=== PATIENT | female | born 1930 | race American Indian/Alaskan Native ===

== ENCOUNTER 2018-04-26 04:26 | Inpatient (IN) | payer MEDICARE ==
[2018-04-26] MEDS ORDERED: PROVENTIL IH ONE (04:42)
[2018-04-26] MEDS ORDERED: ATROVENT IH ONE (04:42)
[2018-04-26 04:58] LABS: Basophils # (Auto) 0.1 K/mm3 (0.0-0.1); Basophils % (Auto) 0.9 % (0.0-1.8); Eosinophils # (Auto) 0.1 K/mm3 (0.0-0.4); Eosinophils % (Auto) 1.8 % (0.0-4.3); Hematocrit 27.9 % (30.3-42.9); Hemoglobin 8.8 gm/dl (10.1-14.3); Lymphocytes # (Auto) 0.5 K/mm3 (1.2-5.4); Lymphocytes % (Auto) 5.9 % (13.4-35.0); Mean Corpuscular HGB Conc 32 % (30-34); Mean Corpuscular Volume 96 fl (79-97); Monocytes % (Auto) 11.6 % (0.0-7.3); Platelet Count 249 K/mm3 (140-440); Red Blood Count 2.91 M/mm3 (3.65-5.03); Red Cell Distribution Width 17.7 % (13.2-15.2)
[2018-04-26 05:08] LABS: INR 1.22 (0.87-1.13)
[2018-04-26 05:09] LABS: Partial Thromboplastin Time 32.4 Sec. (24.2-36.6)
[2018-04-26 05:19] LABS: Calcium 8.3 mg/dL (8.4-10.2)
--- NOTE | 2018-04-26 05:28 | XRay Report ---
FINAL REPORT PROCEDURE: XR CHEST 1V AP TECHNIQUE: Chest radiograph anteroposterior view. CPT 40767 HISTORY: SOB COMPARISON: No prior studies are available for comparison. FINDINGS: Heart: The heart is enlarged. Mediastinum/Vessels: Normal. Lungs/Pleural space: There are bilateral pleural effusions larger on the right. There right perihilar infiltrates. There is no pneumothorax.. Bony thorax: No acute osseous abnormality. Life support devices: None. IMPRESSION: The heart is enlarged. There are bilateral pleural effusions larger on the right. There right perihilar infiltrates. There i s no pneumothorax.. .
[2018-04-26 05:45] LABS: Chol/HDL Ratio 1.92 %
--- NOTE | 2018-04-26 06:11 | Emergency Department Report ---
ED Shortness of Breath HPI - General Chief Complaint: Dyspnea/Respdistress Stated Complaint: RESPIRATORY DISTRESS Time Seen by Provider: 04/26/18 06:05 Source: patient, EMS Mode of arrival: Stretcher Limitations: Physical Limitation - History of Present Illness Initial Comments: Patient is a 87-year-old female that presents emergency room with complaints of difficulty in breathing and congestion that started at 3 AM today. [facility] a [facility] a [facility]. Patient was brought in by EMS. Patient was given medication by EMS in route. Medications include Solu-Medrol, albuterol and Lasix. Patient was initially hypoxic. MD Complaint: shortness of breath -: Sudden Severity: severe Consistency: constant Improves With: oxygen, rest Worsens With: exertion, movement Known History Of: COPD, congestive heart failure Associated Symptoms: cough, sputum production Treatments Prior to Arrival: oxygen, bronchodilator, other - Related Data Home Oxygen Therapy: Yes Home Oxygen Amount: 3 Liters Previous Rx's Medication Instructions Recorded Last Taken Type Amiodarone [Cordarone 200 MG TAB] 200 mg PO QDAY #30 tablet 05/06/17 Unknown Rx Aspirin [Aspirin BABY CHEW TAB] 81 mg PO QDAY #30 tab.chew 05/06/17 Unknown Rx Folic Acid [Folvite] 1 mg PO QDAY #30 tablet 05/06/17 Unknown Rx Furosemide [Furosemide ORAL LIQ] 40 mg PO QDAY #20 ml 05/06/17 Unknown Rx Levalbuterol [Xopenex] 1.25 mg IH Q6HRT #1 nebu 05/06/17 Unknown Rx Levothyroxine [Synthroid] 125 mcg PO QAM #30 tablet 05/06/17 Unknown Rx Potassium Chloride [K-Dur] 20 meq PO QHS #30 tablet 05/06/17 Unknown Rx Pravastatin [Pravachol] 40 mg PO DAILY #30 tablet 05/06/17 Unknown Rx amLODIPine [Norvasc] 5 mg PO QDAY #30 tablet 05/06/17 Unknown Rx levETIRAcetam [Keppra] 500 mg PO BID #30 tablet 05/06/17 Unknown Rx traZODone [Desyrel] 50 mg PO QHS #30 tablet 05/06/17 Unknown Rx Allergies Allergy/AdvReac Type Severity Reaction Status Date / Time No Known Allergies Allergy Verified 04/03/14 21:12 ED Review of Systems ROS: Stated complaint: RESPIRATORY DISTRESS Other details as noted in HPI Constitutional: denies: chills, fever Eyes: denies: eye pain, eye discharge, vision change ENT: denies: ear pain, throat pain Respiratory: cough, shortness of breath, SOB with exertion, SOB at rest, wheezing Cardiovascular: denies: chest pain, palpitations Endocrine: no symptoms reported Gastrointestinal: denies: abdominal pain, nausea, diarrhea Genitourinary: denies: urgency, dysuria, discharge Musculoskeletal: denies: back pain, joint swelling, arthralgia Skin: denies: rash, lesions Neurological: denies: headache, weakness, paresthesias Psychiatric: denies: anxiety, depression Hematological/Lymphatic: denies: easy bleeding, easy bruising ED Past Medical Hx - Past Medical History Previous Medical History?: Yes Hx Hypertension: Yes Hx Heart Attack/AMI: No Hx Congestive Heart Failure: Yes Hx Diabetes: No (son denied) Hx Deep Vein Thrombosis: Yes Hx Arthritis: Yes (Rt shoulder and knee) Hx Headaches / Migraines: No Hx Seizures: Yes (seizure/TIA workup December 2012) Hx Asthma: Yes Hx Dementia: Yes Hx HIV: No Additional medical history: Anemia with transfusion April 2013. Seizure/TIA workup in December 2012 revealed 2 small meningiomas. hypothyroid - Surgical History Past Surgical History?: Yes Hx Coronary Stent: Yes Hx Pacemaker: Yes Hx Internal Defibrillator: No Additional Surgical History: hysterectomy, left ankle repair (fx) about 4 years ago - Family History Family history: no significant - Social History Smoking Status: Former Smoker Substance Use Type: None - Medications Home Medications: Home Medications Medication Instructions Recorded Confirmed Last Taken Type Amiodarone [Cordarone 200 MG TAB] 200 mg PO QDAY #30 tablet 05/06/17 Unknown Rx Aspirin [Aspirin BABY CHEW TAB] 81 mg PO QDAY #30 tab.chew 05/06/17 Unknown Rx Folic Acid [Folvite] 1 mg PO QDAY #30 tablet 05/06/17 Unknown Rx Furosemide [Furosemide ORAL LIQ] 40 mg PO QDAY #20 ml 05/06/17 Unknown Rx Levalbuterol [Xopenex] 1.25 mg IH Q6HRT #1 nebu 05/06/17 Unknown Rx Levothyroxine [Synthroid] 125 mcg PO QAM #30 tablet 05/06/17 Unknown Rx Potassium Chloride [K-Dur] 20 meq PO QHS #30 tablet 05/06/17 Unknown Rx Pravastatin [Pravachol] 40 mg PO DAILY #30 tablet 05/06/17 Unknown Rx amLODIPine [Norvasc] 5 mg PO QDAY #30 tablet 05/06/17 Unknown Rx levETIRAcetam [Keppra] 500 mg PO BID #30 tablet 05/06/17 Unknown Rx traZODone [Desyrel] 50 mg PO QHS #30 tablet 05/06/17 Unknown Rx ED Physical Exam - General Limitations: Altered Mental Status, Physical Limitation General appearance: alert, in no apparent distress - Head Head exam: Present: atraumatic, normocephalic - Eye Eye exam: Present: normal appearance - ENT ENT exam: Present: mucous membranes dry - Neck Neck exam: Present: normal inspection - Respiratory Respiratory exam: Present: respiratory distress, wheezes - Cardiovascular Cardiovascular Exam: Present: regular rate, normal rhythm. Absent: systolic murmur, diastolic murmur, rubs, gallop - GI/Abdominal GI/Abdominal exam: Present: soft, normal bowel sounds. Absent: distended, te nderness, guarding - Rectal Rectal exam: Present: deferred - Extremities Exam Extremities exam: Present: normal inspection - Back Exam Back exam: Present: normal inspection - Neurological Exam Neurological exam: Present: alert, altered - Skin Skin exam: Present: warm, dry, intact, normal color. Absent: rash ED Course Vital Signs 04/26/18 04/26/18 04/26/18 04:32 04:40 04:47 Temperature 98.4 F Pulse Rate 104 H 104 H Pulse Rate [ 103 H Anterior Bilateral Throughout] Respiratory 30 H 26 H Rate Respiratory 26 H Rate [Anterior Bilateral Throughout] Blood Pressure 126/59 Blood Pressure 126/59 [Left] O2 Sat by Pulse 85 98 Oximetry 04/26/18 04/26/18 04/26/18 04:50 05:00 05:10 Temperature Pulse Rate 102 H 98 H 103 H Pulse Rate [ Anterior Bilateral Throughout] Respiratory 28 H 28 H 27 H Rate Respiratory Rate [Anterior Bilateral Throughout] Blood Pressure 126/59 118/41 118/41 Blood Pressure [Left] O2 Sat by Pulse 98 99 98 Oximetry 04/26/18 04/26/18 04/26/18 05:16 05:20 05:30 Temperature Pulse Rate 100 H 107 H Pulse Rate [ 108 H Anterior Bilateral Throughout] Respiratory 29 H 27 H Rate Respiratory 27 H Rate [Anterior Bilateral Throughout] Blood Pressure 118/41 120/35 Blood Pressure [Left] O2 Sat by Pulse 100 100 Oximetry 04/26/18 04/26/18 04/26/18 05:40 05:50 06:00 Temperature Pulse Rate 105 H 103 H 104 H Pulse Rate [ Anterior Bilateral Throughout] Respiratory 29 H 30 H 29 H Rate Respiratory Rate [Anterior Bilateral Throughout] Blood Pressure 120/35 120/35 123/39 Blood Pressure [Left] O2 Sat by Pulse 100 100 100 Oximetry 04/26/18 04/26/18 04/26/18 06:10 06:20 07:00 Temperature Pulse Rate 109 H 108 H 110 H Pulse Rate [ Anterior Bilateral Throughout] Respiratory 26 H 28 H 26 H Rate Respiratory Rate [Anterior Bilateral Throughout] Blood Pressure 123/39 123/39 112/45 Blood Pressure [Left] O2 Sat by Pulse 100 100 97 Oximetry 04/26/18 04/26/18 04/26/18 07:30 07:31 07:37 Temperature 97.3 F L Pulse Rate 102 H 101 H Pulse Rate [ Anterior Bilateral Throughout] Respiratory 27 H 35 H Rate Respiratory Rate [Anterior Bilateral Throughout] Blood Pressure 109/40 109/40 Blood Pressure [Left] O2 Sat by Pulse 98 96 Oximetry 04/26/18 04/26/18 04/26/18 07:40 07:50 08:00 Temperature Pulse Rate 100 H 107 H 108 H Pulse Rate [ Anterior Bilateral Throughout] Respiratory 29 H 19 22 Rate Respiratory Rate [Anterior Bilateral Throughout] Blood Pressure 112/45 112/45 101/39 Blood Pressure [Left] O2 Sat by Pulse 95 96 96 Oximetry 04/26/18 04/26/18 04/26/18 08:10 08:20 08:30 Temperature Pulse Rate 104 H 103 H 98 H Pulse Rate [ Anterior Bilateral Throughout] Respiratory 25 H 21 22 Rate Respiratory Rate [Anterior Bilateral Throughout] Blood Pressure 101/39 101/39 99/39 Blood Pressure [Left] O2 Sat by Pulse 96 97 97 Oximetry 04/26/18 04/26/18 04/26/18 08:40 08:50 09:00 Temperature Pulse Rate 101 H Pulse Rate [ Anterior Bilateral Throughout] Respiratory 21 19 18 Rate Respiratory Rate [Anterior Bilateral Throughout] Blood Pressure 101/39 101/39 103/44 Blood Pressure [Left] O2 Sat by Pulse 98 98 98 Oximetry 04/26/18 04/26/18 04/26/18 09:10 09:20 09:30 Temperature Pulse Rate Pulse Rate [ Anterior Bilateral Throughout] Respiratory 25 H 21 18 Rate Respiratory Rate [Anterior Bilateral Throughout] Blood Pressure 99/39 99/39 98/43 Blood Pressure [Left] O2 Sat by Pulse 99 99 99 Oximetry 04/26/18 04/26/18 04/26/18 09:40 09:50 10:00 Temperature Pulse Rate Pulse Rate [ Anterior Bilateral Throughout] Respiratory 18 20 19 Rate Respiratory Rate [Anterior Bilateral Throughout] Blood Pressure 103/44 103/44 109/50 Blood Pressure [Left] O2 Sat by Pulse 99 99 99 Oximetry - Reevaluation(s) Reevaluation #1: Discussed case with family at bedside. Initial evaluation done. She will need to be placed on BiPAP. 04/26/18 06:22 - Consultations Consultation #1: Hospitalist consulted for admission. Hospitalist to admit patient and assume care of patient. Bridge orders placed 04/26/18 07:37 ED Medical Decision Making - Lab Data Result diagrams: 04/26/18 04:43 04/26/18 04:43 - EKG Data -: EKG Interpreted by [facility] EKG shows normal: axis, intervals, QRS complexes, ST-T waves Rate: tachycardia - EKG Data Interpretation: other (atrial fibrillation. ) - Radiology Data Radiology results: report reviewed FINAL REPORT PROCEDURE: XR CHEST 1V AP TECHNIQUE: Chest radiograph anteroposterior view. CPT 57591 HISTORY: SOB COMPARISON: No prior studies are available for comparison. FINDINGS: Heart: The heart is enlarged. Mediastinum/Vessels: Normal. Lungs/Pleural space: There are bilateral pleural effusions larger on the right. There right perihilar infiltrates. There is no pneumothorax.. Bony thorax: No acute osseous abnormality. Life support devices: None. IMPRESSION: The heart is enlarged. There are bilateral pleural effusions larger on the right. There right perihilar infiltrates. There is no pneumothorax.. . - Medical Decision Making Patient is an 87-year-old female that presents emergent complaints of shortness of breath and dyspnea and Cough and congestion. Patient found to be hypoxic. Patient's labs were reviewed. Patient has multiple lab abnormalities. Patient chest x-ray shows a right-sided pneumonia and CHF changes. Patient found to have a CHF exacerbation as well as COPD exacerbation as well as pneumonia. Patient will be admitted to the hospital. Due the patient's findings, patient placed on BiPAP. - Differential Diagnosis copd/asthma exac. chf exac. pna. hypoxia Critical Care Time: Yes Critical care attestation.: If time is entered above; I have spent that time in minutes in the direct care of this critically ill patient, excluding procedure time. Critical Care Time: 35 minutes ED Disposition Clinical Impression: Respiratory distress, Hypoxia, Respiratory acidosis, Elevated troponin I level, Renal insufficiency CHF (congestive heart failure) Qualifiers: Heart failure type: unspecified Heart failure chronicity: acute on chronic Qualified Code(s): I50.9 - Heart failure, unspecified Anemia Qualifiers: Anemia type: unspecified type Qualified Code(s): D64.9 - Anemia, unspecified CHF exacerbation Qualifiers: Heart failure type: unspecified Qualified Code(s): I50.9 - Heart failure, unspecified Pneumonia Qualifiers: Pneumonia type: due to unspecified organism Laterality: right Lung location: unspecified part of lung Qualified Code(s): J18.9 - Pneumonia, unspecified organism Acute respiratory failure Qualifiers: Respiratory failure complication: hypoxia and hypercapnia Qualified Code(s): J96.01 - Acute respiratory failure with hypoxia Afib Qualifiers: Atrial fibrillation type: chronic Qualified Code(s): I48.2 - Chronic atrial fibrillation Disposition: OP ADMIT IP TO THIS HOSP Is pt being admited?: Yes Does the pt Need Aspirin: No Condition: Critical Time of Disposition: 07:37
[2018-04-26] MEDS ORDERED: MAXIPIME/NS 2 GM/100 ML 2 GM/100 ML BAG IV ONE (06:58)
--- NOTE | 2018-04-26 08:05 | History and Physical Report ---
History of Present Illness Date of examination: 04/26/18 Date of admission: 04/26/18 Chief complaint: Worsening shortness of breath/respiratory distress History of present illness: 87-year-old, female patient resident of [facility] rehabilitation was in acute respiratory distress with worsening shortness of breath EMS was called, and patient was noted to be in severe hypoxia with room air O2 sats of 82% Patient received IV Lasix and nebulizers and IV steroids and oxygen with mild improvement Upon arrival patient was in mild distress ,acidotic and hypoxic and hypercapnic respiratory failure Patient is minimally communicative, unable to obtain proper history Initial workup was consistent with hypoxemia, the congestion past troponins Chest x-ray consistent with bilateral pleural effusion right more than left, perihilar infiltrate At the time of my evaluation patient is on BiPAP saturating 94-95% Tachypneic and tachycardic Past History Past Medical History: atrial fib, COPD, heart failure, hypertension, hyperlipidemia, hypothyroidism, seizures, other (dementia) Past Surgical History: hysterectomy, Other (ankle surgery) Social history: full code, other ([facility] resident). denies: smoking, alcohol abuse Family history: hypertension Medications and Allergies Allergies Allergy/AdvReac Type Severity Reaction Status Date / Time No Known Allergies Allergy Verified 04/03/14 21:12 Home Medications Medication Instructions Recorded Confirmed Last Taken Type Amiodarone [Cordarone 200 MG TAB] 200 mg PO QDAY #30 tablet 05/06/17 Unknown Rx Aspirin [Aspirin BABY CHEW TAB] 81 mg PO QDAY #30 tab.chew 05/06/17 Unknown Rx Folic Acid [Folvite] 1 mg PO QDAY #30 tablet 05/06/17 Unknown Rx Furosemide [Furosemide ORAL LIQ] 40 mg PO QDAY #20 ml 05/06/17 Unknown Rx Levalbuterol [Xopenex] 1.25 mg IH Q6HRT #1 nebu 05/06/17 Unknown Rx Levothyroxine [Synthroid] 125 mcg PO QAM #30 tablet 05/06/17 Unknown Rx Potassium Chloride [K-Dur] 20 meq PO QHS #30 tablet 05/06/17 Unknown Rx Pravastatin [Pravachol] 40 mg PO DAILY #30 tablet 05/06/17 Unknown Rx amLODIPine [Norvasc] 5 mg PO QDAY #30 tablet 05/06/17 Unknown Rx levETIRAcetam [Keppra] 500 mg PO BID #30 tablet 05/06/17 Unknown Rx traZODone [Desyrel] 50 mg PO QHS #30 tablet 05/06/17 Unknown Rx Review of Systems ROS unobtainable: due to mental status Exam - Constitutional Vitals: Temp Pulse Resp BP Pulse Ox 97.3 F L 101 H 35 H 109/40 96 04/26/18 07:31 04/26/18 07:37 04/26/18 07:37 04/26/18 07:37 04/26/18 07:37 General appearance: Present: no acute distress, cachectic, disheveled, other (confused) - EENT Eyes: Present: PERRL, EOM intact - Neck Neck: Present: supple, normal ROM - Respiratory Respiratory effort: labored Respiratory: bilateral: diminished (right more than left), rhonchi, negative: rales, wheezing - Cardiovascular Heart Sounds: Present: S1 & S2 - Extremities Extremities: no ischemia, No edema, abnormal (chronic age-related changes) - Abdominal General gastrointestinal: Present: soft, non-tender, non-distended, normal bowel sounds - Integumentary Integumentary: Present: clear, warm - Musculoskeletal Musculoskeletal: generalized weakness - Psychiatric Psychiatric: other (noncommunicative) - Neurologic Neurologic: other (minimal communication) Results - Labs CBC & Chem 7: 04/26/18 04:43 04/26/18 04:43 Labs: Abnormal lab results 04/26/18 04/26/18 04/26/18 Range/Units 04:43 04:43 04:47 RBC 2.91 L (3.65-5.03) M/mm3 Hgb 8.8 L (10.1-14.3) gm/dl Hct 27.9 L (30.3-42.9) % RDW 17.7 H (13.2-15.2) % Lymph % (Auto) 5.9 L (13.4-35.0) % [place] % (Auto) 11.6 H (0.0-7.3) % Lymph # 0.5 L (1.2-5.4) K/mm3 [place] # 1.0 H (0.0-0.8) K/mm3 Seg Neutrophils % 79.8 H (40.0-70.0) % PT 15.8 H (12.2-14.9) Sec. INR 1.22 H (0.87-1.13) D-Dimer (0-234) ng/mlDDU POC ABG pH (7.35-7.45) POC ABG pCO2 (35-45) POC ABG pO2 (80-105) Sodium 146 H (137-145) mmol/L Chloride 111.4 H (98-107) mmol/L Carbon Dioxide 21 L (22-30) mmol/L BUN 27 H (7-17) mg/dL Creatinine 1.8 H (0.7-1.2) mg/dL Calcium 8.3 L (8.4-10.2) mg/dL Troponin T (0.00-0.029) ng/mL NT-Pro-B Natriuret Pep (0-900) pg/mL LDL Cholesterol Direct (50-130) mg/dL HDL Cholesterol (40-59) mg/dL 04/26/18 04/26/18 04/26/18 Range/Units 04:47 04:47 05:34 RBC (3.65-5.03) M/mm3 Hgb (10.1-14.3) gm/dl Hct (30.3-42.9) % RDW (13.2-15.2) % Lymph % (Auto) (13.4-35.0) % [place] % (Auto) (0.0-7.3) % Lymph # (1.2-5.4) K/mm3 [place] # (0.0-0.8) K/mm3 Seg Neutrophils % (40.0-70.0) % PT (12.2-14.9) Sec. INR (0.87-1.13) D-Dimer 254.08 H (0-234) ng/mlDDU POC ABG pH 7.142 L (7.35-7.45) POC ABG pCO2 65.4 H (35-45) POC ABG pO2 126 H (80-105) Sodium (137-145) mmol/L Chloride (98-107) mmol/L Carbon Dioxide (22-30) mmol/L BUN (7-17) mg/dL Creatinine (0.7-1.2) mg/dL Calcium (8.4-10.2) mg/dL Troponin T 0.149 H* (0.00-0.029) ng/mL NT-Pro-B Natriuret Pep 5133 H (0-900) pg/mL LDL Cholesterol Direct 45 L (50-130) mg/dL HDL Cholesterol 67 H (40-59) mg/dL Assessment and Plan --Acute hypoxic/hypercapnic respiratory failure; requiring BiPAP Titrate O2 sats >90%, nebs, IV steroids,IV antibiotics, supportive care --Acute exacerbation of bronchial asthma; Oxygen nebulizers IV steroids and IV antibiotics inhalation steroids Pulmonary critical consultation --Bilateral pleural effusion; right more than left, pulmonary consultation Possible ultrasound-guided thoracentesis if needed --Perihilar infiltrate/possible pneumonia; empiric antibiotics --Acute on chronic congestive heart failure; EF :45-50% 2 years ago, IV diuretics, beta blockers Input output monitoring, echocardiogram, cardiology evaluation --Positive cardiac enzymes/possible non-ST elevation SD Cardiac medications serial cardiac enzymes and EKGs Cardiology evaluation --Acute on chronic kidney injury; vasomotor nephropathy, avoid nephrotoxins, nephro evaluation if no improvement --History of A. fib; rate controlled: Continue amiodarone, aspirin, not a candidate for chronic anticoagulation, h/o GI bleed ,dementia ,age risk of falls Cardiology consultation --Dementia; supportive care --Hypothyroidism; continue Synthroid --DVT prophylaxis; SCDs, Lovenox --Full CODE STATUS Patient hypoxemia, if no improvement on noninvasive ventilation patient may need intubation and mechanical ventilation, Admit to ICU, critical care consult The high probability of a clinically significant, sudden or life threatening deterioration of the [ respiratory, renal, cardiac,metabolic and neuro] system(s) required my full and direct attention, intervention and personal management.The aggregate critical care time was [45] minutes. This time is in addition to time spent performing reported procedures but includes the following: [x] Data Review and interpretation [x] Patient assessment and monitoring of vital signs [x] Documentation [x] Medication orders and management
[2018-04-26] MEDS ORDERED: PROTONIX IV SCH (10:00)
[2018-04-26] MEDS: NORVASC PO SCH (11:13)
--- NOTE | 2018-04-26 11:33 | Consultation ---
History of Present Illness - Reason for Consult Consult date: 04/26/18 chronic renal failure - History of Present Illness The patient is an 87 YO female from [facility] rehabilitation with history significant for HTN, HLD, Atrial fib, COPD, CHF, Hypothyroidism and Seizures who presented with acute respiratory distress. Patient was not able to provide any history and there was no family members at the bedside. She was noted to be hypoxic with room air O2 sats of 82%. Patient received IV Lasix, nebulizers, IV steroids and oxygen with mild improvement. She was noted to have acidosis, hypoxic hypercapnic respiratory failure, bilateral pleural effusion right more than left, perihilar infiltrate and elevated creatinine level. Nephrology was consulted for further evaluation and treatment. Past History Past Medical History: atrial fib, COPD, heart failure, hypertension, hyperlipidemia, hypothyroidism, seizures Past Surgical History: hysterectomy, Other (ankle surgery) Social history: full code, other ([facility] resident). denies: smoking, alcohol abuse Family history: hypertension Medications and Allergies Allergies Allergy/AdvReac Type Severity Reaction Status Date / Time No Known Allergies Allergy Verified 04/03/14 21:12 Home Medications Medication Instructions Recorded Confirmed Last Taken Type Amiodarone [Cordarone 200 MG TAB] 200 mg PO QDAY #30 tablet 05/06/17 Unknown Rx Aspirin [Aspirin BABY CHEW TAB] 81 mg PO QDAY #30 tab.chew 05/06/17 Unknown Rx Folic Acid [Folvite] 1 mg PO QDAY #30 tablet 05/06/17 Unknown Rx Furosemide [Furosemide ORAL LIQ] 40 mg PO QDAY #20 ml 05/06/17 Unknown Rx Levalbuterol [Xopenex] 1.25 mg IH Q6HRT #1 nebu 05/06/17 Unknown Rx Levothyroxine [Synthroid] 125 mcg PO QAM #30 tablet 05/06/17 Unknown Rx Potassium Chloride [K-Dur] 20 meq PO QHS #30 tablet 05/06/17 Unknown Rx Pravastatin [Pravachol] 40 mg PO DAILY #30 tablet 05/06/17 Unknown Rx amLODIPine [Norvasc] 5 mg PO QDAY #30 tablet 05/06/17 Unknown Rx levETIRAcetam [Keppra] 500 mg PO BID #30 tablet 05/06/17 Unknown Rx traZODone [Desyrel] 50 mg PO QHS #30 tablet 05/06/17 Unknown Rx Active Meds: Active Medications Albuterol/Ipratropium (Duoneb *Not For Prn Use*) 1 ampul IH Q6HRT [facility] Amiodarone HCl (Cordarone) 200 mg PO QDAY [facility] Amlodipine Besylate (Norvasc) 5 mg PO QDAY [facility] Last Admin: 04/26/18 11:13 Dose: Not Given Documented by: Aspirin (Baby Aspirin) 81 mg PO QDAY [facility] Budesonide (Pulmicort) 0.5 mg IH Q12HRT [facility] Famotidine (Pepcid) 20 mg IV BID [facility] Folic Acid (Folvite) 1 mg PO QDAY [facility] Furosemide (Lasix) 40 mg IV QDAY [facility] Levofloxacin/Dextrose (Levaquin 500mg/100ml) 500 mg in 100 mls @ 100 mls/hr IV Q24HR [facility]; Protocol Piperacillin Sod/Tazobactam Sod (Zosyn/Ns 4.5gm/100ml) 4.5 gm in 100 mls @ 200 mls/hr IV Q8HR [facility]; Protocol Levetiracetam (Keppra) 500 mg PO BID [facility] Levothyroxine Sodium (Synthroid) 125 mcg PO QAM@0600 [facility] Methylprednisolone Sodium Succinate (Solu-Medrol) 60 mg IV Q8HR [facility] Pravastatin Sodium (Pravachol) 40 mg PO DAILY [facility] Trazodone HCl (Desyrel) 50 mg PO QHS [facility] Review of Systems ROS unobtainable: due to mental status Exam - Vital Signs Vital signs: Vital Signs Temp Pulse Resp BP Pulse Ox 98.4 F 112 H 28 H 126/59 84 04/26/18 04:32 04/26/18 04:32 04/26/18 04:32 04/26/18 04:32 04/26/18 04:32 - General Appearance General appearance: well-developed, appears stated age, other (on VM O2) EENT: ATNC, PERRL Neck: Present: neck supple, trachea midline Respiratory: Clear to Ascultation Heart: irregularly irregular, S1S2 Gastrointestinal: Present: normoactive bowel sounds. Absent: tenderness, distended Integumentary: no rash, warm and dry Neurologic: other (not following any command) Musculoskeletal: Present: other (no edema) Results - Lab Results 04/27/18 04:39 04/27/18 04:39 Most recent lab results Calcium 8.3 mg/dL (8.4-10.2) L 04/26/18 04:43 - Image Kidney/bladder ultrasound: pending Assessment and Plan 1. Renal insufficiency: Patient was admitted with elevated creatinine level. Creatinine level is about the same as last year. Suspect CKD stage 4. Urine studies ordered. Likely would need Renal US. Renal prognosis is guarded. Monitor renal function. 2. FEN: Received IV Lasix for suspected fluid overload. Anion gap metabolic acidosis, ?2/2 CKD / ARTURO. Sodium bicarbonate as needed. 3. Hypoxic hypercapnic respiratory failure: Followed by Pulmonary. 4. Bilateral pleural effusion right more than left. 5. Perihilar infiltrate, possible pneumonia: Empiric antibiotics 6. Acute on chronic systolic CHF. 7. Positive cardiac enzymes: ? NSTEMI. On ASA. 8. A. fib: Rate controlled on Amiodarone. 9. Dementia.
[2018-04-26] MEDS ORDERED: LASIX IV SCH (12:00)
[2018-04-26] MEDS ORDERED: LEVAQUIN 500MG/100ML 500 MG/100 ML BAG IV SCH (12:00)
--- NOTE | 2018-04-26 12:01 | Consultation ---
History of Present Illness Consult date: 04/26/18 Requesting physician: NICK PRESTON Reason for consult: dyspnea History of present illness: 87 y/o female admitted with acidemia and respiratory distress. Patient not able to provide much history. No family present. Past History Past Medical History: atrial fib, COPD, heart failure, hypertension, hyperlipidemia, hypothyroidism, seizures Past Surgical History: hysterectomy, Other (ankle surgery) Social history: full code, other ([facility] resident). denies: smoking, alcohol abuse Family history: hypertension Medications and Allergies Allergies Allergy/AdvReac Type Severity Reaction Status Date / Time No Known Allergies Allergy Verified 04/03/14 21:12 Home Medications Medication Instructions Recorded Confirmed Last Taken Type Amiodarone [Cordarone 200 MG TAB] 200 mg PO QDAY #30 tablet 05/06/17 Unknown Rx Aspirin [Aspirin BABY CHEW TAB] 81 mg PO QDAY #30 tab.chew 05/06/17 Unknown Rx Folic Acid [Folvite] 1 mg PO QDAY #30 tablet 05/06/17 Unknown Rx Furosemide [Furosemide ORAL LIQ] 40 mg PO QDAY #20 ml 05/06/17 Unknown Rx Levalbuterol [Xopenex] 1.25 mg IH Q6HRT #1 nebu 05/06/17 Unknown Rx Levothyroxine [Synthroid] 125 mcg PO QAM #30 tablet 05/06/17 Unknown Rx Potassium Chloride [K-Dur] 20 meq PO QHS #30 tablet 05/06/17 Unknown Rx Pravastatin [Pravachol] 40 mg PO DAILY #30 tablet 05/06/17 Unknown Rx amLODIPine [Norvasc] 5 mg PO QDAY #30 tablet 05/06/17 Unknown Rx levETIRAcetam [Keppra] 500 mg PO BID #30 tablet 05/06/17 Unknown Rx traZODone [Desyrel] 50 mg PO QHS #30 tablet 05/06/17 Unknown Rx Active Meds: Active Medications Albuterol/Ipratropium (Duoneb *Not For Prn Use*) 1 ampul IH Q6HRT [facility] Amiodarone HCl (Cordarone) 200 mg PO QDAY [facility] Amlodipine Besylate (Norvasc) 5 mg PO QDAY [facility] Last Admin: 04/26/18 11:13 Dose: Not Given Documented by: Aspirin (Baby Aspirin) 81 mg PO QDAY [facility] Budesonide (Pulmicort) 0.5 mg IH Q12HRT [facility] Famotidine (Pepcid) 20 mg IV BID [facility] Folic Acid (Folvite) 1 mg PO QDAY [facility] Furosemide (Lasix) 40 mg IV QDAY [facility] Levofloxacin/Dextrose (Levaquin 500mg/100ml) 500 mg in 100 mls @ 100 mls/hr IV Q24HR [facility]; Protocol Piperacillin Sod/Tazobactam Sod (Zosyn/Ns 4.5gm/100ml) 4.5 gm in 100 mls @ 200 mls/hr IV Q8HR [facility]; Protocol Levetiracetam (Keppra) 500 mg PO BID [facility] Levothyroxine Sodium (Synthroid) 125 mcg PO QAM@0600 [facility] Methylprednisolone Sodium Succinate (Solu-Medrol) 60 mg IV Q8HR [facility] Pravastatin Sodium (Pravachol) 40 mg PO DAILY [facility] Trazodone HCl (Desyrel) 50 mg PO QHS [facility] Review of Systems ROS unobtainable: due to mental status Physical Examination Vital signs: Vital Signs Temp Pulse Resp BP Pulse Ox 98.4 F 112 H 28 H 126/59 84 04/26/18 04:32 04/26/18 04:32 04/26/18 04:32 04/26/18 04:32 04/26/18 04:32 General appearance: no acute distress, alert, lethargic Eyes: non-icteric ENT: oropharynx moist Neck: supple, no JVD Effort: mildly labored Ascultation: Bilateral: diminished breath sounds Cardiovascular: regular rate and rhythm Gastrointestinal: normoactive bowel sounds, soft Extremities: no edema unable to assess Results - Laboratory Findings CBC and BMP: 04/26/18 04:43 04/26/18 04:43 ABG POC ABG pH 7.167 (7.35-7.45) L 04/26/18 10:26 POC ABG pCO2 53.1 (35-45) H 04/26/18 10:26 POC ABG pO2 91 (80-105) 04/26/18 10:26 POC ABG HCO3 19.3 04/26/18 10:26 POC ABG Total CO2 21 04/26/18 10:26 POC ABG O2 Sat 94 04/26/18 10:26 PT/INR, D-dimer PT 15.8 Sec. (12.2-14.9) H 04/26/18 04:47 INR 1.22 (0.87-1.13) H 04/26/18 04:47 D-Dimer 254.08 ng/mlDDU (0-234) H 04/26/18 04:47 Abnormal lab findings: Abnormal Labs 04/26/18 04/26/18 04/26/18 04:43 04:43 04:47 RBC 2.91 L Hgb 8.8 L Hct 27.9 L RDW 17.7 H Lymph % (Auto) 5.9 L Andrews % (Auto) 11.6 H Lymph # 0.5 L Andrews # 1.0 H Seg Neutrophils % 79.8 H PT 15.8 H INR 1.22 H D-Dimer POC ABG pH POC ABG pCO2 POC ABG pO2 Sodium 146 H Chloride 111.4 H Carbon Dioxide 21 L BUN 27 H Creatinine 1.8 H Calcium 8.3 L Troponin T NT-Pro-B Natriuret Pep LDL Cholesterol Direct HDL Cholesterol 04/26/18 04/26/18 04/26/18 04:47 04:47 05:34 RBC Hgb Hct RDW Lymph % (Auto) Andrews % (Auto) Lymph # Andrews # Seg Neutrophils % PT INR D-Dimer 254.08 H POC ABG pH 7.142 L POC ABG pCO2 65.4 H POC ABG pO2 126 H Sodium Chloride Carbon Dioxide BUN Creatinine Calcium Troponin T 0.149 H* NT-Pro-B Natriuret Pep 5133 H LDL Cholesterol Direct 45 L HDL Cholesterol 67 H 04/26/18 10:26 RBC Hgb Hct RDW Lymph % (Auto) Andrews % (Auto) Lymph # Andrews # Seg Neutrophils % PT INR D-Dimer POC ABG pH 7.167 L POC ABG pCO2 53.1 H POC ABG pO2 Sodium Chloride Carbon Dioxide BUN Creatinine Calcium Troponin T NT-Pro-B Natriuret Pep LDL Cholesterol Direct HDL Cholesterol - Diagnostic Findings Chest x-ray: image reviewed (Large right sided pleural effusion) Assessment and Plan 87 y/o female with severe acidemia, exactly etiology is unknown, with hypercapnea, tachypnea and large right sided pleural effusion. 1. Check LFT' 2. Check Thyroid studies 3. Ok with bipap for now 4. Hold on bicarb therapy as bicarb on chemistry was 21 and anion GAP is only 14, normal lactic acid 5. Agree with lasix therapy 6. May need to tap effusion, will reassess later this afternoon 7. Repeat ABG in mid afternoon. CCT 31 minutes.
[2018-04-26 13:28] LABS: Albumin 3.3 g/dL (3.9-5)
[2018-04-26 13:33] LABS: Alanine Aminotransferase < 5 units/L (7-56); Bilirubin,Direct < 0.2 mg/dL (0-0.2)
[2018-04-26] MEDS ORDERED: PROVENTIL IH SCH (14:00)
--- NOTE | 2018-04-26 14:06 | XRay Report ---
AP ABDOMEN: HISTORY: Dobbhoff tube placement. The Dobbhoff tube is coiled in the mid stomach. No obstructive bowel gas pattern is appreciated. There is moderate stool in the colon. Diffuse aortic calcifications are noted. Cardiomegaly, pulmonary venous congestion and small pleural effusions are identified the lung bases. IMPRESSION: The feeding tube terminates in the mid stomach.
--- NOTE | 2018-04-26 14:10 | Consultation ---
History of Present Illness Consult date: 04/26/18 Requesting physician: NICK PRESTON Consult reason: atrial fibrillation, congestive heart failure, elevated troponin History of present illness: The pt is an 87-year-old female with a past medical history of atrial fibri llation, HTN, GI bleed, CKD, dementia. She is a patient resident of [facility] rehabilitation was in acute respiratory distress with worsening shortness of breath EMS was called, and patient was noted to be in severe hypoxia with room air O2 sats of 82%. Upon arrival patient was in mild distress ,acidotic and hypoxic and hypercapnic respiratory failure. Patient is minimally communicative, unable to obtain proper history. Chest x-ray consistent with bilateral pleural effusion right more than left, perihilar infiltrates. Pt reported to be in AFib with RVR initially, she is noted to be in apparent NSR on evaluation. Echo done 02/2014 showed EF 45-50%, mild TR, RVSP 39mmHg. Past History Past Medical History: atrial fib, hypertension, other (CKD) Past Surgical History: hysterectomy, Other (ankle surgery) Social history: full code, other ([facility] resident). denies: smoking, alcohol abuse Family history: hypertension Medications and Allergies Allergies Allergy/AdvReac Type Severity Reaction Status Date / Time No Known Allergies Allergy Verified 04/03/14 21:12 Home Medications Medication Instructions Recorded Confirmed Last Taken Type Amiodarone [Cordarone 200 MG TAB] 200 mg PO QDAY #30 tablet 05/06/17 Unknown Rx Aspirin [Aspirin BABY CHEW TAB] 81 mg PO QDAY #30 tab.chew 05/06/17 Unknown Rx Folic Acid [Folvite] 1 mg PO QDAY #30 tablet 05/06/17 Unknown Rx Furosemide [Furosemide ORAL LIQ] 40 mg PO QDAY #20 ml 05/06/17 Unknown Rx Levalbuterol [Xopenex] 1.25 mg IH Q6HRT #1 nebu 05/06/17 Unknown Rx Levothyroxine [Synthroid] 125 mcg PO QAM #30 tablet 05/06/17 Unknown Rx Potassium Chloride [K-Dur] 20 meq PO QHS #30 tablet 05/06/17 Unknown Rx Pravastatin [Pravachol] 40 mg PO DAILY #30 tablet 05/06/17 Unknown Rx amLODIPine [Norvasc] 5 mg PO QDAY #30 tablet 05/06/17 Unknown Rx levETIRAcetam [Keppra] 500 mg PO BID #30 tablet 05/06/17 Unknown Rx traZODone [Desyrel] 50 mg PO QHS #30 tablet 05/06/17 Unknown Rx Active Meds: Active Medications Albuterol/Ipratropium (Duoneb *Not For Prn Use*) 1 ampul IH Q6HRT [facility] Amiodarone HCl (Cordarone) 200 mg PO QDAY [facility] Amlodipine Besylate (Norvasc) 5 mg PO QDAY [facility] Last Admin: 04/26/18 11:13 Dose: Not Given Documented by: Aspirin (Baby Aspirin) 81 mg PO QDAY [facility] Budesonide (Pulmicort) 0.5 mg IH Q12HRT [facility] Famotidine (Pepcid) 20 mg IV BID [facility] Folic Acid (Folvite) 1 mg PO QDAY [facility] Furosemide (Lasix) 40 mg IV QDAY [facility] Levofloxacin/Dextrose (Levaquin 500mg/100ml) 500 mg in 100 mls @ 100 mls/hr IV Q24HR [facility]; Protocol Piperacillin Sod/Tazobactam Sod (Zosyn/Ns 4.5gm/100ml) 4.5 gm in 100 mls @ 200 mls/hr IV Q8HR [facility]; Protocol Levetiracetam (Keppra) 500 mg PO BID [facility] Levothyroxine Sodium (Synthroid) 125 mcg PO QAM@0600 [facility] Methylprednisolone Sodium Succinate (Solu-Medrol) 60 mg IV Q8HR [facility] Pravastatin Sodium (Pravachol) 40 mg PO DAILY [facility] Trazodone HCl (Desyrel) 50 mg PO QHS [facility] Review of Systems ROS unobtainable: due to mental status Physical Examination Vital Signs Temp Pulse Resp BP Pulse Ox 98.4 F 112 H 28 H 126/59 84 04/26/18 04:32 04/26/18 04:32 04/26/18 04:32 04/26/18 04:32 04/26/18 04:32 General appearance: other (lethargic, on bipap) HEENT: Positive: PERRL Neck: Positive: neck supple, trachea midline Cardiac: Positive: Reg Rate and Rhythm, S1/S2 Lungs: Positive: Decreased Breath Sounds, Rhonchi Neuro: Positive: Other (lethargic, on bipap) Abdomen: Negative: Tender Skin: Negative: Rash, Wound Musculoskeletal: No Pain Extremities: Absent: edema Results 04/26/18 04:43 04/26/18 04:43 Cardiac Enzymes 04/26/18 Range/Units 04:47 AST 8 (5-40) units/L Coagulation 04/26/18 Range/Units 04:47 PT 15.8 H (12.2-14.9) Sec. INR 1.22 H (0.87-1.13) APTT 32.4 (24.2-36.6) Sec. Lipids 04/26/18 Range/Units 04:47 Triglycerides 90 (2-149) mg/dL Cholesterol 129 (50-199) mg/dL HDL Cholesterol 67 H (40-59) mg/dL Cholesterol/HDL Ratio 1.92 % CBC 04/26/18 Range/Units 04:43 WBC 8.2 (4.5-11.0) K/mm3 RBC 2.91 L (3.65-5.03) M/mm3 Hgb 8.8 L (10.1-14.3) gm/dl Hct 27.9 L (30.3-42.9) % Plt Count 249 (140-440) K/mm3 Lymph # 0.5 L (1.2-5.4) K/mm3 [place] # 1.0 H (0.0-0.8) K/mm3 Eos # 0.1 (0.0-0.4) K/mm3 Baso # 0.1 (0.0-0.1) K/mm3 Comprehensive Metabolic Panel 04/26/18 04/26/18 Range/Units 04:43 04:47 Sodium 146 H (137-145) mmol/L Potassium 4.7 (3.6-5.0) mmol/L Chloride 111.4 H (98-107) mmol/L Carbon Dioxide 21 L (22-30) mmol/L BUN 27 H (7-17) mg/dL Creatinine 1.8 H (0.7-1.2) mg/dL Glucose 75 (65-100) mg/dL Calcium 8.3 L (8.4-10.2) mg/dL Direct Bilirubin < 0.2 (0-0.2) mg/dL Indirect Bilirubin 0.2 mg/dL AST 8 (5-40) units/L ALT < 5 L (7-56) units/L Alkaline Phosphatase 61 (35-129) units/L Total Protein 5.1 L (6.3-8.2) g/dL Albumin 3.3 L (3.9-5) g/dL - Imaging and Cardiology Echo: report reviewed (02/2014 showed EF 45-50%, mild TR, RVSP 39mmHg. ) EKG: report reviewed, image reviewed EKG interpretations - Telemetry EKG Rhythm: Sinus Rhythm - EKG Sinus rhythms and dysrhythmias: sinus rhythm Assessment and Plan Agree with present cardiac management. Pt in NSR on evaluation. Troponin elevation likely NSTEMI type II. Cont to trend Tawnya and repeat ECG in AM. Obtain echo. In the past, pt deemed not a candidate for systemic AC due to history of GI bleed. She also has advanced dementia and anemia and still does not appear to be a good candidate for systemic AC. The patient has been seen in conjunction with Dr. Negrita Metz who agrees with the assessment and plan of care. - Patient Problems (1) Acute respiratory failure Current Visit: Yes Status: Acute Qualifiers: Respiratory failure complication: hypoxia and hypercapnia Qualified Code(s): J96.01 - Acute respiratory failure with hypoxia; J96.02 - Acute respiratory failure with hypercapnia (2) Acidosis Current Visit: Yes Status: Acute (3) Pneumonia Current Visit: Yes Status: Suspected Qualifiers: Pneumonia type: due to unspecified organism Laterality: right Lung location: unspecified part of lung Qualified Code(s): J18.9 - Pneumonia, unspecified organism (4) Acute heart failure Current Visit: Yes Status: Acute (5) Afib Current Visit: Yes Status: Chronic Qualifiers: Atrial fibrillation type: chronic Qualified Code(s): I48.2 - Chronic atrial fibrillation (6) Elevated troponin I level Current Visit: Yes Status: Acute (7) Renal insufficiency Current Visit: Yes Status: Acute (8) Anemia Current Visit: Yes Status: Chronic Qualifiers: Anemia type: unspecified type Qualified Code(s): D64.9 - Anemia, unspecified (9) Dementia Current Visit: Yes Status: Chronic
[2018-04-26] MEDS: DUONEB *Not for PRN Use IH SCH ×2 (14:22→20:07)
[2018-04-26] MEDS: ZOSYN/NS 4.5GM/100ML 4.5 GM/100 ML VIAL IV SCH ×2 (14:52→22:01)
[2018-04-26 14:53] LABS: Creatine Kinase MB 1.5 ng/mL (0.0-4.0)
[2018-04-26] MEDS: FOLVITE PO SCH (14:56)
[2018-04-26] MEDS: CORDARONE PO SCH (14:56)
[2018-04-26] MEDS: BABY ASPIRIN PO SCH (14:57)
[2018-04-26] MEDS: PRAVACHOL PO SCH (14:57)
[2018-04-26] MEDS: KEPPRA PO SCH ×2 (14:57→22:01)
[2018-04-26] MEDS: SOLU-Medrol IV SCH ×2 (14:57→22:01)
[2018-04-26] MEDS: PEPCID IV SCH ×2 (14:59→22:01)
[2018-04-26] MEDS: SYNTHROID PO SCH (14:59)
[2018-04-26] MEDS: ALBURX 25% (ALBUMIN) IV SCH ×2 (18:26→22:00)
[2018-04-26 19:06] LABS: Creatine Kinase MB 1.6 ng/mL (0.0-4.0)
[2018-04-26] MEDS: PULMICORT IH SCH (20:07)
[2018-04-26] MEDS: DESYREL PO SCH (22:00)
[2018-04-27] MEDS: DESYREL PO SCH ×2 (03:37→21:31)
[2018-04-27] MEDS: DUONEB *Not for PRN Use IH SCH ×4 (04:21→19:53)
[2018-04-27 05:08] LABS: Hematocrit 24.3 % (30.3-42.9); Hemoglobin 7.6 gm/dl (10.1-14.3); Mean Corpuscular HGB Conc 31 % (30-34); Mean Corpuscular Volume 94 fl (79-97); Platelet Count 223 K/mm3 (140-440); Red Blood Count 2.58 M/mm3 (3.65-5.03); Red Cell Distribution Width 17.2 % (13.2-15.2)
[2018-04-27 05:24] LABS: Calcium 8.2 mg/dL (8.4-10.2)
[2018-04-27 05:51] LABS: Anisocytosis 1+; Band Neutrophils # (Manual) 0.3 K/mm3; Basophils % (Manual) 0 % (0.0-1.8); Eosinophils % (Manual) 0 % (0.0-4.3); Monocytes % (Manual) 0 % (0.0-7.3); Ovalocytes 2+; Poikilocytosis 2+; Total Cells Counted 100
[2018-04-27 05:52] LABS: Burr Cells Few; Giant Platelets Few; Helmet Cells Rare; Hypochromasia 1+; Schistocytes Few; Target Cells 1+
[2018-04-27] MEDS: SOLU-Medrol IV SCH (05:52)
[2018-04-27] MEDS: SYNTHROID PO SCH (05:52)
[2018-04-27] MEDS: ZOSYN/NS 4.5GM/100ML 4.5 GM/100 ML VIAL IV SCH (05:58)
[2018-04-27] MEDS: PULMICORT IH SCH ×2 (08:02→19:53)
--- NOTE | 2018-04-27 08:20 | Progress Note ---
Assessment and Plan Assessment and plan: --Acute hypoxic/hypercapnic respiratory failure; weaned off BiPAP Titrate O2 sats >90%, nebs, IV steroids,IV antibiotics, BiPAP when necessary --Acute exacerbation of bronchial asthma; Oxygen nebulizers IV steroids and IV antibiotics inhalation steroids Pulmonary critical consultation --Bilateral pleural effusion; right more than left, pulmonary consultation Possible ultrasound-guided thoracentesis if needed --Perihilar infiltrate/possible pneumonia; empiric antibiotics --Acute on chronic congestive heart failure; EF :45-50% 2 years ago, IV diuretics, beta blockers Input output monitoring, echocardiogram, cardiology evaluation --Positive cardiac enzymes/possible non-ST elevation [place] Cardiac medications serial cardiac enzymes and EKGs Cardiology evaluation --Acute on chronic kidney injury;worsening renal function vasomotor nephropathy, avoid nephrotoxins, nephro evaluation if no improvement --History of A. fib; rate controlled: Continue amiodarone, aspirin, not a candidate for chronic anticoagulation, h/o GI bleed ,dementia ,age risk of falls Cardiology consultation --Dementia; supportive care --Hypothyroidism; continue Synthroid --DVT prophylaxis; SCDs, Lovenox --Full CODE STATUS Patient hypoxemia, if no improvement on noninvasive ventilation patient may need intubation and mechanical ventilation, Admit to ICU, critical care consult The high probability of a clinically significant, sudden or life threatening deterioration of the [ respiratory, renal, cardiac,metabolic and neuro] system(s) required my full and direct attention, intervention and personal management.The aggregate critical care time was [31 ] minutes. This time is in addition to time spent performing reported procedures but includes the following: [x] Data Review and interpretation [x] Patient assessment and monitoring of vital signs [x] Documentation [x] Medication orders and management History Interval history: Patient seen and examined medical records reviewed No new events reported by the nursing staff Patient is complained of BiPAP, on Ventimask Not in acute distress Vital signs noted Hospitalist Physical - Constitutional Vitals: Temp Pulse Resp BP Pulse Ox 98.3 F 88 18 109/48 100 04/27/18 04:00 04/27/18 08:00 04/27/18 08:00 04/27/18 06:40 04/27/18 08:03 General appearance: Present: no acute distress, cachectic, disheveled, other (confused) - EENT Eyes: Present: PERRL, EOM intact - Neck Neck: Present: supple, normal ROM - Respiratory Respiratory effort: normal Respiratory: bilateral: diminished, rales, negative: rhonchi, wheezing - Cardiovascular Rhythm: regular Heart Sounds: Present: S1 & S2 - Extremities Extremities: no ischemia, No edema - Abdominal General gastrointestinal: soft, non-tender, non-distended, normal bowel sounds - Integumentary Integumentary: Present: clear, warm - Psychiatric Psychiatric: appropriate mood/affect, cooperative - Neurologic Neurologic: moves all extremities Results - Labs CBC & Chem 7: 04/27/18 04:39 04/27/18 04:39 Labs: Laboratory Last Values WBC 15.7 K/mm3 (4.5-11.0) H 04/27/18 04:39 RBC 2.58 M/mm3 (3.65-5.03) L 04/27/18 04:39 Hgb 7.6 gm/dl (10.1-14.3) L 04/27/18 04:39 Hct 24.3 % (30.3-42.9) L 04/27/18 04:39 MCV 94 fl (79-97) 04/27/18 04:39 MCH 29 pg (28-32) 04/27/18 04:39 MCHC 31 % (30-34) 04/27/18 04:39 RDW 17.2 % (13.2-15.2) H 04/27/18 04:39 Plt Count 223 K/mm3 (140-440) 04/27/18 04:39 Lymph % (Auto) 5.9 % (13.4-35.0) L 04/26/18 04:43 Tucker % (Auto) 11.6 % (0.0-7.3) H 04/26/18 04:43 Eos % (Auto) 1.8 % (0.0-4.3) 04/26/18 04:43 Baso % (Auto) 0.9 % (0.0-1.8) 04/26/18 04:43 Lymph # 0.5 K/mm3 (1.2-5.4) L 04/26/18 04:43 Tucker # 1.0 K/mm3 (0.0-0.8) H 04/26/18 04:43 Eos # 0.1 K/mm3 (0.0-0.4) 04/26/18 04:43 Baso # 0.1 K/mm3 (0.0-0.1) 04/26/18 04:43 Add Manual Diff Complete 04/27/18 04:39 Total Counted 100 04/27/18 04:39 Seg Neutrophils % Med Surg Nurse 04/27/18 04:39 Seg Neuts % (Manual) 95.0 % (40.0-70.0) H 04/27/18 04:39 Band Neutrophils % 2.0 % 04/27/18 04:39 Lymphocytes % (Manual) 2.0 % (13.4-35.0) L 04/27/18 04:39 Reactive Lymphs % (Man) 0 % 04/27/18 04:39 Monocytes % (Manual) 0 % (0.0-7.3) 04/27/18 04:39 Eosinophils % (Manual) 0 % (0.0-4.3) 04/27/18 04:39 Basophils % (Manual) 0 % (0.0-1.8) 04/27/18 04:39 Metamyelocytes % 1.0 % 04/27/18 04:39 Myelocytes % 0 % 04/27/18 04:39 Promyelocytes % 0 % 04/27/18 04:39 Blast Cells % 0 % 04/27/18 04:39 Nucleated RBC % Not Reportable 04/27/18 04:39 Seg Neutrophils # 6.6 K/mm3 (1.8-7.7) 04/26/18 04:43 Seg Neutrophils # Man 14.9 K/mm3 (1.8-7.7) H 04/27/18 04:39 Band Neutrophils # 0.3 K/mm3 04/27/18 04:39 Lymphocytes # (Manual) 0.3 K/mm3 (1.2-5.4) L 04/27/18 04:39 Abs React Lymphs (Man) 0.0 K/mm3 04/27/18 04:39 Monocytes # (Manual) 0.0 K/mm3 (0.0-0.8) 04/27/18 04:39 Eosinophils # (Manual) 0.0 K/mm3 (0.0-0.4) 04/27/18 04:39 Basophils # (Manual) 0.0 K/mm3 (0.0-0.1) 04/27/18 04:39 Metamyelocytes # 0.2 K/mm3 04/27/18 04:39 Myelocytes # 0.0 K/mm3 04/27/18 04:39 Promyelocytes # 0.0 K/mm3 04/27/18 04:39 Blast Cells # 0.0 K/mm3 04/27/18 04:39 WBC Morphology Not Reportable 04/27/18 04:39 Hypersegmented Neuts Not Reportable 04/27/18 04:39 Hyposegmented Neuts Not Reportable 04/27/18 04:39 Hypogranular Neuts Not Reportable 04/27/18 04:39 Smudge Cells Not Reportable 04/27/18 04:39 Toxic Granulation Not Reportable 04/27/18 04:39 Toxic Vacuolation Not Reportable 04/27/18 04:39 Dohle Bodies Not Reportable 04/27/18 04:39 Pelger-Huet Anomaly Not Reportable 04/27/18 04:39 Vlad Rods Not Reportable 04/27/18 04:39 Platelet Estimate Appears normal 04/27/18 04:39 Clumped Platelets Not Reportable 04/27/18 04:39 Plt Clumps, EDTA Not Reportable 04/27/18 04:39 Large Platelets Not Reportable 04/27/18 04:39 Giant Platelets Few 04/27/18 04:39 Platelet Satelliting Not Reportable 04/27/18 04:39 Plt Morphology Comment Not Reportable 04/27/18 04:39 RBC Morphology Not Reportable 04/27/18 04:39 Dimorphic RBCs Not Reportable 04/27/18 04:39 Polychromasia Not Reportable 04/27/18 04:39 Hypochromasia 1+ 04/27/18 04:39 Poikilocytosis 2+ 04/27/18 04:39 Anisocytosis 1+ 04/27/18 04:39 Microcytosis Not Reportable 04/27/18 04:39 Macrocytosis Not Reportable 04/27/18 04:39 Spherocytes Not Reportable 04/27/18 04:39 Pappenheimer Bodies Not Reportable 04/27/18 04:39 Sickle Cells Not Reportable 04/27/18 04:39 Target Cells 1+ 04/27/18 04:39 Tear Drop Cells Not Reportable 04/27/18 04:39 Ovalocytes 2+ 04/27/18 04:39 Helmet Cells Rare 04/27/18 04:39 [place] Bodies Not Reportable 04/27/18 04:39 [place] Rings Not Reportable 04/27/18 04:39 [place] Cells Few 04/27/18 04:39 Bite Cells Not Reportable 04/27/18 04:39 Crenated Cell Not Reportable 04/27/18 04:39 Elliptocytes 2+ 04/27/18 04:39 Acanthocytes (Spur) Few 04/27/18 04:39 Rouleaux Not Reportable 04/27/18 04:39 Hemoglobin C Crystals Not Reportable 04/27/18 04:39 Schistocytes Few 04/27/18 04:39 Malaria parasites Not Reportable 04/27/18 04:39 [place] Bodies Not Reportable 04/27/18 04:39 Hem Pathologist Commnt No 04/27/18 04:39 PT 15.8 Sec. (12.2-14.9) H 04/26/18 04:47 INR 1.22 (0.87-1.13) H 04/26/18 04:47 APTT 32.4 Sec. (24.2-36.6) 04/26/18 04:47 D-Dimer 254.08 ng/mlDDU (0-234) H 04/26/18 04:47 POC ABG pH 7.161 (7.35-7.45) L 04/26/18 17:40 POC ABG pCO2 56.3 (35-45) H 04/26/18 17:40 POC ABG pO2 124 (80-105) H 04/26/18 17:40 POC ABG HCO3 20.1 04/26/18 17:40 POC ABG Total CO2 22 04/26/18 17:40 POC ABG O2 Sat 97 04/26/18 17:40 POC ABG Base Excess -9 04/26/18 17:40 FiO2 35 % 04/26/18 17:40 Sodium 148 mmol/L (137-145) H 04/27/18 04:39 Potassium 4.2 mmol/L (3.6-5.0) 04/27/18 04:39 Chloride 111.4 mmol/L (98-107) H 04/27/18 04:39 Carbon Dioxide 20 mmol/L (22-30) L 04/27/18 04:39 Anion Gap 21 mmol/L 04/27/18 04:39 BUN 38 mg/dL (7-17) H 04/27/18 04:39 Creatinine 2.2 mg/dL (0.7-1.2) H 04/27/18 04:39 Estimated GFR 25 ml/min 04/27/18 04:39 BUN/Creatinine Ratio 17 % 04/27/18 04:39 Glucose 128 mg/dL (65-100) H 04/27/18 04:39 POC Glucose 95 (70-105) 04/26/18 14:28 Lactic Acid 1.40 mmol/L (0.7-2.0) 04/26/18 10:55 Calcium 8.2 mg/dL (8.4-10.2) L 04/27/18 04:39 Magnesium 2.40 mg/dL (1.7-2.3) H 04/27/18 04:39 Total Bilirubin 0.40 mg/dL (0.1-1.2) 04/26/18 04:47 Direct Bilirubin < 0.2 mg/dL (0-0.2) 04/26/18 04:47 Indirect Bilirubin 0.2 mg/dL 04/26/18 04:47 AST 8 units/L (5-40) 04/26/18 04:47 ALT < 5 units/L (7-56) L 04/26/18 04:47 Alkaline Phosphatase 61 units/L (35-129) 04/26/18 04:47 Total Creatine Kinase 40 units/L (30-135) 04/26/18 17:57 CK-MB (CK-2) 1.6 ng/mL (0.0-4.0) 04/26/18 17:57 CK-MB (CK-2) Rel Index 4.0 (0-4) 04/26/18 17:57 Troponin T 0.114 ng/mL (0.00-0.029) H* 04/26/18 17:57 NT-Pro-B Natriuret Pep 5133 pg/mL (0-900) H 04/26/18 04:47 Total Protein 5.1 g/dL (6.3-8.2) L 04/26/18 04:47 Albumin 3.3 g/dL (3.9-5) L 04/26/18 04:47 Albumin/Globulin Ratio 1.8 % 04/26/18 04:47 Triglycerides 90 mg/dL (2-149) 04/26/18 04:47 Cholesterol 129 mg/dL (50-199) 04/26/18 04:47 LDL Cholesterol Direct 45 mg/dL (50-130) L 04/26/18 04:47 HDL Cholesterol 67 mg/dL (40-59) H 04/26/18 04:47 Cholesterol/HDL Ratio 1.92 % 04/26/18 04:47 TSH 1.560 mlU/mL (0.270-4.200) 04/26/18 13:16 Free T4 1.28 ng/dL (0.76-1.46) 04/26/18 13:16
[2018-04-27] MEDS ORDERED: LASIX IV SCH (10:00)
[2018-04-27] MEDS: NORVASC PO SCH (11:06)
[2018-04-27] MEDS: FOLVITE PO SCH (11:07)
[2018-04-27] MEDS: KEPPRA PO SCH ×2 (11:07→21:31)
[2018-04-27] MEDS: BABY ASPIRIN PO SCH (11:07)
[2018-04-27] MEDS: PRAVACHOL PO SCH (11:07)
[2018-04-27] MEDS: CORDARONE PO SCH (11:09)
[2018-04-27] MEDS: PEPCID IV SCH (11:09)
--- NOTE | 2018-04-27 11:19 | Progress Note ---
Assessment and Plan 1. 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 Urine studies and Renal US results noted. Will stop Lsix due to worsening renal function. Renal prognosis is guarded. Monitor renal function. 2. FEN: Anion gap metabolic acidosis, ?2/2 CKD / ARTURO. Sodium bicarbonate as needed. Stop Amlodipine due to hypotension. 3. Hypoxic hypercapnic respiratory failure: Followed by Pulmonary. 4. Bilateral pleural effusion right more than left. 5. Perihilar infiltrate, possible pneumonia: Empiric antibiotics 6. Acute on chronic systolic CHF. 7. Positive cardiac enzymes: ? NSTEMI. On ASA. 8. A. fib: Rate controlled on Amiodarone. 9. Dementia. Subjective Date of service: 04/27/18 Interval history: Patient was seen and examined at the bedside. Objective - Vital Signs Vital signs: Vital Signs - 12hr 04/26/18 04/26/18 04/26/18 23:20 23:22 23:24 Temperature 97.7 F Pulse Rate 96 H 80 Pulse Rate [ Anterior Bilateral Throughout] Pulse Rate [ From Monitor] Respiratory 17 14 Rate Respiratory Rate [Anterior Bilateral Throughout] Blood Pressure 100/50 100/50 O2 Sat by Pulse 100 99 Oximetry 04/26/18 04/26/18 04/26/18 23:30 23:40 23:50 Temperature Pulse Rate 87 102 H Pulse Rate [ Anterior Bilateral Throughout] Pulse Rate [ From Monitor] Respiratory 20 17 Rate Respiratory Rate [Anterior Bilateral Throughout] Blood Pressure 100/50 113/59 100/50 O2 Sat by Pulse 99 100 100 Oximetry 04/27/18 04/27/18 04/27/18 00:00 00:10 00:20 Temperature 97.7 F Pulse Rate 104 H 96 H 114 H Pulse Rate [ Anterior Bilateral Throughout] Pulse Rate [ From Monitor] Respiratory 16 13 Rate Respiratory Rate [Anterior Bilateral Throughout] Blood Pressure 105/64 105/64 105/64 O2 Sat by Pulse 99 95 Oximetry 04/27/18 04/27/18 04/27/18 00:30 00:40 00:50 Temperature Pulse Rate 111 H 100 H 89 Pulse Rate [ Anterior Bilateral Throughout] Pulse Rate [ From Monitor] Respiratory 17 16 17 Rate Respiratory Rate [Anterior Bilateral Throughout] Blood Pressure 105/64 115/70 115/70 O2 Sat by Pulse 100 100 100 Oximetry 04/27/18 04/27/1819 01:00 01:10 01:20 Temperature Pulse Rate 88 82 107 H Pulse Rate [ Anterior Bilateral Throughout] Pulse Rate [ From Monitor] Respiratory 16 16 17 Rate Respiratory Rate [Anterior Bilateral Throughout] Blood Pressure 109/55 109/55 109/55 O2 Sat by Pulse 100 100 100 Oximetry 04/27/18 04/27/18 04/27/18 01:30 01:40 01:50 Temperature Pulse Rate 97 H 107 H 110 H Pulse Rate [ Anterior Bilateral Throughout] Pulse Rate [ From Monitor] Respiratory 17 18 14 Rate Respiratory Rate [Anterior Bilateral Throughout] Blood Pressure 109/55 112/57 109/55 O2 Sat by Pulse 100 100 100 Oximetry 04/27/18 04/27/18 04/27/18 02:00 02:10 02:20 Temperature Pulse Rate 106 H 111 H 107 H Pulse Rate [ Anterior Bilateral Throughout] Pulse Rate [ From Monitor] Respiratory 18 21 17 Rate Respiratory Rate [Anterior Bilateral Throughout] Blood Pressure 109/55 124/58 112/57 O2 Sat by Pulse 99 100 100 Oximetry 04/27/18 04/27/18 04/27/18 02:30 02:40 02:50 Temperature Pulse Rate 112 H 109 H 106 H Pulse Rate [ Anterior Bilateral Throughout] Pulse Rate [ From Monitor] Respiratory 19 14 16 Rate Respiratory Rate [Anterior Bilateral Throughout] Blood Pressure 112/57 135/68 135/68 O2 Sat by Pulse 97 99 100 Oximetry 04/27/18 04/27/18 04/27/18 03:00 03:10 03:20 Temperature Pulse Rate 108 H 106 H 100 H Pulse Rate [ Anterior Bilateral Throughout] Pulse Rate [ From Monitor] Respiratory 16 16 15 Rate Respiratory Rate [Anterior Bilateral Throughout] Blood Pressure 135/68 137/60 137/60 O2 Sat by Pulse 100 100 100 Oximetry 04/27/18 04/27/18 04/27/18 03:30 03:40 03:50 Temperature Pulse Rate 97 H 90 94 H Pulse Rate [ Anterior Bilateral Throughout] Pulse Rate [ From Monitor] Respiratory 18 19 19 Rate Respiratory Rate [Anterior Bilateral Throughout] Blood Pressure 119/56 119/56 137/60 O2 Sat by Pulse 100 100 Oximetry 04/27/18 04/27/18 04/27/18 04:00 04:10 04:15 Temperature 98.3 F Pulse Rate 97 H 105 H Pulse Rate [ 95 H Anterior Bilateral Throughout] Pulse Rate [ From Monitor] Respiratory 18 19 Rate Respiratory 20 Rate [Anterior Bilateral Throughout] Blood Pressure 115/58 115/58 O2 Sat by Pulse 100 100 Oximetry 04/27/18 04/27/18 04/27/18 04:20 04:25 04:30 Temperature Pulse Rate 103 H 94 H Pulse Rate [ 92 H Anterior Bilateral Throughout] Pulse Rate [ From Monitor] Respiratory 13 15 Rate Respiratory 18 Rate [Anterior Bilateral Throughout] Blood Pressure 115/58 116/53 O2 Sat by Pulse 100 100 Oximetry 04/27/18 04/27/18 04/27/18 04:40 04:50 05:00 Temperature Pulse Rate 103 H 105 H 106 H Pulse Rate [ Anterior Bilateral Throughout] Pulse Rate [ From Monitor] Respiratory 12 17 15 Rate Respiratory Rate [Anterior Bilateral Throughout] Blood Pressure 116/53 116/53 123/51 O2 Sat by Pulse 100 100 100 Oximetry 04/27/18 04/27/18 04/27/18 05:10 05:20 05:30 Temperature Pulse Rate 100 H 100 H 93 H Pulse Rate [ Anterior Bilateral Throughout] Pulse Rate [ From Monitor] Respiratory 18 16 16 Rate Respiratory Rate [Anterior Bilateral Throughout] Blood Pressure 123/51 123/51 104/43 O2 Sat by Pulse 100 100 100 Oximetry 04/27/18 04/27/18 04/27/18 05:40 05:50 06:00 Temperature Pulse Rate 104 H 108 H 98 H Pulse Rate [ Anterior Bilateral Throughout] Pulse Rate [ From Monitor] Respiratory 16 12 17 Rate Respiratory Rate [Anterior Bilateral Throughout] Blood Pressure 104/43 104/43 103/52 O2 Sat by Pulse 100 100 100 Oximetry 04/27/18 04/27/18 04/27/18 06:10 06:20 06:30 Temperature Pulse Rate 93 H 92 H 88 Pulse Rate [ Anterior Bilateral Throughout] Pulse Rate [ From Monitor] Respiratory 17 17 18 Rate Respiratory Rate [Anterior Bilateral Throughout] Blood Pressure 103/52 103/52 109/48 O2 Sat by Pulse 100 100 100 Oximetry 04/27/18 04/27/18 04/27/18 06:40 06:50 07:00 Temperature Pulse Rate 87 87 82 Pulse Rate [ Anterior Bilateral Throughout] Pulse Rate [ From Monitor] Respiratory 17 16 18 Rate Respiratory Rate [Anterior Bilateral Throughout] Blood Pressure 109/48 109/48 98/38 O2 Sat by Pulse 100 100 100 Oximetry 02/04/27/18 04/27/18 07:10 07:20 07:30 Temperature Pulse Rate 88 87 86 Pulse Rate [ Anterior Bilateral Throughout] Pulse Rate [ From Monitor] Respiratory 18 17 17 Rate Respiratory Rate [Anterior Bilateral Throughout] Blood Pressure 98/38 98/38 98/38 O2 Sat by Pulse 99 100 99 Oximetry 04/27/18 04/27/18 04/27/18 07:40 07:50 08:00 Temperature 98.3 F Pulse Rate 87 84 86 Pulse Rate [ 88 Anterior Bilateral Throughout] Pulse Rate [ 98 H From Monitor] Respiratory 18 18 18 Rate Respiratory 18 Rate [Anterior Bilateral Throughout] Blood Pressure 84/34 84/34 99/44 O2 Sat by Pulse 99 99 100 Oximetry 04/27/18 04/27/18 04/27/18 08:03 08:10 08:20 Temperature Pulse Rate 83 85 Pulse Rate [ Anterior Bilateral Throughout] Pulse Rate [ From Monitor] Respiratory 16 14 Rate Respiratory Rate [Anterior Bilateral Throughout] Blood Pressure 99/44 99/44 O2 Sat by Pulse 100 100 100 Oximetry 04/27/18 04/27/18 04/27/18 08:30 08:40 08:50 Temperature Pulse Rate 85 79 83 Pulse Rate [ Anterior Bilateral Throughout] Pulse Rate [ From Monitor] Respiratory 18 16 16 Rate Respiratory Rate [Anterior Bilateral Throughout] Blood Pressure 87/41 87/41 87/41 O2 Sat by Pulse 100 100 100 Oximetry 04/27/18 04/27/18 04/27/18 09:00 09:10 09:20 Temperature Pulse Rate 84 84 99 H Pulse Rate [ Anterior Bilateral Throughout] Pulse Rate [ From Monitor] Respiratory 15 17 14 Rate Respiratory Rate [Anterior Bilateral Throughout] Blood Pressure 85/36 85/36 85/36 O2 Sat by Pulse 100 100 100 Oximetry 04/27/18 04/27/18 04/27/18 09:30 09:40 09:50 Temperature Pulse Rate 102 H 93 H 93 H Pulse Rate [ Anterior Bilateral Throughout] Pulse Rate [ From Monitor] Respiratory 17 21 16 Rate Respiratory Rate [Anterior Bilateral Throughout] Blood Pressure 105/42 105/42 105/42 O2 Sat by Pulse 99 99 100 Oximetry 04/27/18 04/27/18 10:00 11:06 Temperature Pulse Rate 88 94 H Pulse Rate [ Anterior Bilateral Throughout] Pulse Rate [ From Monitor] Respiratory 18 Rate Respiratory Rate [Anterior Bilateral Throughout] Blood Pressure 96/42 112/45 O2 Sat by Pulse 99 Oximetry - General Appearance General appearance: well-developed, appears stated age, other (not in distress, on mittens) EENT: ATNC, PERRL Neck: supple Respiratory: Present: Clear to Ascultation Cardiology: irregularly irregular, S1S2, no murmurs Gastrointestinal: normoactive bowel sounds, no tenderness, no distended Integumentary: no rash, warm and dry Neurologic: other (non-verbal, not following any command) Musculoskeletal: other (no edema) - Lab 04/27/18 04:39 04/27/18 04:39 Most recent lab results Calcium 8.2 mg/dL (8.4-10.2) L 04/27/18 04:39 Magnesium 2.40 mg/dL (1.7-2.3) H 04/27/18 04:39 Medications & Allergies - Medications Allergies/Adverse Reactions: Allergies No Known Allergies Allergy (Verified 04/03/14 21:12) Home Medications: Home Medications Medication Instructions Recorded Confirmed Last Taken Type Amiodarone [Cordarone 200 MG TAB] 200 mg PO QDAY #30 tablet 05/06/17 04/27/18 Unknown Rx Aspirin [Aspirin BABY CHEW TAB] 81 mg PO QDAY #30 tab.chew 05/06/17 04/27/18 Unknown Rx Folic Acid [Folvite] 1 mg PO QDAY #30 tablet 05/06/17 04/27/18 Unknown Rx Pravastatin [Pravachol] 40 mg PO DAILY #30 tablet 05/06/17 04/27/18 Unknown Rx levETIRAcetam [Keppra] 500 mg PO BID #30 tablet 05/06/17 04/27/18 Unknown Rx ALBUTEROL NEB's [Proventil 0.083% 2.5 mg INHALATION BID PRN 04/27/18 04/27/18 Unknown History NEBS] Acetaminophen [Non-Aspirin] 325 mg PO Q8H PRN 04/27/18 04/27/18 Unknown History Ascorbic Acid [Vitamin C] 500 mg PO DAILY 04/27/18 04/27/18 Unknown History Bisacodyl [Dulcolax suppos] 10 mg PA 3XW MDD constipation 04/27/18 04/27/18 Unknown History Diltiazem HCl [Diltiazem 12Hr ER] 120 mg PO DAILY 04/27/18 04/27/18 Unknown History Ferrous Sulfate [Iron] 325 mg PO DAILY 04/27/18 04/27/18 Unknown History Fluticasone (Nf) [Flovent Hfa(Nf)] 1 puff IH BID 04/27/18 04/27/18 Unknown History Ipratropium [Atrovent NEB] 0.02 ml INHALATION BID 04/27/18 04/27/18 Unknown History Levalbuterol [Xopenex] 1.25 mg IH Q6HRT PRN 04/27/18 04/27/18 Unknown History Levothyroxine [Synthroid] 125 mcg PO QAM 04/27/18 04/27/18 Unknown History Multivitamin Tab W-MINERAL 1 each PO QD 04/27/18 04/27/18 Unknown History [Multiple Vitamin/Mineral (Theragran M)] [place] 5-325 mg TAB 1 tab PO Q6H PRN 04/27/18 04/27/18 Unknown History Pantoprazole Sodium 40 mg PO DAILY 04/27/18 04/27/18 Unknown History Procrit 4,000 units SQ 3XW 04/27/18 04/27/18 Unknown History Senna Laxative Tablet 2 tab PO HS 04/27/18 04/27/18 Unknown History Sucralfate 1 gm PO 4XD 04/27/18 04/27/18 Unknown History Tramadol HCl [Ultram] 50 mg PO Q6HR PRN 04/27/18 04/27/18 Unknown History Zinc Oxide [[place]] 100 gm TP DAILY 04/27/18 04/27/18 Unknown History traZODone [Desyrel] 25 mg PO QHS PRN 04/27/18 04/27/18 Unknown History Active Medications: Generic Name Dose Route Start Last Admin Trade Name Freq PRN Reason Stop Dose Admin Albuterol/Ipratropium 1 ampul 04/26/18 14:00 04/27/18 08:02 Duoneb *Not For Prn Use* IH 1 ampul Q6HRT RICHARD Administration Amiodarone HCl 200 mg 04/26/18 11:00 04/27/18 11:09 Cordarone PO 200 mg QDAY RICHARD Administration Amlodipine Besylate 5 mg 04/26/18 11:00 04/27/18 11:06 Norvasc PO 5 mg QDAY RICHARD Administration Aspirin 81 mg 04/26/18 11:00 04/27/18 11:07 Baby Aspirin PO 81 mg QDAY RICHARD Administration Budesonide 0.5 mg 04/26/18 20:00 04/27/18 08:02 Pulmicort IH 0.5 mg Q12HRT RICHARD Administration Famotidine 20 mg 04/27/18 10:00 04/27/18 11:09 Pepcid IV 20 mg DAILY RICHARD Administration Folic Acid 1 mg 04/26/18 11:00 04/27/18 11:07 Folvite PO 1 mg QDAY RICHARD Administration Furosemide 20 mg 04/27/18 10:00 04/27/18 11:06 Lasix IV 20 mg QDAY RICHARD Administration Cefepime HCl 1 gm in 100 mls @ 200 mls/hr 04/27/18 11:00 Maxipime/Ns 1 Gm/100 Ml IV Q24HR RICHARD Levetiracetam 500 mg 04/26/18 11:00 04/27/18 11:07 Keppra PO 500 mg BID RICHARD Administration Levothyroxine Sodium 125 mcg 04/26/18 11:00 04/27/18 05:52 Synthroid PO 125 mcg QAM@0600 RICHARD Administration Pravastatin Sodium 40 mg 04/26/18 11:00 04/27/18 11:07 Pravachol PO 40 mg DAILY RICHARD Administration Trazodone HCl 50 mg 04/26/18 22:00 04/27/18 03:37 Desyrel PO 50 mg QHS RICHARD Administration
--- NOTE | 2018-04-27 11:24 | Progress Note ---
Assessment and Plan 87 y/o female with severe acidemia, exactly etiology is unknown, with hypercapnea, tachypnea and large right sided pleural effusion. 1. LFT's were low but do not explain acidemia. 2. Thyroid tests were normal 3. Keep Bipap PRN 4. Renal now seeing, they may place patient on bicarb tablets. I did give 2 amps yesterday but no real improvement in BP 5. Holding lasix given BP 6. Effusions present but not compromising respiratory status as of yet. Will watch 7. Venous pH today, if improved may consider stopping abx therapy as we do not have an active source of infection 8. Stopping steroid therapy. Do not feel this is an obstructive lung process. 9. Follow up any cardiology recs. 10. Continue ICU monitoring, no definite diagnosis, but given patient age, lack of reserve, has high likelyhood of acute change clinically and this could happen very rapid. CCT 31 minutes. Subjective Date of service: 04/27/18 Interval history: No acute events. Weaned from bipap therapy. PaO2 good but pH is still a puzzle as she remains severely acidotic. Mental status is the same as yesterday. No real change. Urine output minimal and BP has been marginal. I gave 2 amps of bicarb yesterday to see if this would help with pressure. Objective Vital Signs - 12hr 04/26/18 04/26/18 04/26/18 23:20 23:22 23:24 Temperature 97.7 F Pulse Rate 96 H 80 Pulse Rate [ Anterior Bilateral Throughout] Pulse Rate [ From Monitor] Respiratory 17 14 Rate Respiratory Rate [Anterior Bilateral Throughout] Blood Pressure 100/50 100/50 O2 Sat by Pulse 100 99 Oximetry 04/26/18 04/26/18 04/26/18 23:30 23:40 23:50 Temperature Pulse Rate 87 102 H Pulse Rate [ Anterior Bilateral Throughout] Pulse Rate [ From Monitor] Respiratory 20 17 Rate Respiratory Rate [Anterior Bilateral Throughout] Blood Pressure 100/50 113/59 100/50 O2 Sat by Pulse 99 100 100 Oximetry 04/27/18 04/27/18 04/27/18 00:00 00:10 00:20 Temperature 97.7 F Pulse Rate 104 H 96 H 114 H Pulse Rate [ Anterior Bilateral Throughout] Pulse Rate [ From Monitor] Respiratory 16 13 Rate Respiratory Rate [Anterior Bilateral Throughout] Blood Pressure 105/64 105/64 105/64 O2 Sat by Pulse 99 95 Oximetry 04/27/18 04/27/18 04/27/18 00:30 00:40 00:50 Temperature Pulse Rate 111 H 100 H 89 Pulse Rate [ Anterior Bilateral Throughout] Pulse Rate [ From Monitor] Respiratory 17 16 17 Rate Respiratory Rate [Anterior Bilateral Throughout] Blood Pressure 105/64 115/70 115/70 O2 Sat by Pulse 100 100 100 Oximetry 04/27/18 04/27/18 04/27/18 01:00 01:10 01:20 Temperature Pulse Rate 88 82 107 H Pulse Rate [ Anterior Bilateral Throughout] Pulse Rate [ From Monitor] Respiratory 16 16 17 Rate Respiratory Rate [Anterior Bilateral Throughout] Blood Pressure 109/55 109/55 109/55 O2 Sat by Pulse 100 100 100 Oximetry 04/27/18 04/27/18 04/27/18 01:30 01:40 01:50 Temperature Pulse Rate 97 H 107 H 110 H Pulse Rate [ Anterior Bilateral Throughout] Pulse Rate [ From Monitor] Respiratory 17 18 14 Rate Respiratory Rate [Anterior Bilateral Throughout] Blood Pressure 109/55 112/57 109/55 O2 Sat by Pulse 100 100 100 Oximetry 04/27/18 04/27/18 04/27/18 02:00 02:10 02:20 Temperature Pulse Rate 106 H 111 H 107 H Pulse Rate [ Anterior Bilateral Throughout] Pulse Rate [ From Monitor] Respiratory 18 21 17 Rate Respiratory Rate [Anterior Bilateral Throughout] Blood Pressure 109/55 124/58 112/57 O2 Sat by Pulse 99 100 100 Oximetry 04/27/18 04/27/18 04/27/18 02:30 02:40 02:50 Temperature Pulse Rate 112 H 109 H 106 H Pulse Rate [ Anterior Bilateral Throughout] Pulse Rate [ From Monitor] Respiratory 19 14 16 Rate Respiratory Rate [Anterior Bilateral Throughout] Blood Pressure 112/57 135/68 135/68 O2 Sat by Pulse 97 99 100 Oximetry 04/27/18 04/27/18 04/27/18 03:00 03:10 03:20 Temperature Pulse Rate 108 H 106 H 100 H Pulse Rate [ Anterior Bilateral Throughout] Pulse Rate [ From Monitor] Respiratory 16 16 15 Rate Respiratory Rate [Anterior Bilateral Throughout] Blood Pressure 135/68 137/60 137/60 O2 Sat by Pulse 100 100 100 Oximetry 04/27/18 04/27/18 04/27/18 03:30 03:40 03:50 Temperature Pulse Rate 97 H 90 94 H Pulse Rate [ Anterior Bilateral Throughout] Pulse Rate [ From Monitor] Respiratory 18 19 19 Rate Respiratory Rate [Anterior Bilateral Throughout] Blood Pressure 119/56 119/56 137/60 O2 Sat by Pulse 100 100 Oximetry 04/27/18 04/27/18 04/27/18 04:00 04:10 04:15 Temperature 98.3 F Pulse Rate 97 H 105 H Pulse Rate [ 95 H Anterior Bilateral Throughout] Pulse Rate [ From Monitor] Respiratory 18 19 Rate Respiratory 20 Rate [Anterior Bilateral Throughout] Blood Pressure 115/58 115/58 O2 Sat by Pulse 100 100 Oximetry 04/27/18 04/27/18 04/27/18 04:20 04:25 04:30 Temperature Pulse Rate 103 H 94 H Pulse Rate [ 92 H Anterior Bilateral Throughout] Pulse Rate [ From Monitor] Respiratory 13 15 Rate Respiratory 18 Rate [Anterior Bilateral Throughout] Blood Pressure 115/58 116/53 O2 Sat by Pulse 100 100 Oximetry 04/27/18 04/27/18 04/27/18 04:40 04:50 05:00 Temperature Pulse Rate 103 H 105 H 106 H Pulse Rate [ Anterior Bilateral Throughout] Pulse Rate [ From Monitor] Respiratory 12 17 15 Rate Respiratory Rate [Anterior Bilateral Throughout] Blood Pressure 116/53 116/53 123/51 O2 Sat by Pulse 100 100 100 Oximetry 04/27/18 04/27/18 04/27/18 05:10 05:20 05:30 Temperature Pulse Rate 100 H 100 H 93 H Pulse Rate [ Anterior Bilateral Throughout] Pulse Rate [ From Monitor] Respiratory 18 16 16 Rate Respiratory Rate [Anterior Bilateral Throughout] Blood Pressure 123/51 123/51 104/43 O2 Sat by Pulse 100 100 100 Oximetry 04/27/18 04/27/18 04/27/18 05:40 05:50 06:00 Temperature Pulse Rate 104 H 108 H 98 H Pulse Rate [ Anterior Bilateral Throughout] Pulse Rate [ From Monitor] Respiratory 16 12 17 Rate Respiratory Rate [Anterior Bilateral Throughout] Blood Pressure 104/43 104/43 103/52 O2 Sat by Pulse 100 100 100 Oximetry 04/27/18 04/27/18 04/27/18 06:10 06:20 06:30 Temperature Pulse Rate 93 H 92 H 88 Pulse Rate [ Anterior Bilateral Throughout] Pulse Rate [ From Monitor] Respiratory 17 17 18 Rate Respiratory Rate [Anterior Bilateral Throughout] Blood Pressure 103/52 103/52 109/48 O2 Sat by Pulse 100 100 100 Oximetry 04/27/18 04/27/18 04/27/18 06:40 06:50 07:00 Temperature Pulse Rate 87 87 82 Pulse Rate [ Anterior Bilateral Throughout] Pulse Rate [ From Monitor] Respiratory 17 16 18 Rate Respiratory Rate [Anterior Bilateral Throughout] Blood Pressure 109/48 109/48 98/38 O2 Sat by Pulse 100 100 100 Oximetry 04/27/18 04/27/18 04/27/18 07:10 07:20 07:30 Temperature Pulse Rate 88 87 86 Pulse Rate [ Anterior Bilateral Throughout] Pulse Rate [ From Monitor] Respiratory 18 17 17 Rate Respiratory Rate [Anterior Bilateral Throughout] Blood Pressure 98/38 98/38 98/38 O2 Sat by Pulse 99 100 99 Oximetry 04/27/18 04/27/18 04/27/18 07:40 07:50 08:00 Temperature 98.3 F Pulse Rate 87 84 86 Pulse Rate [ 88 Anterior Bilateral Throughout] Pulse Rate [ 98 H From Monitor] Respiratory 18 18 18 Rate Respiratory 18 Rate [Anterior Bilateral Throughout] Blood Pressure 84/34 84/34 99/44 O2 Sat by Pulse 99 99 100 Oximetry 04/27/18 04/27/18 04/27/18 08:03 08:10 08:20 Temperature Pulse Rate 83 85 Pulse Rate [ Anterior Bilateral Throughout] Pulse Rate [ From Monitor] Respiratory 16 14 Rate Respiratory Rate [Anterior Bilateral Throughout] Blood Pressure 99/44 99/44 O2 Sat by Pulse 100 100 100 Oximetry 04/27/18 04/27/18 04/27/18 08:30 08:40 08:50 Temperature Pulse Rate 85 79 83 Pulse Rate [ Anterior Bilateral Throughout] Pulse Rate [ From Monitor] Respiratory 18 16 16 Rate Respiratory Rate [Anterior Bilateral Throughout] Blood Pressure 87/41 87/41 87/41 O2 Sat by Pulse 100 100 100 Oximetry 04/27/18 04/27/18 04/27/18 09:00 09:10 09:20 Temperature Pulse Rate 84 84 99 H Pulse Rate [ Anterior Bilateral Throughout] Pulse Rate [ From Monitor] Respiratory 15 17 14 Rate Respiratory Rate [Anterior Bilateral Throughout] Blood Pressure 85/36 85/36 85/36 O2 Sat by Pulse 100 100 100 Oximetry 04/27/18 04/27/18 04/27/18 09:30 09:40 09:50 Temperature Pulse Rate 102 H 93 H 93 H Pulse Rate [ Anterior Bilateral Throughout] Pulse Rate [ From Monitor] Respiratory 17 21 16 Rate Respiratory Rate [Anterior Bilateral Throughout] Blood Pressure 105/42 105/42 105/42 O2 Sat by Pulse 99 99 100 Oximetry 04/27/18 04/27/18 10:00 11:06 Temperature Pulse Rate 88 94 H Pulse Rate [ Anterior Bilateral Throughout] Pulse Rate [ From Monitor] Respiratory 18 Rate Respiratory Rate [Anterior Bilateral Throughout] Blood Pressure 96/42 112/45 O2 Sat by Pulse 99 Oximetry Constitutional: no acute distress, alert, lethargic Eyes: non-icteric ENT: oropharynx moist Neck: supple, no JVD Effort: mildly labored Ascultation: Bilateral: diminished breath sounds Cardiovascular: regular rate and rhythm Gastrointestinal: normoactive bowel sounds, soft Extremities: no edema Neurologic: unable to assess CBC and BMP: 04/27/18 04:39 04/27/18 04:39 ABG, PT/INR, D-dimer: ABG POC ABG pH 7.161 (7.35-7.45) L 04/26/18 17:40 POC ABG pCO2 56.3 (35-45) H 04/26/18 17:40 POC ABG pO2 124 (80-105) H 04/26/18 17:40 POC ABG HCO3 20.1 04/26/18 17:40 POC ABG Total CO2 22 04/26/18 17:40 POC ABG O2 Sat 97 04/26/18 17:40 PT/INR, D-dimer PT 15.8 Sec. (12.2-14.9) H 04/26/18 04:47 INR 1.22 (0.87-1.13) H 04/26/18 04:47 D-Dimer 254.08 ng/mlDDU (0-234) H 04/26/18 04:47 Abnormal lab findings: Abnormal Labs 04/26/18 04/26/18 04/26/18 04:43 04:43 04:47 WBC RBC 2.91 L Hgb 8.8 L Hct 27.9 L RDW 17.7 H Lymph % (Auto) 5.9 L [place] % (Auto) 11.6 H Lymph # 0.5 L [place] # 1.0 H Seg Neutrophils % 79.8 H Seg Neuts % (Manual) Lymphocytes % (Manual) Seg Neutrophils # Man Lymphocytes # (Manual) PT 15.8 H INR 1.22 H D-Dimer POC ABG pH POC ABG pCO2 POC ABG pO2 Sodium 146 H Chloride 111.4 H Carbon Dioxide 21 L BUN 27 H Creatinine 1.8 H Glucose Calcium 8.3 L Magnesium ALT Troponin T NT-Pro-B Natriuret Pep Total Protein Albumin LDL Cholesterol Direct HDL Cholesterol 04/26/18 04/26/18 04/26/18 04:47 04:47 04:47 WBC RBC Hgb Hct RDW Lymph % (Auto) [place] % (Auto) Lymph # [place] # Seg Neutrophils % Seg Neuts % (Manual) Lymphocytes % (Manual) Seg Neutrophils # Man Lymphocytes # (Manual) PT INR D-Dimer 254.08 H POC ABG pH POC ABG pCO2 POC ABG pO2 Sodium Chloride Carbon Dioxide BUN Creatinine Glucose Calcium Magnesium ALT < 5 L Troponin T 0.149 H* NT-Pro-B Natriuret Pep 5133 H Total Protein 5.1 L Albumin 3.3 L LDL Cholesterol Direct 45 L HDL Cholesterol 67 H 04/26/18 04/26/18 04/26/18 05:34 10:26 13:16 WBC RBC Hgb Hct RDW Lymph % (Auto) [place] % (Auto) Lymph # [place] # Seg Neutrophils % Seg Neuts % (Manual) Lymphocytes % (Manual) Seg Neutrophils # Man Lymphocytes # (Manual) PT INR D-Dimer POC ABG pH 7.142 L 7.167 L POC ABG pCO2 65.4 H 53.1 H POC ABG pO2 126 H Sodium Chloride Carbon Dioxide BUN Creatinine Glucose Calcium Magnesium ALT Troponin T 0.141 H* NT-Pro-B Natriuret Pep Total Protein Albumin LDL Cholesterol Direct HDL Cholesterol 04/26/18 04/26/18 04/27/18 17:40 17:57 04:39 WBC 15.7 H RBC 2.58 L Hgb 7.6 L Hct 24.3 L RDW 17.2 H Lymph % (Auto) [place] % (Auto) Lymph # [place] # Seg Neutrophils % Seg Neuts % (Manual) 95.0 H Lymphocytes % (Manual) 2.0 L Seg Neutrophils # Man 14.9 H Lymphocytes # (Manual) 0.3 L PT INR D-Dimer POC ABG pH 7.161 L POC ABG pCO2 56.3 H POC ABG pO2 124 H Sodium Chloride Carbon Dioxide BUN Creatinine Glucose Calcium Magnesium ALT Troponin T 0.114 H* NT-Pro-B Natriuret Pep Total Protein Albumin LDL Cholesterol Direct HDL Cholesterol 04/27/18 04:39 WBC RBC Hgb Hct RDW Lymph % (Auto) [place] % (Auto) Lymph # [place] # Seg Neutrophils % Seg Neuts % (Manual) Lymphocytes % (Manual) Seg Neutrophils # Man Lymphocytes # (Manual) PT INR D-Dimer POC ABG pH POC ABG pCO2 POC ABG pO2 Sodium 148 H Chloride 111.4 H Carbon Dioxide 20 L BUN 38 H Creatinine 2.2 H Glucose 128 H Calcium 8.2 L Magnesium 2.40 H ALT Troponin T NT-Pro-B Natriuret Pep Total Protein Albumin LDL Cholesterol Direct HDL Cholesterol
[2018-04-27] MEDS: MAXIPIME/NS 1 GM/100 ML 1 GM/100 ML BAG IV SCH (11:36)
[2018-04-27 11:39] LABS: Bacteria,Urine 1+ /HPF (Negative); Bilirubin,Urine NEG (Negative); Blood,Urine NEG (Negative); Calcium Oxalate Crystals,Urine 3+; Color,Urine Amber (Yellow); Mucus,Urine 3+ /HPF
--- NOTE | 2018-04-27 11:45 | Progress Note ---
Assessment and Plan Agree with present cardiac management. Troponin elevation appears c/w NSTEMI type II. Obtain echo. In the past, pt deemed not a candidate for systemic AC due to history of GI bleed. She also has advanced dementia and anemia and still does not appear to be a good candidate for systemic AC. The patient has been seen in conjunction with Dr. Negrita Metz who agrees with the assessment and plan of care. - Patient Problems (1) Acute respiratory failure Current Visit: Yes Status: Acute Qualifiers: Respiratory failure complication: hypoxia and hypercapnia Qualified Code(s): J96.01 - Acute respiratory failure with hypoxia; J96.02 - Acute respiratory failure with hypercapnia (2) Acidosis Current Visit: Yes Status: Acute (3) Pneumonia Current Visit: Yes Status: Suspected Qualifiers: Pneumonia type: due to unspecified organism Laterality: right Lung location: unspecified part of lung Qualified Code(s): J18.9 - Pneumonia, unspecified organism (4) Acute heart failure Current Visit: Yes Status: Acute (5) Afib Current Visit: Yes Status: Chronic Qualifiers: Atrial fibrillation type: chronic Qualified Code(s): I48.2 - Chronic atrial fibrillation (6) Elevated troponin I level Current Visit: Yes Status: Acute (7) Renal insufficiency Current Visit: Yes Status: Acute (8) Anemia Current Visit: Yes Status: Chronic Qualifiers: Anemia type: unspecified type Qualified Code(s): D64.9 - Anemia, unspecified (9) Dementia Current Visit: Yes Status: Chronic Subjective Date of service: 04/27/18 Principal diagnosis: resp failure; afib Interval history: pt resting in bed, more alert today. in AFib with CVR on tele. Objective Last Vital Signs Temp 98.6 F 04/27/18 12:00 Pulse 99 H 04/27/18 12:00 Resp 17 04/27/18 12:00 BP 108/41 04/27/18 12:00 Pulse Ox 99 04/27/18 12:00 - Physical Examination HEENT: Positive: PERRL Neck: Positive: neck supple, trachea midline Cardiac: Positive: irregularly irregular, S1/S2 Lungs: Positive: Decreased Breath Sounds Neuro: Positive: Other (lethargic, on bipap) Abdomen: Negative: Tender Skin: Negative: Rash, Wound Musculoskeletal: No Pain Extremities: Absent: edema - Labs and Meds Cardiac Enzymes 04/26/18 04/26/18 04/26/18 Range/Units 04:47 13:16 17:57 AST 8 (5-40) units/L CK-MB (CK-2) 1.5 1.6 (0.0-4.0) ng/mL CBC 04/27/18 Range/Units 04:39 WBC 15.7 H (4.5-11.0) K/mm3 RBC 2.58 L (3.65-5.03) M/mm3 Hgb 7.6 L (10.1-14.3) gm/dl Hct 24.3 L (30.3-42.9) % Plt Count 223 (140-440) K/mm3 Comprehensive Metabolic Panel 04/26/18 04/27/18 Range/Units 04:47 04:39 Sodium 148 H (137-145) mmol/L Potassium 4.2 (3.6-5.0) mmol/L Chloride 111.4 H (98-107) mmol/L Carbon Dioxide 20 L (22-30) mmol/L BUN 38 H (7-17) mg/dL Creatinine 2.2 H (0.7-1.2) mg/dL Glucose 128 H (65-100) mg/dL Calcium 8.2 L (8.4-10.2) mg/dL Direct Bilirubin < 0.2 (0-0.2) mg/dL Indirect Bilirubin 0.2 mg/dL AST 8 (5-40) units/L ALT < 5 L (7-56) units/L Alkaline Phosphatase 61 (35-129) units/L Total Protein 5.1 L (6.3-8.2) g/dL Albumin 3.3 L (3.9-5) g/dL - Imaging and Cardiology EKG: report reviewed, image reviewed Echo: report reviewed (02/2014 showed EF 45-50%, mild TR, RVSP 39mmHg. ) - EKG Sinus rhythms and dysrhythmias: sinus rhythm
[2018-04-27 11:57] LABS: Creatinine,Urine 142.3 mg/dL (0.1-20.0)
--- NOTE | 2018-04-27 14:32 | Ultrasound Report ---
ULTRASOUND RENAL BILATERAL HISTORY: Acute renal failure. TECHNIQUE: transabdominal ultrasound with color Doppler interrogation. FINDINGS: The right kidney measures cm. Right renal cortex: cm. The left kidney measures cm. Left renal cortex: cm. Scans of the kidneys show normal renal contours. There is normal central calyceal clustering and good preservation of the cortical thickness. There is no evidence of mass or hydronephrosis. The views of the bladder and the region of the ureters appear normal. IMPRESSION: Unremarkable renal ultrasound.
[2018-04-27] MEDS ORDERED: SIMPLE SYRUP FEEDTUBE PRN ×2 (15:25)
[2018-04-27] MEDS ORDERED: PANCREAZE DR 10,500 UNIT FEEDTUBE PRN (15:25)
[2018-04-27] MEDS ORDERED: SODIUM BICARBONATE FEEDTUBE PRN (15:25)
[2018-04-27] MEDS ORDERED: ALBURX 25% (ALBUMIN) IV ONE (17:06)
[2018-04-28] MEDS: DUONEB *Not for PRN Use IH SCH ×4 (03:39→20:46)
[2018-04-28 05:39] LABS: Basophils % (Auto) 0.1 % (0.0-1.8); Hemoglobin 6.7 gm/dl (10.1-14.3); Lymphocytes # (Auto) 0.2 K/mm3 (1.2-5.4); Lymphocytes % (Auto) 1.8 % (13.4-35.0); Mean Corpuscular HGB Conc 32 % (30-34); Mean Corpuscular Volume 92 fl (79-97); Monocytes # (Auto) 1.3 K/mm3 (0.0-0.8); Monocytes % (Auto) 9.4 % (0.0-7.3); Platelet Count 193 K/mm3 (140-440); Red Blood Count 2.29 M/mm3 (3.65-5.03); Red Cell Distribution Width 17.1 % (13.2-15.2)
[2018-04-28] MEDS: SYNTHROID PO SCH (05:55)
[2018-04-28 06:07] LABS: Calcium 7.7 mg/dL (8.4-10.2)
[2018-04-28] MEDS: PULMICORT IH SCH ×2 (07:49→20:46)
--- NOTE | 2018-04-28 08:10 | Progress Note ---
Assessment and Plan 1. 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 Urine studies and Renal US results noted. Renal function continue to decline due to hypotension. IV Albumin ordered. Renal prognosis is guarded. Monitor renal function. 2. FEN: Anion gap metabolic acidosis, ?2/2 CKD / ARTURO. Sodium bicarbonate as needed. 3. Hypoxic hypercapnic respiratory failure: Followed by Pulmonary. 4. Bilateral pleural effusion right more than left. 5. Perihilar infiltrate, possible pneumonia: Empiric antibiotics 6. Acute on chronic systolic CHF. 7. Positive cardiac enzymes: ? NSTEMI. On ASA. 8. A. fib: On Amiodarone. 9. Anemia: PRBC ordered. 10. Dementia. Subjective Date of service: 04/28/18 Principal diagnosis: resp failure; afib Interval history: Patient was seen and examined at the bedside. Objective - Vital Signs Vital signs: Vital Signs - 12hr 04/27/18 04/27/18 04/27/18 20:10 20:20 20:30 Temperature Pulse Rate 103 H 109 H 94 H Pulse Rate [ Anterior Bilateral Throughout] Pulse Rate [ From Monitor] Pulse Rate [ Right Dorsalis Pedis] Respiratory 7 L 20 15 Rate Respiratory Rate [Anterior Bilateral Throughout] Blood Pressure 108/39 108/39 108/39 O2 Sat by Pulse 100 100 99 Oximetry 04/27/18 04/27/18 04/27/18 20:40 20:50 21:00 Temperature Pulse Rate 82 84 100 H Pulse Rate [ Anterior Bilateral Throughout] Pulse Rate [ From Monitor] Pulse Rate [ Right Dorsalis Pedis] Respiratory 17 17 17 Rate Respiratory Rate [Anterior Bilateral Throughout] Blood Pressure 105/59 108/39 108/51 O2 Sat by Pulse 100 100 100 Oximetry 04/27/18 04/27/18 04/27/18 21:10 21:20 21:30 Temperature Pulse Rate 89 83 84 Pulse Rate [ Anterior Bilateral Throughout] Pulse Rate [ From Monitor] Pulse Rate [ Right Dorsalis Pedis] Respiratory 15 14 14 Rate Respiratory Rate [Anterior Bilateral Throughout] Blood Pressure 108/51 108/51 91/39 O2 Sat by Pulse 100 100 100 Oximetry 04/27/18 04/27/18 04/27/18 21:38 21:40 21:50 Temperature Pulse Rate 67 88 89 Pulse Rate [ Anterior Bilateral Throughout] Pulse Rate [ From Monitor] Pulse Rate [ Right Dorsalis Pedis] Respiratory 14 15 Rate Respiratory Rate [Anterior Bilateral Throughout] Blood Pressure 91/39 91/39 O2 Sat by Pulse 100 100 Oximetry 04/27/18 04/27/18 04/27/18 22:00 22:10 22:20 Temperature Pulse Rate 81 107 H 87 Pulse Rate [ Anterior Bilateral Throughout] Pulse Rate [ From Monitor] Pulse Rate [ Right Dorsalis Pedis] Respiratory 15 16 15 Rate Respiratory Rate [Anterior Bilateral Throughout] Blood Pressure 82/40 87/41 91/39 O2 Sat by Pulse 100 100 100 Oximetry 04/27/18 04/27/18 04/27/18 22:30 22:40 22:50 Temperature Pulse Rate 85 88 88 Pulse Rate [ Anterior Bilateral Throughout] Pulse Rate [ From Monitor] Pulse Rate [ Right Dorsalis Pedis] Respiratory 19 16 16 Rate Respiratory Rate [Anterior Bilateral Throughout] Blood Pressure 92/36 92/36 92/36 O2 Sat by Pulse 100 100 100 Oximetry 04/27/18 04/27/18 04/27/18 23:00 23:10 23:20 Temperature Pulse Rate 85 82 82 Pulse Rate [ Anterior Bilateral Throughout] Pulse Rate [ From Monitor] Pulse Rate [ Right Dorsalis Pedis] Respiratory 17 16 16 Rate Respiratory Rate [Anterior Bilateral Throughout] Blood Pressure 88/34 87/44 87/44 O2 Sat by Pulse 100 100 100 Oximetry 04/27/18 04/27/18 04/27/18 23:30 23:40 23:46 Temperature Pulse Rate 103 H 94 H 93 H Pulse Rate [ Anterior Bilateral Throughout] Pulse Rate [ From Monitor] Pulse Rate [ Right Dorsalis Pedis] Respiratory 17 17 17 Rate Respiratory Rate [Anterior Bilateral Throughout] Blood Pressure 79/43 79/43 79/43 O2 Sat by Pulse 100 100 100 Oximetry 04/27/18 04/27/18 04/27/18 23:50 23:51 23:52 Temperature 97.4 F L Pulse Rate 91 H Pulse Rate [ Anterior Bilateral Throughout] Pulse Rate [ 86 From Monitor] Pulse Rate [ 86 Right Dorsalis Pedis] Respiratory 16 15 Rate Respiratory Rate [Anterior Bilateral Throughout] Blood Pressure 102/43 O2 Sat by Pulse 100 100 Oximetry 04/28/18 04/28/18 04/28/18 00:00 00:10 00:20 Temperature Pulse Rate 94 H 96 H 101 H Pulse Rate [ Anterior Bilateral Throughout] Pulse Rate [ From Monitor] Pulse Rate [ Right Dorsalis Pedis] Respiratory 17 18 15 Rate Respiratory Rate [Anterior Bilateral Throughout] Blood Pressure 102/37 102/37 102/37 O2 Sat by Pulse 100 100 100 Oximetry 04/28/18 04/28/18 04/28/18 00:30 00:40 00:50 Temperature Pulse Rate 103 H 105 H 107 H Pulse Rate [ Anterior Bilateral Throughout] Pulse Rate [ From Monitor] Pulse Rate [ Right Dorsalis Pedis] Respiratory 15 15 20 Rate Respiratory Rate [Anterior Bilateral Throughout] Blood Pressure 102/37 102/37 102/37 O2 Sat by Pulse 100 100 100 Oximetry 04/28/18 04/28/18 04/28/18 01:00 01:10 01:21 Temperature Pulse Rate 102 H 104 H 107 H Pulse Rate [ Anterior Bilateral Throughout] Pulse Rate [ From Monitor] Pulse Rate [ Right Dorsalis Pedis] Respiratory 14 20 19 Rate Respiratory Rate [Anterior Bilateral Throughout] Blood Pressure 102/37 102/37 O2 Sat by Pulse 100 100 100 Oximetry 04/28/18 04/28/18 04/28/18 01:31 01:40 01:51 Temperature Pulse Rate 100 H 101 H 104 H Pulse Rate [ Anterior Bilateral Throughout] Pulse Rate [ From Monitor] Pulse Rate [ Right Dorsalis Pedis] Respiratory 18 14 19 Rate Respiratory Rate [Anterior Bilateral Throughout] Blood Pressure 102/37 102/37 99/57 O2 Sat by Pulse 100 100 100 Oximetry 04/28/18 04/28/18 04/28/18 02:00 02:11 02:20 Temperature Pulse Rate 103 H 89 90 Pulse Rate [ Anterior Bilateral Throughout] Pulse Rate [ From Monitor] Pulse Rate [ Right Dorsalis Pedis] Respiratory 20 19 20 Rate Respiratory Rate [Anterior Bilateral Throughout] Blood Pressure 112/43 112/43 112/43 O2 Sat by Pulse 100 100 100 Oximetry 04/28/18 04/28/18 04/28/18 02:31 02:40 02:51 Temperature Pulse Rate 94 H 93 H 101 H Pulse Rate [ Anterior Bilateral Throughout] Pulse Rate [ From Monitor] Pulse Rate [ Right Dorsalis Pedis] Respiratory 19 20 21 Rate Respiratory Rate [Anterior Bilateral Throughout] Blood Pressure 112/43 112/43 112/43 O2 Sat by Pulse 100 100 100 Oximetry 04/28/18 04/28/18 04/28/18 03:00 03:11 03:20 Temperature Pulse Rate 102 H 104 H 106 H Pulse Rate [ Anterior Bilateral Throughout] Pulse Rate [ From Monitor] Pulse Rate [ Right Dorsalis Pedis] Respiratory 20 20 21 Rate Respiratory Rate [Anterior Bilateral Throughout] Blood Pressure 106/43 106/43 106/43 O2 Sat by Pulse 100 100 100 Oximetry 04/28/18 04/28/18 04/28/18 03:30 03:31 03:40 Temperature Pulse Rate 107 H 99 H Pulse Rate [ 100 H 104 H Anterior Bilateral Throughout] Pulse Rate [ From Monitor] Pulse Rate [ Right Dorsalis Pedis] Respiratory 17 17 Rate Respiratory 20 18 Rate [Anterior Bilateral Throughout] Blood Pressure 106/43 106/43 O2 Sat by Pulse 100 100 Oximetry 04/28/18 04/28/18 04/28/18 03:48 03:51 04:00 Temperature 98.4 F Pulse Rate 89 87 Pulse Rate [ Anterior Bilateral Throughout] Pulse Rate [ 87 From Monitor] Pulse Rate [ 87 Right Dorsalis Pedis] Respiratory 17 18 Rate Respiratory Rate [Anterior Bilateral Throughout] Blood Pressure 106/43 103/41 O2 Sat by Pulse 100 100 Oximetry 04/28/18 04/28/18 04/28/18 04:11 04:20 04:31 Temperature Pulse Rate 89 83 95 H Pulse Rate [ Anterior Bilateral Throughout] Pulse Rate [ From Monitor] Pulse Rate [ Right Dorsalis Pedis] Respiratory 19 19 18 Rate Respiratory Rate [Anterior Bilateral Throughout] Blood Pressure 103/41 103/41 103/41 O2 Sat by Pulse 100 100 100 Oximetry 04/28/18 04/28/18 04/28/18 04:40 04:51 05:00 Temperature Pulse Rate 103 H 103 H 106 H Pulse Rate [ Anterior Bilateral Throughout] Pulse Rate [ From Monitor] Pulse Rate [ Right Dorsalis Pedis] Respiratory 19 21 18 Rate Respiratory Rate [Anterior Bilateral Throughout] Blood Pressure 103/41 103/41 98/48 O2 Sat by Pulse 100 100 100 Oximetry 04/28/18 04/28/18 04/28/18 05:11 05:20 05:31 Temperature Pulse Rate 103 H 100 H 102 H Pulse Rate [ Anterior Bilateral Throughout] Pulse Rate [ From Monitor] Pulse Rate [ Right Dorsalis Pedis] Respiratory 20 18 20 Rate Respiratory Rate [Anterior Bilateral Throughout] Blood Pressure 98/48 98/48 98/48 O2 Sat by Pulse 100 100 100 Oximetry 04/28/18 04/28/18 04/28/18 05:40 05:51 06:00 Temperature Pulse Rate 97 H 89 85 Pulse Rate [ Anterior Bilateral Throughout] Pulse Rate [ From Monitor] Pulse Rate [ Right Dorsalis Pedis] Respiratory 20 21 22 Rate Respiratory Rate [Anterior Bilateral Throughout] Blood Pressure 98/48 98/48 87/37 O2 Sat by Pulse 100 100 Oximetry 04/28/18 04/28/18 07:49 08:00 Temperature Pulse Rate Pulse Rate [ 101 H 105 H Anterior Bilateral Throughout] Pulse Rate [ From Monitor] Pulse Rate [ Right Dorsalis Pedis] Respiratory Rate Respiratory 22 16 Rate [Anterior Bilateral Throughout] Blood Pressure O2 Sat by Pulse 100 Oximetry - General Appearance General appearance: well-developed, appears stated age, frail, other (on mittens) EENT: ATNC Neck: supple Respiratory: Present: Clear to Ascultation Cardiology: irregularly irregular, S1S2, no murmurs Gastrointestinal: normoactive bowel sounds, no tenderness, no distended Integumentary: no rash Neurologic: other (barely arousable) Musculoskeletal: other (no edema) - Lab 04/28/18 11:05 04/28/18 05:07 Most recent lab results Calcium 7.7 mg/dL (8.4-10.2) L 04/28/18 05:07 Magnesium 2.40 mg/dL (1.7-2.3) H 04/27/18 04:39 Urine Creatinine 142.3 mg/dL (0.1-20.0) H 04/27/18 09:30 Urine Sodium 314 mmol/L 04/27/18 09:30 Medications & Allergies - Medications Allergies/Adverse Reactions: Allergies No Known Allergies Allergy (Verified 04/03/14 21:12) Home Medications: Home Medications Medication Instructions Recorded Confirmed Last Taken Type Amiodarone [Cordarone 200 MG TAB] 200 mg PO QDAY #30 tablet 05/06/17 04/27/18 Unknown Rx Aspirin [Aspirin BABY CHEW TAB] 81 mg PO QDAY #30 tab.chew 05/06/17 04/27/18 Unknown Rx Folic Acid [Folvite] 1 mg PO QDAY #30 tablet 05/06/17 04/27/18 Unknown Rx Pravastatin [Pravachol] 40 mg PO DAILY #30 tablet 05/06/17 04/27/18 Unknown Rx levETIRAcetam [Keppra] 500 mg PO BID #30 tablet 05/06/17 04/27/18 Unknown Rx ALBUTEROL NEB's [Proventil 0.083% 2.5 mg INHALATION BID PRN 04/27/18 04/27/18 Unknown History NEBS] Acetaminophen [Non-Aspirin] 325 mg PO Q8H PRN 04/27/18 04/27/18 Unknown History Ascorbic Acid [Vitamin C] 500 mg PO DAILY 04/27/18 04/27/18 Unknown History Bisacodyl [Dulcolax suppos] 10 mg WI 3XW MDD constipation 04/27/18 04/27/18 Unknown History Diltiazem HCl [Diltiazem 12Hr ER] 120 mg PO DAILY 04/27/18 04/27/18 Unknown History Ferrous Sulfate [Iron] 325 mg PO DAILY 04/27/18 04/27/18 Unknown History Fluticasone (Nf) [Flovent Hfa(Nf)] 1 puff IH BID 04/27/18 04/27/18 Unknown Histo ry Ipratropium [Atrovent NEB] 0.02 ml INHALATION BID 04/27/18 04/27/18 Unknown History Levalbuterol [Xopenex] 1.25 mg IH Q6HRT PRN 04/27/18 04/27/18 Unknown History Levothyroxine [Synthroid] 125 mcg PO QAM 04/27/18 04/27/18 Unknown History Multivitamin Tab W-MINERAL 1 each PO QD 04/27/18 04/27/18 Unknown History [Multiple Vitamin/Mineral (Theragran M)] [place] 5-325 mg TAB 1 tab PO Q6H PRN 04/27/18 04/27/18 Unknown History Pantoprazole Sodium 40 mg PO DAILY 04/27/18 04/27/18 Unknown History Procrit 4,000 units SQ 3XW 04/27/18 04/27/18 Unknown History Senna Laxative Tablet 2 tab PO HS 04/27/18 04/27/18 Unknown History Sucralfate 1 gm PO 4XD 04/27/18 04/27/18 Unknown History Tramadol HCl [Ultram] 50 mg PO Q6HR PRN 04/27/18 04/27/18 Unknown History Zinc Oxide [Perishield] 100 gm TP DAILY 04/27/18 04/27/18 Unknown History traZODone [Desyrel] 25 mg PO QHS PRN 04/27/18 04/27/18 Unknown History Active Medications: Generic Name Dose Route Start Last Admin Trade Name Freq PRN Reason Stop Dose Admin Albuterol/Ipratropium 1 ampul 04/26/18 14:00 04/28/18 07:49 Duoneb *Not For Prn Use* IH 1 ampul Q6HRT RICHARD Administration Amiodarone HCl 200 mg 04/26/18 11:00 04/27/18 11:09 Cordarone PO 200 mg QDAY RICHARD Administration Lipase/Protease/Amylase 1 each 04/27/18 15:25 Pancreaze 10,500 Unit FEEDTUBE PRN PRN For Clogged Feeding Tube Aspirin 81 mg 04/26/18 11:00 04/27/18 11:07 Baby Aspirin PO 81 mg QDAY RICHARD Administration Budesonide 0.5 mg 04/26/18 20:00 04/27/18 19:53 Pulmicort IH 0.5 mg Q12HRT RICHARD Administration Famotidine 20 mg 04/27/18 10:00 04/27/18 11:09 Pepcid IV 20 mg DAILY RICHARD Administration Folic Acid 1 mg 04/26/18 11:00 04/27/18 11:07 Folvite PO 1 mg QDAY RICHARD Administration Cefepime HCl 1 gm in 100 mls @ 200 mls/hr 04/27/18 11:00 04/27/18 11:36 Maxipime/Ns 1 Gm/100 Ml IV 200 mls/hr Q24HR RICHARD Administration Levetiracetam 500 mg 04/26/18 11:00 04/27/18 21:31 Keppra PO 500 mg BID RICHARD Administration Levothyroxine Sodium 125 mcg 04/26/18 11:00 04/28/18 05:55 Synthroid PO 125 mcg QAM@0600 RICHARD Administration Pravastatin Sodium 40 mg 04/26/18 11:00 04/27/18 11:07 Pravachol PO 40 mg DAILY RICHARD Administration Simple Syrup 15 ml 04/27/18 15:25 Simple Syrup FEEDTUBE PRN PRN Hypoglycemia Simple Syrup 30 ml 04/27/18 15:25 Simple Syrup FEEDTUBE PRN PRN Hypoglycemia Sodium Bicarbonate 325 mg 04/27/18 15:25 Sodium Bicarbonate FEEDTUBE PRN PRN For Clogged Feeding Tube Trazodone HCl 50 mg 04/26/18 22:00 04/27/18 21:31 Desyrel PO 50 mg QHS RICHARD Administration
--- NOTE | 2018-04-28 09:46 | Progress Note ---
Assessment and Plan Acute respiratory failure, hypercapnic Metabolic acidosis Non-STEMI type II Right lower lung atelectasis. Review of CT scan shows areas of consolidation with volume loss in the right lower lobe. She also CT report severe acidemia, exactly etiology is unknown, Pleural effusion. Probably secondary to the above Recommendations Follow cardiology recommendations. Update ABG now and check for level of acidosis, hypercapnia if significant, restart BiPAP Aspiration precautions DVT prophylaxis Continue oxygen support, maintain oximetry around 92% Critical care time was 35 minutes of [id number] evaluation and coordination of care Subjective Date of service: 04/28/18 Principal diagnosis: resp failure; afib long-standing type II, right lower lung atelectasis, AMS Interval history: Deeply somnolent in no distress Objective Vital Signs - 12hr 04/27/18 04/27/18 04/27/18 21:50 22:00 22:10 Temperature Pulse Rate 89 81 107 H Pulse Rate [ Anterior Bilateral Throughout] Pulse Rate [ From Monitor] Pulse Rate [ Right Dorsalis Pedis] Respiratory 15 15 16 Rate Respiratory Rate [Anterior Bilateral Throughout] Blood Pressure 91/39 82/40 87/41 O2 Sat by Pulse 100 100 100 Oximetry 04/27/18 04/27/18 04/27/18 22:20 22:30 22:40 Temperature Pulse Rate 87 85 88 Pulse Rate [ Anterior Bilateral Throughout] Pulse Rate [ From Monitor] Pulse Rate [ Right Dorsalis Pedis] Respiratory 15 19 16 Rate Respiratory Rate [Anterior Bilateral Throughout] Blood Pressure 91/39 92/36 92/36 O2 Sat by Pulse 100 100 100 Oximetry 04/27/18 04/27/18 04/27/18 22:50 23:00 23:10 Temperature Pulse Rate 88 85 82 Pulse Rate [ Anterior Bilateral Throughout] Pulse Rate [ From Monitor] Pulse Rate [ Right Dorsalis Pedis] Respiratory 16 17 16 Rate Respiratory Rate [Anterior Bilateral Throughout] Blood Pressure 92/36 88/34 87/44 O2 Sat by Pulse 100 100 100 Oximetry 04/27/18 04/27/18 04/27/18 23:20 23:30 23:40 Temperature Pulse Rate 82 103 H 94 H Pulse Rate [ Anterior Bilateral Throughout] Pulse Rate [ From Monitor] Pulse Rate [ Right Dorsalis Pedis] Respiratory 16 17 17 Rate Respiratory Rate [Anterior Bilateral Throughout] Blood Pressure 87/44 79/43 79/43 O2 Sat by Pulse 100 100 100 Oximetry 04/27/18 04/27/18 04/27/18 23:46 23:50 23:51 Temperature 97.4 F L Pulse Rate 93 H 91 H Pulse Rate [ Anterior Bilateral Throughout] Pulse Rate [ From Monitor] Pulse Rate [ Right Dorsalis Pedis] Respiratory 17 16 Rate Respiratory Rate [Anterior Bilateral Throughout] Blood Pressure 79/43 102/43 O2 Sat by Pulse 100 100 Oximetry 04/27/18 04/28/18 04/28/18 23:52 00:00 00:10 Temperature Pulse Rate 94 H 96 H Pulse Rate [ Anterior Bilateral Throughout] Pulse Rate [ 86 From Monitor] Pulse Rate [ 86 Right Dorsalis Pedis] Respiratory 15 17 18 Rate Respiratory Rate [Anterior Bilateral Throughout] Blood Pressure 102/37 102/37 O2 Sat by Pulse 100 100 100 Oximetry 04/28/18 04/28/18 04/28/18 00:20 00:30 00:40 Temperature Pulse Rate 101 H 103 H 105 H Pulse Rate [ Anterior Bilateral Throughout] Pulse Rate [ From Monitor] Pulse Rate [ Right Dorsalis Pedis] Respiratory 15 15 15 Rate Respiratory Rate [Anterior Bilateral Throughout] Blood Pressure 102/37 102/37 102/37 O2 Sat by Pulse 100 100 100 Oximetry 04/28/18 04/28/18 04/28/18 00:50 01:00 01:10 Temperature Pulse Rate 107 H 102 H 104 H Pulse Rate [ Anterior Bilateral Throughout] Pulse Rate [ From Monitor] Pulse Rate [ Right Dorsalis Pedis] Respiratory 20 14 20 Rate Respiratory Rate [Anterior Bilateral Throughout] Blood Pressure 102/37 102/37 O2 Sat by Pulse 100 100 100 Oximetry 04/28/18 04/28/18 04/28/18 01:21 01:31 01:40 Temperature Pulse Rate 107 H 100 H 101 H Pulse Rate [ Anterior Bilateral Throughout] Pulse Rate [ From Monitor] Pulse Rate [ Right Dorsalis Pedis] Respiratory 19 18 14 Rate Respiratory Rate [Anterior Bilateral Throughout] Blood Pressure 102/37 102/37 102/37 O2 Sat by Pulse 100 100 100 Oximetry 04/28/18 04/28/18 04/28/18 01:51 02:00 02:11 Temperature Pulse Rate 104 H 103 H 89 Pulse Rate [ Anterior Bilateral Throughout] Pulse Rate [ From Monitor] Pulse Rate [ Right Dorsalis Pedis] Respiratory 19 20 19 Rate Respiratory Rate [Anterior Bilateral Throughout] Blood Pressure 99/57 112/43 112/43 O2 Sat by Pulse 100 100 100 Oximetry 04/28/18 04/28/18 04/28/18 02:20 02:31 02:40 Temperature Pulse Rate 90 94 H 93 H Pulse Rate [ Anterior Bilateral Throughout] Pulse Rate [ From Monitor] Pulse Rate [ Right Dorsalis Pedis] Respiratory 20 19 20 Rate Respiratory Rate [Anterior Bilateral Throughout] Blood Pressure 112/43 112/43 112/43 O2 Sat by Pulse 100 100 100 Oximetry 04/28/18 04/28/18 04/28/18 02:51 03:00 03:11 Temperature Pulse Rate 101 H 102 H 104 H Pulse Rate [ Anterior Bilateral Throughout] Pulse Rate [ From Monitor] Pulse Rate [ Right Dorsalis Pedis] Respiratory 21 20 20 Rate Respiratory Rate [Anterior Bilateral Throughout] Blood Pressure 112/43 106/43 106/43 O2 Sat by Pulse 100 100 100 Oximetry 04/28/18 04/28/18 04/28/18 03:20 03:30 03:31 Temperature Pulse Rate 106 H 107 H Pulse Rate [ 100 H Anterior Bilateral Throughout] Pulse Rate [ From Monitor] Pulse Rate [ Right Dorsalis Pedis] Respiratory 21 17 Rate Respiratory 20 Rate [Anterior Bilateral Throughout] Blood Pressure 106/43 106/43 O2 Sat by Pulse 100 100 Oximetry 04/28/18 04/28/18 04/28/18 03:40 03:48 03:51 Temperature 98.4 F Pulse Rate 99 H 89 Pulse Rate [ 104 H Anterior Bilateral Throughout] Pulse Rate [ From Monitor] Pulse Rate [ Right Dorsalis Pedis] Respiratory 17 17 Rate Respiratory 18 Rate [Anterior Bilateral Throughout] Blood Pressure 106/43 106/43 O2 Sat by Pulse 100 100 Oximetry 04/28/18 04/28/18 04/28/18 04:00 04:11 04:20 Temperature Pulse Rate 87 89 83 Pulse Rate [ Anterior Bilateral Throughout] Pulse Rate [ 87 From Monitor] Pulse Rate [ 87 Right Dorsalis Pedis] Respiratory 18 19 19 Rate Respiratory Rate [Anterior Bilateral Throughout] Blood Pressure 103/41 103/41 103/41 O2 Sat by Pulse 100 100 100 Oximetry 04/28/18 04/28/18 04/28/18 04:31 04:40 04:51 Temperature Pulse Rate 95 H 103 H 103 H Pulse Rate [ Anterior Bilateral Throughout] Pulse Rate [ From Monitor] Pulse Rate [ Right Dorsalis Pedis] Respiratory 18 19 21 Rate Respiratory Rate [Anterior Bilateral Throughout] Blood Pressure 103/41 103/41 103/41 O2 Sat by Pulse 100 100 100 Oximetry 04/28/18 04/28/18 04/28/18 05:00 05:11 05:20 Temperature Pulse Rate 106 H 103 H 100 H Pulse Rate [ Anterior Bilateral Throughout] Pulse Rate [ From Monitor] Pulse Rate [ Right Dorsalis Pedis] Respiratory 18 20 18 Rate Respiratory Rate [Anterior Bilateral Throughout] Blood Pressure 98/48 98/48 98/48 O2 Sat by Pulse 100 100 100 Oximetry 04/28/18 04/28/18 04/28/18 05:31 05:40 05:51 Temperature Pulse Rate 102 H 97 H 89 Pulse Rate [ Anterior Bilateral Throughout] Pulse Rate [ From Monitor] Pulse Rate [ Right Dorsalis Pedis] Respiratory 20 20 21 Rate Respiratory Rate [Anterior Bilateral Throughout] Blood Pressure 98/48 98/48 98/48 O2 Sat by Pulse 100 100 100 Oximetry 04/28/18 04/28/18 04/28/18 06:00 06:11 06:20 Temperature Pulse Rate 85 88 99 H Pulse Rate [ Anterior Bilateral Throughout] Pulse Rate [ From Monitor] Pulse Rate [ Right Dorsalis Pedis] Respiratory 22 18 22 Rate Respiratory Rate [Anterior Bilateral Throughout] Blood Pressure 87/37 87/37 87/37 O2 Sat by Pulse 100 100 Oximetry 04/28/18 04/28/18 04/28/18 06:31 06:40 06:50 Temperature Pulse Rate 93 H 97 H 99 H Pulse Rate [ Anterior Bilateral Throughout] Pulse Rate [ From Monitor] Pulse Rate [ Right Dorsalis Pedis] Respiratory 20 21 22 Rate Respiratory Rate [Anterior Bilateral Throughout] Blood Pressure 87/37 97/42 97/42 O2 Sat by Pulse 100 100 100 Oximetry 04/28/18 04/28/18 04/28/18 07:00 07:11 07:20 Temperature Pulse Rate 99 H 96 H 99 H Pulse Rate [ Anterior Bilateral Throughout] Pulse Rate [ From Monitor] Pulse Rate [ Right Dorsalis Pedis] Respiratory 23 23 19 Rate Respiratory Rate [Anterior Bilateral Throughout] Blood Pressure 94/46 94/46 94/46 O2 Sat by Pulse 100 100 Oximetry 04/28/18 04/28/18 04/28/18 07:31 07:40 07:49 Temperature Pulse Rate 107 H 106 H Pulse Rate [ 101 H Anterior Bilateral Throughout] Pulse Rate [ From Monitor] Pulse Rate [ Right Dorsalis Pedis] Respiratory 19 21 Rate Respiratory 22 Rate [Anterior Bilateral Throughout] Blood Pressure 94/46 94/46 O2 Sat by Pulse 100 100 100 Oximetry 04/28/18 04/28/18 04/28/18 07:51 08:00 08:11 Temperature 99.0 F Pulse Rate 96 H 104 H 111 H Pulse Rate [ 105 H Anterior Bilateral Throughout] Pulse Rate [ From Monitor] Pulse Rate [ Right Dorsalis Pedis] Respiratory 28 H 21 16 Rate Respiratory 16 Rate [Anterior Bilateral Throughout] Blood Pressure 94/46 94/46 102/43 O2 Sat by Pulse 100 100 100 Oximetry 04/28/18 04/28/18 08:20 08:31 Temperature Pulse Rate 118 H 100 H Pulse Rate [ Anterior Bilateral Throughout] Pulse Rate [ From Monitor] Pulse Rate [ Right Dorsalis Pedis] Respiratory 22 13 Rate Respiratory Rate [Anterior Bilateral Throughout] Blood Pressure 102/43 102/43 O2 Sat by Pulse 98 100 Oximetry Constitutional: no acute distress, lethargic Eyes: non-icteric ENT: oropharynx moist, other (feeding tube in position) Neck: supple, no JVD Effort: mildly labored Ascultation: Right: diminished breath sounds, Bilateral: clear Cardiovascular: regular rate and rhythm Gastrointestinal: normoactive bowel sounds, soft Extremities: no edema Neurologic: unable to assess CBC and BMP: 04/28/18 05:07 04/28/18 05:07 ABG, PT/INR, D-dimer: ABG POC ABG pH 7.161 (7.35-7.45) L 04/26/18 17:40 POC ABG pCO2 56.3 (35-45) H 04/26/18 17:40 POC ABG pO2 124 (80-105) H 04/26/18 17:40 POC ABG HCO3 20.1 04/26/18 17:40 POC ABG Total CO2 22 04/26/18 17:40 POC ABG O2 Sat 97 04/26/18 17:40 PT/INR, D-dimer PT 15.8 Sec. (12.2-14.9) H 04/26/18 04:47 INR 1.22 (0.87-1.13) H 04/26/18 04:47 D-Dimer 254.08 ng/mlDDU (0-234) H 04/26/18 04:47 Abnormal lab findings: Abnormal Labs 04/26/18 04/26/18 04/26/18 04:43 04:43 04:47 WBC RBC 2.91 L Hgb 8.8 L Hct 27.9 L RDW 17.7 H Lymph % (Auto) 5.9 L [place] % (Auto) 11.6 H Lymph # 0.5 L [place] # 1.0 H Seg Neutrophils % 79.8 H Seg Neuts % (Manual) Lymphocytes % (Manual) Seg Neutrophils # Seg Neutrophils # Man Lymphocytes # (Manual) PT 15.8 H INR 1.22 H D-Dimer POC ABG pH POC ABG pCO2 POC ABG pO2 VBG pH Sodium 146 H Chloride 111.4 H Carbon Dioxide 21 L BUN 27 H Creatinine 1.8 H Glucose Calcium 8.3 L Magnesium ALT Troponin T NT-Pro-B Natriuret Pep Total Protein Albumin LDL Cholesterol Direct HDL Cholesterol Urine WBC (Auto) Urine Creatinine 04/26/18 04/26/18 04/26/18 04:47 04:47 04:47 WBC RBC Hgb Hct RDW Lymph % (Auto) [place] % (Auto) Lymph # [place] # Seg Neutrophils % Seg Neuts % (Manual) Lymphocytes % (Manual) Seg Neutrophils # Seg Neutrophils # Man Lymphocytes # (Manual) PT INR D-Dimer 254.08 H POC ABG pH POC ABG pCO2 POC ABG pO2 VBG pH Sodium Chloride Carbon Dioxide BUN Creatinine Glucose Calcium Magnesium ALT < 5 L Troponin T 0.149 H* NT-Pro-B Natriuret Pep 5133 H Total Protein 5.1 L Albumin 3.3 L LDL Cholesterol Direct 45 L HDL Cholesterol 67 H Urine WBC (Auto) Urine Creatinine 04/26/18 04/26/18 04/26/18 05:34 10:26 13:16 WBC RBC Hgb Hct RDW Lymph % (Auto) [place] % (Auto) Lymph # [place] # Seg Neutrophils % Seg Neuts % (Manual) Lymphocytes % (Manual) Seg Neutrophils # Seg Neutrophils # Man Lymphocytes # (Manual) PT INR D-Dimer POC ABG pH 7.142 L 7.167 L POC ABG pCO2 65.4 H 53.1 H POC ABG pO2 126 H VBG pH Sodium Chloride Carbon Dioxide BUN Creatinine Glucose Calcium Magnesium ALT Troponin T 0.141 H* NT-Pro-B Natriuret Pep Total Protein Albumin LDL Cholesterol Direct HDL Cholesterol Urine WBC (Auto) Urine Creatinine 04/26/18 04/26/18 04/27/18 17:40 17:57 04:39 WBC 15.7 H RBC 2.58 L Hgb 7.6 L Hct 24.3 L RDW 17.2 H Lymph % (Auto) [place] % (Auto) Lymph # [place] # Seg Neutrophils % Seg Neuts % (Manual) 95.0 H Lymphocytes % (Manual) 2.0 L Seg Neutrophils # Seg Neutrophils # Man 14.9 H Lymphocytes # (Manual) 0.3 L PT INR D-Dimer POC ABG pH 7.161 L POC ABG pCO2 56.3 H POC ABG pO2 124 H VBG pH Sodium Chloride Carbon Dioxide BUN Creatinine Glucose Calcium Magnesium ALT Troponin T 0.114 H* NT-Pro-B Natriuret Pep Total Protein Albumin LDL Cholesterol Direct HDL Cholesterol Urine WBC (Auto) Urine Creatinine 04/27/18 04/27/18 04/27/18 04:39 09:30 09:30 WBC RBC Hgb Hct RDW Lymph % (Auto) [place] % (Auto) Lymph # [place] # Seg Neutrophils % Seg Neuts % (Manual) Lymphocytes % (Manual) Seg Neutrophils # Seg Neutrophils # Man Lymphocytes # (Manual) PT INR D-Dimer POC ABG pH POC ABG pCO2 POC ABG pO2 VBG pH Sodium 148 H Chloride 111.4 H Carbon Dioxide 20 L BUN 38 H Creatinine 2.2 H Glucose 128 H Calcium 8.2 L Magnesium 2.40 H ALT Troponin T NT-Pro-B Natriuret Pep Total Protein Albumin LDL Cholesterol Direct HDL Cholesterol Urine WBC (Auto) 133.0 H Urine Creatinine 142.3 H 04/27/18 04/28/18 04/28/18 14:12 05:07 05:07 WBC 13.5 H RBC 2.29 L Hgb 6.7 L Hct 21.0 L RDW 17.1 H Lymph % (Auto) 1.8 L [place] % (Auto) 9.4 H Lymph # 0.2 L [place] # 1.3 H Seg Neutrophils % 88.7 H Seg Neuts % (Manual) Lymphocytes % (Manual) Seg Neutrophils # 11.9 H Seg Neutrophils # Man Lymphocytes # (Manual) PT INR D-Dimer POC ABG pH POC ABG pCO2 POC ABG pO2 VBG pH 7.270 L Sodium 147 H Chloride 111.7 H Carbon Dioxide 18 L BUN 48 H Creatinine 2.9 H Glucose 162 H Calcium 7.7 L Magnesium ALT Troponin T NT-Pro-B Natriuret Pep Total Protein Albumin LDL Cholesterol Direct HDL Cholesterol Urine WBC (Auto) Urine Creatinine
[2018-04-28] MEDS ORDERED: LEVAQUIN 500MG/100ML 500 MG/100 ML BAG IV SCH (10:00)
--- NOTE | 2018-04-28 10:04 | Progress Note ---
Assessment and Plan Assessment and plan: --Anemia; hemoglobin 6.7, no external evidence of bleeding Recheck H&H, less than 7, transfused 1 unit of PRBC transfusion stool For occult blood. --Acute hypoxic/hypercapnic respiratory failure; weaned off BiPAP Titrate O2 sats >90%, nebs, IV steroids,IV antibiotics, BiPAP when necessary --Acute exacerbation of bronchial asthma; Oxygen nebulizers IV steroids and IV antibiotics inhalation steroids Pulmonary critical consultation --Bilateral pleural effusion; right more than left, pulmonary consultation Possible ultrasound-guided thoracentesis if needed --Perihilar infiltrate/possible pneumonia; empiric antibiotics --Acute on chronic congestive heart failure; EF :45-50% 2 years ago, IV diuretics, beta blockers Input output monitoring, echocardiogram, cardiology evaluation --Positive cardiac enzymes/possible non-ST elevation MD Cardiac medications serial cardiac enzymes and EKGs Cardiology evaluation --Acute on chronic kidney injury;worsening renal function vasomotor nephropathy, avoid nephrotoxins, nephro evaluation if no improvement --History of A. fib; rate controlled: Continue amiodarone, aspirin, not a candidate for chronic anticoagulation, h/o GI bleed ,dementia ,age risk of falls Cardiology consultation --Dementia; supportive care --Hypothyroidism; continue Synthroid --DVT prophylaxis; SCDs, Lovenox --Full CODE STATUS She may be transferred out of ICU if okay with pulmonary The high probability of a clinically significant, sudden or life threatening deterioration of the [ respiratory, renal, cardiac,metabolic and neuro] system(s) required my full and direct attention, intervention and personal management.The aggregate critical care time was [31 ] minutes. This time is in addition to time spent performing reported procedures but includes the following: [x] Data Review and interpretation [x] Patient assessment and monitoring of vital signs [x] Documentation [x] Medication orders and management History Interval history: Patient name seen and examined medical records reviewed Patient feels slightly better, minimally communicative Chronically ill-looking cachectic Mild drop in hemoglobin Vital signs noted Hospitalist Physical - Constitutional Vitals: Temp Pulse Resp BP Pulse Ox 99.0 F 100 H 13 102/43 100 04/28/18 08:00 04/28/18 08:31 04/28/18 08:31 04/28/18 08:31 04/28/18 08:31 General appearance: Present: no acute distress, cachectic, disheveled, other (confused) - EENT Eyes: Present: PERRL, EOM intact - Neck Neck: Present: supple, normal ROM - Respiratory Respiratory effort: normal Respiratory: bilateral: diminished, rhonchi, negative: rales, wheezing - Cardiovascular Rhythm: regular Heart Sounds: Present: S1 & S2 - Extremities Extremities: no ischemia - Abdominal General gastrointestinal: soft, non-tender, non-distended, normal bowel sounds - Integumentary Integumentary: Present: clear, warm - Psychiatric Psychiatric: other (minimal communication) - Neurologic Neurologic: other (minimally communicative) Results - Labs CBC & Chem 7: 04/28/18 11:05 04/28/18 05:07 Labs: Laboratory Last Values WBC 13.5 K/mm3 (4.5-11.0) H 04/28/18 05:07 RBC 2.29 M/mm3 (3.65-5.03) L 04/28/18 05:07 Hgb 6.7 gm/dl (10.1-14.3) L 04/28/18 05:07 Hct 21.0 % (30.3-42.9) L 04/28/18 05:07 MCV 92 fl (79-97) 04/28/18 05:07 MCH 29 pg (28-32) 04/28/18 05:07 MCHC 32 % (30-34) 04/28/18 05:07 RDW 17.1 % (13.2-15.2) H 04/28/18 05:07 Plt Count 193 K/mm3 (140-440) 04/28/18 05:07 Lymph % (Auto) 1.8 % (13.4-35.0) L 04/28/18 05:07 [place] % (Auto) 9.4 % (0.0-7.3) H 04/28/18 05:07 Eos % (Auto) 0.0 % (0.0-4.3) 04/28/18 05:07 Baso % (Auto) 0.1 % (0.0-1.8) 04/28/18 05:07 Lymph # 0.2 K/mm3 (1.2-5.4) L 04/28/18 05:07 [place] # 1.3 K/mm3 (0.0-0.8) H 04/28/18 05:07 Eos # 0.0 K/mm3 (0.0-0.4) 04/28/18 05:07 Baso # 0.0 K/mm3 (0.0-0.1) 04/28/18 05:07 Add Manual Diff Complete 04/27/18 04:39 Total Counted 100 04/27/18 04:39 Seg Neutrophils % 88.7 % (40.0-70.0) H 04/28/18 05:07 Seg Neuts % (Manual) 95.0 % (40.0-70.0) H 04/27/18 04:39 Band Neutrophils % 2.0 % 04/27/18 04:39 Lymphocytes % (Manual) 2.0 % (13.4-35.0) L 04/27/18 04:39 Reactive Lymphs % (Man) 0 % 04/27/18 04:39 Monocytes % (Manual) 0 % (0.0-7.3) 04/27/18 04:39 Eosinophils % (Manual) 0 % (0.0-4.3) 04/27/18 04:39 Basophils % (Manual) 0 % (0.0-1.8) 04/27/18 04:39 Metamyelocytes % 1.0 % 04/27/18 04:39 Myelocytes % 0 % 04/27/18 04:39 Promyelocytes % 0 % 04/27/18 04:39 Blast Cells % 0 % 04/27/18 04:39 Nucleated RBC % Not Reportable 04/27/18 04:39 Seg Neutrophils # 11.9 K/mm3 (1.8-7.7) H 04/28/18 05:07 Seg Neutrophils # Man 14.9 K/mm3 (1.8-7.7) H 04/27/18 04:39 Band Neutrophils # 0.3 K/mm3 04/27/18 04:39 Lymphocytes # (Manual) 0.3 K/mm3 (1.2-5.4) L 04/27/18 04:39 Abs React Lymphs (Man) 0.0 K/mm3 04/27/18 04:39 Monocytes # (Manual) 0.0 K/mm3 (0.0-0.8) 04/27/18 04:39 Eosinophils # (Manual) 0.0 K/mm3 (0.0-0.4) 04/27/18 04:39 Basophils # (Manual) 0.0 K/mm3 (0.0-0.1) 04/27/18 04:39 Metamyelocytes # 0.2 K/mm3 04/27/18 04:39 Myelocytes # 0.0 K/mm3 04/27/18 04:39 Promyelocytes # 0.0 K/mm3 04/27/18 04:39 Blast Cells # 0.0 K/mm3 04/27/18 04:39 WBC Morphology Not Reportable 04/27/18 04:39 Hypersegmented Neuts Not Reportable 04/27/18 04:39 Hyposegmented Neuts Not Reportable 04/27/18 04:39 Hypogranular Neuts Not Reportable 04/27/18 04:39 Smudge Cells Not Reportable 04/27/18 04:39 Toxic Granulation Not Reportable 04/27/18 04:39 Toxic Vacuolation Not Reportable 04/27/18 04:39 Dohle Bodies Not Reportable 04/27/18 04:39 Pelger-Huet Anomaly Not Reportable 04/27/18 04:39 Vlad Rods Not Reportable 04/27/18 04:39 Platelet Estimate Appears normal 04/27/18 04:39 Clumped Platelets Not Reportable 04/27/18 04:39 Plt Clumps, EDTA Not Reportable 04/27/18 04:39 Large Platelets Not Reportable 04/27/18 04:39 Giant Platelets Few 04/27/18 04:39 Platelet Satelliting Not Reportable 04/27/18 04:39 Plt Morphology Comment Not Reportable 04/27/18 04:39 RBC Morphology Not Reportable 04/27/18 04:39 Dimorphic RBCs Not Reportable 04/27/18 04:39 Polychromasia Not Reportable 04/27/18 04:39 Hypochromasia 1+ 04/27/18 04:39 Poikilocytosis 2+ 04/27/18 04:39 Anisocytosis 1+ 04/27/18 04:39 Microcytosis Not Reportable 04/27/18 04:39 Macrocytosis Not Reportable 04/27/18 04:39 Spherocytes Not Reportable 04/27/18 04:39 Pappenheimer Bodies Not Reportable 04/27/18 04:39 Sickle Cells Not Reportable 04/27/18 04:39 Target Cells 1+ 04/27/18 04:39 Tear Drop Cells Not Reportable 04/27/18 04:39 Ovalocytes 2+ 04/27/18 04:39 Helmet Cells Rare 04/27/18 04:39 [place] Bodies Not Reportable 04/27/18 04:39 [place] Rings Not Reportable 04/27/18 04:39 Jelani Cells Few 04/27/18 04:39 Bite Cells Not Reportable 04/27/18 04:39 Crenated Cell Not Reportable 04/27/18 04:39 Elliptocytes 2+ 04/27/18 04:39 Acanthocytes (Spur) Few 04/27/18 04:39 Rouleaux Not Reportable 04/27/18 04:39 Hemoglobin C Crystals Not Reportable 04/27/18 04:39 Schistocytes Few 04/27/18 04:39 Malaria parasites Not Reportable 04/27/18 04:39 Jaylen Bodies Not Reportable 04/27/18 04:39 Hem Pathologist Commnt No 04/27/18 04:39 PT 15.8 Sec. (12.2-14.9) H 04/26/18 04:47 INR 1.22 (0.87-1.13) H 04/26/18 04:47 APTT 32.4 Sec. (24.2-36.6) 04/26/18 04:47 D-Dimer 254.08 ng/mlDDU (0-234) H 04/26/18 04:47 POC ABG pH 7.161 (7.35-7.45) L 04/26/18 17:40 POC ABG pCO2 56.3 (35-45) H 04/26/18 17:40 POC ABG pO2 124 (80-105) H 04/26/18 17:40 POC ABG HCO3 20.1 04/26/18 17:40 POC ABG Total CO2 22 04/26/18 17:40 POC ABG O2 Sat 97 04/26/18 17:40 POC ABG Base Excess -9 04/26/18 17:40 VBG pH 7.270 (7.320-7.420) L 04/27/18 14:12 FiO2 35 % 04/26/18 17:40 Sodium 147 mmol/L (137-145) H 04/28/18 05:07 Potassium 4.2 mmol/L (3.6-5.0) 04/28/18 05:07 Chloride 111.7 mmol/L (98-107) H 04/28/18 05:07 Carbon Dioxide 18 mmol/L (22-30) L 04/28/18 05:07 Anion Gap 22 mmol/L 04/28/18 05:07 BUN 48 mg/dL (7-17) H 04/28/18 05:07 Creatinine 2.9 mg/dL (0.7-1.2) H 04/28/18 05:07 Estimated GFR 18 ml/min 04/28/18 05:07 BUN/Creatinine Ratio 17 % 04/28/18 05:07 Glucose 162 mg/dL (65-100) H 04/28/18 05:07 POC Glucose 95 (70-105) 04/26/18 14:28 Lactic Acid 1.40 mmol/L (0.7-2.0) 04/26/18 10:55 Calcium 7.7 mg/dL (8.4-10.2) L 04/28/18 05:07 Magnesium 2.40 mg/dL (1.7-2.3) H 04/27/18 04:39 Total Bilirubin 0.40 mg/dL (0.1-1.2) 04/26/18 04:47 Direct Bilirubin < 0.2 mg/dL (0-0.2) 04/26/18 04:47 Indirect Bilirubin 0.2 mg/dL 04/26/18 04:47 AST 8 units/L (5-40) 04/26/18 04:47 ALT < 5 units/L (7-56) L 04/26/18 04:47 Alkaline Phosphatase 61 units/L (35-129) 04/26/18 04:47 Total Creatine Kinase 40 units/L (30-135) 04/26/18 17:57 CK-MB (CK-2) 1.6 ng/mL (0.0-4.0) 04/26/18 17:57 CK-MB (CK-2) Rel Index 4.0 (0-4) 04/26/18 17:57 Troponin T 0.114 ng/mL (0.00-0.029) H* 04/26/18 17:57 NT-Pro-B Natriuret Pep 5133 pg/mL (0-900) H 04/26/18 04:47 Total Protein 5.1 g/dL (6.3-8.2) L 04/26/18 04:47 Albumin 3.3 g/dL (3.9-5) L 04/26/18 04:47 Albumin/Globulin Ratio 1.8 % 04/26/18 04:47 Triglycerides 90 mg/dL (2-149) 04/26/18 04:47 Cholesterol 129 mg/dL (50-199) 04/26/18 04:47 LDL Cholesterol Direct 45 mg/dL (50-130) L 04/26/18 04:47 HDL Cholesterol 67 mg/dL (40-59) H 04/26/18 04:47 Cholesterol/HDL Ratio 1.92 % 04/26/18 04:47 TSH 1.560 mlU/mL (0.270-4.200) 04/26/18 13:16 Free T4 1.28 ng/dL (0.76-1.46) 04/26/18 13:16 Urine Color [place]ine (Yellow) 04/27/18 09:30 Urine Turbidity Cloudy (Clear) 04/27/18 09:30 Urine pH 5.0 (5.0-7.0) 04/27/18 09:30 Ur Specific [place] 1.028 (1.003-1.030) 04/27/18 09:30 Urine Protein 100 mg/dl mg/dL (Negative) 04/27/18 09:30 Urine Glucose (UA) Neg mg/dL (Negative) 04/27/18 09:30 Urine Ketones 20 mg/dL (Negative) 04/27/18 09:30 Urine Blood Neg (Negative) 04/27/18 09:30 Urine Nitrite Neg (Negative) 04/27/18 09:30 Urine Bilirubin Neg (Negative) 04/27/18 09:30 Urine Urobilinogen 2.0 mg/dL (<2.0) 04/27/18 09:30 Ur Leukocyte Esterase Lg (Negative) 04/27/18 09:30 Urine WBC (Auto) 133.0 /HPF (0.0-6.0) H 04/27/18 09:30 Urine RBC (Auto) 24.0 /HPF (0.0-6.0) 04/27/18 09:30 Urine Bacteria (Auto) 1+ /HPF (Negative) 04/27/18 09:30 Calcium Oxalate Crystal 3+ 04/27/18 09:30 Urine Mucus 3+ /HPF 04/27/18 09:30 Urine Creatinine 142.3 mg/dL (0.1-20.0) H 04/27/18 09:30 Urine Sodium 314 mmol/L 04/27/18 09:30 Nutrition/Malnutrition Assess - Dietary Evaluation Nutrition/Malnutrition Findings: Nutrition Notes Start: 04/27/18 14:13 Freq: Status: Active Protocol: Document 04/27/18 15:04 OL (Rec: 04/27/18 15:22 OL [id number]) Nutrition Notes Need for 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 Maurice 15. Pt. admitted with SOB. Burn Absent Trauma Absent #1 Nutrition Diagnosis Inadequate oral intake Etiology dementia As Evidenced by Signs and Symptoms TF consult, pt. not meeting energy/protein needs through PO intake Is patient on ventilator? No Is Patient Ambulatory and/or Out of Bed No REE-([facility]-confined to bed) 1140.840 Calculation Used for Recommendations [facility] Additional Notes protein (1.2-2g/kg): 66-110g fluid: 1mL/kcal or per Nutrition Intervention Change Diet Order: TF Nutrition Support: Promote at 50mL/hr with 100mL flush q4h Kcal 1,200 Protein (gm) 75 Fluid (mL) 1,007 Goal #1 TF to meet 80-100% of energy and protein needs Anticipated Discharge Needs: Unable to identify at this time Follow-Up By: 05/01/18 Additional Comments f/u: new TF
[2018-04-28] MEDS: PEPCID IV SCH (10:46)
[2018-04-28] MEDS: KEPPRA PO SCH ×2 (10:46→21:14)
[2018-04-28] MEDS: CORDARONE PO SCH ×2 (10:47→21:14)
[2018-04-28] MEDS: FOLVITE PO SCH (10:47)
[2018-04-28] MEDS: PRAVACHOL PO SCH (10:47)
[2018-04-28] MEDS: MAXIPIME/NS 1 GM/100 ML 1 GM/100 ML BAG IV SCH (10:47)
[2018-04-28] MEDS: BABY ASPIRIN PO SCH (10:47)
[2018-04-28 11:24] LABS: Hematocrit 21.4 % (30.3-42.9); Hemoglobin 6.8 gm/dl (10.1-14.3)
--- NOTE | 2018-04-28 11:44 | Progress Note ---
Assessment and Plan Optimize HR - increase PO amio to 200mg BID. Troponin elevation appears c/w NSTEMI type II. Obtain echo. In the past, pt deemed not a candidate for systemic AC due to history of GI bleed. She also has advanced dementia and anemia and still does not appear to be a good candidate for systemic AC. The patient has been seen in conjunction with Dr. Negrita Metz who agrees with the assessment and plan of care. - Patient Problems (1) Acute respiratory failure Current Visit: Yes Status: Acute Qualifiers: Respiratory failure complication: hypoxia and hypercapnia Qualified Code(s): J96.01 - Acute respiratory failure with hypoxia; J96.02 - Acute respiratory failure with hypercapnia (2) Acidosis Current Visit: Yes Status: Acute (3) Pneumonia Current Visit: Yes Status: Suspected Qualifiers: Pneumonia type: due to unspecified organism Laterality: right Lung location: unspecified part of lung Qualified Code(s): J18.9 - Pneumonia, unspecified organism (4) Acute heart failure Current Visit: Yes Status: Acute (5) Afib Current Visit: Yes Status: Chronic Qualifiers: Atrial fibrillation type: chronic Qualified Code(s): I48.2 - Chronic atrial fibrillation (6) Elevated troponin I level Current Visit: Yes Status: Acute (7) Renal insufficiency Current Visit: Yes Status: Acute (8) Anemia Current Visit: Yes Status: Chronic Qualifiers: Anemia type: unspecified type Qualified Code(s): D64.9 - Anemia, unspecified (9) Dementia Current Visit: Yes Status: Chronic Subjective Date of service: 04/28/18 Principal diagnosis: resp failure; afib long-standing type II, right lower lung atelectasis, AMS Interval history: pt resting in bed, no apparent distress. in AFib with CVR on tele. Objective Last Vital Signs Temp 99.0 F 04/28/18 08:00 Pulse 103 H 04/28/18 11:00 Resp 19 04/28/18 11:00 BP 100/42 04/28/18 11:00 Pulse Ox 100 04/28/18 11:00 - Physical Examination General: No Apparent Distress HEENT: Positive: PERRL Neck: Positive: neck supple, trachea midline Cardiac: Positive: irregularly irregular, S1/S2 Lungs: Positive: Decreased Breath Sounds Neuro: Positive: Other (lethargic, on bipap) Abdomen: Negative: Tender Skin: Negative: Rash, Wound Musculoskeletal: No Pain Extremities: Absent: edema - Labs and Meds CBC 04/28/18 04/28/18 Range/Units 05:07 11:05 WBC 13.5 H (4.5-11.0) K/mm3 RBC 2.29 L (3.65-5.03) M/mm3 Hgb 6.7 L 6.8 L (10.1-14.3) gm/dl Hct 21.0 L 21.4 L (30.3-42.9) % Plt Count 193 (140-440) K/mm3 Lymph # 0.2 L (1.2-5.4) K/mm3 [place] # 1.3 H (0.0-0.8) K/mm3 Eos # 0.0 (0.0-0.4) K/mm3 Baso # 0.0 (0.0-0.1) K/mm3 Comprehensive Metabolic Panel 04/28/18 Range/Units 05:07 Sodium 147 H (137-145) mmol/L Potassium 4.2 (3.6-5.0) mmol/L Chloride 111.7 H (98-107) mmol/L Carbon Dioxide 18 L (22-30) mmol/L BUN 48 H (7-17) mg/dL Creatinine 2.9 H (0.7-1.2) mg/dL Glucose 162 H (65-100) mg/dL Calcium 7.7 L (8.4-10.2) mg/dL - Imaging and Cardiology EKG: report reviewed, image reviewed Echo: report reviewed (02/2014 showed EF 45-50%, mild TR, RVSP 39mmHg. ) - EKG Sinus rhythms and dysrhythmias: sinus rhythm
[2018-04-28] MEDS ORDERED: NACL 0.9% 500 ML 500 ML IV ONE (17:05)
[2018-04-28] MEDS ORDERED: LASIX IV ONE (17:10)
[2018-04-28] MEDS: ALBURX 25% (ALBUMIN) IV SCH ×2 (17:29→21:44)
[2018-04-28] MEDS: DESYREL PO SCH (21:14)
[2018-04-29] MEDS: DUONEB *Not for PRN Use IH SCH ×4 (02:06→19:52)
[2018-04-29] MEDS: SYNTHROID PO SCH (06:50)
[2018-04-29] MEDS: PULMICORT IH SCH ×2 (07:20→19:53)
[2018-04-29 07:29] LABS: Calcium 7.8 mg/dL (8.4-10.2)
[2018-04-29 08:04] LABS: Hematocrit 25.1 % (30.3-42.9); Hemoglobin 8.1 gm/dl (10.1-14.3); Mean Corpuscular HGB Conc 32 % (30-34); Mean Corpuscular Volume 93 fl (79-97); Platelet Count 171 K/mm3 (140-440); Red Blood Count 2.71 M/mm3 (3.65-5.03); Red Cell Distribution Width 16.6 % (13.2-15.2)
[2018-04-29 08:34] LABS: Band Neutrophils # (Manual) 0.2 K/mm3; Basophils % (Manual) 0 % (0.0-1.8); Eosinophils % (Manual) 0 % (0.0-4.3); Total Cells Counted 100
[2018-04-29 08:35] LABS: Anisocytosis 2+; Ovalocytes 1+; Schistocytes Rare; Target Cells Rare
[2018-04-29 08:36] LABS: Poikilocytosis 1+
--- NOTE | 2018-04-29 09:35 | Progress Note ---
Assessment and Plan 1. 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 Urine studies and Renal US results noted. Renal function continue to decline due to hypotension. IV fluids started. Renal prognosis is guarded. Monitor renal function. 2. FEN: Anion gap metabolic acidosis, improving. Sodium bicarbonate as needed. 3. Hypoxic hypercapnic respiratory failure: Followed by Pulmonary. 4. Bilateral pleural effusion right more than left. 5. Perihilar infiltrate, possible pneumonia: Empiric antibiotics 6. Acute on chronic systolic CHF. 7. Positive cardiac enzymes: ? NSTEMI. On ASA. 8. A. fib: On Amiodarone. 9. Anemia: S/p PRBC. 10. Dementia. Subjective Date of service: 04/29/18 Principal diagnosis: resp failure; afib Interval history: Patient was seen and examined at the bedside. Objective - Vital Signs Vital signs: Vital Signs - 12hr 04/28/18 04/28/18 04/28/18 21:40 21:50 22:00 Temperature Pulse Rate 105 H 90 102 H Pulse Rate [ Anterior Bilateral Throughout] Respiratory 17 21 20 Rate Respiratory Rate [Anterior Bilateral Throughout] Blood Pressure 107/50 107/50 124/46 O2 Sat by Pulse 100 100 100 Oximetry 04/28/18 04/28/18 04/28/18 22:05 22:10 22:20 Temperature Pulse Rate 97 H 104 H Pulse Rate [ Anterior Bilateral Throughout] Respiratory 19 22 Rate Respiratory Rate [Anterior Bilateral Throughout] Blood Pressure 124/46 107/50 O2 Sat by Pulse 98 100 100 Oximetry 04/28/18 04/28/18 04/28/18 22:30 22:40 22:50 Temperature Pulse Rate 96 H 100 H 99 H Pulse Rate [ Anterior Bilateral Throughout] Respiratory 15 22 21 Rate Respiratory Rate [Anterior Bilateral Throughout] Blood Pressure 107/50 107/50 107/50 O2 Sat by Pulse 100 100 100 Oximetry 04/28/18 04/28/18 04/28/18 23:00 23:10 23:20 Temperature Pulse Rate 95 H 95 H 94 H Pulse Rate [ Anterior Bilateral Throughout] Respiratory 20 20 17 Rate Respiratory Rate [Anterior Bilateral Throughout] Blood Pressure 110/49 110/49 124/46 O2 Sat by Pulse 100 100 100 Oximetry 04/28/18 04/28/18 04/28/18 23:30 23:40 23:46 Temperature Pulse Rate 102 H 95 H 93 H Pulse Rate [ Anterior Bilateral Throughout] Respiratory 22 18 18 Rate Respiratory Rate [Anterior Bilateral Throughout] Blood Pressure 124/46 124/46 110/49 O2 Sat by Pulse 100 100 100 Oximetry 04/28/18 04/29/18 04/29/18 23:50 00:00 00:04 Temperature 98.7 F Pulse Rate 94 H 95 H 91 H Pulse Rate [ Anterior Bilateral Throughout] Respiratory 15 19 16 Rate Respiratory Rate [Anterior Bilateral Throughout] Blood Pressure 110/49 105/51 105/51 O2 Sat by Pulse 100 100 100 Oximetry 04/29/18 04/29/18 04/29/18 00:10 00:20 00:30 Temperature Pulse Rate 102 H 93 H 89 Pulse Rate [ Anterior Bilateral Throughout] Respiratory 19 19 21 Rate Respiratory Rate [Anterior Bilateral Throughout] Blood Pressure 105/51 105/51 105/51 O2 Sat by Pulse 98 100 100 Oximetry 04/29/18 04/29/18 04/29/18 00:40 00:50 01:00 Temperature Pulse Rate 91 H 88 85 Pulse Rate [ Anterior Bilateral Throughout] Respiratory 15 16 19 Rate Respiratory Rate [Anterior Bilateral Throughout] Blood Pressure 105/51 105/51 93/36 O2 Sat by Pulse 100 100 100 Oximetry 04/29/18 04/29/18 04/29/18 01:04 01:10 01:19 Temperature 98.1 F Pulse Rate 91 H 91 H 89 Pulse Rate [ Anterior Bilateral Throughout] Respiratory 17 18 18 Rate Respiratory Rate [Anterior Bilateral Throughout] Blood Pressure 93/36 93/36 97/29 O2 Sat by Pulse 100 100 100 Oximetry 04/29/18 04/29/18 04/29/18 01:20 01:30 01:40 Temperature Pulse Rate 89 90 91 H Pulse Rate [ Anterior Bilateral Throughout] Respiratory 19 17 17 Rate Respiratory Rate [Anterior Bilateral Throughout] Blood Pressure 97/29 89/42 94/41 O2 Sat by Pulse 100 100 100 Oximetry 04/29/18 04/29/18 04/29/18 01:50 02:00 02:08 Temperature Pulse Rate 89 81 Pulse Rate [ 81 Anterior Bilateral Throughout] Respiratory 16 17 Rate Respiratory 16 Rate [Anterior Bilateral Throughout] Blood Pressure 94/42 87/37 O2 Sat by Pulse 100 100 Oximetry 04/29/18 04/29/18 04/29/18 02:10 02:20 02:30 Temperature Pulse Rate 79 83 95 H Pulse Rate [ Anterior Bilateral Throughout] Respiratory 16 15 17 Rate Respiratory Rate [Anterior Bilateral Throughout] Blood Pressure 87/37 95/41 102/49 O2 Sat by Pulse 100 100 100 Oximetry 04/29/18 04/29/18 04/29/18 02:36 02:40 02:50 Temperature Pulse Rate 103 H 88 Pulse Rate [ 101 H Anterior Bilateral Throughout] Respiratory 16 18 Rate Respiratory 20 Rate [Anterior Bilateral Throughout] Blood Pressure 102/49 109/48 O2 Sat by Pulse 100 100 Oximetry 04/29/18 04/29/18 04/29/18 03:00 03:10 03:20 Temperature Pulse Rate 97 H 101 H 107 H Pulse Rate [ Anterior Bilateral Throughout] Respiratory 17 19 17 Rate Respiratory Rate [Anterior Bilateral Throughout] Blood Pressure 109/48 111/45 109/48 O2 Sat by Pulse 100 100 100 Oximetry 04/29/18 04/29/18 04/29/18 03:30 03:40 03:50 Temperature Pulse Rate 106 H 101 H 105 H Pulse Rate [ Anterior Bilateral Throughout] Respiratory 14 18 18 Rate Respiratory Rate [Anterior Bilateral Throughout] Blood Pressure 110/55 110/55 110/45 O2 Sat by Pulse 100 100 100 Oximetry 04/29/18 04/29/18 04/29/18 04:00 04:02 04:10 Temperature 97.7 F 97.3 F L Pulse Rate 111 H 102 H Pulse Rate [ Anterior Bilateral Throughout] Respiratory 18 19 Rate Respiratory Rate [Anterior Bilateral Throughout] Blood Pressure 111/55 111/55 O2 Sat by Pulse 100 100 Oximetry 04/29/18 04/29/18 04/29/18 04:20 04:30 04:40 Temperature Pulse Rate 96 H 97 H 102 H Pulse Rate [ Anterior Bilateral Throughout] Respiratory 16 18 20 Rate Respiratory Rate [Anterior Bilateral Throughout] Blood Pressure 111/54 101/48 101/48 O2 Sat by Pulse 100 100 Oximetry 04/29/18 04/29/18 04/29/18 04:50 05:00 05:10 Temperature Pulse Rate 96 H 102 H 96 H Pulse Rate [ Anterior Bilateral Throughout] Respiratory 18 18 18 Rate Respiratory Rate [Anterior Bilateral Throughout] Blood Pressure 101/44 106/50 106/50 O2 Sat by Pulse 100 100 Oximetry 04/29/18 04/29/18 04/29/18 05:20 05:30 05:40 Temperature Pulse Rate 89 98 H 95 H Pulse Rate [ Anterior Bilateral Throughout] Respiratory 18 20 16 Rate Respiratory Rate [Anterior Bilateral Throughout] Blood Pressure 104/49 104/50 104/50 O2 Sat by Pulse 100 99 99 Oximetry 04/29/18 04/29/18 04/29/18 05:50 06:00 06:10 Temperature Pulse Rate 101 H 99 H 94 H Pulse Rate [ Anterior Bilateral Throughout] Respiratory 14 20 19 Rate Respiratory Rate [Anterior Bilateral Throughout] Blood Pressure 98/42 109/46 109/46 O2 Sat by Pulse 100 99 99 Oximetry 04/29/18 04/29/18 04/29/18 06:20 06:30 06:40 Temperature Pulse Rate 83 84 90 Pulse Rate [ Anterior Bilateral Throughout] Respiratory 17 18 18 Rate Respiratory Rate [Anterior Bilateral Throughout] Blood Pressure 90/40 93/42 90/40 O2 Sat by Pulse 100 100 Oximetry 04/29/18 04/29/18 04/29/18 06:50 07:00 07:10 Temperature Pulse Rate 93 H 88 85 Pulse Rate [ Anterior Bilateral Throughout] Respiratory 17 17 18 Rate Respiratory Rate [Anterior Bilateral Throughout] Blood Pressure 90/40 92/41 93/42 O2 Sat by Pulse 100 100 100 Oximetry 04/29/18 04/29/18 04/29/18 07:20 07:30 07:40 Temperature Pulse Rate 77 79 88 Pulse Rate [ 92 H Anterior Bilateral Throughout] Respiratory 16 19 16 Rate Respiratory 18 Rate [Anterior Bilateral Throughout] Blood Pressure 98/45 89/38 89/38 O2 Sat by Pulse 100 100 100 Oximetry 04/29/18 04/29/18 04/29/18 07:50 08:00 08:10 Temperature 97.6 F Pulse Rate 89 96 H 85 Pulse Rate [ Anterior Bilateral Throughout] Respiratory 14 18 17 Rate Respiratory Rate [Anterior Bilateral Throughout] Blood Pressure 91/43 104/53 91/43 O2 Sat by Pulse 100 100 100 Oximetry 04/29/18 08:20 Temperature Pulse Rate 87 Pulse Rate [ Anterior Bilateral Throughout] Respiratory 18 Rate Respiratory Rate [Anterior Bilateral Throughout] Blood Pressure 91/45 O2 Sat by Pulse 100 Oximetry - General Appearance General appearance: well-developed, appears stated age, other (not in distress, on mittens) EENT: ATNC Neck: supple Respiratory: Present: Clear to Ascultation Cardiology: irregularly irregular, S1S2 Gastrointestinal: normoactive bowel sounds, no tenderness, no distended Integumentary: no rash, warm and dry Neurologic: other (arousable, non-verbal, not following any command) Musculoskeletal: other (no edema) - Lab 04/30/18 08:35 04/30/18 08:35 Most recent lab results Calcium 7.8 mg/dL (8.4-10.2) L 04/29/18 06:44 Magnesium 2.40 mg/dL (1.7-2.3) H 04/29/18 06:44 Urine Creatinine 142.3 mg/dL (0.1-20.0) H 04/27/18 09:30 Urine Sodium 314 mmol/L 04/27/18 09:30 Medications & Allergies - Medications Allergies/Adverse Reactions: Allergies No Known Allergies Allergy (Verified 04/03/14 21:12) Home Medications: Home Medications Medication Instructions Recorded Confirmed Last Taken Type Amiodarone [Cordarone 200 MG TAB] 200 mg PO QDAY #30 tablet 05/06/17 04/27/18 Unknown Rx Aspirin [Aspirin BABY CHEW TAB] 81 mg PO QDAY #30 tab.chew 05/06/17 04/27/18 Unknown Rx Folic Acid [Folvite] 1 mg PO QDAY #30 tablet 05/06/17 04/27/18 Unknown Rx Pravastatin [Pravachol] 40 mg PO DAILY #30 tablet 05/06/17 04/27/18 Unknown Rx levETIRAcetam [Keppra] 500 mg PO BID #30 tablet 05/06/17 04/27/18 Unknown Rx ALBUTEROL NEB's [Proventil 0.083% 2.5 mg INHALATION BID PRN 04/27/18 04/27/18 Unknown History NEBS] Acetaminophen [Non-Aspirin] 325 mg PO Q8H PRN 04/27/18 04/27/18 Unknown History Ascorbic Acid [Vitamin C] 500 mg PO DAILY 04/27/18 04/27/18 Unknown History Bisacodyl [Dulcolax suppos] 10 mg RI 3XW MDD constipation 04/27/18 04/27/18 U nknown History Diltiazem HCl [Diltiazem 12Hr ER] 120 mg PO DAILY 04/27/18 04/27/18 Unknown History Ferrous Sulfate [Iron] 325 mg PO DAILY 04/27/18 04/27/18 Unknown History Fluticasone (Nf) [Flovent Hfa(Nf)] 1 puff IH BID 04/27/18 04/27/18 Unknown History Ipratropium [Atrovent NEB] 0.02 ml INHALATION BID 04/27/18 04/27/18 Unknown History Levalbuterol [Xopenex] 1.25 mg IH Q6HRT PRN 04/27/18 04/27/18 Unknown History Levothyroxine [Synthroid] 125 mcg PO QAM 04/27/18 04/27/18 Unknown History Multivitamin Tab W-MINERAL 1 each PO QD 04/27/18 04/27/18 Unknown History [Multiple Vitamin/Mineral (Theragran M)] [place] 5-325 mg TAB 1 tab PO Q6H PRN 04/27/18 04/27/18 Unknown History Pantoprazole Sodium 40 mg PO DAILY 04/27/18 04/27/18 Unknown History Procrit 4,000 units SQ 3XW 04/27/18 04/27/18 Unknown History Senna Laxative Tablet 2 tab PO HS 04/27/18 04/27/18 Unknown History Sucralfate 1 gm PO 4XD 04/27/18 04/27/18 Unknown History Tramadol HCl [Ultram] 50 mg PO Q6HR PRN 04/27/18 04/27/18 Unknown History Zinc Oxide [Perishield] 100 gm TP DAILY 04/27/18 04/27/18 Unknown History traZODone [Desyrel] 25 mg PO QHS PRN 04/27/18 04/27/18 Unknown History Active Medications: Generic Name Dose Route Start Last Admin Trade Name Freq PRN Reason Stop Dose Admin Albuterol/Ipratropium 1 ampul 04/26/18 14:00 04/29/18 07:20 Duoneb *Not For Prn Use* IH 1 ampul Q6HRT RICHARD Administration Amiodarone HCl 200 mg 04/28/18 22:00 04/28/18 21:14 Cordarone PO 200 mg BID RICHARD Administration Lipase/Protease/Amylase 1 each 04/27/18 15:25 Pancredomenic Castro 10,500 Unit FEEDTUBE PRN PRN For Clogged Feeding Tube Aspirin 81 mg 04/26/18 11:00 04/28/18 10:47 Baby Aspirin PO 81 mg QDAY RICHARD Administration Budesonide 0.5 mg 04/26/18 20:00 04/29/18 07:20 Pulmicort IH 0.5 mg Q12HRT RICHARD Administration Famotidine 20 mg 04/27/18 10:00 04/28/18 10:46 Pepcid IV 20 mg DAILY RICHARD Administration Folic Acid 1 mg 04/26/18 11:00 04/28/18 10:47 Folvite PO 1 mg QDAY RICHARD Administration Cefepime HCl 1 gm in 100 mls @ 200 mls/hr 04/27/18 11:00 04/28/18 10:47 Maxipime/Ns 1 Gm/100 Ml IV 200 mls/hr Q24HR RICHARD Administration Levetiracetam 500 mg 04/26/18 11:00 04/28/18 21:14 Keppra PO 500 mg BID RICHARD Administration Levothyroxine Sodium 125 mcg 04/26/18 11:00 04/29/18 06:50 Synthroid PO 125 mcg QAM@0600 RICHARD Administration Pravastatin Sodium 40 mg 04/26/18 11:00 04/28/18 10:47 Pravachol PO 40 mg DAILY RICHARD Administration Simple Syrup 15 ml 04/27/18 15:25 Simple Syrup FEEDTUBE PRN PRN Hypoglycemia Simple Syrup 30 ml 04/27/18 15:25 Simple Syrup FEEDTUBE PRN PRN Hypoglycemia Sodium Bicarbonate 325 mg 04/27/18 15:25 Sodium Bicarbonate FEEDTUBE PRN PRN For Clogged Feeding Tube Trazodone HCl 50 mg 04/26/18 22:00 04/28/18 21:14 Desyrel PO 50 mg QHS RICHARD Administration
[2018-04-29] MEDS: KEPPRA PO SCH ×2 (09:49→21:33)
[2018-04-29] MEDS: FOLVITE PO SCH (09:49)
[2018-04-29] MEDS: CORDARONE PO SCH ×2 (09:50→21:33)
[2018-04-29] MEDS: BABY ASPIRIN PO SCH (09:50)
[2018-04-29] MEDS: PEPCID IV SCH (09:50)
[2018-04-29] MEDS: MAXIPIME/NS 1 GM/100 ML 1 GM/100 ML BAG IV SCH (09:50)
[2018-04-29] MEDS: PRAVACHOL PO SCH (09:50)
--- NOTE | 2018-04-29 10:01 | Progress Note ---
Assessment and Plan Assessment and plan: --Anemia; hemoglobin 6.7, patient received 1 unit of PRBC yesterday Hemoglobin improved to 8.1, closely monitor --Acute hypoxic/hypercapnic respiratory failure; weaned off BiPAP Titrate O2 sats >90%, nebs, IV steroids,IV antibiotics, BiPAP when necessary --Acute exacerbation of bronchial asthma; Oxygen nebulizers IV steroids and IV antibiotics inhalation steroids Pulmonary critical consultation --Bilateral pleural effusion; right more than left, pulmonary consultation Possible ultrasound-guided thoracentesis if needed --Perihilar infiltrate/possible pneumonia; empiric antibiotics --Acute on chronic congestive heart failure; EF :45-50% 2 years ago, IV diuretics, beta blockers Input output monitoring, echocardiogram, cardiology evaluation --Positive cardiac enzymes/possible non-ST elevation NE Cardiac medications serial cardiac enzymes and EKGs Cardiology evaluation --Acute on chronic kidney injury;worsening renal function vasomotor nephropathy, avoid nephrotoxins, nephro following --History of A. fib; rate controlled: Continue amiodarone, aspirin, not a candidate for chronic anticoagulation, h/o GI bleed ,dementia ,age risk of falls Cardiology consultation --Dementia; supportive care --Hypothyroidism; continue Synthroid --DVT prophylaxis; SCDs, Lovenox --Full CODE STATUS Patient is critically ill with poor prognosis The high probability of a clinically significant, sudden or life threatening deterioration of the [ respiratory, renal, cardiac,metabolic and neuro] system(s) required my full and direct attention, intervention and personal management.The aggregate critical care time was [31 ] minutes. This time is in addition to time spent performing reported procedures but includes the following: [x] Data Review and interpretation [x] Patient assessment and monitoring of vital signs [x] Documentation [x] Medication orders and management History Interval history: Patient seen and examined medical records reviewed No new events reported by the nursing staff Patient is comfortable to continue 1 unit PRBC yesterday Mild improvement of hemoglobin Patient is sleeping easily awakens Vital signs reviewed Hospitalist Physical - Constitutional Vitals: Temp Pulse Resp BP Pulse Ox 97.6 F 87 18 91/45 100 04/29/18 08:00 04/29/18 08:20 04/29/18 08:20 04/29/18 08:20 04/29/18 08:20 General appearance: Present: no acute distress, cachectic, disheveled, other (confused) - EENT Eyes: Present: PERRL, EOM intact - Neck Neck: Present: supple, normal ROM - Respiratory Respiratory effort: normal Respiratory: bilateral: diminished, rhonchi, negative: rales, wheezing - Cardiovascular Rhythm: regular Heart Sounds: Present: S1 & S2 - Extremities Extremities: no ischemia, No edema - Abdominal General gastrointestinal: soft, non-tender, non-distended, normal bowel sounds - Integumentary Integumentary: Present: clear, warm - Psychiatric Psychiatric: other (minimally communicative) - Neurologic Neurologic: other (minimally communicative) Results - Labs CBC & Chem 7: 04/29/18 06:44 04/29/18 06:44 Labs: Laboratory Last Values WBC 11.1 K/mm3 (4.5-11.0) H 04/29/18 06:44 RBC 2.71 M/mm3 (3.65-5.03) L 04/29/18 06:44 Hgb 8.1 gm/dl (10.1-14.3) L 04/29/18 06:44 Hct 25.1 % (30.3-42.9) L 04/29/18 06:44 MCV 93 fl (79-97) 04/29/18 06:44 MCH 30 pg (28-32) 04/29/18 06:44 MCHC 32 % (30-34) 04/29/18 06:44 RDW 16.6 % (13.2-15.2) H 04/29/18 06:44 Plt Count 171 K/mm3 (140-440) 04/29/18 06:44 Lymph % (Auto) 1.8 % (13.4-35.0) L 04/28/18 05:07 [place] % (Auto) Loss Prevention Supervisor 04/29/18 06:44 Eos % (Auto) 0.0 % (0.0-4.3) 04/28/18 05:07 Baso % (Auto) 0.1 % (0.0-1.8) 04/28/18 05:07 Lymph # 0.2 K/mm3 (1.2-5.4) L 04/28/18 05:07 [place] # 1.3 K/mm3 (0.0-0.8) H 04/28/18 05:07 Eos # 0.0 K/mm3 (0.0-0.4) 04/28/18 05:07 Baso # 0.0 K/mm3 (0.0-0.1) 04/28/18 05:07 Add Manual Diff Complete 04/29/18 06:44 Total Counted 100 04/29/18 06:44 Seg Neutrophils % 88.7 % (40.0-70.0) H 04/28/18 05:07 Seg Neuts % (Manual) 85.0 % (40.0-70.0) H 04/29/18 06:44 Band Neutrophils % 2.0 % 04/29/18 06:44 Lymphocytes % (Manual) 5.0 % (13.4-35.0) L 04/29/18 06:44 Reactive Lymphs % (Man) 0 % 04/29/18 06:44 Monocytes % (Manual) 8.0 % (0.0-7.3) H 04/29/18 06:44 Eosinophils % (Manual) 0 % (0.0-4.3) 04/29/18 06:44 Basophils % (Manual) 0 % (0.0-1.8) 04/29/18 06:44 Metamyelocytes % 0 % 04/29/18 06:44 Myelocytes % 0 % 04/29/18 06:44 Promyelocytes % 0 % 04/29/18 06:44 Blast Cells % 0 % 04/29/18 06:44 Nucleated RBC % 7.0 % (0.0-0.9) H 04/29/18 06:44 Seg Neutrophils # 11.9 K/mm3 (1.8-7.7) H 04/28/18 05:07 Seg Neutrophils # Man 9.4 K/mm3 (1.8-7.7) H 04/29/18 06:44 Band Neutrophils # 0.2 K/mm3 04/29/18 06:44 Lymphocytes # (Manual) 0.6 K/mm3 (1.2-5.4) L 04/29/18 06:44 Abs React Lymphs (Man) 0.0 K/mm3 04/29/18 06:44 Monocytes # (Manual) 0.9 K/mm3 (0.0-0.8) H 04/29/18 06:44 Eosinophils # (Manual) 0.0 K/mm3 (0.0-0.4) 04/29/18 06:44 Basophils # (Manual) 0.0 K/mm3 (0.0-0.1) 04/29/18 06:44 Metamyelocytes # 0.0 K/mm3 04/29/18 06:44 Myelocytes # 0.0 K/mm3 04/29/18 06:44 Promyelocytes # 0.0 K/mm3 04/29/18 06:44 Blast Cells # 0.0 K/mm3 04/29/18 06:44 WBC Morphology Not Reportable 04/29/18 06:44 Hypersegmented Neuts Not Reportable 04/29/18 06:44 Hyposegmented Neuts Not Reportable 04/29/18 06:44 Hypogranular Neuts Not Reportable 04/29/18 06:44 Smudge Cells Not Reportable 04/29/18 06:44 Toxic Granulation Not Reportable 04/29/18 06:44 Toxic Vacuolation Not Reportable 04/29/18 06:44 Dohle Bodies Not Reportable 04/29/18 06:44 Pelger-Huet Anomaly Not Reportable 04/29/18 06:44 Vlad Rods Not Reportable 04/29/18 06:44 Platelet Estimate Appears normal 04/29/18 06:44 Clumped Platelets Not Reportable 04/29/18 06:44 Plt Clumps, EDTA Not Reportable 04/29/18 06:44 Large Platelets Not Reportable 04/29/18 06:44 Giant Platelets Not Reportable 04/29/18 06:44 Platelet Satelliting Not Reportable 04/29/18 06:44 Plt Morphology Comment Not Reportable 04/29/18 06:44 RBC Morphology Not Reportable 04/29/18 06:44 Dimorphic RBCs Not Reportable 04/29/18 06:44 Polychromasia Not Reportable 04/29/18 06:44 Hypochromasia Not Reportable 04/29/18 06:44 Poikilocytosis 1+ 04/29/18 06:44 Anisocytosis 2+ 04/29/18 06:44 Microcytosis Not Reportable 04/29/18 06:44 Macrocytosis Not Reportable 04/29/18 06:44 Spherocytes Not Reportable 04/29/18 06:44 Pappenheimer Bodies Not Reportable 04/29/18 06:44 Sickle Cells Not Reportable 04/29/18 06:44 Target Cells Rare 04/29/18 06:44 Tear Drop Cells Not Reportable 04/29/18 06:44 Ovalocytes 1+ 04/29/18 06:44 Helmet Cells Not Reportable 04/29/18 06:44 Ballesteros-Hankinson Bodies Not Reportable 04/29/18 06:44 [place] Rings Not Reportable 04/29/18 06:44 [place] Cells Not Reportable 04/29/18 06:44 Bite Cells Not Reportable 04/29/18 06:44 Crenated Cell Not Reportable 04/29/18 06:44 Elliptocytes Not Reportable 04/29/18 06:44 Acanthocytes (Spur) Not Reportable 04/29/18 06:44 Rouleaux Not Reportable 04/29/18 06:44 Hemoglobin C Crystals Not Reportable 04/29/18 06:44 Schistocytes Rare 04/29/18 06:44 Malaria parasites Not Reportable 04/29/18 06:44 Jaylen Bodies Not Reportable 04/29/18 06:44 Hem Pathologist Commnt No 04/29/18 06:44 PT 15.8 Sec. (12.2-14.9) H 04/26/18 04:47 INR 1.22 (0.87-1.13) H 04/26/18 04:47 APTT 32.4 Sec. (24.2-36.6) 04/26/18 04:47 D-Dimer 254.08 ng/mlDDU (0-234) H 04/26/18 04:47 POC ABG pH 7.297 (7.35-7.45) L 04/28/18 10:59 POC ABG pCO2 49.4 (35-45) H 04/28/18 10:59 POC ABG pO2 131 (80-105) H 04/28/18 10:59 POC ABG HCO3 24.1 04/28/18 10:59 POC ABG Total CO2 26 04/28/18 10:59 POC ABG O2 Sat 99 04/28/18 10:59 POC ABG Base Excess -2 04/28/18 10:59 VBG pH 7.270 (7.320-7.420) L 04/27/18 14:12 FiO2 28 % 04/28/18 10:59 Sodium 148 mmol/L (137-145) H 04/29/18 06:44 Potassium 4.7 mmol/L (3.6-5.0) 04/29/18 06:44 Chloride 112.2 mmol/L (98-107) H 04/29/18 06:44 Carbon Dioxide 23 mmol/L (22-30) 04/29/18 06:44 Anion Gap 18 mmol/L 04/29/18 06:44 BUN 64 mg/dL (7-17) H 04/29/18 06:44 Creatinine 3.8 mg/dL (0.7-1.2) H 04/29/18 06:44 Estimated GFR 14 ml/min 04/29/18 06:44 BUN/Creatinine Ratio 17 % 04/29/18 06:44 Glucose 137 mg/dL (65-100) H 04/29/18 06:44 POC Glucose 138 (70-105) H 04/29/18 06:27 Lactic Acid 1.40 mmol/L (0.7-2.0) 04/26/18 10:55 Calcium 7.8 mg/dL (8.4-10.2) L 04/29/18 06:44 Magnesium 2.40 mg/dL (1.7-2.3) H 04/29/18 06:44 Total Bilirubin 0.40 mg/dL (0.1-1.2) 04/26/18 04:47 Direct Bilirubin < 0.2 mg/dL (0-0.2) 04/26/18 04:47 Indirect Bilirubin 0.2 mg/dL 04/26/18 04:47 AST 8 units/L (5-40) 04/26/18 04:47 ALT < 5 units/L (7-56) L 04/26/18 04:47 Alkaline Phosphatase 61 units/L (35-129) 04/26/18 04:47 Total Creatine Kinase 40 units/L (30-135) 04/26/18 17:57 CK-MB (CK-2) 1.6 ng/mL (0.0-4.0) 04/26/18 17:57 CK-MB (CK-2) Rel Index 4.0 (0-4) 04/26/18 17:57 Troponin T 0.114 ng/mL (0.00-0.029) H* 04/26/18 17:57 NT-Pro-B Natriuret Pep 5133 pg/mL (0-900) H 04/26/18 04:47 Total Protein 5.1 g/dL (6.3-8.2) L 04/26/18 04:47 Albumin 3.3 g/dL (3.9-5) L 04/26/18 04:47 Albumin/Globulin Ratio 1.8 % 04/26/18 04:47 Triglycerides 90 mg/dL (2-149) 04/26/18 04:47 Cholesterol 129 mg/dL (50-199) 04/26/18 04:47 LDL Cholesterol Direct 45 mg/dL (50-130) L 04/26/18 04:47 HDL Cholesterol 67 mg/dL (40-59) H 04/26/18 04:47 Cholesterol/HDL Ratio 1.92 % 04/26/18 04:47 TSH 1.560 mlU/mL (0.270-4.200) 04/26/18 13:16 Free T4 1.28 ng/dL (0.76-1.46) 04/26/18 13:16 Urine Color Delphine (Yellow) 04/27/18 09:30 Urine Turbidity Cloudy (Clear) 04/27/18 09:30 Urine pH 5.0 (5.0-7.0) 04/27/18 09:30 Ur Specific [place] 1.028 (1.003-1.030) 04/27/18 09:30 Urine Protein 100 mg/dl mg/dL (Negative) 04/27/18 09:30 Urine Glucose (UA) Neg mg/dL (Negative) 04/27/18 09:30 Urine Ketones 20 mg/dL (Negative) 04/27/18 09:30 Urine Blood Neg (Negative) 04/27/18 09:30 Urine Nitrite Neg (Negative) 04/27/18 09:30 Urine Bilirubin Neg (Negative) 04/27/18 09:30 Urine Urobilinogen 2.0 mg/dL (<2.0) 04/27/18 09:30 Ur Leukocyte Esterase Lg (Negative) 04/27/18 09:30 Urine WBC (Auto) 133.0 /HPF (0.0-6.0) H 04/27/18 09:30 Urine RBC (Auto) 24.0 /HPF (0.0-6.0) 04/27/18 09:30 Urine Bacteria (Auto) 1+ /HPF (Negative) 04/27/18 09:30 Calcium Oxalate Crystal 3+ 04/27/18 09:30 Urine Mucus 3+ /HPF 04/27/18 09:30 Urine Creatinine 142.3 mg/dL (0.1-20.0) H 04/27/18 09:30 Urine Sodium 314 mmol/L 04/27/18 09:30 Blood Type A POSITIVE 04/28/18 18:21 Antibody Screen Negative 04/28/18 18:21 Crossmatch See Detail 04/28/18 18:21 Nutrition/Malnutrition Assess - Dietary Evaluation Nutrition/Malnutrition Findings: Nutrition Notes Start: 04/27/18 14:13 Freq: Status: Active Protocol: Document 04/27/18 15:04 OL (Rec: 04/27/18 15:22 OL [id number]) Nutrition Notes Need for Assessment generated from: MD Order parts assembler Initial or Follow up Assessment Current Diagnosis COPD Hypertension Heart Failure Other Pertinent Diagnosis dementia Current Diet No diet ordered Labs/Tests Mg 2.4 BUN 38 Cr 2.2 Na 148 Pertinent Medications Lasix Height 5 ft 3 in Weight 55 kg [place] Body Weight (kg) 52.27 BMI 21.4 Subjective/Other Information RD consult for TF, screen for skin risk and chewing difficulty. Maurice 15. Pt. admitted with SOB. Burn Absent Trauma Absent #1 Nutrition Diagnosis Inadequate oral intake Etiology dementia As Evidenced by Signs and Symptoms TF consult, pt. not meeting energy/protein needs through PO intake Is patient on ventilator? No Is Patient Ambulatory and/or Out of Bed No REE-([facility]-confined to bed) 1140.840 Calculation Used for Recommendations [facility] Additional Notes protein (1.2-2g/kg): 66-110g fluid: 1mL/kcal or per MD Nutrition Intervention Change Diet Order: TF Nutrition Support: Promote at 50mL/hr with 100mL flush q4h Kcal 1,200 Protein (gm) 75 Fluid (mL) 1,007 Goal #1 TF to meet 80-100% of energy and protein needs Anticipated Discharge Needs: Unable to identify at this time Follow-Up By: 05/01/18 Additional Comments f/u: new TF
--- NOTE | 2018-04-29 11:20 | Progress Note ---
Assessment and Plan Acute respiratory failure, hypercapnic Hypotension.Volume expansion,PRBC given. Echo EF normal Metabolic acidosis .No HCO3 indicated yesterday,but monitoring x changes Non-STEMI type II .See Cards Right lower lung atelectasis. Pulmonary review of the x-ray this morning, patient shows bilateral effusions, cardiomegaly and tortuous aorta. The right lower lobe atelectasis seemed to be significantly improved on my opinion. Final report is pending Pleural effusion. Probably secondary to the above Recommendations Follow cardiology recommendations. Update ABG ,CXR May albaro more fluids,Albumin. Keep map between 60-65 Aspiration precautions DVT prophylaxis Continue oxygen support. Critical care time was 35 minutes of [id number] evaluation and coordination of care Subjective Date of service: 04/29/18 Principal diagnosis: resp failure; afib,hypotension,renal insuff Interval history: Lethargic, poorly responsive but in no distress Objective Vital Signs - 12hr 04/28/18 04/28/18 04/28/18 23:20 23:30 23:40 Temperature Pulse Rate 94 H 102 H 95 H Pulse Rate [ Anterior Bilateral Throughout] Respiratory 17 22 18 Rate Respiratory Rate [Anterior Bilateral Throughout] Blood Pressure 124/46 124/46 124/46 O2 Sat by Pulse 100 100 100 Oximetry 04/28/18 04/28/18 04/29/18 23:46 23:50 00:00 Temperature 98.7 F Pulse Rate 93 H 94 H 95 H Pulse Rate [ Anterior Bilateral Throughout] Respiratory 18 15 19 Rate Respiratory Rate [Anterior Bilateral Throughout] Blood Pressure 110/49 110/49 105/51 O2 Sat by Pulse 100 100 100 Oximetry 04/29/18 04/29/18 04/29/18 00:04 00:10 00:20 Temperature Pulse Rate 91 H 102 H 93 H Pulse Rate [ Anterior Bilateral Throughout] Respiratory 16 19 19 Rate Respiratory Rate [Anterior Bilateral Throughout] Blood Pressure 105/51 105/51 105/51 O2 Sat by Pulse 100 98 100 Oximetry 04/29/18 04/29/18 04/29/18 00:30 00:40 00:50 Temperature Pulse Rate 89 91 H 88 Pulse Rate [ Anterior Bilateral Throughout] Respiratory 21 15 16 Rate Respiratory Rate [Anterior Bilateral Throughout] Blood Pressure 105/51 105/51 105/51 O2 Sat by Pulse 100 100 100 Oximetry 04/29/18 04/29/18 04/29/18 01:00 01:04 01:10 Temperature 98.1 F Pulse Rate 85 91 H 91 H Pulse Rate [ Anterior Bilateral Throughout] Respiratory 19 17 18 Rate Respiratory Rate [Anterior Bilateral Throughout] Blood Pressure 93/36 93/36 93/36 O2 Sat by Pulse 100 100 100 Oximetry 04/29/18 04/29/18 04/29/18 01:19 01:20 01:30 Temperature Pulse Rate 89 89 90 Pulse Rate [ Anterior Bilateral Throughout] Respiratory 18 19 17 Rate Respiratory Rate [Anterior Bilateral Throughout] Blood Pressure 97/29 97/29 89/42 O2 Sat by Pulse 100 100 100 Oximetry 04/29/18 04/29/18 04/29/18 01:40 01:50 02:00 Temperature Pulse Rate 91 H 89 81 Pulse Rate [ Anterior Bilateral Throughout] Respiratory 17 16 17 Rate Respiratory Rate [Anterior Bilateral Throughout] Blood Pressure 94/41 94/42 87/37 O2 Sat by Pulse 100 100 100 Oximetry 04/29/18 04/29/18 04/29/18 02:08 02:10 02:20 Temperature Pulse Rate 79 83 Pulse Rate [ 81 Anterior Bilateral Throughout] Respiratory 16 15 Rate Respiratory 16 Rate [Anterior Bilateral Throughout] Blood Pressure 87/37 95/41 O2 Sat by Pulse 100 100 Oximetry 04/29/18 04/29/18 04/29/18 02:30 02:36 02:40 Temperature Pulse Rate 95 H 103 H Pulse Rate [ 101 H Anterior Bilateral Throughout] Respiratory 17 16 Rate Respiratory 20 Rate [Anterior Bilateral Throughout] Blood Pressure 102/49 102/49 O2 Sat by Pulse 100 100 Oximetry 04/29/18 04/29/18 04/29/18 02:50 03:00 03:10 Temperature Pulse Rate 88 97 H 101 H Pulse Rate [ Anterior Bilateral Throughout] Respiratory 18 17 19 Rate Respiratory Rate [Anterior Bilateral Throughout] Blood Pressure 109/48 109/48 111/45 O2 Sat by Pulse 100 100 100 Oximetry 04/29/18 04/29/18 04/29/18 03:20 03:30 03:40 Temperature Pulse Rate 107 H 106 H 101 H Pulse Rate [ Anterior Bilateral Throughout] Respiratory 17 14 18 Rate Respiratory Rate [Anterior Bilateral Throughout] Blood Pressure 109/48 110/55 110/55 O2 Sat by Pulse 100 100 100 Oximetry 04/29/18 04/29/18 04/29/18 03:50 04:00 04:02 Temperature 97.7 F 97.3 F L Pulse Rate 105 H 111 H Pulse Rate [ Anterior Bilateral Throughout] Respiratory 18 18 Rate Respiratory Rate [Anterior Bilateral Throughout] Blood Pressure 110/45 111/55 O2 Sat by Pulse 100 100 Oximetry 04/29/18 04/29/18 04/29/18 04:10 04:20 04:30 Temperature Pulse Rate 102 H 96 H 97 H Pulse Rate [ Anterior Bilateral Throughout] Respiratory 19 16 18 Rate Respiratory Rate [Anterior Bilateral Throughout] Blood Pressure 111/55 111/54 101/48 O2 Sat by Pulse 100 100 Oximetry 04/29/18 04/29/18 04/29/18 04:40 04:50 05:00 Temperature Pulse Rate 102 H 96 H 102 H Pulse Rate [ Anterior Bilateral Throughout] Respiratory 20 18 18 Rate Respiratory Rate [Anterior Bilateral Throughout] Blood Pressure 101/48 101/44 106/50 O2 Sat by Pulse 100 100 Oximetry 04/29/18 04/29/18 04/29/18 05:10 05:20 05:30 Temperature Pulse Rate 96 H 89 98 H Pulse Rate [ Anterior Bilateral Throughout] Respiratory 18 18 20 Rate Respiratory Rate [Anterior Bilateral Throughout] Blood Pressure 106/50 104/49 104/50 O2 Sat by Pulse 100 100 99 Oximetry 04/29/18 04/29/18 04/29/18 05:40 05:50 06:00 Temperature Pulse Rate 95 H 101 H 99 H Pulse Rate [ Anterior Bilateral Throughout] Respiratory 16 14 20 Rate Respiratory Rate [Anterior Bilateral Throughout] Blood Pressure 104/50 98/42 109/46 O2 Sat by Pulse 99 100 99 Oximetry 04/29/18 04/29/18 04/29/18 06:10 06:20 06:30 Temperature Pulse Rate 94 H 83 84 Pulse Rate [ Anterior Bilateral Throughout] Respiratory 19 17 18 Rate Respiratory Rate [Anterior Bilateral Throughout] Blood Pressure 109/46 90/40 93/42 O2 Sat by Pulse 99 100 Oximetry 04/29/18 04/29/18 04/29/18 06:40 06:50 07:00 Temperature Pulse Rate 90 93 H 88 Pulse Rate [ Anterior Bilateral Throughout] Respiratory 18 17 17 Rate Respiratory Rate [Anterior Bilateral Throughout] Blood Pressure 90/40 90/40 92/41 O2 Sat by Pulse 100 100 100 Oximetry 04/29/18 04/29/18 04/29/18 07:10 07:20 07:30 Temperature Pulse Rate 85 77 79 Pulse Rate [ 92 H 98 H Anterior Bilateral Throughout] Respiratory 18 16 19 Rate Respiratory 18 18 Rate [Anterior Bilateral Throughout] Blood Pressure 93/42 98/45 89/38 O2 Sat by Pulse 100 100 100 Oximetry 04/29/18 04/29/18 04/29/18 07:40 07:50 08:00 Temperature 97.6 F Pulse Rate 88 89 96 H Pulse Rate [ Anterior Bilateral Throughout] Respiratory 16 14 18 Rate Respiratory Rate [Anterior Bilateral Throughout] Blood Pressure 89/38 91/43 104/53 O2 Sat by Pulse 100 100 100 Oximetry 04/29/18 04/29/18 04/29/18 08:10 08:20 08:30 Temperature Pulse Rate 85 87 97 H Pulse Rate [ Anterior Bilateral Throughout] Respiratory 17 18 19 Rate Respiratory Rate [Anterior Bilateral Throughout] Blood Pressure 91/43 91/45 97/42 O2 Sat by Pulse 100 100 100 Oximetry 04/29/18 04/29/18 04/29/18 08:40 08:50 09:00 Temperature Pulse Rate 99 H 103 H 94 H Pulse Rate [ Anterior Bilateral Throughout] Respiratory 20 20 19 Rate Respiratory Rate [Anterior Bilateral Throughout] Blood Pressure 97/42 92/38 91/38 O2 Sat by Pulse 100 100 100 Oximetry 04/29/18 04/29/18 04/29/18 09:10 09:20 09:30 Temperature Pulse Rate 101 H 106 H 93 H Pulse Rate [ Anterior Bilateral Throughout] Respiratory 21 21 22 Rate Respiratory Rate [Anterior Bilateral Throughout] Blood Pressure 91/38 92/43 99/40 O2 Sat by Pulse 89 92 93 Oximetry 04/29/18 04/29/18 04/29/18 09:40 09:50 10:00 Temperature Pulse Rate 94 H 98 H 98 H Pulse Rate [ Anterior Bilateral Throughout] Respiratory 20 20 20 Rate Respiratory Rate [Anterior Bilateral Throughout] Blood Pressure 99/40 96/43 95/43 O2 Sat by Pulse 95 100 Oximetry 04/29/18 04/29/18 10:10 10:20 Temperature Pulse Rate 96 H 97 H Pulse Rate [ Anterior Bilateral Throughout] Respiratory 17 20 Rate Respiratory Rate [Anterior Bilateral Throughout] Blood Pressure 96/43 97/41 O2 Sat by Pulse 100 100 Oximetry Constitutional: no acute distress, lethargic Eyes: non-icteric ENT: oropharynx moist, other (feeding tube in position) Neck: supple, no JVD Effort: mildly labored Ascultation: Bilateral: clear, rhonchi (sporadic) Cardiovascular: regular rate and rhythm Gastrointestinal: normoactive bowel sounds, soft Extremities: no edema Neurologic: unable to assess CBC and BMP: 04/29/18 06:44 04/29/18 06:44 ABG, PT/INR, D-dimer: ABG POC ABG pH 7.297 (7.35-7.45) L 04/28/18 10:59 POC ABG pCO2 49.4 (35-45) H 04/28/18 10:59 POC ABG pO2 131 (80-105) H 04/28/18 10:59 POC ABG HCO3 24.1 04/28/18 10:59 POC ABG Total CO2 26 04/28/18 10:59 POC ABG O2 Sat 99 04/28/18 10:59 PT/INR, D-dimer PT 15.8 Sec. (12.2-14.9) H 04/26/18 04:47 INR 1.22 (0.87-1.13) H 04/26/18 04:47 D-Dimer 254.08 ng/mlDDU (0-234) H 04/26/18 04:47 Abnormal lab findings: Abnormal Labs 04/26/18 04/26/18 04/26/18 04:43 04:43 04:47 WBC RBC 2.91 L Hgb 8.8 L Hct 27.9 L RDW 17.7 H Lymph % (Auto) 5.9 L [place] % (Auto) 11.6 H Lymph # 0.5 L [place] # 1.0 H Seg Neutrophils % 79.8 H Seg Neuts % (Manual) Lymphocytes % (Manual) Monocytes % (Manual) Nucleated RBC % Seg Neutrophils # Seg Neutrophils # Man Lymphocytes # (Manual) Monocytes # (Manual) PT 15.8 H INR 1.22 H D-Dimer POC ABG pH POC ABG pCO2 POC ABG pO2 VBG pH Sodium 146 H Chloride 111.4 H Carbon Dioxide 21 L BUN 27 H Creatinine 1.8 H Glucose POC Glucose Calcium 8.3 L Magnesium ALT Troponin T NT-Pro-B Natriuret Pep Total Protein Albumin LDL Cholesterol Direct HDL Cholesterol Urine WBC (Auto) Urine Creatinine Crossmatch 04/26/18 04/26/18 04/26/18 04:47 04:47 04:47 WBC RBC Hgb Hct RDW Lymph % (Auto) [place] % (Auto) Lymph # [place] # Seg Neutrophils % Seg Neuts % (Manual) Lymphocytes % (Manual) Monocytes % (Manual) Nucleated RBC % Seg Neutrophils # Seg Neutrophils # Man Lymphocytes # (Manual) Monocytes # (Manual) PT INR D-Dimer 254.08 H POC ABG pH POC ABG pCO2 POC ABG pO2 VBG pH Sodium Chloride Carbon Dioxide BUN Creatinine Glucose POC Glucose Calcium Magnesium ALT < 5 L Troponin T 0.149 H* NT-Pro-B Natriuret Pep 5133 H Total Protein 5.1 L Albumin 3.3 L LDL Cholesterol Direct 45 L HDL Cholesterol 67 H Urine WBC (Auto) Urine Creatinine Crossmatch 04/26/18 04/26/18 04/26/18 05:34 10:26 13:16 WBC RBC Hgb Hct RDW Lymph % (Auto) [place] % (Auto) Lymph # [place] # Seg Neutrophils % Seg Neuts % (Manual) Lymphocytes % (Manual) Monocytes % (Manual) Nucleated RBC % Seg Neutrophils # Seg Neutrophils # Man Lymphocytes # (Manual) Monocytes # (Manual) PT INR D-Dimer POC ABG pH 7.142 L 7.167 L POC ABG pCO2 65.4 H 53.1 H POC ABG pO2 126 H VBG pH Sodium Chloride Carbon Dioxide BUN Creatinine Glucose POC Glucose Calcium Magnesium ALT Troponin T 0.141 H* NT-Pro-B Natriuret Pep Total Protein Albumin LDL Cholesterol Direct HDL Cholesterol Urine WBC (Auto) Urine Creatinine Crossmatch 04/26/18 04/26/18 04/27/18 17:40 17:57 04:39 WBC 15.7 H RBC 2.58 L Hgb 7.6 L Hct 24.3 L RDW 17.2 H Lymph % (Auto) [place] % (Auto) Lymph # [place] # Seg Neutrophils % Seg Neuts % (Manual) 95.0 H Lymphocytes % (Manual) 2.0 L Monocytes % (Manual) Nucleated RBC % Seg Neutrophils # Seg Neutrophils # Man 14.9 H Lymphocytes # (Manual) 0.3 L Monocytes # (Manual) PT INR D-Dimer POC ABG pH 7.161 L POC ABG pCO2 56.3 H POC ABG pO2 124 H VBG pH Sodium Chloride Carbon Dioxide BUN Creatinine Glucose POC Glucose Calcium Magnesium ALT Troponin T 0.114 H* NT-Pro-B Natriuret Pep Total Protein Albumin LDL Cholesterol Direct HDL Cholesterol Urine WBC (Auto) Urine Creatinine Crossmatch 04/27/18 04/27/18 04/27/18 04:39 09:30 09:30 WBC RBC Hgb Hct RDW Lymph % (Auto) [place] % (Auto) Lymph # [place] # Seg Neutrophils % Seg Neuts % (Manual) Lymphocytes % (Manual) Monocytes % (Manual) Nucleated RBC % Seg Neutrophils # Seg Neutrophils # Man Lymphocytes # (Manual) Monocytes # (Manual) PT INR D-Dimer POC ABG pH POC ABG pCO2 POC ABG pO2 VBG pH Sodium 148 H Chloride 111.4 H Carbon Dioxide 20 L BUN 38 H Creatinine 2.2 H Glucose 128 H POC Glucose Calcium 8.2 L Magnesium 2.40 H ALT Troponin T NT-Pro-B Natriuret Pep Total Protein Albumin LDL Cholesterol Direct HDL Cholesterol Urine WBC (Auto) 133.0 H Urine Creatinine 142.3 H Crossmatch 04/27/18 04/28/18 04/28/18 14:12 05:07 05:07 WBC 13.5 H RBC 2.29 L Hgb 6.7 L Hct 21.0 L RDW 17.1 H Lymph % (Auto) 1.8 L [place] % (Auto) 9.4 H Lymph # 0.2 L [place] # 1.3 H Seg Neutrophils % 88.7 H Seg Neuts % (Manual) Lymphocytes % (Manual) Monocytes % (Manual) Nucleated RBC % Seg Neutrophils # 11.9 H Seg Neutrophils # Man Lymphocytes # (Manual) Monocytes # (Manual) PT INR D-Dimer POC ABG pH POC ABG pCO2 POC ABG pO2 VBG pH 7.270 L Sodium 147 H Chloride 111.7 H Carbon Dioxide 18 L BUN 48 H Creatinine 2.9 H Glucose 162 H POC Glucose Calcium 7.7 L Magnesium ALT Troponin T NT-Pro-B Natriuret Pep Total Protein Albumin LDL Cholesterol Direct HDL Cholesterol Urine WBC (Auto) Urine Creatinine Crossmatch 04/28/18 04/28/18 04/28/18 10:59 11:05 18:21 WBC RBC Hgb 6.8 L Hct 21.4 L RDW Lymph % (Auto) [place] % (Auto) Lymph # [place] # Seg Neutrophils % Seg Neuts % (Manual) Lymphocytes % (Manual) Monocytes % (Manual) Nucleated RBC % Seg Neutrophils # Seg Neutrophils # Man Lymphocytes # (Manual) Monocytes # (Manual) PT INR D-Dimer POC ABG pH 7.297 L POC ABG pCO2 49.4 H POC ABG pO2 131 H VBG pH Sodium Chloride Carbon Dioxide BUN Creatinine Glucose POC Glucose Calcium Magnesium ALT Troponin T NT-Pro-B Natriuret Pep Total Protein Albumin LDL Cholesterol Direct HDL Cholesterol Urine WBC (Auto) Urine Creatinine Crossmatch See Detail 04/29/18 04/29/18 04/29/18 00:28 06:27 06:44 WBC 11.1 H RBC 2.71 L Hgb 8.1 L Hct 25.1 L RDW 16.6 H Lymph % (Auto) [place] % (Auto) Lymph # [place] # Seg Neutrophils % Seg Neuts % (Manual) 85.0 H Lymphocytes % (Manual) 5.0 L Monocytes % (Manual) 8.0 H Nucleated RBC % 7.0 H Seg Neutrophils # Seg Neutrophils # Man 9.4 H Lymphocytes # (Manual) 0.6 L Monocytes # (Manual) 0.9 H PT INR D-Dimer POC ABG pH POC ABG pCO2 POC ABG pO2 VBG pH Sodium Chloride Carbon Dioxide BUN Creatinine Glucose POC Glucose 163 H 138 H Calcium Magnesium ALT Troponin T NT-Pro-B Natriuret Pep Total Protein Albumin LDL Cholesterol Direct HDL Cholesterol Urine WBC (Auto) Urine Creatinine Crossmatch 04/29/18 06:44 WBC RBC Hgb Hct RDW Lymph % (Auto) [place] % (Auto) Lymph # [place] # Seg Neutrophils % Seg Neuts % (Manual) Lymphocytes % (Manual) Monocytes % (Manual) Nucleated RBC % Seg Neutrophils # Seg Neutrophils # Man Lymphocytes # (Manual) Monocytes # (Manual) PT INR D-Dimer POC ABG pH POC ABG pCO2 POC ABG pO2 VBG pH Sodium 148 H Chloride 112.2 H Carbon Dioxide BUN 64 H Creatinine 3.8 H Glucose 137 H POC Glucose Calcium 7.8 L Magnesium 2.40 H ALT Troponin T NT-Pro-B Natriuret Pep Total Protein Albumin LDL Cholesterol Direct HDL Cholesterol Urine WBC (Auto) Urine Creatinine Crossmatch Chest x-ray: image reviewed
--- NOTE | 2018-04-29 12:33 | XRay Report ---
FINAL REPORT EXAM: XR CHEST 1V AP HISTORY: effusion,CHF f/u COMPARISON: 04/26/2017 TECHNIQUE: Single frontal view of the chest FINDINGS: Enteric tube with tip in the stomach however the distal aspect is looped on itself. Stable cardiomegaly. Trace left pleural effusion and some residual fluid in the right minor fissure. Bibasilar opacities. No acute bony or soft tissue abnormality. IMPRESSION: Weighted enteric tube coiled on itself within the stomach. Trace left pleural effusion and trace right pleural effusion. Bibasilar opacities that may reflect atelectasis.
[2018-04-29] MEDS ORDERED: NACL 0.9% 500 ML 500 ML IV ONE (14:14)
--- NOTE | 2018-04-29 15:32 | Event Note ---
Date: 04/29/18 Multiple family members are at the bedside Wanted to know patient's condition treatment plan and prognosis In the presence of patient's nurse , I explained in detail, the patient's condition,Treatment plan, ,different consultants recommendations, patient's response to the treatment thus far, Prognosis, CODE STATUS, With the family members. Answered all their questions The family members requested DNR /DNI status and to continued the full treatment. Patient is DO NOT RESUSCITATE status .
[2018-04-29] MEDS: NACL 0.45% 1000 ML 1,000 ML IV SCH (15:46)
[2018-04-29] MEDS: DESYREL PO SCH (21:32)
[2018-04-30] MEDS: DUONEB *Not for PRN Use IH SCH ×4 (01:31→20:03)
[2018-04-30] MEDS ORDERED: VISTARIL PO ONE (03:00)
[2018-04-30] MEDS: SYNTHROID PO SCH (06:15)
[2018-04-30] MEDS: NACL 0.45% 1000 ML 1,000 ML IV SCH ×2 (06:15→19:37)
[2018-04-30] MEDS: PULMICORT IH SCH ×2 (08:00→20:03)
--- NOTE | 2018-04-30 08:31 | Progress Note ---
Assessment and Plan Assessment and plan: --Hyperkalemia: Potassium 6, hemolyzed sample, repeat K levels 5.5, Kayexalate ,monitor electrolytes, mgt per nephrology --Anemia; hemoglobin 6.7, patient received 1 unit of PRBC Hemoglobin improved to 8.1- 8.7 closely monitor --Acute hypoxic/hypercapnic respiratory failure; Titrate O2 sats >90%, nebs, IV steroids,IV antibiotics, BiPAP when necessary --Acute exacerbation of bronchial asthma; Oxygen nebulizers IV steroids and IV antibiotics inhalation steroids Pulmonary critical consultation --Bilateral pleural effusion; right more than left, pulmonary following f/u chest x-ray, significant improvement of pleural effusions --Perihilar infiltrate/possible pneumonia; empiric antibiotics --Acute on chronic congestive heart failure; EF :45-50% 2 years ago, IV diuretics, beta blockers Input output monitoring, echocardiogram, cardiology evaluation --Positive cardiac enzymes/possible non-ST elevation UT Cardiac medications serial cardiac enzymes and EKGs Cardiology evaluation --Acute on chronic kidney injury;worsening renal function vasomotor nephropathy, avoid nephrotoxins, nephro following --History of A. 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 This time is in addition to time spent performing reported procedures but includes the following: [x] Data Review and interpretation [x] Patient assessment and monitoring of vital signs [x] Documentation [x] Medication orders and management History Interval history: Patient seen and examined medical records reviewed No new events reported by the nursing staff Patient remains critically ill on BiPAP Vital signs noted Hospitalist Physical - Constitutional Vitals: Temp Pulse Resp BP Pulse Ox 97.8 F 82 21 99/48 100 04/30/18 08:00 04/30/18 07:56 04/30/18 07:56 04/30/18 07:56 04/30/18 07:56 General appearance: Present: no acute distress, cachectic, disheveled, other (confused) - EENT Eyes: Present: PERRL, EOM intact - Neck Neck: Present: supple, normal ROM - Respiratory Respiratory effort: normal Respiratory: bilateral: diminished, negative: rales, rhonchi, wheezing - Cardiovascular Rhythm: regular Heart Sounds: Present: S1 & S2 - Extremities Extremities: no ischemia, No edema - Abdominal General gastrointestinal: soft, non-tender, non-distended, normal bowel sounds - Integumentary Integumentary: Present: clear, warm - Psychiatric Psychiatric: appropriate mood/affect, cooperative - Neurologic Neurologic: CNII-XII intact, moves all extremities Results - Labs CBC & Chem 7: 04/30/18 08:35 04/30/18 08:35 Labs: Laboratory Last Values WBC 11.1 K/mm3 (4.5-11.0) H 04/29/18 06:44 RBC 2.71 M/mm3 (3.65-5.03) L 04/29/18 06:44 Hgb 8.1 gm/dl (10.1-14.3) L 04/29/18 06:44 Hct 25.1 % (30.3-42.9) L 04/29/18 06:44 MCV 93 fl (79-97) 04/29/18 06:44 MCH 30 pg (28-32) 04/29/18 06:44 MCHC 32 % (30-34) 04/29/18 06:44 RDW 16.6 % (13.2-15.2) H 04/29/18 06:44 Plt Count 171 K/mm3 (140-440) 04/29/18 06:44 Lymph % (Auto) 1.8 % (13.4-35.0) L 04/28/18 05:07 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 # 1.3 K/mm3 (0.0-0.8) H 04/28/18 05:07 Eos # 0.0 K/mm3 (0.0-0.4) 04/28/18 05:07 Baso # 0.0 K/mm3 (0.0-0.1) 04/28/18 05:07 Add Manual Diff Complete 04/29/18 06:44 Total Counted 100 04/29/18 06:44 Seg Neutrophils % 88.7 % (40.0-70.0) H 04/28/18 05:07 Seg Neuts % (Manual) 85.0 % (40.0-70.0) H 04/29/18 06:44 Band Neutrophils % 2.0 % 04/29/18 06:44 Lymphocytes % (Manual) 5.0 % (13.4-35.0) L 04/29/18 06:44 Reactive Lymphs % (Man) 0 % 04/29/18 06:44 Monocytes % (Manual) 8.0 % (0.0-7.3) H 04/29/18 06:44 Eosinophils % (Manual) 0 % (0.0-4.3) 04/29/18 06:44 Basophils % (Manual) 0 % (0.0-1.8) 04/29/18 06:44 Metamyelocytes % 0 % 04/29/18 06:44 Myelocytes % 0 % 04/29/18 06:44 Promyelocytes % 0 % 04/29/18 06:44 Blast Cells % 0 % 04/29/18 06:44 Nucleated RBC % 7.0 % (0.0-0.9) H 04/29/18 06:44 Seg Neutrophils # 11.9 K/mm3 (1.8-7.7) H 04/28/18 05:07 Seg Neutrophils # Man 9.4 K/mm3 (1.8-7.7) H 04/29/18 06:44 Band Neutrophils # 0.2 K/mm3 04/29/18 06:44 Lymphocytes # (Manual) 0.6 K/mm3 (1.2-5.4) L 04/29/18 06:44 Abs React Lymphs (Man) 0.0 K/mm3 04/29/18 06:44 Monocytes # (Manual) 0.9 K/mm3 (0.0-0.8) H 04/29/18 06:44 Eosinophils # (Manual) 0.0 K/mm3 (0.0-0.4) 04/29/18 06:44 Basophils # (Manual) 0.0 K/mm3 (0.0-0.1) 04/29/18 06:44 Metamyelocytes # 0.0 K/mm3 04/29/18 06:44 Myelocytes # 0.0 K/mm3 04/29/18 06:44 Promyelocytes # 0.0 K/mm3 04/29/18 06:44 Blast Cells # 0.0 K/mm3 04/29/18 06:44 WBC Morphology Not Reportable 04/29/18 06:44 Hypersegmented Neuts Not Reportable 04/29/18 06:44 Hyposegmented Neuts Not Reportable 04/29/18 06:44 Hypogranular Neuts Not Reportable 04/29/18 06:44 Smudge Cells Not Reportable 04/29/18 06:44 Toxic Granulation Not Reportable 04/29/18 06:44 Toxic Vacuolation Not Reportable 04/29/18 06:44 Dohle Bodies Not Reportable 04/29/18 06:44 Pelger-Huet Anomaly Not Reportable 04/29/18 06:44 Vlad Rods Not Reportable 04/29/18 06:44 Platelet Estimate Appears normal 04/29/18 06:44 Clumped Platelets Not Reportable 04/29/18 06:44 Plt Clumps, EDTA Not Reportable 04/29/18 06:44 Large Platelets Not Reportable 04/29/18 06:44 Giant Platelets Not Reportable 04/29/18 06:44 Platelet Satelliting Not Reportable 04/29/18 06:44 Plt Morphology Comment Not Reportable 04/29/18 06:44 RBC Morphology Not Reportable 04/29/18 06:44 Dimorphic RBCs Not Reportable 04/29/18 06:44 Polychromasia Not Reportable 04/29/18 06:44 Hypochromasia Not Reportable 04/29/18 06:44 Poikilocytosis 1+ 04/29/18 06:44 Anisocytosis 2+ 04/29/18 06:44 Microcytosis Not Reportable 04/29/18 06:44 Macrocytosis Not Reportable 04/29/18 06:44 Spherocytes Not Reportable 04/29/18 06:44 Pappenheimer Bodies Not Reportable 04/29/18 06:44 Sickle Cells Not Reportable 04/29/18 06:44 Target Cells Rare 04/29/18 06:44 Tear Drop Cells Not Reportable 04/29/18 06:44 Ovalocytes 1+ 04/29/18 06:44 Helmet Cells Not Reportable 04/29/18 06:44 [place] Bodies Not Reportable 04/29/18 06:44 [place] Rings Not Reportable 04/29/18 06:44 Jelani Cells Not Reportable 04/29/18 06:44 Bite Cells Not Reportable 04/29/18 06:44 Crenated Cell Not Reportable 04/29/18 06:44 Elliptocytes Not Reportable 04/29/18 06:44 Acanthocytes (Spur) Not Reportable 04/29/18 06:44 Rouleaux Not Reportable 04/29/18 06:44 Hemoglobin C Crystals Not Reportable 04/29/18 06:44 Schistocytes Rare 04/29/18 06:44 Malaria parasites Not Reportable 04/29/18 06:44 Jaylen Bodies Not Reportable 04/29/18 06:44 Hem Pathologist Commnt No 04/29/18 06:44 PT 15.8 Sec. (12.2-14.9) H 04/26/18 04:47 INR 1.22 (0.87-1.13) H 04/26/18 04:47 APTT 32.4 Sec. (24.2-36.6) 04/26/18 04:47 D-Dimer 254.08 ng/mlDDU (0-234) H 04/26/18 04:47 POC ABG pH 7.216 (7.35-7.45) L 04/29/18 14:33 POC ABG pCO2 62.4 (35-45) H 04/29/18 14:33 POC ABG pO2 162 (80-105) H 04/29/18 14:33 POC ABG HCO3 25.3 04/29/18 14:33 POC ABG Total CO2 27 04/29/18 14:33 POC ABG O2 Sat 99 04/29/18 14:33 POC ABG Base Excess -2 04/29/18 14:33 VBG pH 7.270 (7.320-7.420) L 04/27/18 14:12 FiO2 3 % 04/29/18 14:33 Sodium 143 mmol/L (137-145) 04/30/18 04:33 Potassium 6.0 mmol/L (3.6-5.0) H D 04/30/18 04:33 Chloride 111.4 mmol/L (98-107) H 04/30/18 04:33 Carbon Dioxide 18 mmol/L (22-30) L 04/30/18 04:33 Anion Gap 20 mmol/L 04/30/18 04:33 BUN 77 mg/dL (7-17) H 04/30/18 04:33 Creatinine 3.7 mg/dL (0.7-1.2) H 04/30/18 04:33 Estimated GFR 14 ml/min 04/30/18 04:33 BUN/Creatinine Ratio 21 % 04/30/18 04:33 Glucose 123 mg/dL (65-100) H 04/30/18 04:33 POC Glucose 155 (70-105) H 04/29/18 12:49 Lactic Acid 1.40 mmol/L (0.7-2.0) 04/26/18 10:55 Calcium 8.0 mg/dL (8.4-10.2) L 04/30/18 04:33 Magnesium 2.40 mg/dL (1.7-2.3) H 04/29/18 06:44 Total Bilirubin 0.40 mg/dL (0.1-1.2) 04/26/18 04:47 Direct Bilirubin < 0.2 mg/dL (0-0.2) 04/26/18 04:47 Indirect Bilirubin 0.2 mg/dL 04/26/18 04:47 AST 8 units/L (5-40) 04/26/18 04:47 ALT < 5 units/L (7-56) L 04/26/18 04:47 Alkaline Phosphatase 61 units/L (35-129) 04/26/18 04:47 Total Creatine Kinase 40 units/L (30-135) 04/26/18 17:57 CK-MB (CK-2) 1.6 ng/mL (0.0-4.0) 04/26/18 17:57 CK-MB (CK-2) Rel Index 4.0 (0-4) 04/26/18 17:57 Troponin T 0.114 ng/mL (0.00-0.029) H* 04/26/18 17:57 NT-Pro-B Natriuret Pep 5133 pg/mL (0-900) H 04/26/18 04:47 Total Protein 5.1 g/dL (6.3-8.2) L 04/26/18 04:47 Albumin 3.3 g/dL (3.9-5) L 04/26/18 04:47 Albumin/Globulin Ratio 1.8 % 04/26/18 04:47 Triglycerides 90 mg/dL (2-149) 04/26/18 04:47 Cholesterol 129 mg/dL (50-199) 04/26/18 04:47 LDL Cholesterol Direct 45 mg/dL (50-130) L 04/26/18 04:47 HDL Cholesterol 67 mg/dL (40-59) H 04/26/18 04:47 Cholesterol/HDL Ratio 1.92 % 04/26/18 04:47 TSH 1.560 mlU/mL (0.270-4.200) 04/26/18 13:16 Free T4 1.28 ng/dL (0.76-1.46) 04/26/18 13:16 Urine Color Delphine (Yellow) 04/27/18 09:30 Urine Turbidity Cloudy (Clear) 04/27/18 09:30 Urine pH 5.0 (5.0-7.0) 04/27/18 09:30 Ur Specific [place] 1.028 (1.003-1.030) 04/27/18 09:30 Urine Protein 100 mg/dl mg/dL (Negative) 04/27/18 09:30 Urine Glucose (UA) Neg mg/dL (Negative) 04/27/18 09:30 Urine Ketones 20 mg/dL (Negative) 04/27/18 09:30 Urine Blood Neg (Negative) 04/27/18 09:30 Urine Nitrite Neg (Negative) 04/27/18 09:30 Urine Bilirubin Neg (Negative) 04/27/18 09:30 Urine Urobilinogen 2.0 mg/dL (<2.0) 04/27/18 09:30 Ur Leukocyte Esterase Lg (Negative) 04/27/18 09:30 Urine WBC (Auto) 133.0 /HPF (0.0-6.0) H 04/27/18 09:30 Urine RBC (Auto) 24.0 /HPF (0.0-6.0) 04/27/18 09:30 Urine Bacteria (Auto) 1+ /HPF (Negative) 04/27/18 09:30 Calcium Oxalate Crystal 3+ 04/27/18 09:30 Urine Mucus 3+ /HPF 04/27/18 09:30 Urine Creatinine 142.3 mg/dL (0.1-20.0) H 04/27/18 09:30 Urine Sodium 314 mmol/L 04/27/18 09:30 Blood Type A POSITIVE 04/28/18 18:21 Antibody Screen Negative 04/28/18 18:21 Crossmatch See Detail 04/28/18 18:21 Nutrition/Malnutrition Assess - Dietary Evaluation Nutrition/Malnutrition Findings: Nutrition Notes Start: 04/27/18 14:13 Freq: Status: Active Protocol: Document 04/27/18 15:04 OL (Rec: 04/27/18 15:22 OL [id number]) Nutrition Notes Need for 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 Maurice 15. Pt. admitted with SOB. Burn Absent Trauma Absent #1 Nutrition Diagnosis Inadequate oral intake Etiology dementia As Evidenced by Signs and Symptoms TF consult, pt. not meeting energy/protein needs through PO intake Is patient on ventilator? No Is Patient Ambulatory and/or Out of Bed No REE-([facility]-confined to bed) 1140.840 Calculation Used for Recommendations [facility] Additional Notes protein (1.2-2g/kg): 66-110g fluid: 1mL/kcal or per Nutrition Intervention Change Diet Order: TF Nutrition Support: Promote at 50mL/hr with 100mL flush q4h Kcal 1,200 Protein (gm) 75 Fluid (mL) 1,007 Goal #1 TF to meet 80-100% of energy and protein needs Anticipated Discharge Needs: Unable to identify at this time Follow-Up By: 05/01/18 Additional Comments f/u: new TF
[2018-04-30] MEDS ORDERED: KIONEX PO ONE ×2 (09:00→20:34)
[2018-04-30] MEDS ORDERED: CALCIUM GLUCONATE 1,000 MG in NACL 0.9% 100 ML IV ONE (09:00)
[2018-04-30 09:17] LABS: Hematocrit 26.7 % (30.3-42.9); Hemoglobin 8.7 gm/dl (10.1-14.3); Mean Corpuscular HGB Conc 33 % (30-34); Mean Corpuscular Volume 93 fl (79-97); Platelet Count 150 K/mm3 (140-440); Red Blood Count 2.87 M/mm3 (3.65-5.03); Red Cell Distribution Width 16.7 % (13.2-15.2)
[2018-04-30] MEDS: MAXIPIME/NS 1 GM/100 ML 1 GM/100 ML BAG IV SCH (09:50)
[2018-04-30] MEDS: PEPCID IV SCH (09:53)
[2018-04-30] MEDS: KEPPRA PO SCH ×2 (09:54→21:38)
[2018-04-30] MEDS: BABY ASPIRIN PO SCH (09:54)
[2018-04-30] MEDS: PRAVACHOL PO SCH (09:54)
[2018-04-30] MEDS: FOLVITE PO SCH (09:54)
[2018-04-30] MEDS: CORDARONE PO SCH ×2 (09:55→21:38)
[2018-04-30] MEDS ORDERED: D50W (25GM) Syringe IV ONE (11:22)
[2018-04-30] MEDS ORDERED: HumuLIN R IV ONE (11:22)
--- NOTE | 2018-04-30 11:23 | Progress Note ---
Assessment and Plan 1. 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 Urine studies and Renal US results noted. Renal function continue to decline due to hypotension. Continue IV fluids. Renal prognosis is guarded. Monitor renal function. 2. FEN: Hyperkalemia, Insulin-Dextrose and Kayexalate. Anion gap metabolic acidosis, improving. Monitor lytes. 3. Hypoxic hypercapnic respiratory failure: On BIPAP. Followed by Pulmonary. 4. Bilateral pleural effusion right more than left. 5. Perihilar infiltrate, possible pneumonia: Empiric antibiotics 6. Acute on chronic systolic CHF. 7. Positive cardiac enzymes: ? NSTEMI. On ASA. 8. A. fib: On Amiodarone. 9. Anemia: S/p PRBC. 10. Dementia. Subjective Date of service: 04/30/18 Principal diagnosis: resp failure; afib Interval history: Patient was seen and examined at the bedside. Objective - Vital Signs Vital signs: Vital Signs - 12hr 04/29/18 04/29/18 04/29/18 23:30 23:41 23:43 Temperature Pulse Rate 83 86 82 Pulse Rate [ Anterior Bilateral Throughout] Pulse Rate [ Apical] Respiratory 17 16 20 Rate Respiratory Rate [Anterior Bilateral Throughout] Blood Pressure 107/51 107/51 116/54 O2 Sat by Pulse 100 100 100 Oximetry 04/29/18 04/30/18 04/30/18 23:51 00:00 00:11 Temperature 98.4 F Pulse Rate 83 86 86 Pulse Rate [ Anterior Bilateral Throughout] Pulse Rate [ Apical] Respiratory 17 23 16 Rate Respiratory Rate [Anterior Bilateral Throughout] Blood Pressure 107/51 114/50 114/50 O2 Sat by Pulse 100 100 99 Oximetry 04/30/18 04/30/18 04/30/18 00:21 00:30 00:41 Temperature Pulse Rate 85 83 83 Pulse Rate [ Anterior Bilateral Throughout] Pulse Rate [ Apical] Respiratory 20 20 20 Rate Respiratory Rate [Anterior Bilateral Throughout] Blood Pressure 116/51 114/49 114/49 O2 Sat by Pulse 99 100 100 Oximetry 04/30/18 04/30/18 04/30/18 00:47 00:51 01:00 Temperature Pulse Rate 79 83 86 Pulse Rate [ Anterior Bilateral Throughout] Pulse Rate [ Apical] Respiratory 20 17 Rate Respiratory Rate [Anterior Bilateral Throughout] Blood Pressure 114/50 117/58 O2 Sat by Pulse 100 100 Oximetry 04/30/18 04/30/18 04/30/18 01:11 01:21 01:30 Temperature Pulse Rate 87 93 H 92 H Pulse Rate [ Anterior Bilateral Throughout] Pulse Rate [ Apical] Respiratory 11 L 17 19 Rate Respiratory Rate [Anterior Bilateral Throughout] Blood Pressure 117/58 114/54 117/59 O2 Sat by Pulse 100 96 99 Oximetry 04/30/18 04/30/18 04/30/18 01:32 01:41 01:44 Temperature Pulse Rate 91 H Pulse Rate [ 93 H 89 Anterior Bilateral Throughout] Pulse Rate [ Apical] Respiratory 16 Rate Respiratory 21 21 Rate [Anterior Bilateral Throughout] Blood Pressure 117/59 O2 Sat by Pulse 100 Oximetry 04/30/18 04/30/18 04/30/18 01:51 02:00 02:11 Temperature Pulse Rate 91 H 92 H 86 Pulse Rate [ Anterior Bilateral Throughout] Pulse Rate [ Apical] Respiratory 15 20 18 Rate Respiratory Rate [Anterior Bilateral Throughout] Blood Pressure 121/46 118/50 118/50 O2 Sat by Pulse 100 100 100 Oximetry 04/30/18 04/30/18 04/30/18 02:21 02:30 02:41 Temperature Pulse Rate 91 H 92 H 87 Pulse Rate [ Anterior Bilateral Throughout] Pulse Rate [ Apical] Respiratory 18 14 18 Rate Respiratory Rate [Anterior Bilateral Throughout] Blood Pressure 104/55 111/56 111/56 O2 Sat by Pulse 100 100 100 Oximetry 04/30/18 04/30/18 04/30/18 02:51 03:00 03:11 Temperature Pulse Rate 89 89 85 Pulse Rate [ Anterior Bilateral Throughout] Pulse Rate [ Apical] Respiratory 14 20 18 Rate Respiratory Rate [Anterior Bilateral Throughout] Blood Pressure 114/50 116/55 116/55 O2 Sat by Pulse 100 100 Oximetry 04/30/18 04/30/18 04/30/18 03:21 03:30 03:38 Temperature Pulse Rate 96 H 93 H 94 H Pulse Rate [ Anterior Bilateral Throughout] Pulse Rate [ Apical] Respiratory 16 21 20 Rate Respiratory Rate [Anterior Bilateral Throughout] Blood Pressure 115/54 111/57 111/57 O2 Sat by Pulse 100 100 100 Oximetry 04/30/18 04/30/18 04/30/18 03:41 03:51 04:00 Temperature 100 F H Pulse Rate 94 H 93 H 98 H Pulse Rate [ Anterior Bilateral Throughout] Pulse Rate [ Apical] Respiratory 17 21 16 Rate Respiratory Rate [Anterior Bilateral Throughout] Blood Pressure 111/57 119/52 118/62 O2 Sat by Pulse 100 100 100 Oximetry 04/30/18 04/30/18 04/30/18 04:11 04:21 04:27 Temperature Pulse Rate 86 88 92 H Pulse Rate [ Anterior Bilateral Throughout] Pulse Rate [ Apical] Respiratory 20 17 Rate Respiratory Rate [Anterior Bilateral Throughout] Blood Pressure 118/62 113/57 O2 Sat by Pulse 100 100 Oximetry 04/30/18 04/30/18 04/30/18 04:30 04:41 04:51 Temperature Pulse Rate 88 85 93 H Pulse Rate [ Anterior Bilateral Throughout] Pulse Rate [ Apical] Respiratory 21 20 18 Rate Respiratory Rate [Anterior Bilateral Throughout] Blood Pressure 112/53 112/53 114/52 O2 Sat by Pulse 100 100 Oximetry 04/30/18 04/30/18 04/30/18 05:00 05:11 05:21 Temperature Pulse Rate 86 92 H 79 Pulse Rate [ Anterior Bilateral Throughout] Pulse Rate [ Apical] Respiratory 20 13 20 Rate Respiratory Rate [Anterior Bilateral Throughout] Blood Pressure 108/51 108/51 104/44 O2 Sat by Pulse 100 100 100 Oximetry 04/30/18 04/30/18 04/30/18 05:30 05:41 05:51 Temperature Pulse Rate 83 87 80 Pulse Rate [ Anterior Bilateral Throughout] Pulse Rate [ Apical] Respiratory 19 15 15 Rate Respiratory Rate [Anterior Bilateral Throughout] Blood Pressure 92/40 92/40 103/48 O2 Sat by Pulse 100 99 100 Oximetry 04/30/18 04/30/18 04/30/18 06:00 06:11 06:21 Temperature Pulse Rate 82 77 87 Pulse Rate [ Anterior Bilateral Throughout] Pulse Rate [ Apical] Respiratory 20 20 17 Rate Respiratory Rate [Anterior Bilateral Throughout] Blood Pressure 91/41 91/41 98/49 O2 Sat by Pulse 96 96 99 Oximetry 04/30/18 04/30/18 04/30/18 06:30 06:41 06:51 Temperature Pulse Rate 80 83 69 Pulse Rate [ Anterior Bilateral Throughout] Pulse Rate [ Apical] Respiratory 19 14 20 Rate Respiratory Rate [Anterior Bilateral Throughout] Blood Pressure 109/48 109/48 105/47 O2 Sat by Pulse 100 100 100 Oximetry 04/30/18 04/30/18 04/30/18 07:00 07:11 07:21 Temperature Pulse Rate 83 70 73 Pulse Rate [ Anterior Bilateral Throughout] Pulse Rate [ Apical] Respiratory 15 20 20 Rate Respiratory Rate [Anterior Bilateral Throughout] Blood Pressure 103/49 103/49 92/43 O2 Sat by Pulse 100 100 Oximetry 04/30/18 04/30/18 04/30/18 07:30 07:41 07:51 Temperature Pulse Rate 71 73 73 Pulse Rate [ Anterior Bilateral Throughout] Pulse Rate [ Apical] Respiratory 20 20 18 Rate Respiratory Rate [Anterior Bilateral Throughout] Blood Pressure 92/40 92/40 99/48 O2 Sat by Pulse 100 100 100 Oximetry 04/30/18 04/30/18 04/30/18 07:54 07:55 07:56 Temperature Pulse Rate 82 Pulse Rate [ 72 75 Anterior Bilateral Throughout] Pulse Rate [ Apical] Respiratory 21 Rate Respiratory 19 18 Rate [Anterior Bilateral Throughout] Blood Pressure 99/48 O2 Sat by Pulse 100 Oximetry 04/30/18 04/30/18 04/30/18 08:00 08:11 08:21 Temperature 97.8 F Pulse Rate 82 74 78 Pulse Rate [ Anterior Bilateral Throughout] Pulse Rate [ 82 Apical] Respiratory 16 20 24 Rate Respiratory Rate [Anterior Bilateral Throughout] Blood Pressure 110/56 110/56 114/53 O2 Sat by Pulse 100 100 100 Oximetry 04/30/18 04/30/18 04/30/18 08:30 08:41 08:51 Temperature Pulse Rate 80 85 83 Pulse Rate [ Anterior Bilateral Throughout] Pulse Rate [ Apical] Respiratory 20 16 21 Rate Respiratory Rate [Anterior Bilateral Throughout] Blood Pressure 116/51 116/51 115/42 O2 Sat by Pulse 100 100 100 Oximetry 04/30/18 04/30/18 04/30/18 09:00 09:11 09:21 Temperature Pulse Rate 86 82 82 Pulse Rate [ Anterior Bilateral Throughout] Pulse Rate [ Apical] Respiratory 15 20 20 Rate Respiratory Rate [Anterior Bilateral Throughout] Blood Pressure 117/48 117/48 118/56 O2 Sat by Pulse 100 100 100 Oximetry 04/30/18 09:30 Temperature Pulse Rate 83 Pulse Rate [ Anterior Bilateral Throughout] Pulse Rate [ Apical] Respiratory 21 Rate Respiratory Rate [Anterior Bilateral Throughout] Blood Pressure 110/50 O2 Sat by Pulse 100 Oximetry - General Appearance General appearance: well-developed, appears stated age, other (on BIPAP, NG feeding tube) EENT: ATNC Neck: supple Respiratory: Present: Other (corase breath sounds) Cardiology: irregularly irregular, S1S2 Gastrointestinal: normoactive bowel sounds, no tenderness Integumentary: no rash Neurologic: other (opens eyes) Musculoskeletal: other (no edema) - Lab 04/30/18 08:35 04/30/18 08:35 Most recent lab results Calcium 8.0 mg/dL (8.4-10.2) L 04/30/18 04:33 Magnesium 2.40 mg/dL (1.7-2.3) H 04/29/18 06:44 Urine Creatinine 142.3 mg/dL (0.1-20.0) H 04/27/18 09:30 Urine Sodium 314 mmol/L 04/27/18 09:30 Medications & Allergies - Medications Allergies/Adverse Reactions: Allergies No Known Allergies Allergy (Verified 04/03/14 21:12) Home Medications: Home Medications Medication Instructions Recorded Confirmed Last Taken Type Amiodarone [Cordarone 200 MG TAB] 200 mg PO QDAY #30 tablet 05/06/17 04/27/18 Unknown Rx Aspirin [Aspirin BABY CHEW TAB] 81 mg PO QDAY #30 tab.chew 05/06/17 04/27/18 Unknown Rx Folic Acid [Folvite] 1 mg PO QDAY #30 tablet 05/06/17 04/27/18 Unknown Rx Pravastatin [Pravachol] 40 mg PO DAILY #30 tablet 05/06/17 04/27/18 Unknown Rx levETIRAcetam [Keppra] 500 mg PO BID #30 tablet 05/06/17 04/27/18 Unknown Rx ALBUTEROL NEB's [Proventil 0.083% 2.5 mg INHALATION BID PRN 04/27/18 04/27/18 Unknown History NEBS] Acetaminophen [Non-Aspirin] 325 mg PO Q8H PRN 04/27/18 04/27/18 Unknown History Ascorbic Acid [Vitamin C] 500 mg PO DAILY 04/27/18 04/27/18 Unknown History Bisacodyl [Dulcolax suppos] 10 mg NE 3XW MDD constipation 04/27/18 04/27/18 Unknown History Diltiazem HCl [Diltiazem 12Hr ER] 120 mg PO DAILY 04/27/18 04/27/18 Unknown History Ferrous Sulfate [Iron] 325 mg PO DAILY 04/27/18 04/27/18 Unknown History Fluticasone (Nf) [Flovent Hfa(Nf)] 1 puff IH BID 04/27/18 04/27/18 Unknown History Ipratropium [Atrovent NEB] 0.02 ml INHALATION BID 04/27/18 04/27/18 Unknown History Levalbuterol [Xopenex] 1.25 mg IH Q6HRT PRN 04/27/18 04/27/18 Unknown History Levothyroxine [Synthroid] 125 mcg PO QAM 04/27/18 04/27/18 Unknown History Multivitamin Tab W-MINERAL 1 each PO QD 04/27/18 04/27/18 Unknown History [Multiple Vitamin/Mineral (Theragran M)] [place] 5-325 mg TAB 1 tab PO Q6H PRN 04/27/18 04/27/18 Unknown History Pantoprazole Sodium 40 mg PO DAILY 04/27/18 04/27/18 Unknown History Procrit 4,000 units SQ 3XW 04/27/18 04/27/18 Unknown History Senna Laxative Tablet 2 tab PO HS 04/27/18 04/27/18 Unknown History Sucralfate 1 gm PO 4XD 04/27/18 04/27/18 Unknown History Tramadol HCl [Ultram] 50 mg PO Q6HR PRN 04/27/18 04/27/18 Unknown History Zinc Oxide [Perishield] 100 gm TP DAILY 04/27/18 04/27/18 Unknown History traZODone [Desyrel] 25 mg PO QHS PRN 04/27/18 04/27/18 Unknown History Active Medications: Generic Name Dose Route Start Last Admin Trade Name Freq PRN Reason Stop Dose Admin Albuterol/Ipratropium 1 ampul 04/26/18 14:00 04/30/18 08:01 Duoneb *Not For Prn Use* IH 1 ampul Q6HRT RICHARD Administration Amiodarone HCl 200 mg 04/28/18 22:00 04/30/18 09:55 Cordarone PO 200 mg BID RICHARD Administration Lipase/Protease/Amylase 1 each 04/27/18 15:25 Pancredomenic Castro 10,500 Unit FEEDTUBE PRN PRN For Clogged Feeding Tube Aspirin 81 mg 04/26/18 11:00 04/30/18 09:54 Baby Aspirin PO 81 mg QDAY RICHARD Administration Budesonide 0.5 mg 04/26/18 20:00 04/30/18 08:00 Pulmicort IH 0.5 mg Q12HRT RICHARD Administration Dextrose 50 ml 04/30/18 11:22 D50w (25gm) Syringe IV 04/30/18 11:23 ONCE ONE Famotidine 20 mg 04/27/18 10:00 04/30/18 09:53 Pepcid IV 20 mg DAILY RICHARD Administration Folic Acid 1 mg 04/26/18 11:00 04/30/18 09:54 Folvite PO 1 mg QDAY RICHARD Administration Cefepime HCl 1 gm in 100 mls @ 200 mls/hr 04/27/18 11:00 04/30/18 09:50 Maxipime/Ns 1 Gm/100 Ml IV 200 mls/hr Q24HR RICHARD Administration Sodium Chloride 1,000 mls @ 75 mls/hr 04/29/18 16:00 04/30/18 06:15 Nacl 0.45% 1000 Ml IV 75 mls/hr DIRECT RICHARD Administration Insulin Human Regular 8 units 04/30/18 11:22 Humulin R IV 04/30/18 11:23 ONCE ONE Levetiracetam 500 mg 04/26/18 11:00 04/30/18 09:54 Keppra PO 500 mg BID RICHARD Administration Levothyroxine Sodium 125 mcg 04/26/18 11:00 04/30/18 06:15 Synthroid PO 125 mcg QAM@0600 RICHARD Administration Pravastatin Sodium 40 mg 04/26/18 11:00 04/30/18 09:54 Pravachol PO 40 mg DAILY RICHARD Administration Simple Syrup 15 ml 04/27/18 15:25 Simple Syrup FEEDTUBE PRN PRN Hypoglycemia Simple Syrup 30 ml 04/27/18 15:25 Simple Syrup FEEDTUBE PRN PRN Hypoglycemia Sodium Bicarbonate 325 mg 04/27/18 15:25 Sodium Bicarbonate FEEDTUBE PRN PRN For Clogged Feeding Tube Trazodone HCl 50 mg 04/26/18 22:00 04/29/18 21:32 Desyrel PO 50 mg QHS RICHARD Administration
--- NOTE | 2018-04-30 15:54 | Progress Note ---
Assessment and Plan Acute respiratory failure, hypercapnic Hypotension.Volume expansion,PRBC given. Echo EF normal Metabolic acidosis. No HCO3 indicated yesterday,but monitoring x changes Non-STEMI type II .See Cards Right lower lung atelectasis. Pulmonary review of the x-ray this morning, patient shows bilateral effusions, cardiomegaly and tortuous aorta. The right lower lobe atelectasis seemed to be significantly improved on my opinion. Final report is pending Pleural effusion. Probably secondary to the above Recommendations Continue with supportive BiPAP care. However prognosis is grave at this point DNR/DNI per family wishes, see orders Aspiration precautions Oximetry actually has improved clinically at the bedside examination compared to last 24 hours. Apparently, some improvement in the aspiration, she also x-rays Consider updating brain CT or MRI depending on family wishes how they want to proceed, from this point on DVT prophylaxis Continue oxygen support. Critical care time was 31 minutes of [id number] evaluation and coordination of care Subjective Date of service: 04/30/18 Principal diagnosis: resp failure; afib Interval history: Semi-somnolent, lethargic on BiPAP support Objective Vital Signs - 12hr 04/30/18 04/30/18 04/30/18 04:00 04:11 04:21 Temperature 100 F H Pulse Rate 98 H 86 88 Pulse Rate [ Anterior Bilateral Throughout] Pulse Rate [ Apical] Respiratory 16 20 17 Rate Respiratory Rate [Anterior Bilateral Throughout] Blood Pressure 118/62 118/62 113/57 O2 Sat by Pulse 100 100 100 Oximetry 04/30/18 04/30/18 04/30/18 04:27 04:30 04:41 Temperature Pulse Rate 92 H 88 85 Pulse Rate [ Anterior Bilateral Throughout] Pulse Rate [ Apical] Respiratory 21 20 Rate Respiratory Rate [Anterior Bilateral Throughout] Blood Pressure 112/53 112/53 O2 Sat by Pulse 100 Oximetry 04/30/18 04/30/18 04/30/18 04:51 05:00 05:11 Temperature Pulse Rate 93 H 86 92 H Pulse Rate [ Anterior Bilateral Throughout] Pulse Rate [ Apical] Respiratory 18 20 13 Rate Respiratory Rate [Anterior Bilateral Throughout] Blood Pressure 114/52 108/51 108/51 O2 Sat by Pulse 100 100 100 Oximetry 04/30/18 04/30/18 04/30/18 05:21 05:30 05:41 Temperature Pulse Rate 79 83 87 Pulse Rate [ Anterior Bilateral Throughout] Pulse Rate [ Apical] Respiratory 20 19 15 Rate Respiratory Rate [Anterior Bilateral Throughout] Blood Pressure 104/44 92/40 92/40 O2 Sat by Pulse 100 100 99 Oximetry 04/30/18 04/30/18 04/30/18 05:51 06:00 06:11 Temperature Pulse Rate 80 82 77 Pulse Rate [ Anterior Bilateral Throughout] Pulse Rate [ Apical] Respiratory 15 20 20 Rate Respiratory Rate [Anterior Bilateral Throughout] Blood Pressure 103/48 91/41 91/41 O2 Sat by Pulse 100 96 96 Oximetry 04/30/18 04/30/18 04/30/18 06:21 06:30 06:41 Temperature Pulse Rate 87 80 83 Pulse Rate [ Anterior Bilateral Throughout] Pulse Rate [ Apical] Respiratory 17 19 14 Rate Respiratory Rate [Anterior Bilateral Throughout] Blood Pressure 98/49 109/48 109/48 O2 Sat by Pulse 99 100 100 Oximetry 04/30/18 04/30/18 04/30/18 06:51 07:00 07:11 Temperature Pulse Rate 69 83 70 Pulse Rate [ Anterior Bilateral Throughout] Pulse Rate [ Apical] Respiratory 20 15 20 Rate Respiratory Rate [Anterior Bilateral Throughout] Blood Pressure 105/47 103/49 103/49 O2 Sat by Pulse 100 100 Oximetry 04/30/18 04/30/18 04/30/18 07:21 07:30 07:41 Temperature Pulse Rate 73 71 73 Pulse Rate [ Anterior Bilateral Throughout] Pulse Rate [ Apical] Respiratory 20 20 20 Rate Respiratory Rate [Anterior Bilateral Throughout] Blood Pressure 92/43 92/40 92/40 O2 Sat by Pulse 100 100 100 Oximetry 04/30/18 04/30/18 04/30/18 07:51 07:54 07:55 Temperature Pulse Rate 73 Pulse Rate [ 72 75 Anterior Bilateral Throughout] Pulse Rate [ Apical] Respiratory 18 Rate Respiratory 19 18 Rate [Anterior Bilateral Throughout] Blood Pressure 99/48 O2 Sat by Pulse 100 Oximetry 04/30/18 04/30/18 04/30/18 07:56 08:00 08:11 Temperature 97.8 F Pulse Rate 82 82 74 Pulse Rate [ Anterior Bilateral Throughout] Pulse Rate [ 82 Apical] Respiratory 21 16 20 Rate Respiratory Rate [Anterior Bilateral Throughout] Blood Pressure 99/48 110/56 110/56 O2 Sat by Pulse 100 100 100 Oximetry 04/30/18 04/30/18 04/30/18 08:21 08:30 08:41 Temperature Pulse Rate 78 80 85 Pulse Rate [ Anterior Bilateral Throughout] Pulse Rate [ Apical] Respiratory 24 20 16 Rate Respiratory Rate [Anterior Bilateral Throughout] Blood Pressure 114/53 116/51 116/51 O2 Sat by Pulse 100 100 100 Oximetry 04/30/18 04/30/18 04/30/18 08:51 09:00 09:11 Temperature Pulse Rate 83 86 82 Pulse Rate [ Anterior Bilateral Throughout] Pulse Rate [ Apical] Respiratory 21 15 20 Rate Respiratory Rate [Anterior Bilateral Throughout] Blood Pressure 115/42 117/48 117/48 O2 Sat by Pulse 100 100 100 Oximetry 04/30/18 04/30/18 04/30/18 09:21 09:30 09:41 Temperature Pulse Rate 82 83 78 Pulse Rate [ Anterior Bilateral Throughout] Pulse Rate [ Apical] Respiratory 20 21 16 Rate Respiratory Rate [Anterior Bilateral Throughout] Blood Pressure 118/56 110/50 117/48 O2 Sat by Pulse 100 100 100 Oximetry 04/30/18 04/30/18 04/30/18 09:51 10:00 10:11 Temperature Pulse Rate 85 87 92 H Pulse Rate [ Anterior Bilateral Throughout] Pulse Rate [ Apical] Respiratory 14 20 20 Rate Respiratory Rate [Anterior Bilateral Throughout] Blood Pressure 108/43 118/54 118/54 O2 Sat by Pulse 100 100 100 Oximetry 04/30/18 04/30/18 04/30/18 10:21 10:30 10:41 Temperature Pulse Rate 90 85 92 H Pulse Rate [ Anterior Bilateral Throughout] Pulse Rate [ Apical] Respiratory 11 L 21 22 Rate Respiratory Rate [Anterior Bilateral Throughout] Blood Pressure 112/42 117/46 117/46 O2 Sat by Pulse 100 100 100 Oximetry 04/30/18 04/30/18 04/30/18 10:51 11:01 11:11 Temperature Pulse Rate 90 88 92 H Pulse Rate [ Anterior Bilateral Throughout] Pulse Rate [ Apical] Respiratory 20 17 18 Rate Respiratory Rate [Anterior Bilateral Throughout] Blood Pressure 112/49 110/53 110/53 O2 Sat by Pulse 100 100 100 Oximetry 04/30/18 04/30/18 04/30/18 11:21 11:31 11:41 Temperature Pulse Rate 96 H 90 99 H Pulse Rate [ Anterior Bilateral Throughout] Pulse Rate [ Apical] Respiratory 15 16 15 Rate Respiratory Rate [Anterior Bilateral Throughout] Blood Pressure 99/51 99/51 123/55 O2 Sat by Pulse 100 100 100 Oximetry 04/30/18 04/30/18 04/30/18 11:51 12:00 12:01 Temperature 97.6 F Pulse Rate 97 H 92 H Pulse Rate [ Anterior Bilateral Throughout] Pulse Rate [ Apical] Respiratory 19 17 Rate Respiratory Rate [Anterior Bilateral Throughout] Blood Pressure 116/59 116/59 O2 Sat by Pulse 100 99 Oximetry Constitutional: no acute distress, lethargic Eyes: non-icteric ENT: oropharynx moist, other (feeding tube in position) Neck: supple, no JVD Effort: mildly labored Ascultation: Right: diminished breath sounds, Bilateral: clear, rhonchi (sporadic) Cardiovascular: regular rate and rhythm Gastrointestinal: normoactive bowel sounds, soft Extremities: no edema Neurologic: unable to assess CBC and BMP: 04/30/18 08:35 04/30/18 08:35 ABG, PT/INR, D-dimer: ABG POC ABG pH 7.216 (7.35-7.45) L 04/29/18 14:33 POC ABG pCO2 62.4 (35-45) H 04/29/18 14:33 POC ABG pO2 162 (80-105) H 04/29/18 14:33 POC ABG HCO3 25.3 04/29/18 14:33 POC ABG Total CO2 27 04/29/18 14:33 POC ABG O2 Sat 99 04/29/18 14:33 PT/INR, D-dimer PT 15.8 Sec. (12.2-14.9) H 04/26/18 04:47 INR 1.22 (0.87-1.13) H 04/26/18 04:47 D-Dimer 254.08 ng/mlDDU (0-234) H 04/26/18 04:47 Abnormal lab findings: Abnormal Labs 04/26/18 04/26/18 04/26/18 04:43 04:43 04:47 WBC RBC 2.91 L Hgb 8.8 L Hct 27.9 L RDW 17.7 H Lymph % (Auto) 5.9 L [place] % (Auto) 11.6 H Lymph # 0.5 L [place] # 1.0 H Seg Neutrophils % 79.8 H Seg Neuts % (Manual) Lymphocytes % (Manual) Monocytes % (Manual) Nucleated RBC % Seg Neutrophils # Seg Neutrophils # Man Lymphocytes # (Manual) Monocytes # (Manual) PT 15.8 H INR 1.22 H D-Dimer POC ABG pH POC ABG pCO2 POC ABG pO2 VBG pH Sodium 146 H Potassium Chloride 111.4 H Carbon Dioxide 21 L BUN 27 H Creatinine 1.8 H Glucose POC Glucose Calcium 8.3 L Magnesium ALT Troponin T NT-Pro-B Natriuret Pep Total Protein Albumin LDL Cholesterol Direct HDL Cholesterol Urine WBC (Auto) Urine Creatinine Crossmatch 04/26/18 04/26/18 04/26/18 04:47 04:47 04:47 WBC RBC Hgb Hct RDW Lymph % (Auto) [place] % (Auto) Lymph # [place] # Seg Neutrophils % Seg Neuts % (Manual) Lymphocytes % (Manual) Monocytes % (Manual) Nucleated RBC % Seg Neutrophils # Seg Neutrophils # Man Lymphocytes # (Manual) Monocytes # (Manual) PT INR D-Dimer 254.08 H POC ABG pH POC ABG pCO2 POC ABG pO2 VBG pH Sodium Potassium Chloride Carbon Dioxide BUN Creatinine Glucose POC Glucose Calcium Magnesium ALT < 5 L Troponin T 0.149 H* NT-Pro-B Natriuret Pep 5133 H Total Protein 5.1 L Albumin 3.3 L LDL Cholesterol Direct 45 L HDL Cholesterol 67 H Urine WBC (Auto) Urine Creatinine Crossmatch 04/26/18 04/26/18 04/26/18 05:34 10:26 13:16 WBC RBC Hgb Hct RDW Lymph % (Auto) [place] % (Auto) Lymph # [place] # Seg Neutrophils % Seg Neuts % (Manual) Lymphocytes % (Manual) Monocytes % (Manual) Nucleated RBC % Seg Neutrophils # Seg Neutrophils # Man Lymphocytes # (Manual) Monocytes # (Manual) PT INR D-Dimer POC ABG pH 7.142 L 7.167 L POC ABG pCO2 65.4 H 53.1 H POC ABG pO2 126 H VBG pH Sodium Potassium Chloride Carbon Dioxide BUN Creatinine Glucose POC Glucose Calcium Magnesium ALT Troponin T 0.141 H* NT-Pro-B Natriuret Pep Total Protein Albumin LDL Cholesterol Direct HDL Cholesterol Urine WBC (Auto) Urine Creatinine Crossmatch 04/26/18 04/26/18 04/27/18 17:40 17:57 04:39 WBC 15.7 H RBC 2.58 L Hgb 7.6 L Hct 24.3 L RDW 17.2 H Lymph % (Auto) [place] % (Auto) Lymph # [place] # Seg Neutrophils % Seg Neuts % (Manual) 95.0 H Lymphocytes % (Manual) 2.0 L Monocytes % (Manual) Nucleated RBC % Seg Neutrophils # Seg Neutrophils # Man 14.9 H Lymphocytes # (Manual) 0.3 L Monocytes # (Manual) PT INR D-Dimer POC ABG pH 7.161 L POC ABG pCO2 56.3 H POC ABG pO2 124 H VBG pH Sodium Potassium Chloride Carbon Dioxide BUN Creatinine Glucose POC Glucose Calcium Magnesium ALT Troponin T 0.114 H* NT-Pro-B Natriuret Pep Total Protein Albumin LDL Cholesterol Direct HDL Cholesterol Urine WBC (Auto) Urine Creatinine Crossmatch 04/27/18 04/27/18 04/27/18 04:39 09:30 09:30 WBC RBC Hgb Hct RDW Lymph % (Auto) [place] % (Auto) Lymph # [place] # Seg Neutrophils % Seg Neuts % (Manual) Lymphocytes % (Manual) Monocytes % (Manual) Nucleated RBC % Seg Neutrophils # Seg Neutrophils # Man Lymphocytes # (Manual) Monocytes # (Manual) PT INR D-Dimer POC ABG pH POC ABG pCO2 POC ABG pO2 VBG pH Sodium 148 H Potassium Chloride 111.4 H Carbon Dioxide 20 L BUN 38 H Creatinine 2.2 H Glucose 128 H POC Glucose Calcium 8.2 L Magnesium 2.40 H ALT Troponin T NT-Pro-B Natriuret Pep Total Protein Albumin LDL Cholesterol Direct HDL Cholesterol Urine WBC (Auto) 133.0 H Urine Creatinine 142.3 H Crossmatch 04/27/18 04/28/18 04/28/18 14:12 05:07 05:07 WBC 13.5 H RBC 2.29 L Hgb 6.7 L Hct 21.0 L RDW 17.1 H Lymph % (Auto) 1.8 L [place] % (Auto) 9.4 H Lymph # 0.2 L [place] # 1.3 H Seg Neutrophils % 88.7 H Seg Neuts % (Manual) Lymphocytes % (Manual) Monocytes % (Manual) Nucleated RBC % Seg Neutrophils # 11.9 H Seg Neutrophils # Man Lymphocytes # (Manual) Monocytes # (Manual) PT INR D-Dimer POC ABG pH POC ABG pCO2 POC ABG pO2 VBG pH 7.270 L Sodium 147 H Potassium Chloride 111.7 H Carbon Dioxide 18 L BUN 48 H Creatinine 2.9 H Glucose 162 H POC Glucose Calcium 7.7 L Magnesium ALT Troponin T NT-Pro-B Natriuret Pep Total Protein Albumin LDL Cholesterol Direct HDL Cholesterol Urine WBC (Auto) Urine Creatinine Crossmatch 04/28/18 04/28/18 04/28/18 10:59 11:05 18:21 WBC RBC Hgb 6.8 L Hct 21.4 L RDW Lymph % (Auto) [place] % (Auto) Lymph # [place] # Seg Neutrophils % Seg Neuts % (Manual) Lymphocytes % (Manual) Monocytes % (Manual) Nucleated RBC % Seg Neutrophils # Seg Neutrophils # Man Lymphocytes # (Manual) Monocytes # (Manual) PT INR D-Dimer POC ABG pH 7.297 L POC ABG pCO2 49.4 H POC ABG pO2 131 H VBG pH Sodium Potassium Chloride Carbon Dioxide BUN Creatinine Glucose POC Glucose Calcium Magnesium ALT Troponin T NT-Pro-B Natriuret Pep Total Protein Albumin LDL Cholesterol Direct HDL Cholesterol Urine WBC (Auto) Urine Creatinine Crossmatch See Detail 04/29/18 04/29/18 04/29/18 00:28 06:27 06:44 WBC 11.1 H RBC 2.71 L Hgb 8.1 L Hct 25.1 L RDW 16.6 H Lymph % (Auto) [place] % (Auto) Lymph # [place] # Seg Neutrophils % Seg Neuts % (Manual) 85.0 H Lymphocytes % (Manual) 5.0 L Monocytes % (Manual) 8.0 H Nucleated RBC % 7.0 H Seg Neutrophils # Seg Neutrophils # Man 9.4 H Lymphocytes # (Manual) 0.6 L Monocytes # (Manual) 0.9 H PT INR D-Dimer POC ABG pH POC ABG pCO2 POC ABG pO2 VBG pH Sodium Potassium Chloride Carbon Dioxide BUN Creatinine Glucose POC Glucose 163 H 138 H Calcium Magnesium ALT Troponin T NT-Pro-B Natriuret Pep Total Protein Albumin LDL Cholesterol Direct HDL Cholesterol Urine WBC (Auto) Urine Creatinine Crossmatch 04/29/18 04/29/18 04/29/18 06:44 12:49 14:33 WBC RBC Hgb Hct RDW Lymph % (Auto) [place] % (Auto) Lymph # [place] # Seg Neutrophils % Seg Neuts % (Manual) Lymphocytes % (Manual) Monocytes % (Manual) Nucleated RBC % Seg Neutrophils # Seg Neutrophils # Man Lymphocytes # (Manual) Monocytes # (Manual) PT INR D-Dimer POC ABG pH 7.216 L POC ABG pCO2 62.4 H POC ABG pO2 162 H VBG pH Sodium 148 H Potassium Chloride 112.2 H Carbon Dioxide BUN 64 H Creatinine 3.8 H Glucose 137 H POC Glucose 155 H Calcium 7.8 L Magnesium 2.40 H ALT Troponin T NT-Pro-B Natriuret Pep Total Protein Albumin LDL Cholesterol Direct HDL Cholesterol Urine WBC (Auto) Urine Creatinine Crossmatch 04/30/18 04/30/18 04/30/18 04:33 08:35 08:35 WBC RBC 2.87 L Hgb 8.7 L Hct 26.7 L RDW 16.7 H Lymph % (Auto) [place] % (Auto) Lymph # [place] # Seg Neutrophils % Seg Neuts % (Manual) Lymphocytes % (Manual) Monocytes % (Manual) Nucleated RBC % Seg Neutrophils # Seg Neutrophils # Man Lymphocytes # (Manual) Monocytes # (Manual) PT INR D-Dimer POC ABG pH POC ABG pCO2 POC ABG pO2 VBG pH Sodium Potassium 6.0 H D 5.5 H Chloride 111.4 H Carbon Dioxide 18 L BUN 77 H Creatinine 3.7 H Glucose 123 H POC Glucose Calcium 8.0 L Magnesium ALT Troponin T NT-Pro-B Natriuret Pep Total Protein Albumin LDL Cholesterol Direct HDL Cholesterol Urine WBC (Auto) Urine Creatinine Crossmatch
[2018-04-30 19:11] LABS: Calcium 8.1 mg/dL (8.4-10.2)
[2018-04-30] MEDS: DESYREL PO SCH (21:38)
[2018-05-01] MEDS: DUONEB *Not for PRN Use IH SCH ×4 (01:40→19:47)
[2018-05-01] MEDS: SYNTHROID PO SCH (05:14)
[2018-05-01 06:51] LABS: Albumin 2.8 g/dL (3.9-5); Calcium 8.1 mg/dL (8.4-10.2)
[2018-05-01 07:27] LABS: Eosinophils # (Auto) 0.9 K/mm3 (0.0-0.4); Eosinophils % (Auto) 8.4 % (0.0-4.3); Hematocrit 26.5 % (30.3-42.9); Hemoglobin 8.8 gm/dl (10.1-14.3); Lymphocytes # (Auto) 0.6 K/mm3 (1.2-5.4); Lymphocytes % (Auto) 6.1 % (13.4-35.0); Mean Corpuscular HGB Conc 33 % (30-34); Mean Corpuscular Volume 92 fl (79-97); Monocytes # (Auto) 1.4 K/mm3 (0.0-0.8); Monocytes % (Auto) 13.6 % (0.0-7.3); Platelet Count 150 K/mm3 (140-440); Red Blood Count 2.89 M/mm3 (3.65-5.03); Red Cell Distribution Width 16.2 % (13.2-15.2)
[2018-05-01] MEDS: PULMICORT IH SCH ×2 (07:45→19:46)
--- NOTE | 2018-05-01 10:04 | Progress Note ---
Assessment and Plan 1. 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 Urine studies and Renal US results noted. Renal function continue to decline. Continue IV fluids. Renal prognosis is guarded. Monitor renal function. Discussed in length with her son over the phone regarding her declining kidney function and associated hyperkalemia which is persistent inspite of medications. Recommended hemodialysis to treat Acute kidney failure and hyperkalemia. He wants to wait for 1-2 days before deciding on hemodialysis. Understood the risks. 2. FEN: Hyperkalemia, Kayexalate ordered. Anion gap metabolic acidosis, monitor. Monitor lytes. 3. Hypoxic hypercapnic respiratory failure: Was on BIPAP. Followed by Pulmonary. 4. Bilateral pleural effusion right more than left. 5. Perihilar infiltrate, possible pneumonia: Empiric antibiotics 6. Acute on chronic systolic CHF. 7. Positive cardiac enzymes: ? NSTEMI. On ASA. 8. A. fib: On Amiodarone. 9. Anemia: S/p PRBC. 10. Dementia. Subjective Date of service: 05/01/18 Principal diagnosis: resp failure; afib Interval history: Patient was seen and examined at the bedside. Objective - Vital Signs Vital signs: Vital Signs - 12hr 04/30/18 04/30/18 04/30/18 22:11 22:21 22:30 Temperature Pulse Rate 84 85 79 Pulse Rate [ Anterior Bilateral Throughout] Pulse Rate [ From Monitor] Respiratory 20 20 20 Rate Respiratory Rate [Anterior Bilateral Throughout] Blood Pressure 121/54 117/93 110/46 O2 Sat by Pulse 100 100 100 Oximetry 04/30/18 04/30/18 04/30/18 22:41 22:51 23:00 Temperature Pulse Rate 86 80 84 Pulse Rate [ Anterior Bilateral Throughout] Pulse Rate [ From Monitor] Respiratory 15 15 18 Rate Respiratory Rate [Anterior Bilateral Throughout] Blood Pressure 110/46 110/46 126/61 O2 Sat by Pulse 100 100 100 Oximetry 04/30/18 04/30/18 04/30/18 23:11 23:21 23:31 Temperature Pulse Rate 92 H 89 99 H Pulse Rate [ Anterior Bilateral Throughout] Pulse Rate [ From Monitor] Respiratory 18 20 18 Rate Respiratory Rate [Anterior Bilateral Throughout] Blood Pressure 126/61 124/49 125/57 O2 Sat by Pulse 100 100 100 Oximetry 04/30/18 04/30/18 04/30/18 23:41 23:51 23:59 Temperature 97.4 F L Pulse Rate 86 99 H 101 H Pulse Rate [ Anterior Bilateral Throughout] Pulse Rate [ From Monitor] Respiratory 18 13 15 Rate Respiratory Rate [Anterior Bilateral Throughout] Blood Pressure 125/72 137/62 137/62 O2 Sat by Pulse 100 99 99 Oximetry 05/01/18 05/01/18 05/01/18 00:00 00:01 00:11 Temperature Pulse Rate 104 H 92 H Pulse Rate [ Anterior Bilateral Throughout] Pulse Rate [ 87 From Monitor] Respiratory 19 12 17 Rate Respiratory Rate [Anterior Bilateral Throughout] Blood Pressure 134/69 134/69 O2 Sat by Pulse 100 99 100 Oximetry 05/01/18 05/01/18 05/01/18 00:20 00:21 00:31 Temperature Pulse Rate 97 H 94 H 91 H Pulse Rate [ Anterior Bilateral Throughout] Pulse Rate [ From Monitor] Respiratory 24 12 15 Rate Respiratory Rate [Anterior Bilateral Throughout] Blood Pressure 141/82 141/82 128/60 O2 Sat by Pulse 99 100 100 Oximetry 05/01/18 05/01/18 05/01/18 00:41 00:51 00:55 Temperature Pulse Rate 89 90 91 H Pulse Rate [ Anterior Bilateral Throughout] Pulse Rate [ From Monitor] Respiratory 15 16 Rate Respiratory Rate [Anterior Bilateral Throughout] Blood Pressure 128/60 132/47 O2 Sat by Pulse 99 99 Oximetry 05/01/18 05/01/18 05/01/18 01:01 01:11 01:21 Temperature Pulse Rate 89 97 H 93 H Pulse Rate [ Anterior Bilateral Throughout] Pulse Rate [ From Monitor] Respiratory 10 L 14 11 L Rate Respiratory Rate [Anterior Bilateral Throughout] Blood Pressure 134/63 134/63 136/90 O2 Sat by Pulse 100 100 100 Oximetry 05/01/18 05/01/18 05/01/18 01:30 01:41 01:42 Temperature Pulse Rate 90 91 H Pulse Rate [ 84 Anterior Bilateral Throughout] Pulse Rate [ From Monitor] Respiratory 20 17 Rate Respiratory 20 Rate [Anterior Bilateral Throughout] Blood Pressure 131/54 131/54 O2 Sat by Pulse 100 100 Oximetry 05/01/18 05/01/18 05/01/18 01:51 01:54 02:00 Temperature Pulse Rate 89 87 Pulse Rate [ 82 Anterior Bilateral Throughout] Pulse Rate [ From Monitor] Respiratory 17 13 Rate Respiratory 22 Rate [Anterior Bilateral Throughout] Blood Pressure 126/53 133/56 O2 Sat by Pulse 100 100 Oximetry 05/01/18 05/01/18 05/01/18 02:11 02:21 02:31 Temperature Pulse Rate 98 H 102 H 101 H Pulse Rate [ Anterior Bilateral Throughout] Pulse Rate [ From Monitor] Respiratory 12 9 L 14 Rate Respiratory Rate [Anterior Bilateral Throughout] Blood Pressure 133/56 126/66 122/66 O2 Sat by Pulse 100 100 100 Oximetry 05/01/18 05/01/18 05/01/18 02:41 02:51 03:01 Temperature Pulse Rate 98 H 101 H 95 H Pulse Rate [ Anterior Bilateral Throughout] Pulse Rate [ From Monitor] Respiratory 15 16 16 Rate Respiratory Rate [Anterior Bilateral Throughout] Blood Pressure 122/66 126/56 138/63 O2 Sat by Pulse 100 100 100 Oximetry 05/01/18 05/01/18 05/01/18 03:11 03:21 03:31 Temperature Pulse Rate 103 H 100 H 101 H Pulse Rate [ Anterior Bilateral Throughout] Pulse Rate [ From Monitor] Respiratory 15 14 13 Rate Respiratory Rate [Anterior Bilateral Throughout] Blood Pressure 138/63 126/47 129/73 O2 Sat by Pulse 100 100 100 Oximetry 05/01/18 05/01/18 05/01/18 03:41 03:51 04:00 Temperature 97.6 F Pulse Rate 99 H 106 H Pulse Rate [ Anterior Bilateral Throughout] Pulse Rate [ 87 From Monitor] Respiratory 21 18 19 Rate Respiratory Rate [Anterior Bilateral Throughout] Blood Pressure 129/73 127/66 O2 Sat by Pulse 100 100 100 Oximetry 05/01/18 05/01/18 05/01/18 04:01 04:11 04:21 Temperature Pulse Rate 98 H 97 H 91 H Pulse Rate [ Anterior Bilateral Throughout] Pulse Rate [ From Monitor] Respiratory 12 17 18 Rate Respiratory Rate [Anterior Bilateral Throughout] Blood Pressure 113/71 113/71 113/71 O2 Sat by Pulse 99 100 100 Oximetry 05/01/18 05/01/18 05/01/18 04:31 04:41 04:51 Temperature Pulse Rate 97 H 84 80 Pulse Rate [ Anterior Bilateral Throughout] Pulse Rate [ From Monitor] Respiratory 12 20 20 Rate Respiratory Rate [Anterior Bilateral Throughout] Blood Pressure 135/106 127/57 120/54 O2 Sat by Pulse 99 100 100 Oximetry 05/01/18 05/01/18 05/01/18 05:00 05:11 05:21 Temperature Pulse Rate 84 84 87 Pulse Rate [ Anterior Bilateral Throughout] Pulse Rate [ From Monitor] Respiratory 20 18 19 Rate Respiratory Rate [Anterior Bilateral Throughout] Blood Pressure 111/46 111/46 113/53 O2 Sat by Pulse 100 100 100 Oximetry 05/01/18 05/01/18 05/01/18 05:30 05:41 05:50 Temperature Pulse Rate 85 88 88 Pulse Rate [ Anterior Bilateral Throughout] Pulse Rate [ From Monitor] Respiratory 20 22 20 Rate Respiratory Rate [Anterior Bilateral Throughout] Blood Pressure 119/51 120/54 113/48 O2 Sat by Pulse 100 100 100 Oximetry 05/01/18 05/01/18 05/01/18 06:00 06:11 06:21 Temperature Pulse Rate 92 H 85 91 H Pulse Rate [ Anterior Bilateral Throughout] Pulse Rate [ From Monitor] Respiratory 20 17 12 Rate Respiratory Rate [Anterior Bilateral Throughout] Blood Pressure 125/55 113/48 131/59 O2 Sat by Pulse 100 100 100 Oximetry 05/01/18 05/01/18 05/01/18 06:30 06:41 06:51 Temperature Pulse Rate 85 92 H Pulse Rate [ Anterior Bilateral Throughout] Pulse Rate [ From Monitor] Respiratory 17 15 Rate Respiratory Rate [Anterior Bilateral Throughout] Blood Pressure 132/55 125/55 119/58 O2 Sat by Pulse 100 100 99 Oximetry 05/01/18 05/01/18 05/01/18 07:01 07:11 07:21 Temperature Pulse Rate 100 H 93 H 94 H Pulse Rate [ Anterior Bilateral Throughout] Pulse Rate [ From Monitor] Respiratory 15 11 L 13 Rate Respiratory Rate [Anterior Bilateral Throughout] Blood Pressure 132/62 132/62 134/65 O2 Sat by Pulse 100 100 100 Oximetry 05/01/18 05/01/18 05/01/18 07:31 07:41 07:45 Temperature Pulse Rate 100 H 96 H Pulse Rate [ 90 Anterior Bilateral Throughout] Pulse Rate [ From Monitor] Respiratory 12 12 Rate Respiratory 22 Rate [Anterior Bilateral Throughout] Blood Pressure 133/84 119/58 O2 Sat by Pulse 95 100 98 Oximetry 05/01/18 05/01/18 05/01/18 07:51 08:00 08:05 Temperature Pulse Rate 101 H 93 H Pulse Rate [ 97 H Anterior Bilateral Throughout] Pulse Rate [ From Monitor] Respiratory 10 L 13 Rate Respiratory 22 Rate [Anterior Bilateral Throughout] Blood Pressure 108/73 124/64 O2 Sat by Pulse 100 100 Oximetry 05/01/18 05/01/18 05/01/18 08:11 08:21 08:31 Temperature Pulse Rate 96 H 100 H 105 H Pulse Rate [ Anterior Bilateral Throughout] Pulse Rate [ From Monitor] Respiratory 15 17 9 L Rate Respiratory Rate [Anterior Bilateral Throughout] Blood Pressure 124/64 125/50 107/69 O2 Sat by Pulse 100 100 98 Oximetry 05/01/18 05/01/18 05/01/18 08:41 08:51 09:01 Temperature Pulse Rate 109 H 100 H 99 H Pulse Rate [ Anterior Bilateral Throughout] Pulse Rate [ From Monitor] Respiratory 14 12 15 Rate Respiratory Rate [Anterior Bilateral Throughout] Blood Pressure 107/69 122/50 113/54 O2 Sat by Pulse 100 100 100 Oximetry 05/01/18 05/01/18 09:11 09:30 Temperature 97.8 F Pulse Rate 100 H Pulse Rate [ Anterior Bilateral Throughout] Pulse Rate [ From Monitor] Respiratory 8 L Rate Respiratory Rate [Anterior Bilateral Throughout] Blood Pressure 113/54 O2 Sat by Pulse 100 Oximetry - General Appearance General appearance: well-developed, appears stated age, other (not in distress) EENT: ATNC, other (resisting eye exam) Neck: supple Respiratory: Present: Clear to Ascultation Cardiology: S1S2, no murmurs Gastrointestinal: normoactive bowel sounds, no tenderness, no distended Integumentary: no rash, warm and dry Neurologic: other (opens eyes, not following any command, non-verbal) Musculoskeletal: other (trace LE edema noted) - Lab 05/01/18 07:15 05/01/18 05:50 Most recent lab results Calcium 8.1 mg/dL (8.4-10.2) L 05/01/18 05:50 Magnesium 2.40 mg/dL (1.7-2.3) H 04/29/18 06:44 Urine Creatinine 142.3 mg/dL (0.1-20.0) H 04/27/18 09:30 Urine Sodium 314 mmol/L 04/27/18 09:30 Medications & Allergies - Medications Allergies/Adverse Reactions: Allergies No Known Allergies Allergy (Verified 04/03/14 21:12) Home Medications: Home Medications Medication Instructions Recorded Confirmed Last Taken Type Amiodarone [Cordarone 200 MG TAB] 200 mg PO QDAY #30 tablet 05/06/17 04/27/18 Unknown Rx Aspirin [Aspirin BABY CHEW TAB] 81 mg PO QDAY #30 tab.chew 05/06/17 04/27/18 Unknown Rx Folic Acid [Folvite] 1 mg PO QDAY #30 tablet 05/06/17 04/27/18 Unknown Rx Pravastatin [Pravachol] 40 mg PO DAILY #30 tablet 05/06/17 04/27/18 Unknown Rx levETIRAcetam [Keppra] 500 mg PO BID #30 tablet 05/06/17 04/27/18 Unknown Rx ALBUTEROL NEB's [Proventil 0.083% 2.5 mg INHALATION BID PRN 04/27/18 04/27/18 Unknown History NEBS] Acetaminophen [Non-Aspirin] 325 mg PO Q8H PRN 04/27/18 04/27/18 Unknown History Ascorbic Acid [Vitamin C] 500 mg PO DAILY 04/27/18 04/27/18 Unknown History Bisacodyl [Dulcolax suppos] 10 mg CA 3XW MDD constipation 04/27/18 04/27/18 Unknown History Diltiazem HCl [Diltiazem 12Hr ER] 120 mg PO DAILY 04/27/18 04/27/18 Unknown History Ferrous Sulfate [Iron] 325 mg PO DAILY 04/27/18 04/27/18 Unknown History Fluticasone (Nf) [Flovent Hfa(Nf)] 1 puff IH BID 04/27/18 04/27/18 Unknown History Ipratropium [Atrovent NEB] 0.02 ml INHALATION BID 04/27/18 04/27/18 Unknown History Levalbuterol [Xopenex] 1.25 mg IH Q6HRT PRN 04/27/18 04/27/18 Unknown History Levothyroxine [Synthroid] 125 mcg PO QAM 04/27/18 04/27/18 Unknown History Multivitamin Tab W-MINERAL 1 each PO QD 04/27/18 04/27/18 Unknown History [Multiple Vitamin/Mineral (Theragran M)] [place] 5-325 mg TAB 1 tab PO Q6H PRN 04/27/18 04/27/18 Unknown History Pantoprazole Sodium 40 mg PO DAILY 04/27/18 04/27/18 Unknown History Procrit 4,000 units SQ 3XW 04/27/18 04/27/18 Unknown History Senna Laxative Tablet 2 tab PO HS 04/27/18 04/27/18 Unknown History Sucralfate 1 gm PO 4XD 04/27/18 04/27/18 Unknown History Tramadol HCl [Ultram] 50 mg PO Q6HR PRN 04/27/18 04/27/18 Unknown History Zinc Oxide [Perishield] 100 gm TP DAILY 04/27/18 04/27/18 Unknown History traZODone [Desyrel] 25 mg PO QHS PRN 04/27/18 04/27/18 Unknown History Active Medications: Generic Name Dose Route Start Last Admin Trade Name Freq PRN Reason Stop Dose Admin Albuterol/Ipratropium 1 ampul 04/26/18 14:00 05/01/18 07:45 Duoneb *Not For Prn Use* IH 1 ampul Q6HRT RICHARD Administration Amiodarone HCl 200 mg 04/28/18 22:00 04/30/18 21:38 Cordarone PO 200 mg BID RICHARD Administration Lipase/Protease/Amylase 1 each 04/27/18 15:[address] 10,500 Unit FEEDTUBE PRN PRN For Clogged Feeding Tube Aspirin 81 mg 04/26/18 11:00 04/30/18 09:54 Baby Aspirin PO 81 mg QDAY RICHARD Administration Budesonide 0.5 mg 04/26/18 20:00 05/01/18 07:45 Pulmicort IH 0.5 mg Q12HRT RICHARD Administration Famotidine 20 mg 04/27/18 10:00 04/30/18 09:53 Pepcid IV 20 mg DAILY RICHARD Administration Folic Acid 1 mg 04/26/18 11:00 04/30/18 09:54 Folvite PO 1 mg QDAY RICHARD Administration Cefepime HCl 1 gm in 100 mls @ 200 mls/hr 04/27/18 11:00 04/30/18 09:50 Maxipime/Ns 1 Gm/100 Ml IV 200 mls/hr Q24HR RICHARD Administration Sodium Chloride 1,000 mls @ 75 mls/hr 04/29/18 16:00 04/30/18 19:37 Nacl 0.45% 1000 Ml IV 75 mls/hr DIRECT RICHARD Administration Levetiracetam 500 mg 04/26/18 11:00 04/30/18 21:38 Keppra PO 500 mg BID RICHARD Administration Levothyroxine Sodium 125 mcg 04/26/18 11:00 05/01/18 05:14 Synthroid PO 125 mcg QAM@0600 RICHARD Administration Pravastatin Sodium 40 mg 04/26/18 11:00 04/30/18 09:54 Pravachol PO 40 mg DAILY RICHARD Administration Simple Syrup 15 ml 04/27/18 15:25 Simple Syrup FEEDTUBE PRN PRN Hypoglycemia Simple Syrup 30 ml 04/27/18 15:25 Simple Syrup FEEDTUBE PRN PRN Hypoglycemia Sodium Bicarbonate 325 mg 04/27/18 15:25 Sodium Bicarbonate FEEDTUBE PRN PRN For Clogged Feeding Tube Trazodone HCl 50 mg 04/26/18 22:00 04/30/18 21:38 Desyrel PO 50 mg QHS RICHARD Administration
[2018-05-01] MEDS: NACL 0.45% 1000 ML 1,000 ML IV SCH (10:23)
[2018-05-01] MEDS: MAXIPIME/NS 1 GM/100 ML 1 GM/100 ML BAG IV SCH (10:24)
[2018-05-01] MEDS: CORDARONE PO SCH ×2 (10:28→22:57)
[2018-05-01] MEDS: PEPCID PO SCH (10:28)
[2018-05-01] MEDS: PRAVACHOL PO SCH (10:29)
[2018-05-01] MEDS: FOLVITE PO SCH (10:29)
[2018-05-01] MEDS: BABY ASPIRIN PO SCH (10:29)
[2018-05-01] MEDS: PEPCID IV SCH (10:30)
[2018-05-01] MEDS: KEPPRA PO SCH ×2 (10:31→22:57)
--- NOTE | 2018-05-01 12:09 | Progress Note ---
Assessment and Plan Assessment and plan: --Hyperkalemia: Potassium 5.4, Kayexalate ,monitor electrolytes, mgt per nephrology --Anemia; hemoglobin 6.7, patient received 1 unit of PRBC Hemoglobin improved to 8.8 closely monitor --Acute hypoxic/hypercapnic respiratory failure; Titrate O2 sats >90%, nebs, IV steroids,IV antibiotics, BiPAP when necessary --Acute exacerbation of bronchial asthma; Oxygen nebulizers IV steroids and IV antibiotics inhalation steroids Pulmonary critical consultation --Bilateral pleural effusion; right more than left, pulmonary following f/u chest x-ray, significant improvement of pleural effusions --Perihilar infiltrate/possible pneumonia; empiric antibiotics --Acute on chronic congestive heart failure; EF :45-50% 2 years ago, IV diuretics, beta blockers Input output monitoring, echocardiogram, cardiology evaluation --Positive cardiac enzymes/possible non-ST elevation GA Cardiac medications serial cardiac enzymes and EKGs neg --Acute on chronic kidney injury;worsening renal function vasomotor nephropathy, avoid nephrotoxins, nephro following --History of A. 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 This time is in addition to time spent performing reported procedures but includes the following: [x] Data Review and interpretation [x] Patient assessment and monitoring of vital signs [x] Documentation [x] Medication orders and management History Interval history: Patient Seen and examined medical records reviewed Patient is opening eyes upon calling her name Documented distress On nasal cannula oxygen Vital signs reviewed Hospitalist Physical - Constitutional Vitals: Temp Pulse Resp BP Pulse Ox 97.8 F 100 H 8 L 113/54 100 05/01/18 09:30 05/01/18 09:11 05/01/18 09:11 05/01/18 09:11 05/01/18 09:11 General appearance: Present: no acute distress, cachectic, disheveled, other (confused) - EENT Eyes: Present: PERRL, EOM intact - Neck Neck: Present: supple, normal ROM - Respiratory Respiratory effort: normal Respiratory: bilateral: diminished, negative: rales, rhonchi, wheezing - Cardiovascular Rhythm: regular Heart Sounds: Present: S1 & S2 - Extremities Extremities: no ischemia, No edema - Abdominal General gastrointestinal: soft, non-tender, non-distended, normal bowel sounds - Integumentary Integumentary: Present: clear, warm - Psychiatric Psychiatric: appropriate mood/affect, cooperative - Neurologic Neurologic: CNII-XII intact, moves all extremities Results - Labs CBC & Chem 7: 05/01/18 07:15 05/01/18 05:50 Labs: Laboratory Last Values WBC 10.3 K/mm3 (4.5-11.0) 05/01/18 07:15 RBC 2.89 M/mm3 (3.65-5.03) L 05/01/18 07:15 Hgb 8.8 gm/dl (10.1-14.3) L 05/01/18 07:15 Hct 26.5 % (30.3-42.9) L 05/01/18 07:15 MCV 92 fl (79-97) 05/01/18 07:15 MCH 31 pg (28-32) 05/01/18 07:15 MCHC 33 % (30-34) 05/01/18 07:15 RDW 16.2 % (13.2-15.2) H 05/01/18 07:15 Plt Count 150 K/mm3 (140-440) 05/01/18 07:15 Lymph % (Auto) 6.1 % (13.4-35.0) L 05/01/18 07:15 Starke % (Auto) 13.6 % (0.0-7.3) H 05/01/18 07:15 Eos % (Auto) 8.4 % (0.0-4.3) H 05/01/18 07:15 Baso % (Auto) 0.0 % (0.0-1.8) 05/01/18 07:15 Lymph # 0.6 K/mm3 (1.2-5.4) L 05/01/18 07:15 Starke # 1.4 K/mm3 (0.0-0.8) H 05/01/18 07:15 Eos # 0.9 K/mm3 (0.0-0.4) H 05/01/18 07:15 Baso # 0.0 K/mm3 (0.0-0.1) 05/01/18 07:15 Add Manual Diff Complete 04/29/18 06:44 Total Counted 100 04/29/18 06:44 Seg Neutrophils % 71.9 % (40.0-70.0) H 05/01/18 07:15 Seg Neuts % (Manual) 85.0 % (40.0-70.0) H 04/29/18 06:44 Band Neutrophils % 2.0 % 04/29/18 06:44 Lymphocytes % (Manual) 5.0 % (13.4-35.0) L 04/29/18 06:44 Reactive Lymphs % (Man) 0 % 04/29/18 06:44 Monocytes % (Manual) 8.0 % (0.0-7.3) H 04/29/18 06:44 Eosinophils % (Manual) 0 % (0.0-4.3) 04/29/18 06:44 Basophils % (Manual) 0 % (0.0-1.8) 04/29/18 06:44 Metamyelocytes % 0 % 04/29/18 06:44 Myelocytes % 0 % 04/29/18 06:44 Promyelocytes % 0 % 04/29/18 06:44 Blast Cells % 0 % 04/29/18 06:44 Nucleated RBC % 7.0 % (0.0-0.9) H 04/29/18 06:44 Seg Neutrophils # 7.4 K/mm3 (1.8-7.7) 05/01/18 07:15 Seg Neutrophils # Man 9.4 K/mm3 (1.8-7.7) H 04/29/18 06:44 Band Neutrophils # 0.2 K/mm3 04/29/18 06:44 Lymphocytes # (Manual) 0.6 K/mm3 (1.2-5.4) L 04/29/18 06:44 Abs React Lymphs (Man) 0.0 K/mm3 04/29/18 06:44 Monocytes # (Manual) 0.9 K/mm3 (0.0-0.8) H 04/29/18 06:44 Eosinophils # (Manual) 0.0 K/mm3 (0.0-0.4) 04/29/18 06:44 Basophils # (Manual) 0.0 K/mm3 (0.0-0.1) 04/29/18 06:44 Metamyelocytes # 0.0 K/mm3 04/29/18 06:44 Myelocytes # 0.0 K/mm3 04/29/18 06:44 Promyelocytes # 0.0 K/mm3 04/29/18 06:44 Blast Cells # 0.0 K/mm3 04/29/18 06:44 WBC Morphology Not Reportable 04/29/18 06:44 Hypersegmented Neuts Not Reportable 04/29/18 06:44 Hyposegmented Neuts Not Reportable 04/29/18 06:44 Hypogranular Neuts Not Reportable 04/29/18 06:44 Smudge Cells Not Reportable 04/29/18 06:44 Toxic Granulation Not Reportable 04/29/18 06:44 Toxic Vacuolation Not Reportable 04/29/18 06:44 Dohle Bodies Not Reportable 04/29/18 06:44 Pelger-Huet Anomaly Not Reportable 04/29/18 06:44 Vlad Rods Not Reportable 04/29/18 06:44 Platelet Estimate Appears normal 04/29/18 06:44 Clumped Platelets Not Reportable 04/29/18 06:44 Plt Clumps, EDTA Not Reportable 04/29/18 06:44 Large Platelets Not Reportable 04/29/18 06:44 Giant Platelets Not Reportable 04/29/18 06:44 Platelet Satelliting Not Reportable 04/29/18 06:44 Plt Morphology Comment Not Reportable 04/29/18 06:44 RBC Morphology Not Reportable 04/29/18 06:44 Dimorphic RBCs Not Reportable 04/29/18 06:44 Polychromasia Not Reportable 04/29/18 06:44 Hypochromasia Not Reportable 04/29/18 06:44 Poikilocytosis 1+ 04/29/18 06:44 Anisocytosis 2+ 04/29/18 06:44 Microcytosis Not Reportable 04/29/18 06:44 Macrocytosis Not Reportable 04/29/18 06:44 Spherocytes Not Reportable 04/29/18 06:44 Pappenheimer Bodies Not Reportable 04/29/18 06:44 Sickle Cells Not Reportable 04/29/18 06:44 Target Cells Rare 04/29/18 06:44 Tear Drop Cells Not Reportable 04/29/18 06:44 Ovalocytes 1+ 04/29/18 06:44 Helmet Cells Not Reportable 04/29/18 06:44 [place] Bodies Not Reportable 04/29/18 06:44 Ama Rings Not Reportable 04/29/18 06:44 Jelani Cells Not Reportable 04/29/18 06:44 Bite Cells Not Reportable 04/29/18 06:44 Crenated Cell Not Reportable 04/29/18 06:44 Elliptocytes Not Reportable 04/29/18 06:44 Acanthocytes (Spur) Not Reportable 04/29/18 06:44 Rouleaux Not Reportable 04/29/18 06:44 Hemoglobin C Crystals Not Reportable 04/29/18 06:44 Schistocytes Rare 04/29/18 06:44 Malaria parasites Not Reportable 04/29/18 06:44 Jaylen Bodies Not Reportable 04/29/18 06:44 Hem Pathologist Commnt No 04/29/18 06:44 PT 15.8 Sec. (12.2-14.9) H 04/26/18 04:47 INR 1.22 (0.87-1.13) H 04/26/18 04:47 APTT 32.4 Sec. (24.2-36.6) 04/26/18 04:47 D-Dimer 254.08 ng/mlDDU (0-234) H 04/26/18 04:47 POC ABG pH 7.216 (7.35-7.45) L 04/29/18 14:33 POC ABG pCO2 62.4 (35-45) H 04/29/18 14:33 POC ABG pO2 162 (80-105) H 04/29/18 14:33 POC ABG HCO3 25.3 04/29/18 14:33 POC ABG Total CO2 27 04/29/18 14:33 POC ABG O2 Sat 99 04/29/18 14:33 POC ABG Base Excess -2 04/29/18 14:33 VBG pH 7.270 (7.320-7.420) L 04/27/18 14:12 FiO2 3 % 04/29/18 14:33 Sodium 140 mmol/L (137-145) 05/01/18 05:50 Potassium 5.4 mmol/L (3.6-5.0) H 05/01/18 05:50 Chloride 105.6 mmol/L (98-107) 05/01/18 05:50 Carbon Dioxide 17 mmol/L (22-30) L 05/01/18 05:50 Anion Gap 23 mmol/L 05/01/18 05:50 BUN 86 mg/dL (7-17) H 05/01/18 05:50 Creatinine 3.8 mg/dL (0.7-1.2) H 05/01/18 05:50 Estimated GFR 14 ml/min 05/01/18 05:50 BUN/Creatinine Ratio 23 % 05/01/18 05:50 Glucose 124 mg/dL (65-100) H 05/01/18 05:50 POC Glucose 155 (70-105) H 04/29/18 12:49 Lactic Acid 1.40 mmol/L (0.7-2.0) 04/26/18 10:55 Calcium 8.1 mg/dL (8.4-10.2) L 05/01/18 05:50 Magnesium 2.40 mg/dL (1.7-2.3) H 04/29/18 06:44 Total Bilirubin 0.50 mg/dL (0.1-1.2) 05/01/18 05:50 Direct Bilirubin < 0.2 mg/dL (0-0.2) 04/26/18 04:47 Indirect Bilirubin 0.2 mg/dL 04/26/18 04:47 AST 11 units/L (5-40) 05/01/18 05:50 ALT 6 units/L (7-56) L 05/01/18 05:50 Alkaline Phosphatase 43 units/L (35-129) 05/01/18 05:50 Total Creatine Kinase 40 units/L (30-135) 04/26/18 17:57 CK-MB (CK-2) 1.6 ng/mL (0.0-4.0) 04/26/18 17:57 CK-MB (CK-2) Rel Index 4.0 (0-4) 04/26/18 17:57 Troponin T 0.114 ng/mL (0.00-0.029) H* 04/26/18 17:57 NT-Pro-B Natriuret Pep 5133 pg/mL (0-900) H 04/26/18 04:47 Total Protein 4.8 g/dL (6.3-8.2) L 05/01/18 05:50 Albumin 2.8 g/dL (3.9-5) L 05/01/18 05:50 Albumin/Globulin Ratio 1.4 % 05/01/18 05:50 Triglycerides 90 mg/dL (2-149) 04/26/18 04:47 Cholesterol 129 mg/dL (50-199) 04/26/18 04:47 LDL Cholesterol Direct 45 mg/dL (50-130) L 04/26/18 04:47 HDL Cholesterol 67 mg/dL (40-59) H 04/26/18 04:47 Cholesterol/HDL Ratio 1.92 % 04/26/18 04:47 TSH 1.560 mlU/mL (0.270-4.200) 04/26/18 13:16 Free T4 1.28 ng/dL (0.76-1.46) 04/26/18 13:16 Urine Color Delphine (Yellow) 04/27/18 09:30 Urine Turbidity Cloudy (Clear) 04/27/18 09:30 Urine pH 5.0 (5.0-7.0) 04/27/18 09:30 Ur Specific [place] 1.028 (1.003-1.030) 04/27/18 09:30 Urine Protein 100 mg/dl mg/dL (Negative) 04/27/18 09:30 Urine Glucose (UA) Neg mg/dL (Negative) 04/27/18 09:30 Urine Ketones 20 mg/dL (Negative) 04/27/18 09:30 Urine Blood Neg (Negative) 04/27/18 09:30 Urine Nitrite Neg (Negative) 04/27/18 09:30 Urine Bilirubin Neg (Negative) 04/27/18 09:30 Urine Urobilinogen 2.0 mg/dL (<2.0) 04/27/18 09:30 Ur Leukocyte Esterase Lg (Negative) 04/27/18 09:30 Urine WBC (Auto) 133.0 /HPF (0.0-6.0) H 04/27/18 09:30 Urine RBC (Auto) 24.0 /HPF (0.0-6.0) 04/27/18 09:30 Urine Bacteria (Auto) 1+ /HPF (Negative) 04/27/18 09:30 Calcium Oxalate Crystal 3+ 04/27/18 09:30 Urine Mucus 3+ /HPF 04/27/18 09:30 Urine Creatinine 142.3 mg/dL (0.1-20.0) H 04/27/18 09:30 Urine Sodium 314 mmol/L 04/27/18 09:30 Blood Type A POSITIVE 04/28/18 18:21 Antibody Screen Negative 04/28/18 18:21 Crossmatch See Detail 04/28/18 18:21 Nutrition/Malnutrition Assess - Dietary Evaluation Nutrition/Malnutrition Findings: Nutrition Notes Start: 04/27/18 14:13 Freq: Status: Active Protocol: Document 04/27/18 15:04 OL (Rec: 04/27/18 15:22 OL [id number]) Nutrition Notes Need for Assessment generated from: MD Order intranet support Initial or Follow up Assessment Current Diagnosis COPD Hypertension Heart Failure Other Pertinent Diagnosis dementia Current Diet No diet ordered Labs/Tests Mg 2.4 BUN 38 Cr 2.2 Na 148 Pertinent Medications Lasix Height 5 ft 3 in Weight 55 kg [place] Body Weight (kg) 52.27 BMI 21.4 Subjective/Other Information RD consult for TF, screen for skin risk and chewing difficulty. Maurice 15. Pt. admitted with SOB. Burn Absent Trauma Absent #1 Nutrition Diagnosis Inadequate oral intake Etiology dementia As Evidenced by Signs and Symptoms TF consult, pt. not meeting energy/protein needs through PO intake Is patient on ventilator? No Is Patient Ambulatory and/or Out of Bed No [facility] 1140.840 Calculation Used for Recommendations [facility] Additional Notes protein (1.2-2g/kg): 66-110g fluid: 1mL/kcal or per Nutrition Intervention Change Diet Order: TF Nutrition Support: Promote at 50mL/hr with 100mL flush q4h Kcal 1,200 Protein (gm) 75 Fluid (mL) 1,007 Goal #1 TF to meet 80-100% of energy and protein needs Anticipated Discharge Needs: Unable to identify at this time Follow-Up By: 05/01/18 Additional Comments f/u: new TF
[2018-05-01] MEDS ORDERED: SODIUM BICARBONATE FEEDTUBE PRN (14:52)
[2018-05-01] MEDS ORDERED: PANCREAZE DR 10,500 UNIT FEEDTUBE PRN (14:52)
[2018-05-01] MEDS ORDERED: SIMPLE SYRUP FEEDTUBE PRN ×2 (14:52)
[2018-05-01] MEDS: KIONEX PO SCH ×2 (16:27→18:43)
--- NOTE | 2018-05-01 16:58 | Progress Note ---
Assessment and Plan Imp: 1. ? UTI 2. A/C systolic CHF 3. A/C respiratory failure, hypoxia 4. ARTURO on CKD 5. Vascular dementia 6. Hyperkalemia Rec: 1. Finish 6 days of empiric Cefipime; unfortunately cultures were never sent 2. Receiving hypotonic IVFs; monitor respiratory status closely 3. Cont. Pulmicort/Bronchodilators; no need for systemic steroids currently 4. BIPAP prn 5. Will need ST eval. prior to taking PO as cannot r/o aspiration 6. SCDs, TFs 7. Renal following/managing elevated K CCT 31 minutes Plan of care reviewed with family, they understand/agree Subjective Date of service: 05/01/18 Principal diagnosis: resp failure; afib Interval history: No events. Arousable but not following commands for me. On nasal cannula now. No pressors. Unable to get history from patient. Active Medications Albuterol/Ipratropium (Duoneb *Not For Prn Use*) 1 ampul IH Q6HRT [facility] Last Admin: 05/01/18 13:49 Dose: 1 ampul Documented by: Amiodarone HCl (Cordarone) 200 mg PO BID [facility] Last Admin: 05/01/18 10:28 Dose: 200 mg Documented by: Lipase/Protease/Amylase (Kam Castro 10,500 Unit) 1 each FEEDTUBE PRN PRN PRN Reason: For Clogged Feeding Tube Lipase/Protease/Amylase (Kam Castro 10,500 Unit) 1 each FEEDTUBE PRN PRN PRN Reason: For Clogged Feeding Tube Aspirin (Baby Aspirin) 81 mg PO QDAY [facility] Last Admin: 05/01/18 10:29 Dose: 81 mg Documented by: Budesonide (Pulmicort) 0.5 mg IH Q12HRT [facility] Last Admin: 05/01/18 07:45 Dose: 0.5 mg Documented by: Famotidine (Pepcid) 20 mg PO DAILY [facility] Last Admin: 05/01/18 10:28 Dose: 20 mg Documented by: Folic Acid (Folvite) 1 mg PO QDAY [facility] Last Admin: 05/01/18 10:29 Dose: 1 mg Documented by: Cefepime HCl (Maxipime/Ns 1 Gm/100 Ml) 1 gm in 100 mls @ 200 mls/hr IV Q24HR [facility] Stop: 05/02/18 10:59 Last Admin: 05/01/18 10:24 Dose: 200 mls/hr Documented by: Sodium Chloride (Nacl 0.45% 1000 Ml) 1,000 mls @ 75 mls/hr IV DIRECT [facility] Last Admin: 05/01/18 10:23 Dose: 75 mls/hr Documented by: Levetiracetam (Keppra) 500 mg PO BID [facility] Last Admin: 05/01/18 10:31 Dose: 500 mg Documented by: Levothyroxine Sodium (Synthroid) 125 mcg PO QAM@0600 [facility] Last Admin: 05/01/18 05:14 Dose: 125 mcg Documented by: Pravastatin Sodium (Pravachol) 40 mg PO DAILY [facility] Last Admin: 05/01/18 10:29 Dose: 40 mg Documented by: Simple Syrup (Simple Syrup) 15 ml FEEDTUBE PRN PRN PRN Reason: Hypoglycemia Simple Syrup (Simple Syrup) 30 ml FEEDTUBE PRN PRN PRN Reason: Hypoglycemia Simple Syrup (Simple Syrup) 15 ml FEEDTUBE PRN PRN PRN Reason: Hypoglycemia Simple Syrup (Simple Syrup) 30 ml FEEDTUBE PRN PRN PRN Reason: Hypoglycemia Sodium Bicarbonate (Sodium Bicarbonate) 325 mg FEEDTUBE PRN PRN PRN Reason: For Clogged Feeding Tube Sodium Bicarbonate (Sodium Bicarbonate) 325 mg FEEDTUBE PRN PRN PRN Reason: For Clogged Feeding Tube Sodium Polystyrene Sulfonate (Kionex) 30 gm PO Q6HR [facility] Stop: 05/01/18 18:01 Last Admin: 05/01/18 16:27 Dose: 30 gm Documented by: Trazodone HCl (Desyrel) 50 mg PO QHS [facility] Last Admin: 04/30/18 21:38 Dose: 50 mg Documented by: Objective Vital Signs - 12hr 05/01/18 05/01/18 05/01/18 05:00 05:11 05:21 Temperature Pulse Rate 84 84 87 Pulse Rate [ Anterior Bilateral Throughout] Respiratory 20 18 19 Rate Respiratory Rate [Anterior Bilateral Throughout] Blood Pressure 111/46 111/46 113/53 O2 Sat by Pulse 100 100 100 Oximetry 05/01/18 05/01/18 05/01/18 05:30 05:41 05:50 Temperature Pulse Rate 85 88 88 Pulse Rate [ Anterior Bilateral Throughout] Respiratory 20 22 20 Rate Respiratory Rate [Anterior Bilateral Throughout] Blood Pressure 119/51 120/54 113/48 O2 Sat by Pulse 100 100 100 Oximetry 05/01/18 05/01/18 05/01/18 06:00 06:11 06:21 Temperature Pulse Rate 92 H 85 91 H Pulse Rate [ Anterior Bilateral Throughout] Respiratory 20 17 12 Rate Respiratory Rate [Anterior Bilateral Throughout] Blood Pressure 125/55 113/48 131/59 O2 Sat by Pulse 100 100 100 Oximetry 05/01/18 05/01/18 05/01/18 06:30 06:41 06:51 Temperature Pulse Rate 85 92 H Pulse Rate [ Anterior Bilateral Throughout] Respiratory 17 15 Rate Respiratory Rate [Anterior Bilateral Throughout] Blood Pressure 132/55 125/55 119/58 O2 Sat by Pulse 100 100 99 Oximetry 05/01/18 05/01/18 05/01/18 07:01 07:11 07:21 Temperature Pulse Rate 100 H 93 H 94 H Pulse Rate [ Anterior Bilateral Throughout] Respiratory 15 11 L 13 Rate Respiratory Rate [Anterior Bilateral Throughout] Blood Pressure 132/62 132/62 134/65 O2 Sat by Pulse 100 100 100 Oximetry 05/01/18 05/01/18 05/01/18 07:31 07:41 07:45 Temperature Pulse Rate 100 H 96 H Pulse Rate [ 90 Anterior Bilateral Throughout] Respiratory 12 12 Rate Respiratory 22 Rate [Anterior Bilateral Throughout] Blood Pressure 133/84 119/58 O2 Sat by Pulse 95 100 98 Oximetry 05/01/18 05/01/18 05/01/18 07:51 08:00 08:05 Temperature Pulse Rate 101 H 93 H Pulse Rate [ 97 H Anterior Bilateral Throughout] Respiratory 10 L 13 Rate Respiratory 22 Rate [Anterior Bilateral Throughout] Blood Pressure 108/73 124/64 O2 Sat by Pulse 100 100 Oximetry 05/01/18 05/01/18 05/01/18 08:11 08:21 08:31 Temperature Pulse Rate 96 H 100 H 105 H Pulse Rate [ Anterior Bilateral Throughout] Respiratory 15 17 9 L Rate Respiratory Rate [Anterior Bilateral Throughout] Blood Pressure 124/64 125/50 107/69 O2 Sat by Pulse 100 100 98 Oximetry 05/01/18 05/01/18 05/01/18 08:41 08:51 09:01 Temperature Pulse Rate 109 H 100 H 99 H Pulse Rate [ Anterior Bilateral Throughout] Respiratory 14 12 15 Rate Respiratory Rate [Anterior Bilateral Throughout] Blood Pressure 107/69 122/50 113/54 O2 Sat by Pulse 100 100 100 Oximetry 05/01/18 05/01/18 05/01/18 09:11 09:21 09:30 Temperature 97.8 F Pulse Rate 100 H 99 H 106 H Pulse Rate [ Anterior Bilateral Throughout] Respiratory 8 L 12 12 Rate Respiratory Rate [Anterior Bilateral Throughout] Blood Pressure 113/54 126/35 121/37 O2 Sat by Pulse 100 100 100 Oximetry 05/01/18 05/01/18 05/01/18 09:41 09:51 10:00 Temperature Pulse Rate 99 H 103 H 99 H Pulse Rate [ Anterior Bilateral Throughout] Respiratory 12 14 19 Rate Respiratory Rate [Anterior Bilateral Throughout] Blood Pressure 121/37 122/58 126/59 O2 Sat by Pulse 100 100 100 Oximetry 05/01/18 05/01/18 05/01/18 10:11 10:21 10:30 Temperature Pulse Rate 101 H 98 H 94 H Pulse Rate [ Anterior Bilateral Throughout] Respiratory 16 16 14 Rate Respiratory Rate [Anterior Bilateral Throughout] Blood Pressure 126/59 117/60 119/48 O2 Sat by Pulse 100 100 100 Oximetry 05/01/18 05/01/18 05/01/18 10:41 10:51 11:00 Temperature Pulse Rate 101 H 93 H 101 H Pulse Rate [ Anterior Bilateral Throughout] Respiratory 15 12 16 Rate Respiratory Rate [Anterior Bilateral Throughout] Blood Pressure 119/48 136/55 130/46 O2 Sat by Pulse 100 100 100 Oximetry 05/01/18 05/01/18 05/01/18 11:11 11:21 11:31 Temperature Pulse Rate 97 H 101 H 95 H Pulse Rate [ Anterior Bilateral Throughout] Respiratory 16 18 16 Rate Respiratory Rate [Anterior Bilateral Throughout] Blood Pressure 130/46 128/41 121/47 O2 Sat by Pulse 100 100 100 Oximetry 05/01/18 05/01/18 05/01/18 11:41 11:51 12:00 Temperature 98.2 F Pulse Rate 97 H 96 H 104 H Pulse Rate [ Anterior Bilateral Throughout] Respiratory 16 21 16 Rate Respiratory Rate [Anterior Bilateral Throughout] Blood Pressure 136/55 107/51 120/40 O2 Sat by Pulse 100 100 100 Oximetry 05/01/18 05/01/18 05/01/18 12:11 12:21 12:31 Temperature Pulse Rate 97 H 99 H 91 H Pulse Rate [ Anterior Bilateral Throughout] Respiratory 16 21 19 Rate Respiratory Rate [Anterior Bilateral Throughout] Blood Pressure 120/40 119/38 126/46 O2 Sat by Pulse 100 100 100 Oximetry 05/01/18 05/01/18 05/01/18 12:41 12:51 13:49 Temperature Pulse Rate 96 H 89 Pulse Rate [ 95 H Anterior Bilateral Throughout] Respiratory 16 17 Rate Respiratory 18 Rate [Anterior Bilateral Throughout] Blood Pressure 126/46 117/46 O2 Sat by Pulse 100 100 Oximetry 05/01/18 14:03 Temperature Pulse Rate Pulse Rate [ 80 Anterior Bilateral Throughout] Respiratory Rate Respiratory 20 Rate [Anterior Bilateral Throughout] Blood Pressure O2 Sat by Pulse Oximetry Constitutional: other (arousable, opens eyes) Eyes: non-icteric ENT: oropharynx moist, other (feeding tube in position) Neck: supple Effort: mildly labored Ascultation: Bilateral: clear (anteriorly) Cardiovascular: regular rate and rhythm (no mrg) Gastrointestinal: normoactive bowel sounds, soft, non-tender, non-distended Integumentary: normal Extremities: no cyanosis, no edema, pink and warm Neurologic: unable to assess (opens eyes to voice, moves LUE spontaneously, nonverbal, not following commands) Psychiatric: other (unable to assess) CBC and BMP: 05/01/18 07:15 05/01/18 05:50 ABG, PT/INR, D-dimer: ABG POC ABG pH 7.216 (7.35-7.45) L 04/29/18 14:33 POC ABG pCO2 62.4 (35-45) H 04/29/18 14:33 POC ABG pO2 162 (80-105) H 04/29/18 14:33 POC ABG HCO3 25.3 04/29/18 14:33 POC ABG Total CO2 27 04/29/18 14:33 POC ABG O2 Sat 99 04/29/18 14:33 PT/INR, D-dimer PT 15.8 Sec. (12.2-14.9) H 04/26/18 04:47 INR 1.22 (0.87-1.13) H 04/26/18 04:47 D-Dimer 254.08 ng/mlDDU (0-234) H 04/26/18 04:47 Abnormal lab findings: Abnormal Labs 04/26/18 04/26/18 04/26/18 04:43 04:43 04:47 WBC RBC 2.91 L Hgb 8.8 L Hct 27.9 L RDW 17.7 H Lymph % (Auto) 5.9 L [place] % (Auto) 11.6 H Eos % (Auto) Lymph # 0.5 L [place] # 1.0 H Eos # Seg Neutrophils % 79.8 H Seg Neuts % (Manual) Lymphocytes % (Manual) Monocytes % (Manual) Nucleated RBC % Seg Neutrophils # Seg Neutrophils # Man Lymphocytes # (Manual) Monocytes # (Manual) PT 15.8 H INR 1.22 H D-Dimer POC ABG pH POC ABG pCO2 POC ABG pO2 VBG pH Sodium 146 H Potassium Chloride 111.4 H Carbon Dioxide 21 L BUN 27 H Creatinine 1.8 H Glucose POC Glucose Calcium 8.3 L Magnesium ALT Troponin T NT-Pro-B Natriuret Pep Total Protein Albumin LDL Cholesterol Direct HDL Cholesterol Urine WBC (Auto) Urine Creatinine Crossmatch 04/26/18 04/26/18 04/26/18 04:47 04:47 04:47 WBC RBC Hgb Hct RDW Lymph % (Auto) [place] % (Auto) Eos % (Auto) Lymph # [place] # Eos # Seg Neutrophils % Seg Neuts % (Manual) Lymphocytes % (Manual) Monocytes % (Manual) Nucleated RBC % Seg Neutrophils # Seg Neutrophils # Man Lymphocytes # (Manual) Monocytes # (Manual) PT INR D-Dimer 254.08 H POC ABG pH POC ABG pCO2 POC ABG pO2 VBG pH Sodium Potassium Chloride Carbon Dioxide BUN Creatinine Glucose POC Glucose Calcium Magnesium ALT < 5 L Troponin T 0.149 H* NT-Pro-B Natriuret Pep 5133 H Total Protein 5.1 L Albumin 3.3 L LDL Cholesterol Direct 45 L HDL Cholesterol 67 H Urine WBC (Auto) Urine Creatinine Crossmatch 04/26/18 04/26/18 04/26/18 05:34 10:26 13:16 WBC RBC Hgb Hct RDW Lymph % (Auto) [place] % (Auto) Eos % (Auto) Lymph # [place] # Eos # Seg Neutrophils % Seg Neuts % (Manual) Lymphocytes % (Manual) Monocytes % (Manual) Nucleated RBC % Seg Neutrophils # Seg Neutrophils # Man Lymphocytes # (Manual) Monocytes # (Manual) PT INR D-Dimer POC ABG pH 7.142 L 7.167 L POC ABG pCO2 65.4 H 53.1 H POC ABG pO2 126 H VBG pH Sodium Potassium Chloride Carbon Dioxide BUN Creatinine Glucose POC Glucose Calcium Magnesium ALT Troponin T 0.141 H* NT-Pro-B Natriuret Pep Total Protein Albumin LDL Cholesterol Direct HDL Cholesterol Urine WBC (Auto) Urine Creatinine Crossmatch 04/26/18 04/26/18 04/27/18 17:40 17:57 04:39 WBC 15.7 H RBC 2.58 L Hgb 7.6 L Hct 24.3 L RDW 17.2 H Lymph % (Auto) [place] % (Auto) Eos % (Auto) Lymph # [place] # Eos # Seg Neutrophils % Seg Neuts % (Manual) 95.0 H Lymphocytes % (Manual) 2.0 L Monocytes % (Manual) Nucleated RBC % Seg Neutrophils # Seg Neutrophils # Man 14.9 H Lymphocytes # (Manual) 0.3 L Monocytes # (Manual) PT INR D-Dimer POC ABG pH 7.161 L POC ABG pCO2 56.3 H POC ABG pO2 124 H VBG pH Sodium Potassium Chloride Carbon Dioxide BUN Creatinine Glucose POC Glucose Calcium Magnesium ALT Troponin T 0.114 H* NT-Pro-B Natriuret Pep Total Protein Albumin LDL Cholesterol Direct HDL Cholesterol Urine WBC (Auto) Urine Creatinine Crossmatch 04/27/18 04/27/18 04/27/18 04:39 09:30 09:30 WBC RBC Hgb Hct RDW Lymph % (Auto) [place] % (Auto) Eos % (Auto) Lymph # [place] # Eos # Seg Neutrophils % Seg Neuts % (Manual) Lymphocytes % (Manual) Monocytes % (Manual) Nucleated RBC % Seg Neutrophils # Seg Neutrophils # Man Lymphocytes # (Manual) Monocytes # (Manual) PT INR D-Dimer POC ABG pH POC ABG pCO2 POC ABG pO2 VBG pH Sodium 148 H Potassium Chloride 111.4 H Carbon Dioxide 20 L BUN 38 H Creatinine 2.2 H Glucose 128 H POC Glucose Calcium 8.2 L Magnesium 2.40 H ALT Troponin T NT-Pro-B Natriuret Pep Total Protein Albumin LDL Cholesterol Direct HDL Cholesterol Urine WBC (Auto) 133.0 H Urine Creatinine 142.3 H Crossmatch 04/27/18 04/28/18 04/28/18 14:12 05:07 05:07 WBC 13.5 H RBC 2.29 L Hgb 6.7 L Hct 21.0 L RDW 17.1 H Lymph % (Auto) 1.8 L [place] % (Auto) 9.4 H Eos % (Auto) Lymph # 0.2 L [place] # 1.3 H Eos # Seg Neutrophils % 88.7 H Seg Neuts % (Manual) Lymphocytes % (Manual) Monocytes % (Manual) Nucleated RBC % Seg Neutrophils # 11.9 H Seg Neutrophils # Man Lymphocytes # (Manual) Monocytes # (Manual) PT INR D-Dimer POC ABG pH POC ABG pCO2 POC ABG pO2 VBG pH 7.270 L Sodium 147 H Potassium Chloride 111.7 H Carbon Dioxide 18 L BUN 48 H Creatinine 2.9 H Glucose 162 H POC Glucose Calcium 7.7 L Magnesium ALT Troponin T NT-Pro-B Natriuret Pep Total Protein Albumin LDL Cholesterol Direct HDL Cholesterol Urine WBC (Auto) Urine Creatinine Crossmatch 04/28/18 04/28/18 04/28/18 10:59 11:05 18:21 WBC RBC Hgb 6.8 L Hct 21.4 L RDW Lymph % (Auto) [place] % (Auto) Eos % (Auto) Lymph # [place] # Eos # Seg Neutrophils % Seg Neuts % (Manual) Lymphocytes % (Manual) Monocytes % (Manual) Nucleated RBC % Seg Neutrophils # Seg Neutrophils # Man Lymphocytes # (Manual) Monocytes # (Manual) PT INR D-Dimer POC ABG pH 7.297 L POC ABG pCO2 49.4 H POC ABG pO2 131 H VBG pH Sodium Potassium Chloride Carbon Dioxide BUN Creatinine Glucose POC Glucose Calcium Magnesium ALT Troponin T NT-Pro-B Natriuret Pep Total Protein Albumin LDL Cholesterol Direct HDL Cholesterol Urine WBC (Auto) Urine Creatinine Crossmatch See Detail 04/29/18 04/29/18 04/29/18 00:28 06:27 06:44 WBC 11.1 H RBC 2.71 L Hgb 8.1 L Hct 25.1 L RDW 16.6 H Lymph % (Auto) [place] % (Auto) Eos % (Auto) Lymph # [place] # Eos # Seg Neutrophils % Seg Neuts % (Manual) 85.0 H Lymphocytes % (Manual) 5.0 L Monocytes % (Manual) 8.0 H Nucleated RBC % 7.0 H Seg Neutrophils # Seg Neutrophils # Man 9.4 H Lymphocytes # (Manual) 0.6 L Monocytes # (Manual) 0.9 H PT INR D-Dimer POC ABG pH POC ABG pCO2 POC ABG pO2 VBG pH Sodium Potassium Chloride Carbon Dioxide BUN Creatinine Glucose POC Glucose 163 H 138 H Calcium Magnesium ALT Troponin T NT-Pro-B Natriuret Pep Total Protein Albumin LDL Cholesterol Direct HDL Cholesterol Urine WBC (Auto) Urine Creatinine Crossmatch 04/29/18 04/29/18 04/29/18 06:44 12:49 14:33 WBC RBC Hgb Hct RDW Lymph % (Auto) [place] % (Auto) Eos % (Auto) Lymph # [place] # Eos # Seg Neutrophils % Seg Neuts % (Manual) Lymphocytes % (Manual) Monocytes % (Manual) Nucleated RBC % Seg Neutrophils # Seg Neutrophils # Man Lymphocytes # (Manual) Monocytes # (Manual) PT INR D-Dimer POC ABG pH 7.216 L POC ABG pCO2 62.4 H POC ABG pO2 162 H VBG pH Sodium 148 H Potassium Chloride 112.2 H Carbon Dioxide BUN 64 H Creatinine 3.8 H Glucose 137 H POC Glucose 155 H Calcium 7.8 L Magnesium 2.40 H ALT Troponin T NT-Pro-B Natriuret Pep Total Protein Albumin LDL Cholesterol Direct HDL Cholesterol Urine WBC (Auto) Urine Creatinine Crossmatch 04/30/18 04/30/18 04/30/18 04:33 08:35 08:35 WBC RBC 2.87 L Hgb 8.7 L Hct 26.7 L RDW 16.7 H Lymph % (Auto) [place] % (Auto) Eos % (Auto) Lymph # [place] # Eos # Seg Neutrophils % Seg Neuts % (Manual) Lymphocytes % (Manual) Monocytes % (Manual) Nucleated RBC % Seg Neutrophils # Seg Neutrophils # Man Lymphocytes # (Manual) Monocytes # (Manual) PT INR D-Dimer POC ABG pH POC ABG pCO2 POC ABG pO2 VBG pH Sodium Potassium 6.0 H D 5.5 H Chloride 111.4 H Carbon Dioxide 18 L BUN 77 H Creatinine 3.7 H Glucose 123 H POC Glucose Calcium 8.0 L Magnesium ALT Troponin T NT-Pro-B Natriuret Pep Total Protein Albumin LDL Cholesterol Direct HDL Cholesterol Urine WBC (Auto) Urine Creatinine Crossmatch 04/30/18 05/01/18 05/01/18 18:20 05:50 07:15 WBC RBC 2.89 L Hgb 8.8 L Hct 26.5 L RDW 16.2 H Lymph % (Auto) 6.1 L [place] % (Auto) 13.6 H Eos % (Auto) 8.4 H Lymph # 0.6 L [place] # 1.4 H Eos # 0.9 H Seg Neutrophils % 71.9 H Seg Neuts % (Manual) Lymphocytes % (Manual) Monocytes % (Manual) Nucleated RBC % Seg Neutrophils # Seg Neutrophils # Man Lymphocytes # (Manual) Monocytes # (Manual) PT INR D-Dimer POC ABG pH POC ABG pCO2 POC ABG pO2 VBG pH Sodium Potassium 5.4 H 5.4 H Chloride Carbon Dioxide 20 L 17 L BUN 81 H 86 H Creatinine 3.9 H 3.8 H Glucose 110 H 124 H POC Glucose Calcium 8.1 L 8.1 L Magnesium ALT 6 L Troponin T NT-Pro-B Natriuret Pep Total Protein 4.8 L Albumin 2.8 L LDL Cholesterol Direct HDL Cholesterol Urine WBC (Auto) Urine Creatinine Crossmatch Chest x-ray: report reviewed, image reviewed (improved R lung infiltrates; s[place] nued evidence of CHF)
[2018-05-01] MEDS: DESYREL PO SCH (22:57)
[2018-05-02] MEDS: DUONEB *Not for PRN Use IH SCH ×4 (05:10→19:00)
[2018-05-02] MEDS: SYNTHROID PO SCH (05:26)
[2018-05-02 06:34] LABS: Albumin 3.1 g/dL (3.9-5)
--- NOTE | 2018-05-02 08:21 | Progress Note ---
Assessment and Plan Assessment and plan: --Acute hypoxic/hypercapnic respiratory failure; Titrate O2 sats >90%, nebs, IV steroids,IV antibiotics, BiPAP when necessary --Acute exacerbation of bronchial asthma; Oxygen nebulizers IV steroids and IV antibiotics inhalation steroids Pulmonary critical consultation --Bilateral pleural effusion; right more than left, pulmonary following f/u chest x-ray, significant improvement of pleural effusions --Perihilar infiltrate/possible pneumonia; empiric antibiotics --Anemia; hemoglobin 6.7, patient received 1 unit of PRBC Hemoglobin improved to 8.8 closely monitor --Acute on chronic kidney injury;worsening renal function Cr 4.1 today vasomotor nephropathy, avoid nephrotoxins, nephro following --Acute on chronic congestive heart failure; EF :45-50% 2 years ago, IV diuretics, beta blockers Input output monitoring, echocardiogram, cardiology evaluation --Positive cardiac enzymes/possible non-ST elevation RI Cardiac medications serial cardiac enzymes and EKGs neg --History of A. fib; rate controlled: Continue amiodarone, aspirin, not a candidate for chronic anticoagulation, h/o GI bleed ,dementia , Advanced age, risk of falls , Cardiology fellowing --Dementia; supportive care --Malnutrition moderate/hyperalbuminemia; nutrition supplements and nutrition consult --Hypothyroidism; continue Synthroid --DVT prophylaxis; SCDs, Lovenox --DNR, continue full treatment consults and rec noted Plan of care reviewed with the patient's nurse History Interval history: Patient seen and examined and medical records reviewed Patient feels slightly better no new complaints Vital signs noted Hospitalist Physical - Constitutional Vitals: Temp Pulse Resp BP Pulse Ox 97.5 F L 83 14 95/39 100 05/02/18 04:00 05/02/18 06:41 05/02/18 06:41 05/02/18 06:41 05/02/18 06:41 General appearance: Present: no acute distress, cachectic, disheveled, other (confused) - EENT Eyes: Present: PERRL, EOM intact - Neck Neck: Present: supple, normal ROM - Respiratory Respiratory effort: normal Respiratory: bilateral: diminished, negative: rales, rhonchi, wheezing - Cardiovascular Rhythm: regular Heart Sounds: Present: S1 & S2 - Extremities Extremities: no ischemia, No edema - Abdominal General gastrointestinal: soft, non-tender, non-distended, normal bowel sounds - Integumentary Integumentary: Present: clear, warm - Psychiatric Psychiatric: other (noncommunicative) - Neurologic Neurologic: other (noncommunicative) Results - Labs CBC & Chem 7: 05/01/18 07:15 05/02/18 05:28 Labs: Laboratory Last Values WBC 10.3 K/mm3 (4.5-11.0) 05/01/18 07:15 RBC 2.89 M/mm3 (3.65-5.03) L 05/01/18 07:15 Hgb 8.8 gm/dl (10.1-14.3) L 05/01/18 07:15 Hct 26.5 % (30.3-42.9) L 05/01/18 07:15 MCV 92 fl (79-97) 05/01/18 07:15 MCH 31 pg (28-32) 05/01/18 07:15 MCHC 33 % (30-34) 05/01/18 07:15 RDW 16.2 % (13.2-15.2) H 05/01/18 07:15 Plt Count 150 K/mm3 (140-440) 05/01/18 07:15 Lymph % (Auto) 6.1 % (13.4-35.0) L 05/01/18 07:15 [place] % (Auto) 13.6 % (0.0-7.3) H 05/01/18 07:15 Eos % (Auto) 8.4 % (0.0-4.3) H 05/01/18 07:15 Baso % (Auto) 0.0 % (0.0-1.8) 05/01/18 07:15 Lymph # 0.6 K/mm3 (1.2-5.4) L 05/01/18 07:15 [place] # 1.4 K/mm3 (0.0-0.8) H 05/01/18 07:15 Eos # 0.9 K/mm3 (0.0-0.4) H 05/01/18 07:15 Baso # 0.0 K/mm3 (0.0-0.1) 05/01/18 07:15 Add Manual Diff Complete 04/29/18 06:44 Total Counted 100 04/29/18 06:44 Seg Neutrophils % 71.9 % (40.0-70.0) H 05/01/18 07:15 Seg Neuts % (Manual) 85.0 % (40.0-70.0) H 04/29/18 06:44 Band Neutrophils % 2.0 % 04/29/18 06:44 Lymphocytes % (Manual) 5.0 % (13.4-35.0) L 04/29/18 06:44 Reactive Lymphs % (Man) 0 % 04/29/18 06:44 Monocytes % (Manual) 8.0 % (0.0-7.3) H 04/29/18 06:44 Eosinophils % (Manual) 0 % (0.0-4.3) 04/29/18 06:44 Basophils % (Manual) 0 % (0.0-1.8) 04/29/18 06:44 Metamyelocytes % 0 % 04/29/18 06:44 Myelocytes % 0 % 04/29/18 06:44 Promyelocytes % 0 % 04/29/18 06:44 Blast Cells % 0 % 04/29/18 06:44 Nucleated RBC % 7.0 % (0.0-0.9) H 04/29/18 06:44 Seg Neutrophils # 7.4 K/mm3 (1.8-7.7) 05/01/18 07:15 Seg Neutrophils # Man 9.4 K/mm3 (1.8-7.7) H 04/29/18 06:44 Band Neutrophils # 0.2 K/mm3 04/29/18 06:44 Lymphocytes # (Manual) 0.6 K/mm3 (1.2-5.4) L 04/29/18 06:44 Abs React Lymphs (Man) 0.0 K/mm3 04/29/18 06:44 Monocytes # (Manual) 0.9 K/mm3 (0.0-0.8) H 04/29/18 06:44 Eosinophils # (Manual) 0.0 K/mm3 (0.0-0.4) 04/29/18 06:44 Basophils # (Manual) 0.0 K/mm3 (0.0-0.1) 04/29/18 06:44 Metamyelocytes # 0.0 K/mm3 04/29/18 06:44 Myelocytes # 0.0 K/mm3 04/29/18 06:44 Promyelocytes # 0.0 K/mm3 04/29/18 06:44 Blast Cells # 0.0 K/mm3 04/29/18 06:44 WBC Morphology Not Reportable 04/29/18 06:44 Hypersegmented Neuts Not Reportable 04/29/18 06:44 Hyposegmented Neuts Not Reportable 04/29/18 06:44 Hypogranular Neuts Not Reportable 04/29/18 06:44 Smudge Cells Not Reportable 04/29/18 06:44 Toxic Granulation Not Reportable 04/29/18 06:44 Toxic Vacuolation Not Reportable 04/29/18 06:44 Dohle Bodies Not Reportable 04/29/18 06:44 Pelger-Huet Anomaly Not Reportable 04/29/18 06:44 Vlad Rods Not Reportable 04/29/18 06:44 Platelet Estimate Appears normal 04/29/18 06:44 Clumped Platelets Not Reportable 04/29/18 06:44 Plt Clumps, EDTA Not Reportable 04/29/18 06:44 Large Platelets Not Reportable 04/29/18 06:44 Giant Platelets Not Reportable 04/29/18 06:44 Platelet Satelliting Not Reportable 04/29/18 06:44 Plt Morphology Comment Not Reportable 04/29/18 06:44 RBC Morphology Not Reportable 04/29/18 06:44 Dimorphic RBCs Not Reportable 04/29/18 06:44 Polychromasia Not Reportable 04/29/18 06:44 Hypochromasia Not Reportable 04/29/18 06:44 Poikilocytosis 1+ 04/29/18 06:44 Anisocytosis 2+ 04/29/18 06:44 Microcytosis Not Reportable 04/29/18 06:44 Macrocytosis Not Reportable 04/29/18 06:44 Spherocytes Not Reportable 04/29/18 06:44 Pappenheimer Bodies Not Reportable 04/29/18 06:44 Sickle Cells Not Reportable 04/29/18 06:44 Target Cells Rare 04/29/18 06:44 Tear Drop Cells Not Reportable 04/29/18 06:44 Ovalocytes 1+ 04/29/18 06:44 Helmet Cells Not Reportable 04/29/18 06:44 [place] Bodies Not Reportable 04/29/18 06:44 [place] Rings Not Reportable 04/29/18 06:44 [place] Cells Not Reportable 04/29/18 06:44 Bite Cells Not Reportable 04/29/18 06:44 Crenated Cell Not Reportable 04/29/18 06:44 Elliptocytes Not Reportable 04/29/18 06:44 Acanthocytes (Spur) Not Reportable 04/29/18 06:44 Rouleaux Not Reportable 04/29/18 06:44 Hemoglobin C Crystals Not Reportable 04/29/18 06:44 Schistocytes Rare 04/29/18 06:44 Malaria parasites Not Reportable 04/29/18 06:44 [place] Bodies Not Reportable 04/29/18 06:44 Hem Pathologist Commnt No 04/29/18 06:44 PT 15.8 Sec. (12.2-14.9) H 04/26/18 04:47 INR 1.22 (0.87-1.13) H 04/26/18 04:47 APTT 32.4 Sec. (24.2-36.6) 04/26/18 04:47 D-Dimer 254.08 ng/mlDDU (0-234) H 04/26/18 04:47 POC ABG pH 7.216 (7.35-7.45) L 04/29/18 14:33 POC ABG pCO2 62.4 (35-45) H 04/29/18 14:33 POC ABG pO2 162 (80-105) H 04/29/18 14:33 POC ABG HCO3 25.3 04/29/18 14:33 POC ABG Total CO2 27 04/29/18 14:33 POC ABG O2 Sat 99 04/29/18 14:33 POC ABG Base Excess -2 04/29/18 14:33 VBG pH 7.270 (7.320-7.420) L 04/27/18 14:12 FiO2 3 % 04/29/18 14:33 Sodium 145 mmol/L (137-145) 05/02/18 05:28 Potassium 4.6 mmol/L (3.6-5.0) 05/02/18 05:28 Chloride 106.2 mmol/L (98-107) 05/02/18 05:28 Carbon Dioxide 24 mmol/L (22-30) D 05/02/18 05:28 Anion Gap 19 mmol/L 05/02/18 05:28 BUN 94 mg/dL (7-17) H 05/02/18 05:28 Creatinine 4.1 mg/dL (0.7-1.2) H 05/02/18 05:28 Estimated GFR 12 ml/min 05/02/18 05:28 BUN/Creatinine Ratio 23 % 05/02/18 05:28 Glucose 116 mg/dL (65-100) H 05/02/18 05:28 POC Glucose 155 (70-105) H 04/29/18 12:49 Lactic Acid 1.40 mmol/L (0.7-2.0) 04/26/18 10:55 Calcium 8.0 mg/dL (8.4-10.2) L 05/02/18 05:28 Magnesium 2.20 mg/dL (1.7-2.3) 05/02/18 05:28 Total Bilirubin 0.40 mg/dL (0.1-1.2) 05/02/18 05:28 Direct Bilirubin < 0.2 mg/dL (0-0.2) 04/26/18 04:47 Indirect Bilirubin 0.2 mg/dL 04/26/18 04:47 AST 9 units/L (5-40) 05/02/18 05:28 ALT 7 units/L (7-56) 05/02/18 05:28 Alkaline Phosphatase 46 units/L (35-129) 05/02/18 05:28 Total Creatine Kinase 40 units/L (30-135) 04/26/18 17:57 CK-MB (CK-2) 1.6 ng/mL (0.0-4.0) 04/26/18 17:57 CK-MB (CK-2) Rel Index 4.0 (0-4) 04/26/18 17:57 Troponin T 0.114 ng/mL (0.00-0.029) H* 04/26/18 17:57 NT-Pro-B Natriuret Pep 5133 pg/mL (0-900) H 04/26/18 04:47 Total Protein 4.6 g/dL (6.3-8.2) L 05/02/18 05:28 Albumin 3.1 g/dL (3.9-5) L 05/02/18 05:28 Albumin/Globulin Ratio 2.1 % 05/02/18 05:28 Triglycerides 90 mg/dL (2-149) 04/26/18 04:47 Cholesterol 129 mg/dL (50-199) 04/26/18 04:47 LDL Cholesterol Direct 45 mg/dL (50-130) L 04/26/18 04:47 HDL Cholesterol 67 mg/dL (40-59) H 04/26/18 04:47 Cholesterol/HDL Ratio 1.92 % 04/26/18 04:47 TSH 1.560 mlU/mL (0.270-4.200) 04/26/18 13:16 Free T4 1.28 ng/dL (0.76-1.46) 04/26/18 13:16 Urine Color Delphine (Yellow) 04/27/18 09:30 Urine Turbidity Cloudy (Clear) 04/27/18 09:30 Urine pH 5.0 (5.0-7.0) 04/27/18 09:30 Ur Specific Fine 1.028 (1.003-1.030) 04/27/18 09:30 Urine Protein 100 mg/dl mg/dL (Negative) 04/27/18 09:30 Urine Glucose (UA) Neg mg/dL (Negative) 04/27/18 09:30 Urine Ketones 20 mg/dL (Negative) 04/27/18 09:30 Urine Blood Neg (Negative) 04/27/18 09:30 Urine Nitrite Neg (Negative) 04/27/18 09:30 Urine Bilirubin Neg (Negative) 04/27/18 09:30 Urine Urobilinogen 2.0 mg/dL (<2.0) 04/27/18 09:30 Ur Leukocyte Esterase Lg (Negative) 04/27/18 09:30 Urine WBC (Auto) 133.0 /HPF (0.0-6.0) H 04/27/18 09:30 Urine RBC (Auto) 24.0 /HPF (0.0-6.0) 04/27/18 09:30 Urine Bacteria (Auto) 1+ /HPF (Negative) 04/27/18 09:30 Calcium Oxalate Crystal 3+ 04/27/18 09:30 Urine Mucus 3+ /HPF 04/27/18 09:30 Urine Creatinine 142.3 mg/dL (0.1-20.0) H 04/27/18 09:30 Urine Sodium 314 mmol/L 04/27/18 09:30 Blood Type A POSITIVE 04/28/18 18:21 Antibody Screen Negative 04/28/18 18:21 Crossmatch See Detail 04/28/18 18:21 Nutrition/Malnutrition Assess - Dietary Evaluation Nutrition/Malnutrition Findings: Nutrition Notes Start: 04/27/18 14:13 Freq: Status: Active Protocol: Document 05/01/18 14:35 RM (Rec: 05/01/18 14:38 RM [id number]) Nutrition Notes Initial or Follow up Reassessment Current Diagnosis CKD(stage I-IV) COPD Hypertension Heart Failure Other Pertinent Diagnosis dementia, R heel PU, L heel PU Current Diet Promote 50 ml/hr Labs/Tests K 5.4, Na 140, BUN 86, Cr 3.8 Pertinent Medications Reviewed Height 5 ft 3 in Weight 67.4 kg Yeso Body Weight (kg) 52.27 BMI 26.3 Weight change and time frame Wt increase likely d/t fluid change Subjective/Other Information Observed Promote infusing at 50 ml/hr. Per nurse pt is tolerating TF. Percent of energy/protein needs met: 93%/100% Burn Absent Trauma Absent #1 Nutrition Diagnosis Inadequate oral intake Diagnosis Progress(for reassessment Continues documentation) Is patient on ventilator? No Is Patient Ambulatory and/or Out of Bed No REE-([facility]-confined to bed) [phone] Calculation Used for Recommendations [facility] Additional Notes protein (0.8-1g/kg): 54-67kg fluid: 1mL/kcal or per Nutrition Intervention Change Diet Order: TF Nutrition Support: [place] at 30 ml/hr. Water flush of 130 mls q 4 hr Kcal 1,296 Protein (gm) 58 Fluid (mL) 523 Goal #1 TF tolerance Goal #2 TF to meet at least 80% of calorie and protein needs Anticipated Discharge Needs: Unable to identify at this time Follow-Up By: 05/03/18 Additional Comments Follow for TF tolerance, renal labs
--- NOTE | 2018-05-02 09:25 | Progress Note ---
Assessment and Plan 1. 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 Urine studies and Renal US results noted. Renal function continue to decline. Continue IV fluids. Renal prognosis is guarded. Monitor renal function. Discussed with her son at the bedside and answered al the questions. He preferred not to start on hemodialysis unless it is absolutely needed. 2. FEN: Hyperkalemia, improved. Anion gap metabolic acidosis, improved. Monitor lytes. 3. Hypoxic hypercapnic respiratory failure: Was on BIPAP. Followed by Pulmonary. 4. Bilateral pleural effusion right more than left. 5. Perihilar infiltrate, possible pneumonia: Completed empiric antibiotics. 6. Acute on chronic systolic CHF. 7. Positive cardiac enzymes: ? NSTEMI. On ASA. 8. A. fib: On Amiodarone. 9. Anemia: S/p PRBC. 10. Dementia. Subjective Date of service: 05/02/18 Principal diagnosis: resp failure; afib Interval history: Patient was seen and examined at the bedside. Objective - Vital Signs Vital signs: Vital Signs - 12hr 05/01/18 05/01/18 05/02/18 21:30 22:00 00:00 Temperature 98.8 F Pulse Rate 89 95 H Pulse Rate [ Anterior Bilateral Throughout] Pulse Rate [ From Monitor] Respiratory 19 Rate Respiratory Rate [Anterior Bilateral Throughout] Blood Pressure 109/48 O2 Sat by Pulse 100 Oximetry 05/02/18 05/02/18 05/02/18 00:04 00:29 00:31 Temperature Pulse Rate 76 84 86 Pulse Rate [ Anterior Bilateral Throughout] Pulse Rate [ From Monitor] Respiratory 15 17 17 Rate Respiratory Rate [Anterior Bilateral Throughout] Blood Pressure O2 Sat by Pulse 100 100 100 Oximetry 05/02/18 05/02/18 05/02/18 00:41 00:45 00:51 Temperature Pulse Rate 90 89 Pulse Rate [ Anterior Bilateral Throughout] Pulse Rate [ From Monitor] Respiratory 19 18 Rate Respiratory Rate [Anterior Bilateral Throughout] Blood Pressure O2 Sat by Pulse 100 95 99 Oximetry 05/02/18 05/02/18 05/02/18 01:01 01:11 01:21 Temperature Pulse Rate 97 H 85 89 Pulse Rate [ Anterior Bilateral Throughout] Pulse Rate [ From Monitor] Respiratory 21 18 20 Rate Respiratory Rate [Anterior Bilateral Throughout] Blood Pressure 118/59 118/59 118/59 O2 Sat by Pulse 100 100 100 Oximetry 05/02/18 05/02/18 05/02/18 01:31 01:41 01:51 Temperature Pulse Rate 87 88 92 H Pulse Rate [ Anterior Bilateral Throughout] Pulse Rate [ From Monitor] Respiratory 20 18 20 Rate Respiratory Rate [Anterior Bilateral Throughout] Blood Pressure 118/59 118/59 118/59 O2 Sat by Pulse 100 100 99 Oximetry 05/02/18 05/02/18 05/02/18 02:00 02:11 02:21 Temperature Pulse Rate 97 H 90 89 Pulse Rate [ Anterior Bilateral Throughout] Pulse Rate [ 90 From Monitor] Respiratory 19 21 20 Rate Respiratory Rate [Anterior Bilateral Throughout] Blood Pressure 106/38 106/38 106/38 O2 Sat by Pulse 98 100 100 Oximetry 05/02/18 05/02/18 05/02/18 02:31 02:41 02:51 Temperature Pulse Rate 89 91 H 93 H Pulse Rate [ Anterior Bilateral Throughout] Pulse Rate [ From Monitor] Respiratory 23 18 17 Rate Respiratory Rate [Anterior Bilateral Throughout] Blood Pressure 106/38 106/38 106/38 O2 Sat by Pulse 100 100 100 Oximetry 05/02/18 05/02/18 05/02/18 03:01 03:11 03:21 Temperature Pulse Rate 89 92 H 91 H Pulse Rate [ Anterior Bilateral Throughout] Pulse Rate [ From Monitor] Respiratory 19 16 19 Rate Respiratory Rate [Anterior Bilateral Throughout] Blood Pressure 111/79 111/79 111/79 O2 Sat by Pulse 100 100 100 Oximetry 05/02/18 05/02/18 05/02/18 03:31 03:40 03:51 Temperature Pulse Rate 94 H 94 H 96 H Pulse Rate [ Anterior Bilateral Throughout] Pulse Rate [ From Monitor] Respiratory 23 20 21 Rate Respiratory Rate [Anterior Bilateral Throughout] Blood Pressure 111/79 111/79 111/79 O2 Sat by Pulse 100 100 100 Oximetry 05/02/18 05/02/18 05/02/18 04:00 04:01 04:11 Temperature 97.5 F L Pulse Rate 94 H 92 H Pulse Rate [ Anterior Bilateral Throughout] Pulse Rate [ From Monitor] Respiratory 20 14 Rate Respiratory Rate [Anterior Bilateral Throughout] Blood Pressure 111/79 122/44 O2 Sat by Pulse 80 L 100 Oximetry 05/02/18 05/02/18 05/02/18 04:21 04:31 04:41 Temperature Pulse Rate 86 84 91 H Pulse Rate [ Anterior Bilateral Throughout] Pulse Rate [ From Monitor] Respiratory 19 21 20 Rate Respiratory Rate [Anterior Bilateral Throughout] Blood Pressure 122/44 122/44 122/44 O2 Sat by Pulse 100 100 92 Oximetry 05/02/18 05/02/18 05/02/18 04:51 05:00 05:05 Temperature Pulse Rate 80 85 Pulse Rate [ 85 Anterior Bilateral Throughout] Pulse Rate [ From Monitor] Respiratory 20 20 Rate Respiratory 24 Rate [Anterior Bilateral Throughout] Blood Pressure 122/44 95/39 O2 Sat by Pulse 93 92 Oximetry 05/02/18 05/02/18 05/02/18 05:11 05:15 05:21 Temperature Pulse Rate 86 85 Pulse Rate [ 95 H Anterior Bilateral Throughout] Pulse Rate [ From Monitor] Respiratory 24 15 Rate Respiratory 18 Rate [Anterior Bilateral Throughout] Blood Pressure 95/39 95/39 O2 Sat by Pulse 93 100 Oximetry 05/02/18 05/02/18 05/02/18 05:31 05:41 06:00 Temperature Pulse Rate 91 H 94 H Pulse Rate [ Anterior Bilateral Throughout] Pulse Rate [ 90 From Monitor] Respiratory 20 19 16 Rate Respiratory Rate [Anterior Bilateral Throughout] Blood Pressure 95/39 95/39 O2 Sat by Pulse 100 100 100 Oximetry 05/02/18 05/02/18 05/02/18 06:01 06:11 06:21 Temperature Pulse Rate Pulse Rate [ Anterior Bilateral Throughout] Pulse Rate [ From Monitor] Respiratory Rate Respiratory Rate [Anterior Bilateral Throughout] Blood Pressure 95/39 95/39 95/39 O2 Sat by Pulse 100 99 100 Oximetry 05/02/18 05/02/18 05/02/18 06:31 06:41 08:00 Temperature 98.6 F Pulse Rate 84 83 Pulse Rate [ Anterior Bilateral Throughout] Pulse Rate [ From Monitor] Respiratory 17 14 Rate Respiratory Rate [Anterior Bilateral Throughout] Blood Pressure 95/39 95/39 O2 Sat by Pulse 100 100 Oximetry - General Appearance General appearance: well-developed, appears stated age, other (not in distress) EENT: ATNC Neck: supple Respiratory: Present: Clear to Ascultation Cardiology: S1S2, no murmurs Gastrointestinal: normoactive bowel sounds, no tenderness, no distended Integumentary: no rash, warm and dry Neurologic: other (opens eyes, non-verbal, not following any command) Musculoskeletal: other (no edema) - Lab 05/01/18 07:15 05/02/18 05:28 Most recent lab results Calcium 8.0 mg/dL (8.4-10.2) L 05/02/18 05:28 Magnesium 2.20 mg/dL (1.7-2.3) 05/02/18 05:28 Urine Creatinine 142.3 mg/dL (0.1-20.0) H 04/27/18 09:30 Urine Sodium 314 mmol/L 04/27/18 09:30 Medications & Allergies - Medications Allergies/Adverse Reactions: Allergies No Known Allergies Allergy (Verified 04/03/14 21:12) Home Medications: Home Medications Medication Instructions Recorded Confirmed Last Taken Type Amiodarone [Cordarone 200 MG TAB] 200 mg PO QDAY #30 tablet 05/06/17 04/27/18 Unknown Rx Aspirin [Aspirin BABY CHEW TAB] 81 mg PO QDAY #30 tab.chew 05/06/17 04/27/18 Unknown Rx Folic Acid [Folvite] 1 mg PO QDAY #30 tablet 05/06/17 04/27/18 Unknown Rx Pravastatin [Pravachol] 40 mg PO DAILY #30 tablet 05/06/17 04/27/18 Unknown Rx levETIRAcetam [Keppra] 500 mg PO BID #30 tablet 05/06/17 04/27/18 Unknown Rx ALBUTEROL NEB's [Proventil 0.083% 2.5 mg INHALATION BID PRN 04/27/18 04/27/18 Unknown History NEBS] Acetaminophen [Non-Aspirin] 325 mg PO Q8H PRN 04/27/18 04/27/18 Unknown History Ascorbic Acid [Vitamin C] 500 mg PO DAILY 04/27/18 04/27/18 Unknown History Bisacodyl [Dulcolax suppos] 10 mg ME 3XW MDD constipation 04/27/18 04/27/18 Unknown History Diltiazem HCl [Diltiazem 12Hr ER] 120 mg PO DAILY 04/27/18 04/27/18 Unknown History Ferrous Sulfate [Iron] 325 mg PO DAILY 04/27/18 04/27/18 Unknown History Fluticasone (Nf) [Flovent Hfa(Nf)] 1 puff IH BID 04/27/18 04/27/18 Unknown History Ipratropium [Atrovent NEB] 0.02 ml INHALATION BID 04/27/18 04/27/18 Unknown History Levalbuterol [Xopenex] 1.25 mg IH Q6HRT PRN 04/27/18 04/27/18 Unknown History Levothyroxine [Synthroid] 125 mcg PO QAM 04/27/18 04/27/18 Unknown History Multivitamin Tab W-MINERAL 1 each PO QD 04/27/18 04/27/18 Unknown History [Multiple Vitamin/Mineral (Theragran M)] [place] 5-325 mg TAB 1 tab PO Q6H PRN 04/27/18 04/27/18 Unknown History Pantoprazole Sodium 40 mg PO DAILY 04/27/18 04/27/18 Unknown History Procrit 4,000 units SQ 3XW 04/27/18 04/27/18 Unknown History Senna Laxative Tablet 2 tab PO HS 04/27/18 04/27/18 Unknown History Sucralfate 1 gm PO 4XD 04/27/18 04/27/18 Unknown History Tramadol HCl [Ultram] 50 mg PO Q6HR PRN 04/27/18 04/27/18 Unknown History Zinc Oxide [[place]] 100 gm TP DAILY 04/27/18 04/27/18 Unknown History traZODone [Desyrel] 25 mg PO QHS PRN 04/27/18 04/27/18 Unknown History Active Medications: Generic Name Dose Route Start Last Admin Trade Name Freq PRN Reason Stop Dose Admin Albuterol/Ipratropium 1 ampul 04/26/18 14:00 05/02/18 05:10 Duoneb *Not For Prn Use* IH 1 ampul Q6HRT RICHARD Administration Amiodarone HCl 200 mg 04/28/18 22:00 05/01/18 22:57 Cordarone PO 200 mg BID RICHARD Administration Lipase/Protease/Amylase 1 each 04/27/18 15:25 Kam Castro 10,500 Unit FEEDTUBE PRN PRN For Clogged Feeding Tube Lipase/Protease/Amylase 1 each 05/01/18 14:52 Kam Castro 10,500 Unit FEEDTUBE PRN PRN For Clogged Feeding Tube Aspirin 81 mg 04/26/18 11:00 05/01/18 10:29 Baby Aspirin PO 81 mg QDAY RICHARD Administration Budesonide 0.5 mg 04/26/18 20:00 05/01/18 19:46 Pulmicort IH 0.5 mg Q12HRT RICHARD Administration Famotidine 20 mg 05/01/18 11:00 05/01/18 10:28 Pepcid PO 20 mg DAILY RICHARD Administration Folic Acid 1 mg 04/26/18 11:00 05/01/18 10:29 Folvite PO 1 mg QDAY RICHARD Administration Cefepime HCl 1 gm in 100 mls @ 200 mls/hr 04/27/18 11:00 05/01/18 10:24 Maxipime/Ns 1 Gm/100 Ml IV 05/02/18 10:59 200 mls/hr Q24HR RICHARD Administration Sodium Chloride 1,000 mls @ 75 mls/hr 04/29/18 16:00 05/01/18 10:23 Nacl 0.45% 1000 Ml IV 75 mls/hr DIRECT RICHARD Administration Levetiracetam 500 mg 04/26/18 11:00 05/01/18 22:57 Keppra PO 500 mg BID RICHRAD Administration Levothyroxine Sodium 125 mcg 04/26/18 11:00 05/02/18 05:26 Synthroid PO 125 mcg QAM@0600 RICHARD Administration Pravastatin Sodium 40 mg 04/26/18 11:00 05/01/18 10:29 Pravachol PO 40 mg DAILY RICHARD Administration Simple Syrup 15 ml 04/27/18 15:25 Simple Syrup FEEDTUBE PRN PRN Hypoglycemia Simple Syrup 30 ml 04/27/18 15:25 Simple Syrup FEEDTUBE PRN PRN Hypoglycemia Simple Syrup 15 ml 05/01/18 14:52 Simple Syrup FEEDTUBE PRN PRN Hypoglycemia Simple Syrup 30 ml 05/01/18 14:52 Simple Syrup FEEDTUBE PRN PRN Hypoglycemia Sodium Bicarbonate 325 mg 04/27/18 15:25 Sodium Bicarbonate FEEDTUBE PRN PRN For Clogged Feeding Tube Sodium Bicarbonate 325 mg 05/01/18 14:52 Sodium Bicarbonate FEEDTUBE PRN PRN For Clogged Feeding Tube Trazodone HCl 50 mg 04/26/18 22:00 05/01/18 22:57 Desyrel PO 50 mg QHS RICHARD Administration
[2018-05-02] MEDS: PULMICORT IH SCH ×2 (09:37→19:00)
[2018-05-02] MEDS: PEPCID PO SCH (10:12)
[2018-05-02] MEDS: FOLVITE PO SCH (10:12)
[2018-05-02] MEDS: BABY ASPIRIN PO SCH (10:12)
[2018-05-02] MEDS: KEPPRA PO SCH ×2 (10:12→21:41)
[2018-05-02] MEDS: CORDARONE PO SCH ×2 (10:12→21:41)
[2018-05-02] MEDS: PRAVACHOL PO SCH (10:12)
[2018-05-02] MEDS: MAXIPIME/NS 1 GM/100 ML 1 GM/100 ML BAG IV SCH (10:13)
[2018-05-02] MEDS: NACL 0.45% 1000 ML 1,000 ML IV SCH (10:30)
--- NOTE | 2018-05-02 14:07 | Progress Note ---
Assessment and Plan Renal function worsening. Family considering HD. Currently stable cardiac status. Cont present cardiac regimen. In the past, pt deemed not a candidate for systemic AC due to history of GI bleed. She also has advanced dementia and anemia and still does not appear to be a good candidate for systemic AC. The patient has been seen in conjunction with Dr. Ayala who agrees with the assessment and plan of care. - Patient Problems (1) Acute respiratory failure Current Visit: Yes Status: Acute Qualifiers: Respiratory failure complication: hypoxia and hypercapnia Qualified Code(s): J96.01 - Acute respiratory failure with hypoxia; J96.02 - Acute respiratory failure with hypercapnia (2) Acidosis Current Visit: Yes Status: Acute (3) Pneumonia Current Visit: Yes Status: Suspected Qualifiers: Pneumonia type: due to unspecified organism Laterality: right Lung location: unspecified part of lung Qualified Code(s): J18.9 - Pneumonia, unspecified organism (4) Acute heart failure Current Visit: Yes Status: Acute (5) Afib Current Visit: Yes Status: Chronic Qualifiers: Atrial fibrillation type: chronic Qualified Code(s): I48.2 - Chronic atrial fibrillation (6) Elevated troponin I level Current Visit: Yes Status: Acute (7) Renal insufficiency Current Visit: Yes Status: Acute (8) Anemia Current Visit: Yes Status: Chronic Qualifiers: Anemia type: unspecified type Qualified Code(s): D64.9 - Anemia, unspecified (9) Dementia Current Visit: Yes Status: Chronic Subjective Date of service: 05/02/18 Principal diagnosis: resp failure; afib Interval history: pt resting in bed, lethargic, nonverbal. in AFib with CVR on telemetry. Objective Last Vital Signs Temp 98.7 F 05/02/18 12:00 Pulse 83 05/02/18 14:04 Resp 14 05/02/18 14:04 BP 95/39 05/02/18 12:01 Pulse Ox 100 05/02/18 12:01 - Physical Examination General: No Apparent Distress HEENT: Positive: PERRL Neck: Positive: neck supple, trachea midline Cardiac: Positive: irregularly irregular, S1/S2 Lungs: Positive: Decreased Breath Sounds Neuro: Positive: Other (lethargic, on bipap) Abdomen: Negative: Tender Skin: Negative: Rash, Wound Musculoskeletal: No Pain Extremities: Absent: edema - Labs and Meds Cardiac Enzymes 05/02/18 Range/Units 05:28 AST 9 (5-40) units/L Comprehensive Metabolic Panel 05/01/18 05/02/18 Range/Units 20:47 05:28 Sodium 145 (137-145) mmol/L Potassium 4.8 4.6 (3.6-5.0) mmol/L Chloride 106.2 (98-107) mmol/L Carbon Dioxide 24 D (22-30) mmol/L BUN 94 H (7-17) mg/dL Creatinine 4.1 H (0.7-1.2) mg/dL Glucose 116 H (65-100) mg/dL Calcium 8.0 L (8.4-10.2) mg/dL AST 9 (5-40) units/L ALT 7 (7-56) units/L Alkaline Phosphatase 46 (35-129) units/L Total Protein 4.6 L (6.3-8.2) g/dL Albumin 3.1 L (3.9-5) g/dL - Imaging and Cardiology EKG: report reviewed, image reviewed Echo: report reviewed (02/2014 showed EF 45-50%, mild TR, RVSP 39mmHg. ) - Telemetry EKG Rhythm: Atrial Fibrillation - EKG Sinus rhythms and dysrhythmias: sinus rhythm
--- NOTE | 2018-05-02 14:14 | Progress Note ---
Assessment and Plan Imp: 1. ? UTI 2. A/C systolic CHF 3. A/C respiratory failure, hypoxia 4. ARTURO on CKD 5. Vascular dementia 6. Hyperkalemia Rec: 1. Finished 6 days of empiric Cefipime; unfortunately cultures were never sent 2. Receiving hypotonic IVFs; monitor respiratory status closely 3. Cont. Pulmicort/Bronchodilators; no need for systemic steroids currently 4. BIPAP prn 5. Will need ST eval. prior to taking PO as cannot r/o aspiration 6. SCDs, TFs 7. Renal following; K better 8. Repeat CXR in AM 9. Complex patient/decision-making Plan of care reviewed with family, they understand/agree Subjective Date of service: 05/02/18 Principal diagnosis: resp failure; afib Interval history: No events. On nasal cannula now. Unable to get history from patient. However, she will give me her name when asked, but no other information. Active Medications Albuterol/Ipratropium (Duoneb *Not For Prn Use*) 1 ampul IH Q6HRT [facility] Last Admin: 05/02/18 14:04 Dose: 1 ampul Documented by: Amiodarone HCl (Cordarone) 200 mg PO BID [facility] Last Admin: 05/02/18 10:12 Dose: 200 mg Documented by: Lipase/Protease/Amylase (Kam Castro 10,500 Unit) 1 each FEEDTUBE PRN PRN PRN Reason: For Clogged Feeding Tube Aspirin (Baby Aspirin) 81 mg PO QDAY [facility] Last Admin: 05/02/18 10:12 Dose: 81 mg Documented by: Budesonide (Pulmicort) 0.5 mg IH Q12HRT [facility] Last Admin: 05/02/18 09:37 Dose: 0.5 mg Documented by: Famotidine (Pepcid) 20 mg PO DAILY [facility] Last Admin: 05/02/18 10:12 Dose: 20 mg Documented by: Folic Acid (Folvite) 1 mg PO QDAY [facility] Last Admin: 05/02/18 10:12 Dose: 1 mg Documented by: Sodium Chloride (Nacl 0.45% 1000 Ml) 1,000 mls @ 75 mls/hr IV DIRECT [facility] Last Admin: 05/02/18 10:30 Dose: 75 mls/hr Documented by: Levetiracetam (Keppra) 500 mg PO BID [facility] Last Admin: 05/02/18 10:12 Dose: 500 mg Documented by: Levothyroxine Sodium (Synthroid) 125 mcg PO QAM@0600 [facility] Last Admin: 05/02/18 05:26 Dose: 125 mcg Documented by: Pravastatin Sodium (Pravachol) 40 mg PO DAILY [facility] Last Admin: 05/02/18 10:12 Dose: 40 mg Documented by: Simple Syrup (Simple Syrup) 15 ml FEEDTUBE PRN PRN PRN Reason: Hypoglycemia Simple Syrup (Simple Syrup) 30 ml FEEDTUBE PRN PRN PRN Reason: Hypoglycemia Sodium Bicarbonate (Sodium Bicarbonate) 325 mg FEEDTUBE PRN PRN PRN Reason: For Clogged Feeding Tube Trazodone HCl (Desyrel) 50 mg PO QHS [facility] Last Admin: 05/01/18 22:57 Dose: 50 mg Documented by: Objective Vital Signs - 12hr 05/02/18 05/02/18 05/02/18 02:21 02:31 02:41 Temperature Pulse Rate 89 89 91 H Pulse Rate [ Anterior Bilateral Throughout] Pulse Rate [ From Monitor] Respiratory 20 23 18 Rate Respiratory Rate [Anterior Bilateral Throughout] Blood Pressure 106/38 106/38 106/38 O2 Sat by Pulse 100 100 100 Oximetry 05/02/18 05/02/18 05/02/18 02:51 03:01 03:11 Temperature Pulse Rate 93 H 89 92 H Pulse Rate [ Anterior Bilateral Throughout] Pulse Rate [ From Monitor] Respiratory 17 19 16 Rate Respiratory Rate [Anterior Bilateral Throughout] Blood Pressure 106/38 111/79 111/79 O2 Sat by Pulse 100 100 100 Oximetry 05/02/18 05/02/18 05/02/18 03:21 03:31 03:40 Temperature Pulse Rate 91 H 94 H 94 H Pulse Rate [ Anterior Bilateral Throughout] Pulse Rate [ From Monitor] Respiratory 19 23 20 Rate Respiratory Rate [Anterior Bilateral Throughout] Blood Pressure 111/79 111/79 111/79 O2 Sat by Pulse 100 100 100 Oximetry 05/02/18 05/02/18 05/02/18 03:51 04:00 04:01 Temperature 97.5 F L Pulse Rate 96 H 94 H Pulse Rate [ Anterior Bilateral Throughout] Pulse Rate [ From Monitor] Respiratory 21 20 Rate Respiratory Rate [Anterior Bilateral Throughout] Blood Pressure 111/79 111/79 O2 Sat by Pulse 100 80 L Oximetry 05/02/18 05/02/18 05/02/18 04:11 04:21 04:31 Temperature Pulse Rate 92 H 86 84 Pulse Rate [ Anterior Bilateral Throughout] Pulse Rate [ From Monitor] Respiratory 14 19 21 Rate Respiratory Rate [Anterior Bilateral Throughout] Blood Pressure 122/44 122/44 122/44 O2 Sat by Pulse 100 100 100 Oximetry 05/02/18 05/02/18 05/02/18 04:41 04:51 05:00 Temperature Pulse Rate 91 H 80 85 Pulse Rate [ Anterior Bilateral Throughout] Pulse Rate [ From Monitor] Respiratory 20 20 20 Rate Respiratory Rate [Anterior Bilateral Throughout] Blood Pressure 122/44 122/44 95/39 O2 Sat by Pulse 92 93 92 Oximetry 05/02/18 05/02/18 05/02/18 05:05 05:11 05:15 Temperature Pulse Rate 86 Pulse Rate [ 85 95 H Anterior Bilateral Throughout] Pulse Rate [ From Monitor] Respiratory 24 Rate Respiratory 24 18 Rate [Anterior Bilateral Throughout] Blood Pressure 95/39 O2 Sat by Pulse 93 Oximetry 05/02/18 05/02/18 05/02/18 05:21 05:31 05:41 Temperature Pulse Rate 85 91 H 94 H Pulse Rate [ Anterior Bilateral Throughout] Pulse Rate [ From Monitor] Respiratory 15 20 19 Rate Respiratory Rate [Anterior Bilateral Throughout] Blood Pressure 95/39 95/39 95/39 O2 Sat by Pulse 100 100 100 Oximetry 05/02/18 05/02/18 05/02/18 06:00 06:01 06:11 Temperature Pulse Rate Pulse Rate [ Anterior Bilateral Throughout] Pulse Rate [ 90 From Monitor] Respiratory 16 Rate Respiratory Rate [Anterior Bilateral Throughout] Blood Pressure 95/39 95/39 O2 Sat by Pulse 100 100 99 Oximetry 05/02/18 05/02/18 05/02/18 06:21 06:31 06:41 Temperature Pulse Rate 84 83 Pulse Rate [ Anterior Bilateral Throughout] Pulse Rate [ From Monitor] Respiratory 17 14 Rate Respiratory Rate [Anterior Bilateral Throughout] Blood Pressure 95/39 95/39 95/39 O2 Sat by Pulse 100 100 100 Oximetry 05/02/18 05/02/18 05/02/18 07:01 08:00 08:01 Temperature 98.6 F Pulse Rate 74 77 Pulse Rate [ Anterior Bilateral Throughout] Pulse Rate [ 90 From Monitor] Respiratory 13 18 14 Rate Respiratory Rate [Anterior Bilateral Throughout] Blood Pressure 95/39 95/39 O2 Sat by Pulse 100 100 100 Oximetry 05/02/18 05/02/18 05/02/18 09:01 09:37 09:51 Temperature Pulse Rate 70 Pulse Rate [ 77 83 Anterior Bilateral Throughout] Pulse Rate [ From Monitor] Respiratory 17 Rate Respiratory 16 16 Rate [Anterior Bilateral Throughout] Blood Pressure 95/39 O2 Sat by Pulse 100 100 Oximetry 05/02/18 05/02/18 05/02/18 10:00 10:01 11:01 Temperature Pulse Rate 82 79 89 Pulse Rate [ Anterior Bilateral Throughout] Pulse Rate [ From Monitor] Respiratory 16 18 Rate Respiratory Rate [Anterior Bilateral Throughout] Blood Pressure 95/39 95/39 O2 Sat by Pulse 100 100 Oximetry 05/02/18 05/02/18 05/02/18 12:00 12:01 14:04 Temperature 98.7 F Pulse Rate 85 Pulse Rate [ 83 Anterior Bilateral Throughout] Pulse Rate [ 77 From Monitor] Respiratory 19 16 Rate Respiratory 14 Rate [Anterior Bilateral Throughout] Blood Pressure 95/39 O2 Sat by Pulse 100 100 Oximetry Constitutional: other (arousable, opens eyes) Eyes: non-icteric ENT: oropharynx moist, other (feeding tube in position) Neck: supple Effort: normal Ascultation: Bilateral: rhonchi (occasional) Cardiovascular: regular rate and rhythm (no mrg) Gastrointestinal: normoactive bowel sounds, soft, non-tender, non-distended Integumentary: normal Extremities: no cyanosis, no edema, pink and warm Neurologic: unable to assess (opens eyes to voice, tracks, moves LUE sponta neously, moans, not following commands) Psychiatric: other (unable to assess) CBC and BMP: 05/01/18 07:15 05/02/18 05:28 ABG, PT/INR, D-dimer: ABG POC ABG pH 7.216 (7.35-7.45) L 04/29/18 14:33 POC ABG pCO2 62.4 (35-45) H 04/29/18 14:33 POC ABG pO2 162 (80-105) H 04/29/18 14:33 POC ABG HCO3 25.3 04/29/18 14:33 POC ABG Total CO2 27 04/29/18 14:33 POC ABG O2 Sat 99 04/29/18 14:33 PT/INR, D-dimer PT 15.8 Sec. (12.2-14.9) H 04/26/18 04:47 INR 1.22 (0.87-1.13) H 04/26/18 04:47 D-Dimer 254.08 ng/mlDDU (0-234) H 04/26/18 04:47 Abnormal lab findings: Abnormal Labs 04/26/18 04/26/18 04/26/18 04:43 04:43 04:47 WBC RBC 2.91 L Hgb 8.8 L Hct 27.9 L RDW 17.7 H Lymph % (Auto) 5.9 L [place] % (Auto) 11.6 H Eos % (Auto) Lymph # 0.5 L [place] # 1.0 H Eos # Seg Neutrophils % 79.8 H Seg Neuts % (Manual) Lymphocytes % (Manual) Monocytes % (Manual) Nucleated RBC % Seg Neutrophils # Seg Neutrophils # Man Lymphocytes # (Manual) Monocytes # (Manual) PT 15.8 H INR 1.22 H D-Dimer POC ABG pH POC ABG pCO2 POC ABG pO2 VBG pH Sodium 146 H Potassium Chloride 111.4 H Carbon Dioxide 21 L BUN 27 H Creatinine 1.8 H Glucose POC Glucose Calcium 8.3 L Magnesium ALT Troponin T NT-Pro-B Natriuret Pep Total Protein Albumin LDL Cholesterol Direct HDL Cholesterol Urine WBC (Auto) Urine Creatinine Crossmatch 04/26/18 04/26/18 04/26/18 04:47 04:47 04:47 WBC RBC Hgb Hct RDW Lymph % (Auto) [place] % (Auto) Eos % (Auto) Lymph # [place] # Eos # Seg Neutrophils % Seg Neuts % (Manual) Lymphocytes % (Manual) Monocytes % (Manual) Nucleated RBC % Seg Neutrophils # Seg Neutrophils # Man Lymphocytes # (Manual) Monocytes # (Manual) PT INR D-Dimer 254.08 H POC ABG pH POC ABG pCO2 POC ABG pO2 VBG pH Sodium Potassium Chloride Carbon Dioxide BUN Creatinine Glucose POC Glucose Calcium Magnesium ALT < 5 L Troponin T 0.149 H* NT-Pro-B Natriuret Pep 5133 H Total Protein 5.1 L Albumin 3.3 L LDL Cholesterol Direct 45 L HDL Cholesterol 67 H Urine WBC (Auto) Urine Creatinine Crossmatch 04/26/18 04/26/18 04/26/18 05:34 10:26 13:16 WBC RBC Hgb Hct RDW Lymph % (Auto) [place] % (Auto) Eos % (Auto) Lymph # [place] # Eos # Seg Neutrophils % Seg Neuts % (Manual) Lymphocytes % (Manual) Monocytes % (Manual) Nucleated RBC % Seg Neutrophils # Seg Neutrophils # Man Lymphocytes # (Manual) Monocytes # (Manual) PT INR D-Dimer POC ABG pH 7.142 L 7.167 L POC ABG pCO2 65.4 H 53.1 H POC ABG pO2 126 H VBG pH Sodium Potassium Chloride Carbon Dioxide BUN Creatinine Glucose POC Glucose Calcium Magnesium ALT Troponin T 0.141 H* NT-Pro-B Natriuret Pep Total Protein Albumin LDL Cholesterol Direct HDL Cholesterol Urine WBC (Auto) Urine Creatinine Crossmatch 04/26/18 04/26/18 04/27/18 17:40 17:57 04:39 WBC 15.7 H RBC 2.58 L Hgb 7.6 L Hct 24.3 L RDW 17.2 H Lymph % (Auto) [place] % (Auto) Eos % (Auto) Lymph # [place] # Eos # Seg Neutrophils % Seg Neuts % (Manual) 95.0 H Lymphocytes % (Manual) 2.0 L Monocytes % (Manual) Nucleated RBC % Seg Neutrophils # Seg Neutrophils # Man 14.9 H Lymphocytes # (Manual) 0.3 L Monocytes # (Manual) PT INR D-Dimer POC ABG pH 7.161 L POC ABG pCO2 56.3 H POC ABG pO2 124 H VBG pH Sodium Potassium Chloride Carbon Dioxide BUN Creatinine Glucose POC Glucose Calcium Magnesium ALT Troponin T 0.114 H* NT-Pro-B Natriuret Pep Total Protein Albumin LDL Cholesterol Direct HDL Cholesterol Urine WBC (Auto) Urine Creatinine Crossmatch 04/27/18 04/27/18 04/27/18 04:39 09:30 09:30 WBC RBC Hgb Hct RDW Lymph % (Auto) [place] % (Auto) Eos % (Auto) Lymph # [place] # Eos # Seg Neutrophils % Seg Neuts % (Manual) Lymphocytes % (Manual) Monocytes % (Manual) Nucleated RBC % Seg Neutrophils # Seg Neutrophils # Man Lymphocytes # (Manual) Monocytes # (Manual) PT INR D-Dimer POC ABG pH POC ABG pCO2 POC ABG pO2 VBG pH Sodium 148 H Potassium Chloride 111.4 H Carbon Dioxide 20 L BUN 38 H Creatinine 2.2 H Glucose 128 H POC Glucose Calcium 8.2 L Magnesium 2.40 H ALT Troponin T NT-Pro-B Natriuret Pep Total Protein Albumin LDL Cholesterol Direct HDL Cholesterol Urine WBC (Auto) 133.0 H Urine Creatinine 142.3 H Crossmatch 04/27/18 04/28/18 04/28/18 14:12 05:07 05:07 WBC 13.5 H RBC 2.29 L Hgb 6.7 L Hct 21.0 L RDW 17.1 H Lymph % (Auto) 1.8 L [place] % (Auto) 9.4 H Eos % (Auto) Lymph # 0.2 L [place] # 1.3 H Eos # Seg Neutrophils % 88.7 H Seg Neuts % (Manual) Lymphocytes % (Manual) Monocytes % (Manual) Nucleated RBC % Seg Neutrophils # 11.9 H Seg Neutrophils # Man Lymphocytes # (Manual) Monocytes # (Manual) PT INR D-Dimer POC ABG pH POC ABG pCO2 POC ABG pO2 VBG pH 7.270 L Sodium 147 H Potassium Chloride 111.7 H Carbon Dioxide 18 L BUN 48 H Creatinine 2.9 H Glucose 162 H POC Glucose Calcium 7.7 L Magnesium ALT Troponin T NT-Pro-B Natriuret Pep Total Protein Albumin LDL Cholesterol Direct HDL Cholesterol Urine WBC (Auto) Urine Creatinine Crossmatch 04/28/18 04/28/18 04/28/18 10:59 11:05 18:21 WBC RBC Hgb 6.8 L Hct 21.4 L RDW Lymph % (Auto) [place] % (Auto) Eos % (Auto) Lymph # [place] # Eos # Seg Neutrophils % Seg Neuts % (Manual) Lymphocytes % (Manual) Monocytes % (Manual) Nucleated RBC % Seg Neutrophils # Seg Neutrophils # Man Lymphocytes # (Manual) Monocytes # (Manual) PT INR D-Dimer POC ABG pH 7.297 L POC ABG pCO2 49.4 H POC ABG pO2 131 H VBG pH Sodium Potassium Chloride Carbon Dioxide BUN Creatinine Glucose POC Glucose Calcium Magnesium ALT Troponin T NT-Pro-B Natriuret Pep Total Protein Albumin LDL Cholesterol Direct HDL Cholesterol Urine WBC (Auto) Urine Creatinine Crossmatch See Detail 04/29/18 04/29/18 04/29/18 00:28 06:27 06:44 WBC 11.1 H RBC 2.71 L Hgb 8.1 L Hct 25.1 L RDW 16.6 H Lymph % (Auto) [place] % (Auto) Eos % (Auto) Lymph # [place] # Eos # Seg Neutrophils % Seg Neuts % (Manual) 85.0 H Lymphocytes % (Manual) 5.0 L Monocytes % (Manual) 8.0 H Nucleated RBC % 7.0 H Seg Neutrophils # Seg Neutrophils # Man 9.4 H Lymphocytes # (Manual) 0.6 L Monocytes # (Manual) 0.9 H PT INR D-Dimer POC ABG pH POC ABG pCO2 POC ABG pO2 VBG pH Sodium Potassium Chloride Carbon Dioxide BUN Creatinine Glucose POC Glucose 163 H 138 H Calcium Magnesium ALT Troponin T NT-Pro-B Natriuret Pep Total Protein Albumin LDL Cholesterol Direct HDL Cholesterol Urine WBC (Auto) Urine Creatinine Crossmatch 04/29/18 04/29/18 04/29/18 06:44 12:49 14:33 WBC RBC Hgb Hct RDW Lymph % (Auto) [place] % (Auto) Eos % (Auto) Lymph # [place] # Eos # Seg Neutrophils % Seg Neuts % (Manual) Lymphocytes % (Manual) Monocytes % (Manual) Nucleated RBC % Seg Neutrophils # Seg Neutrophils # Man Lymphocytes # (Manual) Monocytes # (Manual) PT INR D-Dimer POC ABG pH 7.216 L POC ABG pCO2 62.4 H POC ABG pO2 162 H VBG pH Sodium 148 H Potassium Chloride 112.2 H Carbon Dioxide BUN 64 H Creatinine 3.8 H Glucose 137 H POC Glucose 155 H Calcium 7.8 L Magnesium 2.40 H ALT Troponin T NT-Pro-B Natriuret Pep Total Protein Albumin LDL Cholesterol Direct HDL Cholesterol Urine WBC (Auto) Urine Creatinine Crossmatch 04/30/18 04/30/18 04/30/18 04:33 08:35 08:35 WBC RBC 2.87 L Hgb 8.7 L Hct 26.7 L RDW 16.7 H Lymph % (Auto) [place] % (Auto) Eos % (Auto) Lymph # [place] # Eos # Seg Neutrophils % Seg Neuts % (Manual) Lymphocytes % (Manual) Monocytes % (Manual) Nucleated RBC % Seg Neutrophils # Seg Neutrophils # Man Lymphocytes # (Manual) Monocytes # (Manual) PT INR D-Dimer POC ABG pH POC ABG pCO2 POC ABG pO2 VBG pH Sodium Potassium 6.0 H D 5.5 H Chloride 111.4 H Carbon Dioxide 18 L BUN 77 H Creatinine 3.7 H Glucose 123 H POC Glucose Calcium 8.0 L Magnesium ALT Troponin T NT-Pro-B Natriuret Pep Total Protein Albumin LDL Cholesterol Direct HDL Cholesterol Urine WBC (Auto) Urine Creatinine Crossmatch 04/30/18 05/01/18 05/01/18 18:20 05:50 07:15 WBC RBC 2.89 L Hgb 8.8 L Hct 26.5 L RDW 16.2 H Lymph % (Auto) 6.1 L [place] % (Auto) 13.6 H Eos % (Auto) 8.4 H Lymph # 0.6 L [place] # 1.4 H Eos # 0.9 H Seg Neutrophils % 71.9 H Seg Neuts % (Manual) Lymphocytes % (Manual) Monocytes % (Manual) Nucleated RBC % Seg Neutrophils # Seg Neutrophils # Man Lymphocytes # (Manual) Monocytes # (Manual) PT INR D-Dimer POC ABG pH POC ABG pCO2 POC ABG pO2 VBG pH Sodium Potassium 5.4 H 5.4 H Chloride Carbon Dioxide 20 L 17 L BUN 81 H 86 H Creatinine 3.9 H 3.8 H Glucose 110 H 124 H POC Glucose Calcium 8.1 L 8.1 L Magnesium ALT 6 L Troponin T NT-Pro-B Natriuret Pep Total Protein 4.8 L Albumin 2.8 L LDL Cholesterol Direct HDL Cholesterol Urine WBC (Auto) Urine Creatinine Crossmatch 05/02/18 05:28 WBC RBC Hgb Hct RDW Lymph % (Auto) [place] % (Auto) Eos % (Auto) Lymph # [place] # Eos # Seg Neutrophils % Seg Neuts % (Manual) Lymphocytes % (Manual) Monocytes % (Manual) Nucleated RBC % Seg Neutrophils # Seg Neutrophils # Man Lymphocytes # (Manual) Monocytes # (Manual) PT INR D-Dimer POC ABG pH POC ABG pCO2 POC ABG pO2 VBG pH Sodium Potassium Chloride Carbon Dioxide BUN 94 H Creatinine 4.1 H Glucose 116 H POC Glucose Calcium 8.0 L Magnesium ALT Troponin T NT-Pro-B Natriuret Pep Total Protein 4.6 L Albumin 3.1 L LDL Cholesterol Direct HDL Cholesterol Urine WBC (Auto) Urine Creatinine Crossmatch Chest x-ray: report reviewed, image reviewed
[2018-05-02] MEDS: DESYREL PO SCH (21:41)
--- NOTE | 2018-05-03 02:31 | XRay Report ---
FINAL REPORT EXAM: XR CHEST 1V AP HISTORY: CHF TECHNIQUE: A portable upright view of the chest was obtained and compared to the study of 04/29/2018 . FINDINGS: The heart is [id number] enlarged. The lungs remain diffusely congested with bilateral effusio ns and airspace disease in both lung bases. The tip of the Dobhoff tube is in the lower stomach. The skeletal structures do not show any acute changes. IMPRESSION: Stable congestive heart failure pattern with bilateral effusions and airspace disease in both lower l obes.
[2018-05-03] MEDS: DUONEB *Not for PRN Use IH SCH ×4 (02:50→21:11)
[2018-05-03] MEDS: NACL 0.45% 1000 ML 1,000 ML IV SCH (03:49)
[2018-05-03 06:04] LABS: Albumin 2.8 g/dL (3.9-5); Calcium 7.9 mg/dL (8.4-10.2)
[2018-05-03] MEDS: SYNTHROID PO SCH (07:39)
[2018-05-03] MEDS: PULMICORT IH SCH ×2 (07:56→21:12)
--- NOTE | 2018-05-03 10:12 | Progress Note ---
Assessment and Plan Imp: 1. ? UTI 2. A/C systolic CHF 3. A/C respiratory failure, hypoxia 4. ARTURO on CKD 5. Vascular dementia 6. Hyperkalemia Rec: 1. Finished 6 days of empiric Cefipime; unfortunately cultures were never sent 2. Receiving hypotonic IVFs; monitor respiratory status closely 3. Cont. Pulmicort/Bronchodilators; no need for systemic steroids currently 4. BIPAP prn 5. Will need ST eval. prior to taking PO as cannot r/o aspiration 6. SCDs, TFs 7. Renal following; K stable 8. CXR unchanged; doubt significant improvement will occur unless renal function improves No family present Subjective Date of service: 05/03/18 Principal diagnosis: resp failure; afib Interval history: No events. On nasal cannula now. Unable to get history from patient. However, she will give me her name when asked, but no other information. Active Medications Albuterol/Ipratropium (Duoneb *Not For Prn Use*) 1 ampul IH Q6HRT [facility] Last Admin: 05/03/18 07:56 Dose: 1 ampul Documented by: Amiodarone HCl (Cordarone) 200 mg PO BID [facility] Last Admin: 05/02/18 21:41 Dose: 200 mg Documented by: Lipase/Protease/Amylase (Pancredomenic Castro 10,500 Unit) 1 each FEEDTUBE PRN PRN PRN Reason: For Clogged Feeding Tube Aspirin (Baby Aspirin) 81 mg PO QDAY [facility] Last Admin: 05/02/18 10:12 Dose: 81 mg Documented by: Budesonide (Pulmicort) 0.5 mg IH Q12HRT [facility] Last Admin: 05/03/18 07:56 Dose: 0.5 mg Documented by: Famotidine (Pepcid) 20 mg PO DAILY [facility] Last Admin: 05/02/18 10:12 Dose: 20 mg Documented by: Folic Acid (Folvite) 1 mg PO QDAY [facility] Last Admin: 05/02/18 10:12 Dose: 1 mg Documented by: Sodium Chloride (Nacl 0.45% 1000 Ml) 1,000 mls @ 75 mls/hr IV DIRECT [facility] Last Admin: 05/03/18 03:49 Dose: 75 mls/hr Documented by: Levetiracetam (Keppra) 500 mg PO BID [facility] Last Admin: 05/02/18 21:41 Dose: 500 mg Documented by: Levothyroxine Sodium (Synthroid) 125 mcg PO QAM@0600 [facility] Last Admin: 05/03/18 07:39 Dose: 125 mcg Documented by: Pravastatin Sodium (Pravachol) 40 mg PO DAILY [facility] Last Admin: 05/02/18 10:12 Dose: 40 mg Documented by: Simple Syrup (Simple Syrup) 15 ml FEEDTUBE PRN PRN PRN Reason: Hypoglycemia Simple Syrup (Simple Syrup) 30 ml FEEDTUBE PRN PRN PRN Reason: Hypoglycemia Sodium Bicarbonate (Sodium Bicarbonate) 325 mg FEEDTUBE PRN PRN PRN Reason: For Clogged Feeding Tube Trazodone HCl (Desyrel) 50 mg PO QHS [facility] Last Admin: 05/02/18 21:41 Dose: 50 mg Documented by: Objective Vital Signs - 12hr 05/02/18 05/03/18 05/03/18 23:00 00:00 01:00 Temperature 98.2 F Pulse Rate 76 84 73 Pulse Rate [ Anterior Bilateral Throughout] Pulse Rate [ 79 From Monitor] Respiratory 15 16 16 Rate Respiratory Rate [Anterior Bilateral Throughout] Blood Pressure 108/41 93/47 91/40 O2 Sat by Pulse 100 100 100 Oximetry 05/03/18 05/03/18 05/03/18 02:00 02:10 02:20 Temperature Pulse Rate 84 Pulse Rate [ 93 H 86 Anterior Bilateral Throughout] Pulse Rate [ From Monitor] Respiratory 18 Rate Respiratory 22 20 Rate [Anterior Bilateral Throughout] Blood Pressure 99/42 O2 Sat by Pulse 100 Oximetry 05/03/18 05/03/18 05/03/18 03:00 04:00 05:00 Temperature 98.1 F Pulse Rate 83 83 86 Pulse Rate [ Anterior Bilateral Throughout] Pulse Rate [ 79 From Monitor] Respiratory 15 13 18 Rate Respiratory Rate [Anterior Bilateral Throughout] Blood Pressure 93/45 104/42 99/41 O2 Sat by Pulse 100 100 96 Oximetry 05/03/18 05/03/18 05/03/18 06:00 07:00 07:56 Temperature Pulse Rate 72 69 Pulse Rate [ 71 Anterior Bilateral Throughout] Pulse Rate [ From Monitor] Respiratory 14 12 Rate Respiratory 14 Rate [Anterior Bilateral Throughout] Blood Pressure 96/37 100/37 O2 Sat by Pulse 100 100 Oximetry 05/03/18 05/03/18 08:09 08:29 Temperature Pulse Rate Pulse Rate [ 69 Anterior Bilateral Throughout] Pulse Rate [ From Monitor] Respiratory Rate Respiratory 14 Rate [Anterior Bilateral Throughout] Blood Pressure O2 Sat by Pulse 100 Oximetry Constitutional: other (arousable, opens eyes) Eyes: non-icteric ENT: oropharynx moist, other (feeding tube in position) Neck: supple Effort: normal Ascultation: Bilateral: rhonchi (occasional) Cardiovascular: regular rate and rhythm (no mrg) Gastrointestinal: normoactive bowel sounds, soft, non-tender, non-distended Integumentary: normal Extremities: no cyanosis, no edema, pink and warm Neurologic: unable to assess (opens eyes to voice, tracks, moves LUE spontaneously, moans, not following commands) Psychiatric: other (unable to assess) CBC and BMP: 05/01/18 07:15 05/03/18 05:03 ABG, PT/INR, D-dimer: ABG POC ABG pH 7.216 (7.35-7.45) L 04/29/18 14:33 POC ABG pCO2 62.4 (35-45) H 04/29/18 14:33 POC ABG pO2 162 (80-105) H 04/29/18 14:33 POC ABG HCO3 25.3 04/29/18 14:33 POC ABG Total CO2 27 04/29/18 14:33 POC ABG O2 Sat 99 04/29/18 14:33 PT/INR, D-dimer PT 15.8 Sec. (12.2-14.9) H 04/26/18 04:47 INR 1.22 (0.87-1.13) H 04/26/18 04:47 D-Dimer 254.08 ng/mlDDU (0-234) H 04/26/18 04:47 Abnormal lab findings: Abnormal Labs 04/26/18 04/26/18 04/26/18 04:43 04:43 04:47 WBC RBC 2.91 L Hgb 8.8 L Hct 27.9 L RDW 17.7 H Lymph % (Auto) 5.9 L [place] % (Auto) 11.6 H Eos % (Auto) Lymph # 0.5 L [place] # 1.0 H Eos # Seg Neutrophils % 79.8 H Seg Neuts % (Manual) Lymphocytes % (Manual) Monocytes % (Manual) Nucleated RBC % Seg Neutrophils # Seg Neutrophils # Man Lymphocytes # (Manual) Monocytes # (Manual) PT 15.8 H INR 1.22 H D-Dimer POC ABG pH POC ABG pCO2 POC ABG pO2 VBG pH Sodium 146 H Potassium Chloride 111.4 H Carbon Dioxide 21 L BUN 27 H Creatinine 1.8 H Glucose POC Glucose Calcium 8.3 L Phosphorus Magnesium ALT Troponin T NT-Pro-B Natriuret Pep Total Protein Albumin LDL Cholesterol Direct HDL Cholesterol Urine WBC (Auto) Urine Creatinine Crossmatch 04/26/18 04/26/18 04/26/18 04:47 04:47 04:47 WBC RBC Hgb Hct RDW Lymph % (Auto) [place] % (Auto) Eos % (Auto) Lymph # [place] # Eos # Seg Neutrophils % Seg Neuts % (Manual) Lymphocytes % (Manual) Monocytes % (Manual) Nucleated RBC % Seg Neutrophils # Seg Neutrophils # Man Lymphocytes # (Manual) Monocytes # (Manual) PT INR D-Dimer 254.08 H POC ABG pH POC ABG pCO2 POC ABG pO2 VBG pH Sodium Potassium Chloride Carbon Dioxide BUN Creatinine Glucose POC Glucose Calcium Phosphorus Magnesium ALT < 5 L Troponin T 0.149 H* NT-Pro-B Natriuret Pep 5133 H Total Protein 5.1 L Albumin 3.3 L LDL Cholesterol Direct 45 L HDL Cholesterol 67 H Urine WBC (Auto) Urine Creatinine Crossmatch 04/26/18 04/26/18 04/26/18 05:34 10:26 13:16 WBC RBC Hgb Hct RDW Lymph % (Auto) [place] % (Auto) Eos % (Auto) Lymph # [place] # Eos # Seg Neutrophils % Seg Neuts % (Manual) Lymphocytes % (Manual) Monocytes % (Manual) Nucleated RBC % Seg Neutrophils # Seg Neutrophils # Man Lymphocytes # (Manual) Monocytes # (Manual) PT INR D-Dimer POC ABG pH 7.142 L 7.167 L POC ABG pCO2 65.4 H 53.1 H POC ABG pO2 126 H VBG pH Sodium Potassium Chloride Carbon Dioxide BUN Creatinine Glucose POC Glucose Calcium Phosphorus Magnesium ALT Troponin T 0.141 H* NT-Pro-B Natriuret Pep Total Protein Albumin LDL Cholesterol Direct HDL Cholesterol Urine WBC (Auto) Urine Creatinine Crossmatch 04/26/18 04/26/18 04/27/18 17:40 17:57 04:39 WBC 15.7 H RBC 2.58 L Hgb 7.6 L Hct 24.3 L RDW 17.2 H Lymph % (Auto) [place] % (Auto) Eos % (Auto) Lymph # [place] # Eos # Seg Neutrophils % Seg Neuts % (Manual) 95.0 H Lymphocytes % (Manual) 2.0 L Monocytes % (Manual) Nucleated RBC % Seg Neutrophils # Seg Neutrophils # Man 14.9 H Lymphocytes # (Manual) 0.3 L Monocytes # (Manual) PT INR D-Dimer POC ABG pH 7.161 L POC ABG pCO2 56.3 H POC ABG pO2 124 H VBG pH Sodium Potassium Chloride Carbon Dioxide BUN Creatinine Glucose POC Glucose Calcium Phosphorus Magnesium ALT Troponin T 0.114 H* NT-Pro-B Natriuret Pep Total Protein Albumin LDL Cholesterol Direct HDL Cholesterol Urine WBC (Auto) Urine Creatinine Crossmatch 04/27/18 04/27/18 04/27/18 04:39 09:30 09:30 WBC RBC Hgb Hct RDW Lymph % (Auto) [place] % (Auto) Eos % (Auto) Lymph # [place] # Eos # Seg Neutrophils % Seg Neuts % (Manual) Lymphocytes % (Manual) Monocytes % (Manual) Nucleated RBC % Seg Neutrophils # Seg Neutrophils # Man Lymphocytes # (Manual) Monocytes # (Manual) PT INR D-Dimer POC ABG pH POC ABG pCO2 POC ABG pO2 VBG pH Sodium 148 H Potassium Chloride 111.4 H Carbon Dioxide 20 L BUN 38 H Creatinine 2.2 H Glucose 128 H POC Glucose Calcium 8.2 L Phosphorus Magnesium 2.40 H ALT Troponin T NT-Pro-B Natriuret Pep Total Protein Albumin LDL Cholesterol Direct HDL Cholesterol Urine WBC (Auto) 133.0 H Urine Creatinine 142.3 H Crossmatch 04/27/18 04/28/18 04/28/18 14:12 05:07 05:07 WBC 13.5 H RBC 2.29 L Hgb 6.7 L Hct 21.0 L RDW 17.1 H Lymph % (Auto) 1.8 L [place] % (Auto) 9.4 H Eos % (Auto) Lymph # 0.2 L [place] # 1.3 H Eos # Seg Neutrophils % 88.7 H Seg Neuts % (Manual) Lymphocytes % (Manual) Monocytes % (Manual) Nucleated RBC % Seg Neutrophils # 11.9 H Seg Neutrophils # Man Lymphocytes # (Manual) Monocytes # (Manual) PT INR D-Dimer POC ABG pH POC ABG pCO2 POC ABG pO2 VBG pH 7.270 L Sodium 147 H Potassium Chloride 111.7 H Carbon Dioxide 18 L BUN 48 H Creatinine 2.9 H Glucose 162 H POC Glucose Calcium 7.7 L Phosphorus Magnesium ALT Troponin T NT-Pro-B Natriuret Pep Total Protein Albumin LDL Cholesterol Direct HDL Cholesterol Urine WBC (Auto) Urine Creatinine Crossmatch 04/28/18 04/28/18 04/28/18 10:59 11:05 18:21 WBC RBC Hgb 6.8 L Hct 21.4 L RDW Lymph % (Auto) [place] % (Auto) Eos % (Auto) Lymph # [place] # Eos # Seg Neutrophils % Seg Neuts % (Manual) Lymphocytes % (Manual) Monocytes % (Manual) Nucleated RBC % Seg Neutrophils # Seg Neutrophils # Man Lymphocytes # (Manual) Monocytes # (Manual) PT INR D-Dimer POC ABG pH 7.297 L POC ABG pCO2 49.4 H POC ABG pO2 131 H VBG pH Sodium Potassium Chloride Carbon Dioxide BUN Creatinine Glucose POC Glucose Calcium Phosphorus Magnesium ALT Troponin T NT-Pro-B Natriuret Pep Total Protein Albumin LDL Cholesterol Direct HDL Cholesterol Urine WBC (Auto) Urine Creatinine Crossmatch See Detail 04/29/18 04/29/18 04/29/18 00:28 06:27 06:44 WBC 11.1 H RBC 2.71 L Hgb 8.1 L Hct 25.1 L RDW 16.6 H Lymph % (Auto) [place] % (Auto) Eos % (Auto) Lymph # [place] # Eos # Seg Neutrophils % Seg Neuts % (Manual) 85.0 H Lymphocytes % (Manual) 5.0 L Monocytes % (Manual) 8.0 H Nucleated RBC % 7.0 H Seg Neutrophils # Seg Neutrophils # Man 9.4 H Lymphocytes # (Manual) 0.6 L Monocytes # (Manual) 0.9 H PT INR D-Dimer POC ABG pH POC ABG pCO2 POC ABG pO2 VBG pH Sodium Potassium Chloride Carbon Dioxide BUN Creatinine Glucose POC Glucose 163 H 138 H Calcium Phosphorus Magnesium ALT Troponin T NT-Pro-B Natriuret Pep Total Protein Albumin LDL Cholesterol Direct HDL Cholesterol Urine WBC (Auto) Urine Creatinine Crossmatch 04/29/18 04/29/18 04/29/18 06:44 12:49 14:33 WBC RBC Hgb Hct RDW Lymph % (Auto) [place] % (Auto) Eos % (Auto) Lymph # [place] # Eos # Seg Neutrophils % Seg Neuts % (Manual) Lymphocytes % (Manual) Monocytes % (Manual) Nucleated RBC % Seg Neutrophils # Seg Neutrophils # Man Lymphocytes # (Manual) Monocytes # (Manual) PT INR D-Dimer POC ABG pH 7.216 L POC ABG pCO2 62.4 H POC ABG pO2 162 H VBG pH Sodium 148 H Potassium Chloride 112.2 H Carbon Dioxide BUN 64 H Creatinine 3.8 H Glucose 137 H POC Glucose 155 H Calcium 7.8 L Phosphorus Magnesium 2.40 H ALT Troponin T NT-Pro-B Natriuret Pep Total Protein Albumin LDL Cholesterol Direct HDL Cholesterol Urine WBC (Auto) Urine Creatinine Crossmatch 04/30/18 04/30/18 04/30/18 04:33 08:35 08:35 WBC RBC 2.87 L Hgb 8.7 L Hct 26.7 L RDW 16.7 H Lymph % (Auto) [place] % (Auto) Eos % (Auto) Lymph # [place] # Eos # Seg Neutrophils % Seg Neuts % (Manual) Lymphocytes % (Manual) Monocytes % (Manual) Nucleated RBC % Seg Neutrophils # Seg Neutrophils # Man Lymphocytes # (Manual) Monocytes # (Manual) PT INR D-Dimer POC ABG pH POC ABG pCO2 POC ABG pO2 VBG pH Sodium Potassium 6.0 H D 5.5 H Chloride 111.4 H Carbon Dioxide 18 L BUN 77 H Creatinine 3.7 H Glucose 123 H POC Glucose Calcium 8.0 L Phosphorus Magnesium ALT Troponin T NT-Pro-B Natriuret Pep Total Protein Albumin LDL Cholesterol Direct HDL Cholesterol Urine WBC (Auto) Urine Creatinine Crossmatch 04/30/18 05/01/18 05/01/18 18:20 05:50 07:15 WBC RBC 2.89 L Hgb 8.8 L Hct 26.5 L RDW 16.2 H Lymph % (Auto) 6.1 L [place] % (Auto) 13.6 H Eos % (Auto) 8.4 H Lymph # 0.6 L [place] # 1.4 H Eos # 0.9 H Seg Neutrophils % 71.9 H Seg Neuts % (Manual) Lymphocytes % (Manual) Monocytes % (Manual) Nucleated RBC % Seg Neutrophils # Seg Neutrophils # Man Lymphocytes # (Manual) Monocytes # (Manual) PT INR D-Dimer POC ABG pH POC ABG pCO2 POC ABG pO2 VBG pH Sodium Potassium 5.4 H 5.4 H Chloride Carbon Dioxide 20 L 17 L BUN 81 H 86 H Creatinine 3.9 H 3.8 H Glucose 110 H 124 H POC Glucose Calcium 8.1 L 8.1 L Phosphorus Magnesium ALT 6 L Troponin T NT-Pro-B Natriuret Pep Total Protein 4.8 L Albumin 2.8 L LDL Cholesterol Direct HDL Cholesterol Urine WBC (Auto) Urine Creatinine Crossmatch 05/02/18 05/03/18 05:28 05:03 WBC RBC Hgb Hct RDW Lymph % (Auto) [place] % (Auto) Eos % (Auto) Lymph # [place] # Eos # Seg Neutrophils % Seg Neuts % (Manual) Lymphocytes % (Manual) Monocytes % (Manual) Nucleated RBC % Seg Neutrophils # Seg Neutrophils # Man Lymphocytes # (Manual) Monocytes # (Manual) PT INR D-Dimer POC ABG pH POC ABG pCO2 POC ABG pO2 VBG pH Sodium Potassium Chloride Carbon Dioxide BUN 94 H 98 H Creatinine 4.1 H 4.1 H Glucose 116 H 116 H POC Glucose Calcium 8.0 L 7.9 L Phosphorus 6.00 H Magnesium ALT Troponin T NT-Pro-B Natriuret Pep Total Protein 4.6 L 4.6 L Albumin 3.1 L 2.8 L LDL Cholesterol Direct HDL Cholesterol Urine WBC (Auto) Urine Creatinine Crossmatch Chest x-ray: report reviewed, image reviewed (minimal change)
[2018-05-03] MEDS: CORDARONE PO SCH ×2 (10:15→22:46)
[2018-05-03] MEDS: FOLVITE PO SCH (10:15)
[2018-05-03] MEDS: BABY ASPIRIN PO SCH (10:15)
[2018-05-03] MEDS: PRAVACHOL PO SCH (10:16)
[2018-05-03] MEDS: PEPCID PO SCH (10:16)
[2018-05-03] MEDS: KEPPRA PO SCH ×2 (10:16→22:46)
--- NOTE | 2018-05-03 10:26 | Progress Note ---
Assessment and Plan Assessment and plan: --Swallow evaluation, diet per speech therapist --Patient may be transferred out of [facility] to [facility] --Acute hypoxic/hypercapnic respiratory failure; significantly improved Titrate O2 sats >90%, nebs, IV steroids,IV antibiotics, BiPAP when necessary --Acute exacerbation of bronchial asthma; Oxygen nebulizers IV steroids and inhalation steroids Pulmonary following --Bilateral pleural effusion; right more than left, pulmonary following f/u chest x-ray, significant improvement of pleural effusions --Perihilar infiltrate/possible pneumonia; received empiric antibiotics --Anemia; hemoglobin 6.7, patient received 1 unit of PRBC Hemoglobin improved to 8.8 closely monitor --Acute on chronic kidney injury;worsening renal function Cr 4.1 today vasomotor nephropathy, avoid nephrotoxins, nephro recommend HD Family does not want hemodialysis at this point --Acute on chronic congestive heart failure; EF :45-50% 2 years ago, IV diuretics, beta blockers Input output monitoring, echocardiogram, cardiology evaluation --Positive cardiac enzymes/possible non-ST elevation AR Cardiac medications serial cardiac enzymes and EKGs neg --History of A. fib; rate controlled: Continue amiodarone, aspirin, not a candidate for chronic anticoagulation, h/o GI bleed ,dementia , Advanced age, risk of falls , Cardiology fellowing --Dementia; supportive care --Malnutrition moderate/hyperalbuminemia; nutrition supplements and nutrition consult --Hypothyroidism; continue Synthroid --DVT prophylaxis; SCDs, Lovenox --DNR, continue full treatment PT/OT/ST consults and rec noted Plan of care reviewed with the patient's nurse Recommend hospice evaluation History Interval history: Patient seen and examined medical records reviewed Patient is more alert and awake today, not in acute distress Family members at the bedside Vital signs noted Hospitalist Physical - Constitutional Vitals: Temp Pulse Resp BP Pulse Ox 98.1 F 69 14 100/37 100 05/03/18 04:00 05/03/18 08:09 05/03/18 08:09 05/03/18 07:00 05/03/18 08:29 General appearance: Present: no acute distress, cachectic, disheveled - EENT Eyes: Present: PERRL, EOM intact - Neck Neck: Present: supple, normal ROM - Respiratory Respiratory effort: normal Respiratory: bilateral: diminished, negative: rales, rhonchi, wheezing - Cardiovascular Rhythm: regular Heart Sounds: Present: S1 & S2 - Extremities Extremities: no ischemia, No edema - Abdominal General gastrointestinal: soft, non-tender, non-distended, normal bowel sounds - Integumentary Integumentary: Present: clear, warm - Psychiatric Psychiatric: appropriate mood/affect, cooperative - Neurologic Neurologic: CNII-XII intact, moves all extremities Results - Labs CBC & Chem 7: 05/01/18 07:15 05/03/18 05:03 Labs: Laboratory Last Values WBC 10.3 K/mm3 (4.5-11.0) 05/01/18 07:15 RBC 2.89 M/mm3 (3.65-5.03) L 05/01/18 07:15 Hgb 8.8 gm/dl (10.1-14.3) L 05/01/18 07:15 Hct 26.5 % (30.3-42.9) L 05/01/18 07:15 MCV 92 fl (79-97) 05/01/18 07:15 MCH 31 pg (28-32) 05/01/18 07:15 MCHC 33 % (30-34) 05/01/18 07:15 RDW 16.2 % (13.2-15.2) H 05/01/18 07:15 Plt Count 150 K/mm3 (140-440) 05/01/18 07:15 Lymph % (Auto) 6.1 % (13.4-35.0) L 05/01/18 07:15 [place] % (Auto) 13.6 % (0.0-7.3) H 05/01/18 07:15 Eos % (Auto) 8.4 % (0.0-4.3) H 05/01/18 07:15 Baso % (Auto) 0.0 % (0.0-1.8) 05/01/18 07:15 Lymph # 0.6 K/mm3 (1.2-5.4) L 05/01/18 07:15 [place] # 1.4 K/mm3 (0.0-0.8) H 05/01/18 07:15 Eos # 0.9 K/mm3 (0.0-0.4) H 05/01/18 07:15 Baso # 0.0 K/mm3 (0.0-0.1) 05/01/18 07:15 Add Manual Diff Complete 04/29/18 06:44 Total Counted 100 04/29/18 06:44 Seg Neutrophils % 71.9 % (40.0-70.0) H 05/01/18 07:15 Seg Neuts % (Manual) 85.0 % (40.0-70.0) H 04/29/18 06:44 Band Neutrophils % 2.0 % 04/29/18 06:44 Lymphocytes % (Manual) 5.0 % (13.4-35.0) L 04/29/18 06:44 Reactive Lymphs % (Man) 0 % 04/29/18 06:44 Monocytes % (Manual) 8.0 % (0.0-7.3) H 04/29/18 06:44 Eosinophils % (Manual) 0 % (0.0-4.3) 04/29/18 06:44 Basophils % (Manual) 0 % (0.0-1.8) 04/29/18 06:44 Metamyelocytes % 0 % 04/29/18 06:44 Myelocytes % 0 % 04/29/18 06:44 Promyelocytes % 0 % 04/29/18 06:44 Blast Cells % 0 % 04/29/18 06:44 Nucleated RBC % 7.0 % (0.0-0.9) H 04/29/18 06:44 Seg Neutrophils # 7.4 K/mm3 (1.8-7.7) 05/01/18 07:15 Seg Neutrophils # Man 9.4 K/mm3 (1.8-7.7) H 04/29/18 06:44 Band Neutrophils # 0.2 K/mm3 04/29/18 06:44 Lymphocytes # (Manual) 0.6 K/mm3 (1.2-5.4) L 04/29/18 06:44 Abs React Lymphs (Man) 0.0 K/mm3 04/29/18 06:44 Monocytes # (Manual) 0.9 K/mm3 (0.0-0.8) H 04/29/18 06:44 Eosinophils # (Manual) 0.0 K/mm3 (0.0-0.4) 04/29/18 06:44 Basophils # (Manual) 0.0 K/mm3 (0.0-0.1) 04/29/18 06:44 Metamyelocytes # 0.0 K/mm3 04/29/18 06:44 Myelocytes # 0.0 K/mm3 04/29/18 06:44 Promyelocytes # 0.0 K/mm3 04/29/18 06:44 Blast Cells # 0.0 K/mm3 04/29/18 06:44 WBC Morphology Not Reportable 04/29/18 06:44 Hypersegmented Neuts Not Reportable 04/29/18 06:44 Hyposegmented Neuts Not Reportable 04/29/18 06:44 Hypogranular Neuts Not Reportable 04/29/18 06:44 Smudge Cells Not Reportable 04/29/18 06:44 Toxic Granulation Not Reportable 04/29/18 06:44 Toxic Vacuolation Not Reportable 04/29/18 06:44 Dohle Bodies Not Reportable 04/29/18 06:44 Pelger-Huet Anomaly Not Reportable 04/29/18 06:44 Vlad Rods Not Reportable 04/29/18 06:44 Platelet Estimate Appears normal 04/29/18 06:44 Clumped Platelets Not Reportable 04/29/18 06:44 Plt Clumps, EDTA Not Reportable 04/29/18 06:44 Large Platelets Not Reportable 04/29/18 06:44 Giant Platelets Not Reportable 04/29/18 06:44 Platelet Satelliting Not Reportable 04/29/18 06:44 Plt Morphology Comment Not Reportable 04/29/18 06:44 RBC Morphology Not Reportable 04/29/18 06:44 Dimorphic RBCs Not Reportable 04/29/18 06:44 Polychromasia Not Reportable 04/29/18 06:44 Hypochromasia Not Reportable 04/29/18 06:44 Poikilocytosis 1+ 04/29/18 06:44 Anisocytosis 2+ 04/29/18 06:44 Microcytosis Not Reportable 04/29/18 06:44 Macrocytosis Not Reportable 04/29/18 06:44 Spherocytes Not Reportable 04/29/18 06:44 Pappenheimer Bodies Not Reportable 04/29/18 06:44 Sickle Cells Not Reportable 04/29/18 06:44 Target Cells Rare 04/29/18 06:44 Tear Drop Cells Not Reportable 04/29/18 06:44 Ovalocytes 1+ 04/29/18 06:44 Helmet Cells Not Reportable 04/29/18 06:44 [place] Bodies Not Reportable 04/29/18 06:44 [place] Rings Not Reportable 04/29/18 06:44 [place] Cells Not Reportable 04/29/18 06:44 Bite Cells Not Reportable 04/29/18 06:44 Crenated Cell Not Reportable 04/29/18 06:44 Elliptocytes Not Reportable 04/29/18 06:44 Acanthocytes (Spur) Not Reportable 04/29/18 06:44 Rouleaux Not Reportable 04/29/18 06:44 Hemoglobin C Crystals Not Reportable 04/29/18 06:44 Schistocytes Rare 04/29/18 06:44 Malaria parasites Not Reportable 04/29/18 06:44 [place] Bodies Not Reportable 04/29/18 06:44 Hem Pathologist Commnt No 04/29/18 06:44 PT 15.8 Sec. (12.2-14.9) H 04/26/18 04:47 INR 1.22 (0.87-1.13) H 04/26/18 04:47 APTT 32.4 Sec. (24.2-36.6) 04/26/18 04:47 D-Dimer 254.08 ng/mlDDU (0-234) H 04/26/18 04:47 POC ABG pH 7.216 (7.35-7.45) L 04/29/18 14:33 POC ABG pCO2 62.4 (35-45) H 04/29/18 14:33 POC ABG pO2 162 (80-105) H 04/29/18 14:33 POC ABG HCO3 25.3 04/29/18 14:33 POC ABG Total CO2 27 04/29/18 14:33 POC ABG O2 Sat 99 04/29/18 14:33 POC ABG Base Excess -2 04/29/18 14:33 VBG pH 7.270 (7.320-7.420) L 04/27/18 14:12 FiO2 3 % 04/29/18 14:33 Sodium 140 mmol/L (137-145) 05/03/18 05:03 Potassium 3.7 mmol/L (3.6-5.0) 05/03/18 05:03 Chloride 101.3 mmol/L (98-107) 05/03/18 05:03 Carbon Dioxide 24 mmol/L (22-30) 05/03/18 05:03 Anion Gap 18 mmol/L 05/03/18 05:03 BUN 98 mg/dL (7-17) H 05/03/18 05:03 Creatinine 4.1 mg/dL (0.7-1.2) H 05/03/18 05:03 Estimated GFR 12 ml/min 05/03/18 05:03 BUN/Creatinine Ratio 24 % 05/03/18 05:03 Glucose 116 mg/dL (65-100) H 05/03/18 05:03 POC Glucose 155 (70-105) H 04/29/18 12:49 Lactic Acid 1.40 mmol/L (0.7-2.0) 04/26/18 10:55 Calcium 7.9 mg/dL (8.4-10.2) L 05/03/18 05:03 Phosphorus 6.00 mg/dL (2.5-4.5) H 05/03/18 05:03 Magnesium 2.10 mg/dL (1.7-2.3) 05/03/18 05:03 Total Bilirubin 0.40 mg/dL (0.1-1.2) 05/03/18 05:03 Direct Bilirubin < 0.2 mg/dL (0-0.2) 04/26/18 04:47 Indirect Bilirubin 0.2 mg/dL 04/26/18 04:47 AST 11 units/L (5-40) 05/03/18 05:03 ALT 8 units/L (7-56) 05/03/18 05:03 Alkaline Phosphatase 55 units/L (35-129) 05/03/18 05:03 Total Creatine Kinase 40 units/L (30-135) 04/26/18 17:57 CK-MB (CK-2) 1.6 ng/mL (0.0-4.0) 04/26/18 17:57 CK-MB (CK-2) Rel Index 4.0 (0-4) 04/26/18 17:57 Troponin T 0.114 ng/mL (0.00-0.029) H* 04/26/18 17:57 NT-Pro-B Natriuret Pep 5133 pg/mL (0-900) H 04/26/18 04:47 Total Protein 4.6 g/dL (6.3-8.2) L 05/03/18 05:03 Albumin 2.8 g/dL (3.9-5) L 05/03/18 05:03 Albumin/Globulin Ratio 1.6 % 05/03/18 05:03 Triglycerides 90 mg/dL (2-149) 04/26/18 04:47 Cholesterol 129 mg/dL (50-199) 04/26/18 04:47 LDL Cholesterol Direct 45 mg/dL (50-130) L 04/26/18 04:47 HDL Cholesterol 67 mg/dL (40-59) H 04/26/18 04:47 Cholesterol/HDL Ratio 1.92 % 04/26/18 04:47 TSH 1.560 mlU/mL (0.270-4.200) 04/26/18 13:16 Free T4 1.28 ng/dL (0.76-1.46) 04/26/18 13:16 Urine Color [place] (Yellow) 04/27/18 09:30 Urine Turbidity Cloudy (Clear) 04/27/18 09:30 Urine pH 5.0 (5.0-7.0) 04/27/18 09:30 Ur Specific [place] 1.028 (1.003-1.030) 04/27/18 09:30 Urine Protein 100 mg/dl mg/dL (Negative) 04/27/18 09:30 Urine Glucose (UA) Neg mg/dL (Negative) 04/27/18 09:30 Urine Ketones 20 mg/dL (Negative) 04/27/18 09:30 Urine Blood Neg (Negative) 04/27/18 09:30 Urine Nitrite Neg (Negative) 04/27/18 09:30 Urine Bilirubin Neg (Negative) 04/27/18 09:30 Urine Urobilinogen 2.0 mg/dL (<2.0) 04/27/18 09:30 Ur Leukocyte Esterase Lg (Negative) 04/27/18 09:30 Urine WBC (Auto) 133.0 /HPF (0.0-6.0) H 04/27/18 09:30 Urine RBC (Auto) 24.0 /HPF (0.0-6.0) 02/14/19 09:30 Urine Bacteria (Auto) 1+ /HPF (Negative) 04/27/18 09:30 Calcium Oxalate Crystal 3+ 04/27/18 09:30 Urine Mucus 3+ /HPF 04/27/18 09:30 Urine Creatinine 142.3 mg/dL (0.1-20.0) H 04/27/18 09:30 Urine Sodium 314 mmol/L 04/27/18 09:30 Blood Type A POSITIVE 04/28/18 18:21 Antibody Screen Negative 04/28/18 18:21 Crossmatch See Detail 04/28/18 18:21 Nutrition/Malnutrition Assess - Dietary Evaluation Nutrition/Malnutrition Findings: Nutrition Notes Start: 04/27/18 14:13 Freq: Status: Active Protocol: Document 05/01/18 14:35 RM (Rec: 05/01/18 14:38 RM [id number]) Nutrition Notes Initial or Follow up Reassessment Current Diagnosis CKD(stage I-IV) COPD Hypertension Heart Failure Other Pertinent Diagnosis dementia, R heel PU, L heel PU Current Diet Promote 50 ml/hr Labs/Tests K 5.4, Na 140, BUN 86, Cr 3.8 Pertinent Medications Reviewed Height 5 ft 3 in Weight 67.4 kg [place] Body Weight (kg) 52.27 BMI 26.3 Weight change and time frame Wt increase likely d/t fluid change Subjective/Other Information Observed Promote infusing at 50 ml/hr. Per nurse pt is tolerating TF. Percent of energy/protein needs met: 93%/100% Burn Absent Trauma Absent #1 Nutrition Diagnosis Inadequate oral intake Diagnosis Progress(for reassessment Continues documentation) Is patient on ventilator? No Is Patient Ambulatory and/or Out of Bed No [facility] [phone] Calculation Used for Recommendations [facility] Additional Notes protein (0.8-1g/kg): 54-67kg fluid: 1mL/kcal or per MD Nutrition Intervention Change Diet Order: TF Nutrition Support: Nepro at 30 ml/hr. Water flush of 130 mls q 4 hr Kcal 1,296 Protein (gm) 58 Fluid (mL) 523 Goal #1 TF tolerance Goal #2 TF to meet at least 80% of calorie and protein needs Anticipated Discharge Needs: Unable to identify at this time Follow-Up By: 05/03/18 Additional Comments Follow for TF tolerance, renal labs
--- NOTE | 2018-05-03 12:54 | Progress Note ---
Assessment and Plan Renal function worsening. Family considering HD. Currently stable cardiac status. Cont present cardiac regimen. In the past, pt deemed not a candidate for systemic AC due to history of GI bleed. She also has advanced dementia and anemia and still does not appear to be a good candidate for systemic AC. Will follow on as needed basis. The patient has been seen in conjunction with Dr. Ayala who agrees with the assessment and plan of care. - Patient Problems (1) Acute respiratory failure Current Visit: Yes Status: Acute Qualifiers: Respiratory failure complication: hypoxia and hypercapnia Qualified Code (s): J96.01 - Acute respiratory failure with hypoxia; J96.02 - Acute respiratory failure with hypercapnia (2) Acidosis Current Visit: Yes Status: Acute (3) Pneumonia Current Visit: Yes Status: Suspected Qualifiers: Pneumonia type: due to unspecified organism Laterality: right Lung location: unspecified part of lung Qualified Code(s): J18.9 - Pneumonia, unspecified organism (4) Acute heart failure Current Visit: Yes Status: Acute (5) Afib Current Visit: Yes Status: Chronic Qualifiers: Atrial fibrillation type: chronic Qualified Code(s): I48.2 - Chronic atrial fibrillation (6) Elevated troponin I level Current Visit: Yes Status: Acute (7) Renal insufficiency Current Visit: Yes Status: Acute (8) Anemia Current Visit: Yes Status: Chronic Qualifiers: Anemia type: unspecified type Qualified Code(s): D64.9 - Anemia, unspecified (9) Dementia Current Visit: Yes Status: Chronic Subjective Date of service: 05/03/18 Principal diagnosis: resp failure; afib Interval history: pt resting in bed, lethargic, nonverbal. in AFib with CVR on telemetry. Objective - Physical Examination General: No Apparent Distress HEENT: Positive: PERRL Neck: Positive: neck supple, trachea midline Cardiac: Positive: irregularly irregular, S1/S2 Lungs: Positive: Decreased Breath Sounds Neuro: Positive: Other (lethargic, on bipap) Abdomen: Negative: Tender Skin: Negative: Rash, Wound Musculoskeletal: No Pain Extremities: Absent: edema - Labs and Meds Cardiac Enzymes 05/03/18 Range/Units 05:03 AST 11 (5-40) units/L Comprehensive Metabolic Panel 05/03/18 Range/Units 05:03 Sodium 140 (137-145) mmol/L Potassium 3.7 (3.6-5.0) mmol/L Chloride 101.3 (98-107) mmol/L Carbon Dioxide 24 (22-30) mmol/L BUN 98 H (7-17) mg/dL Creatinine 4.1 H (0.7-1.2) mg/dL Glucose 116 H (65-100) mg/dL Calcium 7.9 L (8.4-10.2) mg/dL AST 11 (5-40) units/L ALT 8 (7-56) units/L Alkaline Phosphatase 55 (35-129) units/L Total Protein 4.6 L (6.3-8.2) g/dL Albumin 2.8 L (3.9-5) g/dL - Imaging and Cardiology EKG: report reviewed, image reviewed Echo: report reviewed (02/2014 showed EF 45-50%, mild TR, RVSP 39mmHg. ) - EKG Sinus rhythms and dysrhythmias: sinus rhythm
--- NOTE | 2018-05-03 14:13 | Progress Note ---
Assessment and Plan 1. 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 Urine studies and Renal US results noted. Renal function continue to decline. Continue IV fluids. Renal prognosis is guarded to poor. Monitor renal function. Discussed with her son and daughter at the bedside. Patient require hemodialysis due to significantly reduced renal function. Also it will be challenging to do hemodialysis due to hypotension. Family is deciding whether to start on hemodialysis. 2. FEN: Hyperkalemia, improved. Anion gap metabolic acidosis, improved. Monitor lytes. 3. Hypoxic hypercapnic respiratory failure: Was on BIPAP. Followed by Pulmonary. 4. Bilateral pleural effusion right more than left. 5. Perihilar infiltrate, possible pneumonia: Completed empiric antibiotics. 6. Acute on chronic systolic CHF. 7. Positive cardiac enzymes: ? NSTEMI. On ASA. 8. A. fib: On Amiodarone. 9. Anemia: S/p PRBC. 10. Dementia. Subjective Date of service: 05/03/18 Principal diagnosis: resp failure; afib Interval history: Patient was seen and examined at the bedside. Objective - Vital Signs Vital signs: Vital Signs - 12hr 05/03/18 05/03/18 05/03/18 02:20 03:00 04:00 Temperature 98.1 F Pulse Rate 83 83 Pulse Rate [ 86 Anterior Bilateral Throughout] Pulse Rate [ 79 From Monitor] Respiratory 15 13 Rate Respiratory 20 Rate [Anterior Bilateral Throughout] Blood Pressure 93/45 104/42 O2 Sat by Pulse 100 100 Oximetry 05/03/18 05/03/18 05/03/18 05:00 06:00 07:00 Temperature Pulse Rate 86 72 69 Pulse Rate [ Anterior Bilateral Throughout] Pulse Rate [ From Monitor] Respiratory 18 14 12 Rate Respiratory Rate [Anterior Bilateral Throughout] Blood Pressure 99/41 96/37 100/37 O2 Sat by Pulse 96 100 100 Oximetry 05/03/18 05/03/18 05/03/18 07:56 08:00 08:09 Temperature 97.8 F Pulse Rate 70 Pulse Rate [ 71 69 Anterior Bilateral Throughout] Pulse Rate [ 67 From Monitor] Respiratory 12 Rate Respiratory 14 14 Rate [Anterior Bilateral Throughout] Blood Pressure 90/32 O2 Sat by Pulse 100 Oximetry 05/03/18 05/03/18 05/03/18 08:29 09:00 10:01 Temperature Pulse Rate 74 66 Pulse Rate [ Anterior Bilateral Throughout] Pulse Rate [ From Monitor] Respiratory 14 15 Rate Respiratory Rate [Anterior Bilateral Throughout] Blood Pressure 105/30 68/27 O2 Sat by Pulse 100 100 99 Oximetry 05/03/18 05/03/18 05/03/18 11:00 12:00 13:47 Temperature 97.5 F L Pulse Rate 82 76 Pulse Rate [ 80 Anterior Bilateral Throughout] Pulse Rate [ 77 From Monitor] Respiratory 14 20 Rate Respiratory 16 Rate [Anterior Bilateral Throughout] Blood Pressure 104/39 85/34 O2 Sat by Pulse 100 95 Oximetry 05/03/18 14:00 Temperature Pulse Rate Pulse Rate [ 79 Anterior Bilateral Throughout] Pulse Rate [ From Monitor] Respiratory Rate Respiratory 17 Rate [Anterior Bilateral Throughout] Blood Pressure O2 Sat by Pulse Oximetry - General Appearance General appearance: well-developed, appears stated age, frail, other (not in distress) EENT: ATNC Neck: supple Respiratory: Present: Clear to Ascultation Cardiology: S1S2, no murmurs Gastrointestinal: normoactive bowel sounds, no tenderness, no distended Integumentary: no rash Neurologic: other (opens eyes, non-verbal, not following any command) Musculoskeletal: other (no edema) - Lab 05/01/18 07:15 05/03/18 05:03 Most recent lab results Calcium 7.9 mg/dL (8.4-10.2) L 05/03/18 05:03 Phosphorus 6.00 mg/dL (2.5-4.5) H 05/03/18 05:03 Magnesium 2.10 mg/dL (1.7-2.3) 05/03/18 05:03 Urine Creatinine 142.3 mg/dL (0.1-20.0) H 04/27/18 09:30 Urine Sodium 314 mmol/L 04/27/18 09:30 Medications & Allergies - Medications Allergies/Adverse Reactions: Allergies No Known Allergies Allergy (Verified 04/03/14 21:12) Home Medications: Home Medications Medication Instructions Recorded Confirmed Last Taken Type Amiodarone [Cordarone 200 MG TAB] 200 mg PO QDAY #30 tablet 05/06/17 04/27/18 Unknown Rx Aspirin [Aspirin BABY CHEW TAB] 81 mg PO QDAY #30 tab.chew 05/06/17 04/27/18 Unknown Rx Folic Acid [Folvite] 1 mg PO QDAY #30 tablet 05/06/17 04/27/18 Unknown Rx Pravastatin [Pravachol] 40 mg PO DAILY #30 tablet 05/06/17 04/27/18 Unknown Rx levETIRAcetam [Keppra] 500 mg PO BID #30 tablet 05/06/17 04/27/18 Unknown Rx ALBUTEROL NEB's [Proventil 0.083% 2.5 mg INHALATION BID PRN 04/27/18 04/27/18 Unknown History NEBS] Acetaminophen [Non-Aspirin] 325 mg PO Q8H PRN 04/27/18 04/27/18 Unknown History Ascorbic Acid [Vitamin C] 500 mg PO DAILY 04/27/18 04/27/18 Unknown History Bisacodyl [Dulcolax suppos] 10 mg [place] 3XW MDD constipation 04/27/18 04/27/18 Unknown History Diltiazem HCl [Diltiazem 12Hr ER] 120 mg PO DAILY 04/27/18 04/27/18 Unknown History Ferrous Sulfate [Iron] 325 mg PO DAILY 04/27/18 04/27/18 Unknown History Fluticasone (Nf) [Flovent Hfa(Nf)] 1 puff IH BID 04/27/18 04/27/18 Unknown History Ipratropium [Atrovent NEB] 0.02 ml INHALATION BID 04/27/18 04/27/18 Unknown History Levalbuterol [Xopenex] 1.25 mg IH Q6HRT PRN 04/27/18 04/27/18 Unknown History Levothyroxine [Synthroid] 125 mcg PO QAM 04/27/18 04/27/18 Unknown History Multivitamin Tab W-MINERAL 1 each PO QD 04/27/18 04/27/18 Unknown History [Multiple Vitamin/Mineral (Theragran M)] [place] 5-325 mg TAB 1 tab PO Q6H PRN 04/27/18 04/27/18 Unknown History Pantoprazole Sodium 40 mg PO DAILY 04/27/18 04/27/18 Unknown History Procrit 4,000 units SQ 3XW 04/27/18 04/27/18 Unknown History Senna Laxative Tablet 2 tab PO HS 04/27/18 04/27/18 Unknown History Sucralfate 1 gm PO 4XD 04/27/18 04/27/18 Unknown History Tramadol HCl [Ultram] 50 mg PO Q6HR PRN 04/27/18 04/27/18 Unknown History Zinc Oxide [[place]] 100 gm TP DAILY 04/27/18 04/27/18 Unknown History traZODone [Desyrel] 25 mg PO QHS PRN 04/27/18 04/27/18 Unknown History Active Medications: Generic Name Dose Route Start Last Admin Trade Name Freq PRN Reason Stop Dose Admin Albuterol/Ipratropium 1 ampul 04/26/18 14:00 05/03/18 13:46 Duoneb *Not For Prn Use* IH 1 ampul Q6HRT RICHARD Administration Amiodarone HCl 200 mg 04/28/18 22:00 05/03/18 10:15 Cordarone PO 200 mg BID RICHARD Administration Lipase/Protease/Amylase 1 each 05/01/18 14:52 Pancreaze 10,500 Unit FEEDTUBE PRN PRN For Clogged Feeding Tube Aspirin 81 mg 04/26/18 11:00 05/03/18 10:15 Baby Aspirin PO 81 mg QDAY RICHARD Administration Budesonide 0.5 mg 04/26/18 20:00 05/03/18 07:56 Pulmicort IH 0.5 mg Q12HRT RICHARD Administration Famotidine 20 mg 05/01/18 11:00 05/03/18 10:16 Pepcid PO 20 mg DAILY RICHARD Administration Folic Acid 1 mg 04/26/18 11:00 05/03/18 10:15 Folvite PO 1 mg QDAY RICHARD Administration Sodium Chloride 1,000 mls @ 75 mls/hr 04/29/18 16:00 05/03/18 03:49 Nacl 0.45% 1000 Ml IV 75 mls/hr DIRECT RICHARD Administration Levetiracetam 500 mg 04/26/18 11:00 05/03/18 10:16 Keppra PO 500 mg BID RICHARD Administration Levothyroxine Sodium 125 mcg 04/26/18 11:00 05/03/18 07:39 Synthroid PO 125 mcg QAM@0600 RICHARD Administration Pravastatin Sodium 40 mg 04/26/18 11:00 05/03/18 10:16 Pravachol PO 40 mg DAILY RICHARD Administration Simple Syrup 15 ml 05/01/18 14:52 Simple Syrup FEEDTUBE PRN PRN Hypoglycemia Simple Syrup 30 ml 05/01/18 14:52 Simple Syrup FEEDTUBE PRN PRN Hypoglycemia Sodium Bicarbonate 325 mg 05/01/18 14:52 Sodium Bicarbonate FEEDTUBE PRN PRN For Clogged Feeding Tube Trazodone HCl 50 mg 04/26/18 22:00 05/02/18 21:41 Desyrel PO 50 mg QHS RICHARD Administration
[2018-05-03] MEDS: DESYREL PO SCH (22:46)
[2018-05-04 02:45] VITALS: BP 98/41
[2018-05-04] MEDS: DUONEB *Not for PRN Use IH SCH ×2 (02:48→07:22)
[2018-05-04] MEDS: NACL 0.45% 1000 ML 1,000 ML IV SCH (03:36)
[2018-05-04 06:29] LABS: Calcium 7.9 mg/dL (8.4-10.2)
[2018-05-04] MEDS: SYNTHROID PO SCH (06:42)
[2018-05-04] MEDS: PULMICORT IH SCH (07:22)
--- NOTE | 2018-05-04 08:04 | Event Note ---
Date: 05/04/18 Nurse called and reported patient When I came and examined the patient Patient unresponsive, pupils dilated and fixed No cardiopulmonary activity noted Pronounced ; Time of ; 6:50 a.m. on 05/04/2018
--- NOTE | 2018-05-04 08:09 | Death Summary ---
Summary - Providers Date of service: 05/04/18 Consults: 04/26/18 09:40 Consult to Physician [CONS] Routine Comment: Consulting Provider: WHITNEY VINCENT Physician Instructions: pulm/CC consult Reason For Exam: Ac hypoxic resp failure/Jacob Pl effusion Rt>Lt 04/26/18 09:50 Consult to Physician [CONS] Routine Comment: Consulting Provider: KATERIN ALFREDO Physician Instructions: Reason For Exam: ac on chronic kidney disease 04/26/18 09:57 Consult to Physician [CONS] Routine Comment: Consulting Provider: JOSE SMITH Physician Instructions: Reason For Exam: Positive trop/afib/CHF 04/27/18 11:13 Consult to Dietitian/Nutrition [CONS] Routine Physician Instructions: Reason For Exam: Reason for Consult: Write/Manage Tube Feeding 05/02/18 08:21 Speech Therapy Evaluation and Treat [CONS] Routine Reason For Exam: to wean off tube feeding 05/03/18 13:19 Consult to Wound/ET Nurse [CONS] Routine Reason For Exam: wound eval 05/03/18 17:51 Occupational Therapy Evaluate and Treat [CONS] Routine Comment: Reason For Exam: gen debility Physical Therapy Evaluation and Treat [CONS] Routine Comment: Reason For Exam: gen debility Attending: NICK PRESTON - summary Date of admission: 04/26/18 07:37 Date of : 05/04/18 (6:50 am) Reason for admission: acute respiratory failure Significant findings: 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 On 04/29/2018 the whole family gathered around the bedside, I explained in detail to patient's condition and poor prognosis and treatment options, the family requested DNR/DNI status but continue all the rest of the management.Patient was closely monitored medications optimized, on 05/04/2018, the nurse reported to me that patient had cardiac arrest, cardiopulmonary activity could not be recorded, on 05/04/2018 at 6:50 AM, pronounced Time of ; 6:50 AM on 05/04/2018. Discharge Diagnosis: --Cardio pulmonary arrest; patient --Acute hypoxic/hypercapnic respiratory failure; requiring BiPAP No Improvement patient went into cardiac pulmonary arrest --Acute exacerbation of bronchial asthma; on BiPAP Oxygen nebulizers IV steroids and inhalation steroids Pulmonary evaluated the patient --Bilateral pleural effusion; right more than left, pulmonary following f/u chest x-ray, significant improvement of pleural effusions --Perihilar infiltrate/possible pneumonia; received empiric antibiotics --Anemia; hemoglobin 6.7, patient received 1 unit of PRBC Hemoglobin improved to 8.8 --Acute on chronic kidney injury;worsening renal function Cr 4.1 today vasomotor nephropathy, avoid nephrotoxins, nephro recommend HD Family refused hemodialysis. --Acute on chronic congestive heart failure; EF :45-50% 2 years ago, IV diuretics, beta blockers Input output monitoring, echocardiogram, cardiology evaluation --Positive cardiac enzymes/possible non-ST elevation [place] Cardiac medications serial cardiac enzymes and EKGs neg --History of A. fib; rate controlled: Continue amiodarone, aspirin, not a candidate for chronic anticoagulation, h/o GI bleed ,dementia , Advanced age, risk of falls , Cardiology fellowing --Dementia; supportive care --Malnutrition moderate/hyperalbuminemia; nutrition supplements and nutrition consult --Hypothyroidism; continue Synthroid --DVT prophylaxis; SCDs, Lovenox --DNR, continue full treatment Spent total 45 minutes Pertinent studies: Chest x-ray 04/26/18; bilateral pleural effusions larger on the right, right perihilar infiltrates and no pneumothorax X-ray Abdomen; feeding tube terminates in the mid stomach Echocardiogram; Renal ultrasound; echogenic kidney consistent with nonspecific renal parenchymal disease bilateral renal cysts Echo; EF 55-60% Normal left and right ventricular systolic function Normal left ventricular diastolic function Disposition: - Final diagnosis (1) Acute respiratory failure Qualifiers: Respiratory failure complication: hypoxia and hypercapnia Qualified Code(s): J96.01 - Acute respiratory failure with hypoxia; J96.02 - Acute respiratory failure with hypercapnia Note: Final diagnosis: (2) Non-ST elevation [place] (NSTEMI) Note: Final diagnosis: (3) Acute on chronic systolic heart failure Note: Final diagnosis: (4) Ynvkh-qk-ptyykha kidney injury Note: Final diagnosis: (5) Atrial fibrillation with RVR Note: Final diagnosis: (6) Malnutrition Note: Final diagnosis: (7) Asthma exacerbation Note: Final diagnosis:
== END 2018-05-04 09:50 | DRG 871 ==
LOC: ED 04:26 → CC1 07:37 → IMCU 05-01 21:46 → 2B-ACE 05-03 20:24
PROVIDERS: ADMIT Internal Medicine; ATTEND Internal Medicine
PROC: 4A033R1 Measurement of Arterial Saturation, Peripheral, Percutaneous Approach (ICD-10-PCS; 2018-04-26)
PROC: 5A09357 Assistance with Respiratory Ventilation, Less than 24 Consecutive Hours, Continuous Positive Airway Pressure (ICD-10-PCS; 2018-04-26)
PROC: 30233N1 Transfusion of Nonautologous Red Blood Cells into Peripheral Vein, Percutaneous Approach (ICD-10-PCS; principal; 2018-04-29)
PROC: 5A09357 Assistance with Respiratory Ventilation, Less than 24 Consecutive Hours, Continuous Positive Airway Pressure (ICD-10-PCS; 2018-04-29)
PROC: 5A09357 Assistance with Respiratory Ventilation, Less than 24 Consecutive Hours, Continuous Positive Airway Pressure (ICD-10-PCS; 2018-04-30)
PROC: 5A09357 Assistance with Respiratory Ventilation, Less than 24 Consecutive Hours, Continuous Positive Airway Pressure (ICD-10-PCS; 2018-05-01)
DX: A41.9 Sepsis, unspecified organism (principal); J18.9 Pneumonia, unspecified organism; J96.01 Acute respiratory failure with hypoxia; J96.02 Acute respiratory failure with hypercapnia; N17.0 Acute kidney failure with tubular necrosis; I50.23 Acute on chronic systolic (congestive) heart failure; I21.A1 Myocardial infarction type 2; J45.901 Unspecified asthma with (acute) exacerbation; N18.4 Chronic kidney disease, stage 4 (severe); E87.0 Hyperosmolality and hypernatremia; J90 Pleural effusion, not elsewhere classified; Z66 Do not resuscitate; I48.91 Unspecified atrial fibrillation; D64.9 Anemia, unspecified; F01.50 Vascular dementia, unspecified severity, without behavioral disturbance, psychotic disturbance, mood disturbance, and anxiety; Z79.82 Long term (current) use of aspirin; Z90.710 Acquired absence of both cervix and uterus; Z87.891 Personal history of nicotine dependence; Z86.73 Personal history of transient ischemic attack (TIA), and cerebral infarction without residual deficits; Z95.5 Presence of coronary angioplasty implant and graft; Z82.49 Family history of ischemic heart disease and other diseases of the circulatory system
CPT/HCPCS: 36415; 36600; 71045; 74018; 76770; 80048; 80053; 80061; 80076; 81001; 82140; 82550; 82553; 82570; 82803; 82805; 82962; 83735; 83880; 83970; 84100; 84132; 84300; 84439; 84443; 84484; 85007; 85014; 85018; 85025; 85379; 85610; 85730; 86850; 86900; 86901; 86920; 87040; 93005; 93010; 93306; 94640; 94644; 94660; 94760; G0378; A9270-GY; J0610; J0692; J1815; J1940; J1956; J2543; J2930; J7030; J7040; P9016; P9047; Q0177